=== PATIENT | male | born 1935 | race Hispanic/Latino ===

== ENCOUNTER 2017-09-05 10:24 | Inpatient (IN) | payer MEDICARE, MEDICAID ==
[2017-09-05 10:24] VITALS: BMI 27.1
--- NOTE | 2017-09-05 10:49 | C.PDOC ---
History Of Present Illness 82yo male, with history of AFib and currently on digoxin, referred to his ER from detention for hypotension for an unknown duration. Patient currently complaints of feeling dizzy. He also states he had hip pain last night and asked staff for pain killers, after which pain was resolved. He also reports "shaking" to his left arm and leg which has also resolved. Patient denies any chest pain, headache, loss of consciousness, nausea or vomiting. PER OLD RECS: AFib, DM2, HTN and CHF was admitted at [facility] because of left sided weakness and left upper extremity tremor. CT scan of the head showed Acute Right Subdural Hematoma with mass effect and midline shift. Neurosurgical consult were made and patient was sent to OR for right frontal craniotomy and evacuation of hematoma. Patient was sent to [facility] for continuation of therapy. While in acute rehab, patient had 2 episodes of focal seizures today. Patient was evaluated by Neuro team, and subsequently transferred to acute care for IV Keppra and close monitoring. Repeat CT Head showed mild increase in thickness of R frontoparietal subdural hematoma. Discussed with Neuro, patient to be transferred back to acute rehab Time Seen by Provider: 09/05/17 10:45 Chief Complaint (Nursing): Dizziness/Lightheaded History Per: Patient Onset/Duration Of Symptoms: Unknown Additional History Per: Penitentiary, Prior Records Past Medical History Reviewed: Historical Data, Nursing Documentation, Vital Signs Vital Signs: Last Vital Signs Temp 98.2 F 09/05/17 11:58 Pulse 113 H 09/05/17 11:58 Resp 28 H 09/05/17 11:58 BP 92/58 L 09/05/17 11:58 Pulse Ox 99 09/05/17 12:12 - Medical History PMH: Arthritis, Atrial Fibrillation, Cardia Arrhythmia (Atrial Fibrillation), CHF, COPD, Diabetes, Gastrointestinal Ulcer, HTN, Hypercholesterolemia, Peripheral Edema Denies: Depression, HIV, Chronic Kidney Disease Surgical History: Denies: Pacemaker - [facility] Procedures APPLICATION OF SPLINT (07/26/13) COLONOSCOPY (02/07/12) COMM/COGNIT SKILL TREATMENT USING AUGMENT COMM EQUIPMENT (08/17/17) DRAINAGE OF SUBDURAL SPACE WITH DRAIN DEV, OPEN APPROACH (08/11/17) DRESSING TECHNIQUES TREATMENT USING ASSIST EQUIPMENT (07/20/16) ENDOSC POLYPECTOMY OF LG INTEST (11/16/99) EXERCISE TREATMENT OF MUSCULOSK LOW BACK/LE USING OTH EQUIP (07/20/16) EXERCISE TRMT MUSCULOSK HEAD, NECK W ASSIST EQUIP (08/17/17) GAIT TRAINING/AMBULAT TREATMENT USING ASSIST EQUIPMENT (08/17/17) HOME MANAGEMENT TREATMENT USING ASSIST EQUIPMENT (08/17/17) INSERTION OF INTRALUM DEV INTO INF VENA CAVA, PERC APPROACH (08/17/17) OCCUPATIONAL THERAPY (09/09/13) PHYSICAL THERAPY NEC (09/09/13) TETANUS TOXOID ADMINIST (03/28/07) TRANSFER TRAINING TREATMENT USING ASSIST EQUIPMENT (07/20/16) TRANSFUSE NONAUT FROZEN PLASMA IN PERIPH VEIN, PERC (08/11/17) TRANSFUSE NONAUT PLATELETS IN PERIPH VEIN, PERC (08/11/17) TRANSURETHRAL PROSTATECTOMY ([place]) (04/29/14) TU DESTRUC BLADD LES NEC (08/08/13) Family History: States: Unknown Family Hx - Social History Hx Tobacco Use: No Hx Alcohol Use: No Hx Substance Use: No - Immunization History Hx Tetanus Toxoid Vaccination: No Hx Influenza Vaccination: No Hx Pneumococcal Vaccination: No Review Of Systems Except As Marked, All Systems Reviewed And Found Negative. Cardiovascular: Positive for: Other (hypotension per detention). Negative for: Chest Pain Gastrointestinal: Negative for: Nausea, Vomiting Neurological: Positive for: Dizziness. Negative for: Headache Physical Exam - Physical Exam Appears: Non-toxic, Other (mild distress) Skin: Normal Color, Warm, Dry, Other (no pressure ulcers noted) Head: Atraumatic, Normacephalic Eye(s): bilateral: Normal Inspection, PERRL, EOMI Nose: Normal Oral Mucosa: Moist Neck: Normal ROM, Supple Chest: Symmetrical Cardiovascular: Rhythm Irregular (irregularly irregular, tachycardic) Respiratory: Normal Breath Sounds Gastrointestinal/Abdominal: Normal Exam, Soft, No Tenderness Back: Normal Inspection Extremity: Normal ROM, No Deformity, No Swelling Pulses: Left Radial: Normal, Right Radial: Normal Neurological/Psych: Oriented x3, No Other (focal deficits) ED Course And Treatment - Laboratory Results Result Diagrams: 09/05/17 11:25 09/05/17 11:25 ECG: Interpreted By Me ECG Rhythm: Atrial Fibrillation ECG Interpretation: No Changes From Prior Rate From EC O2 Sat by Pulse Oximetry: 99 (RA) Pulse Ox Interpretation: Normal - Radiology CXR: Interpreted by Me, Viewed By Me CXR Interpretation: Yes: No Acute Disease Progress - Re-Evaluation Re-evaluation Note: 09/05/17 11:01 D/W DR FONSECA AWARE OF ER FINDINGS. STATES TO ADMIT TO DR BENTON, WILL NOTIFY HIM OF ADMISISON 09/05/17 11:52 AFEBRILE. BP IMPROVED IVF IN PROGRESS 09/05/17 11:58 CODE SEPSIS ACTIVATED. PENDING CALLBACK DR ALEMAN C/F ICU UO 500 CC S/P BOLUS 09/05/17 12:08 D/W DR ALEMAN C/F ICU , ACCEPTS FOR ICU 09/05/17 12:11 PER PHARMACOLOGY, NO CARDIZEM AVAIL 09/05/17 12:32 DR LOVE MARINELLI, WILL MANAGE RATE CONTROL. - Data Reviewed Data Reviewed: Lab, Diagnostic imaging, EKG, Old records - Critical Care Citical Care: Excluding Proc Time Critical Care Time: 120 minutes - Continuity of Care Discussed patient case with:: Patient, PMD Discussed pt. case with category consultant/specialty: Pulmonary/Crit. Care Medical Decision Making Medical Decision Making: Plan: -- Unable to bolus per sepsis protocol due to concern for CHF -- Labs -- CXR -- EKG -- IV Fluids Prior records: Patient had an echo on August 2017, noting normal LV, normal LVF, and moderate tricuspid regurge. Disposition Counseled Patient/Family Regarding: Studies Performed, Diagnosis - Disposition Disposition: HOSPITALIZED Disposition Time: 12:00 Condition: SERIOUS Forms: [facility] ([place]) - POA Present On Arrival: Poor Glycemic Control Core Measure Indicators: Code Sepsis - Clinical Impression Clinical Impression: Near syncope, Rapid atrial fibrillation, Hypotension, Sepsis - Scribe Statement The provider has reviewed the documentation as recorded by the Scribe (Sonia Fishman) Provider Attestation: All medical record entries made by the Scribe were at my direction and personally dictated by me. I have reviewed the chart and agree that the record accurately reflects my personal performance of the history, physical exam, medical decision making, and the department course for this patient. I have also personally directed, reviewed, and agree with the discharge instructions and disposition. Decision To Admit - Pt Status Changed To: Hospital Disposition Of: Inpatient - Admit Certification Admit to Inpatient:: After my assessment, the patient will require hospitalization for at least two midnights. This is because of the severity of symptoms shown, intensity of services needed, and/or the medical risk in this patient being treated as an outpatient. - InPatient: Physician Admission Certification: I certify that this patient requires 2 or more midnights of care for the following reason:: SEE NOTE - . Bed Request Type: ICU Admitting Physician: Navin Benton Patient Diagnosis: Near syncope, Rapid atrial fibrillation, Hypotension, Sepsis
[2017-09-05] MEDS ORDERED: Sodium Chloride 0.9% 500 ML IV ONE ×2 (11:02→12:22)
[2017-09-05] MEDS ORDERED: Sodium Chloride 0.9% 250 ML IV ONE ×2 (11:03→12:22)
[2017-09-05 11:29] LABS: HEMOGLOBIN 9.6 g/dL (12.0-18.0); MEAN CELL VOLUME 87.6 fL (80.0-94.0); MEAN CORPUSCULAR HEMOGLOBIN 28.8 pg (27.0-31.0); MEAN CORPUSCULAR HGB CONC 32.9 g/dL (33.0-37.0); MEAN PLATELET VOLUME 7.6 fL (7.2-11.7); NEUT % 90.4 % (50.0-75.0); PLATELET COUNT 763 K/uL (130-400); RBC 3.33 Mil/uL (4.40-5.90); RED CELL DISTRIBUTION WIDTH 16.8 % (11.5-14.5); WHITE BLOOD COUNT 25.1 K/uL (4.8-10.8)
[2017-09-05 11:30] LABS: BASO # 0.1 K/uL (0.0-0.2); BASO % 0.5 % (0.0-2.0); LYMPH # 1.2 K/uL (1.0-4.3); LYMPH % 4.6 % (20.0-40.0); MONO # 1.1 K/uL (0.0-0.8); MONO % 4.5 % (0.0-10.0); NEUT # 22.7 K/uL (1.8-7.0)
[2017-09-05 11:37] LABS: VENOUS BLOOD GAS BASE EXCESS -14.2 mmol/L (0.0-2.0); VENOUS BLOOD GAS PCO2 34 mmHg (40-60); VENOUS BLOOD GAS PO2 14 mm/Hg (30-55); VENOUS BLOOD PH 7.19 (7.32-7.43)
[2017-09-05 11:41] LABS: INR 1.2
[2017-09-05 11:53] LABS: ANISOCYTOSIS SLIGHT; BANDS 4 % (0-2); LARGE PLATELETS PRESENT; LYMPHOCYTE 2 % (20-40); MONOCYTE 5 % (0-10); MYELOCYTE 1 % (0-0); NEUTROPHIL 87 % (50-75); PLATELET ESTIMATE INCREASED (NORMAL); REACTIVE LYMPHOCYTES 1 % (0-0); TOTAL CELLS COUNTED 100
--- NOTE | 2017-09-05 11:55 | RAD ---
HISTORY: Sepsis Patient COMPARISON: No prior. FINDINGS: LUNGS: No active pulmonary disease. PLEURA: No significant pleural effusion identified, no pneumothorax apparent. CARDIOVASCULAR: Normal. OSSEOUS STRUCTURES: Degenerative changes. VISUALIZED UPPER ABDOMEN: Normal. OTHER FINDINGS: None. IMPRESSION: No active disease.
[2017-09-05] MEDS ORDERED: Piperacillin/Tazobact 3.375 gm 100 ML IV STA (11:57)
[2017-09-05 11:59] LABS: TROPONIN I 0.03 ng/mL (0.00-0.120)
[2017-09-05] MEDS ORDERED: Vancomycin 1 GM 1 GM/250 ML BAG IV SCH (12:00)
[2017-09-05] MEDS ORDERED: Metoprolol 1 mg/ml Inj IVP ONE ×2 (12:12→12:22)
[2017-09-05 12:15] LABS: SQUAMOUS EPITHIAL 1 /hpf (0-5); URINE BILIRUBIN NEGATIVE (NEGATIVE); URINE BLOOD NEGATIVE (NEGATIVE); URINE CLARITY Clear (Clear); URINE COLOR Straw (YELLOW); URINE GLUCOSE (UA) 2+ mg/dL (Normal); URINE LEUKOCYTE ESTERASE NEG Leu/uL (Negative); URINE PROTEIN NEGATIVE (NEGATIVE); URINE UROBILINOGEN NORMAL mg/dL (0.2-1.0)
--- NOTE | 2017-09-05 12:40 | CP.PCM.CON ---
<Nighat Juarez - Last Filed: 09/05/17 15:42> History of Present Illness - History of Present Illness History of Present Illness: ICU consult: Patient is a 82 year old male with past medical history of atrial fibrillation, diabetes mellitus, urinary retention with recent UTI, CKD, s/p Right frontal craniotomy for evacuation of subdural hematoma was sent to [facility] from the [facility]) for hypotension, BP 62/52. [facility] he was given 500 NS bolus and 20 units of insulin for blood sugar of 336. Upon arrival patient was complaining that he felt dizzy. While in the ICU patient states that he feels tired, reports that he did not sleep well last night. Offers no other complaints at this time. Code sepsis was called in the ER. Patient was found to have lactate 3.5, WBC 25. Admits to having back pain and feels cold. He denies any headaches, nausea/vomiting, fevers, chest pain, palpitations, sob, abdominal pain, urinary symptoms. ED course: Vancomycin 1 gm, Zosyn 3.375, NS bolus 750cc, calcium gluconate x 1 dose Allergies: NKDA Medications: See MAR Medical History: A fib, diabetes mellitus, urinary retention, CKD, COPD Surgical History: Left Knee surgery, Right frontal craniotomy for evacuation of subdural hematoma (08/19/17), IVC filter (08/27/17), prostate surgery Social History: Former smoker, denies alcohol, drug use Past Patient History - Infectious Disease Hx of Infectious Diseases: None - Tetanus Immunizations Tetanus Immunization: Unknown - Past Social History Smoking Status: Never Smoked - CARDIAC Hx Atrial Fibrillation: Yes Hx Cardia Arrhythmia: Yes (Atrial Fibrillation) Hx Congestive Heart Failure: Yes Hx Hypercholesterolemia: Yes Hx Hypertension: Yes Hx Pacemaker: No Hx Peripheral Edema: Yes - PULMONARY Hx Chronic Obstructive Pulmonary Disease (COPD): Yes - NEUROLOGICAL Hx Neurological Disorder: No - HEENT Hx HEENT Problems: No - RENAL Hx Chronic Kidney Disease: No - ENDOCRINE/METABOLIC Hx Endocrine Disorders: Yes Hx Diabetes Mellitus Type 2: Yes - HEMATOLOGICAL/ONCOLOGICAL Hx Human Immunodeficiency Virus (HIV): No - INTEGUMENTARY Hx Dermatological Problems: No - MUSCULOSKELETAL/RHEUMATOLOGICAL Hx Arthritis: Yes - GASTROINTESTINAL Hx Gastrointestinal Disorders: Yes Hx Gastroesophageal Reflux: Yes - GENITOURINARY/GYNECOLOGICAL Hx Genitourinary Disorders: Yes Other/Comment: prostate sx - PSYCHIATRIC Hx Depression: No Hx Substance Use: No - SURGICAL HISTORY Hx Surgeries: Yes Other/Comment: PROSTATE - ANESTHESIA Hx Anesthesia Reactions: No Hx Malignant Hyperthermia: No Meds Allergies/Adverse Reactions: Allergies Allergy/AdvReac Type Severity Reaction Status Date / Time No Known Allergies Allergy Verified 09/05/17 10:47 - Medications Medications: Current Medications Vancomycin/Sodium Chloride (Vancomycin 1 Gm/Ns 200 Ml) 1 gm in 200 mls @ 166.667 mls/hr IVPB ONCE ONE PRN Reason: Protocol Stop: 09/05/17 14:11 Physical Exam - Constitutional Appears: Well, No Acute Distress, Chronically Ill - Head Exam Head Exam: ATRAUMATIC, NORMAL INSPECTION, NORMOCEPHALIC - Eye Exam Eye Exam: EOMI, Normal appearance Pupil Exam: PERRL - ENT Exam ENT Exam: Mucous Membranes Dry - Respiratory Exam Respiratory Exam: Clear to Auscultation Bilateral, NORMAL BREATHING PATTERN. absent: Rales, Rhonchi, Wheezes - Cardiovascular Exam Cardiovascular Exam: Irregular Rhythm, +S1, +S2 - GI/Abdominal Exam GI & Abdominal Exam: Normal Bowel Sounds, Soft. absent: Guarding, Rebound, Rigid, Tenderness - Extremities Exam Extremities exam: Positive for: pedal edema, pedal pulses present Additional comments: +Bilateral stockings - Neurological Exam Neurological exam: Alert - Psychiatric Exam Psychiatric exam: Normal Affect, Normal Mood - Skin Skin Exam: Dry, Normal Color, Warm Results - Vital Signs Recent Vital Signs: Last Vital Signs Temp 98.2 F 09/05/17 11:58 Pulse 113 H 09/05/17 11:58 Resp 28 H 09/05/17 11:58 BP 92/58 L 09/05/17 11:58 Pulse Ox 99 09/05/17 12:32 - Labs Result Diagrams: 09/05/17 11:25 09/05/17 12:26 Labs: Laboratory Results - last 24 hr 09/05/17 09/05/17 09/05/17 10:43 11:25 11:25 WBC 25.1 H RBC 3.33 L Hgb 9.6 L Hct 29.2 L MCV 87.6 MCH 28.8 MCHC 32.9 L RDW 16.8 H Plt Count 763 H MPV 7.6 Neut % (Auto) 90.4 H Lymph % (Auto) 4.6 L Spencer % (Auto) 4.5 Eos % (Auto) 0.0 Baso % (Auto) 0.5 Neut # (Auto) 22.7 H Lymph # (Auto) 1.2 Spencer # (Auto) 1.1 H Eos # (Auto) 0.0 Baso # (Auto) 0.1 Neutrophils % (Manual) 87 H Band Neutrophils % 4 H Lymphocytes % (Manual) 2 L Reactive Lymphs % 1 H Monocytes % (Manual) 5 Myelocytes % 1 H Platelet Estimate Increased H Large Platelets Present Anisocytosis (manual) Slight PT 13.0 H INR 1.2 APTT 31 pO2 VBG pH VBG pCO2 VBG HCO3 VBG Total CO2 VBG O2 Sat (Calc) VBG Base Excess VBG Potassium Glucose Lactate Crit Value Called To Crit Value Called By Crit Value Read Back Blood Gas Notified Time Sodium Potassium Chloride Carbon Dioxide Anion Gap BUN Est GFR ( Amer) Est GFR (Non-Af Amer) POC Glucose (mg/dL) 310 H Random Glucose Calcium Phosphorus Magnesium Total Bilirubin AST ALT Alkaline Phosphatase Troponin I NT-Pro-B Natriuret Pep Total Protein Albumin Globulin Albumin/Globulin Ratio Venous Blood Potassium Urine Color Urine Clarity Urine pH Ur Specific [place] Urine Protein Urine Glucose (UA) Urine Ketones Urine Blood Urine Nitrate Urine Bilirubin Urine Urobilinogen Ur Leukocyte Esterase Urine WBC (Auto) Urine RBC (Auto) Ur Squamous Epith Cells Digoxin 09/05/17 09/05/17 09/05/17 11:25 11:25 11:32 WBC RBC Hgb Hct MCV MCH MCHC RDW Plt Count MPV Neut % (Auto) Lymph % (Auto) Spencer % (Auto) Eos % (Auto) Baso % (Auto) Neut # (Auto) Lymph # (Auto) Spencer # (Auto) Eos # (Auto) Baso # (Auto) Neutrophils % (Manual) Band Neutrophils % Lymphocytes % (Manual) Reactive Lymphs % Monocytes % (Manual) Myelocytes % Platelet Estimate Large Platelets Anisocytosis (manual) PT INR APTT pO2 14 L VBG pH 7.19 L* VBG pCO2 34 L VBG HCO3 11.5 VBG Total CO2 14.0 L VBG O2 Sat (Calc) 18.9 L VBG Base Excess -14.2 L VBG Potassium 6.4 H* Glucose 325 H Lactate 3.5 H Crit Value Called To Dr.ho adame Crit Value Called By Shelton machado,alex. Crit Value Read Back Y Blood Gas Notified Time 1145 Sodium Cancelled 130.0 L Potassium Cancelled Chloride Cancelled 98.0 Carbon Dioxide Cancelled Anion Gap Cancelled BUN Cancelled Est GFR ( Amer) Cancelled Est GFR (Non-Af Amer) Cancelled POC Glucose (mg/dL) Random Glucose Cancelled Calcium Cancelled Phosphorus Cancelled Magnesium Cancelled Total Bilirubin Cancelled AST Cancelled ALT Cancelled Alkaline Phosphatase Cancelled Troponin I 0.0300 NT-Pro-B Natriuret Pep 5510 H Total Protein Cancelled Albumin Cancelled Globulin Cancelled Albumin/Globulin Ratio Cancelled Venous Blood Potassium 6.4 H* Urine Color Urine Clarity Urine pH Ur Specific [place] Urine Protein Urine Glucose (UA) Urine Ketones Urine Blood Urine Nitrate Urine Bilirubin Urine Urobilinogen Ur Leukocyte Esterase Urine WBC (Auto) Urine RBC (Auto) Ur Squamous Epith Cells Digoxin 1.4 09/05/17 12:07 WBC RBC Hgb Hct MCV MCH MCHC RDW Plt Count MPV Neut % (Auto) Lymph % (Auto) Spencer % (Auto) Eos % (Auto) Baso % (Auto) Neut # (Auto) Lymph # (Auto) Spencer # (Auto) Eos # (Auto) Baso # (Auto) Neutrophils % (Manual) Band Neutrophils % Lymphocytes % (Manual) Reactive Lymphs % Monocytes % (Manual) Myelocytes % Platelet Estimate Large Platelets Anisocytosis (manual) PT INR APTT pO2 VBG pH VBG pCO2 VBG HCO3 VBG Total CO2 VBG O2 Sat (Calc) VBG Base Excess VBG Potassium Glucose Lactate Crit Value Called To Crit Value Called By Crit Value Read Back Blood Gas Notified Time Sodium Potassium Chloride Carbon Dioxide Anion Gap BUN Est GFR ( Amer) Est GFR (Non-Af Amer) POC Glucose (mg/dL) Random Glucose Calcium Phosphorus Magnesium Total Bilirubin AST ALT Alkaline Phosphatase Troponin I NT-Pro-B Natriuret Pep Total Protein Albumin Globulin Albumin/Globulin Ratio Venous Blood Potassium Urine Color Straw Urine Clarity Clear Urine pH 5.0 Ur Specific [place] 1.008 Urine Protein Negative Urine Glucose (UA) 2+ H Urine Ketones Negative Urine Blood Negative Urine Nitrate Negative Urine Bilirubin Negative Urine Urobilinogen Normal Ur Leukocyte Esterase Neg Urine WBC (Auto) 1 Urine RBC (Auto) 1 Ur Squamous Epith Cells 1 Digoxin Assessment & Plan - Assessment and Plan (Free Text) Assessment: Patient is a 82 year old male with past medical history of atrial fibrillation, B/L DVT s/p IVC filter, recent subdural hematoma s/p craniotomy with evacuation presents to [facility] from [facility] ([facility]) with hypotension. Code sepsis called in the ER. Patient admitted to the ICU for further management Neurology: -Patient is a AAOx2 (not to time) -S/P right frontal craniotomy with evacuation -Reports feeling dizzy today, likely due to hypotension -Last CT head 08/22 showed diminishing right convexity subdural hematoma with limited mass effect. Leftward midline shift is further reduced now only 1-2mm with no definite intracrancial hemorrhage appearing acute at this time. Chronic lacune again noted at the right optic radiations. -Will repeat CT head today -Will continue to monitor in ICU Cardiology: -History of atrial fibrillation, on digoxin at home -Digoxin level 1.4, HR 120s -EKG showing afib with RVR -Will give Digoxin 0.125mg IVP x 1 dose now -Hypotensive: will give 1 L bolus of NS -Will hold metoprolol and lasix at this time -Last echo: LV normal size, mild concentric L ventricular hypertrophy, moderate tricuspid regurgitation Respiratory: -Supplemental O2 as needed -CXR on admission: no active disease -VBG: pH 7.17, PO2 15, PCO2 34 -Patient is acidotic, was given 1 amp of bicarb -Continue Bicarb drip in NS at 75cc/hr -Will repeat ABG later today Endocrine: -History of Diabetes Mellitus -Hgba1c 9.9 -Low dose ISS, accuchecks ACHS GI: -No acute issues at this time -Continue Protonix 40mg IVP daily Infectious Disease: -Patient was recently treated for UTI -Will given 1 bolus of NS -UA: +2 glucose -F/U urine cultures, blood cultures, procalcitonin -Trend lactate -Code sepsis called in ER Renal: -Patient with history of CKD -Currently with acute on chronic CKD -BUN/Cr: 52/4.6, baseline Cr 2.0 -Potassium 6.5, received calcium gluconate -Will give kayexylate 30 x 1 dose -Repeat CMP later today -Continue IV hydration -Renal US 08/3017: unremarkable -Strict I/Os, daily weights -Nephro on consult, help appreciated Heme/Onc: -Patient with history of provoked bilateral DVTs -Was seen by Dr Tierney -S/P IVC filter placement 08/27/17 -SCDs contraindicated -Hgb 9.6, baseline 10-11 -No acute signs of bleeding at this time, will monitor serial CBCs -Hold Iron supplementation 2/ sepsis Musculoskeletal: -Ultram 50mg PO x 1 given for back pain -Lumbar MRI 08/2017: Levoscoliosis with multilevel severe degenerative disc disease and spondylosis with multilevel central canal and bilateral foraminal stenoses : -History of urinary retention, prostate surgery -Ellis in draining clear yellow urine -On oxybutynin and flomax at home -Will hold at time in light of hypotension GI/DVT ppx: -Protonix 40mg IVP daily -Heparin 3000 Q12H (previously on same dose) <Michael Patel - Last Filed: 09/05/17 16:22> Meds - Medications Medications: Current Medications Heparin Sodium (Porcine) (Heparin) 3,000 units SC Q12 [facility] Sodium Bicarbonate 100 meq/ (Sodium Chloride) 1,100 mls @ 75 mls/hr IV .[id number] [facility] Last Admin: 09/05/17 15:28 Dose: 75 mls/hr Insulin Aspart (Novolog) 0 unit SC Q6H [facility] PRN Reason: Protocol Last Admin: 09/05/17 14:05 Dose: 4 unit Levetiracetam (Keppra) 500 mg PO Q12 [facility] Pantoprazole Sodium (Protonix Inj) 40 mg IVP DAILY [facility] Results - Vital Signs Recent Vital Signs: Last Vital Signs Temp 98.2 F 09/05/17 13:00 Pulse 108 H 09/05/17 13:27 Resp 18 09/05/17 13:27 BP 94/58 L 09/05/17 13:27 Pulse Ox 98 09/05/17 13:27 - Labs Result Diagrams: 09/05/17 11:25 09/05/17 12:26 Labs: Laboratory Results - last 24 hr 09/05/17 09/05/17 09/05/17 10:43 11:25 11:25 WBC 25.1 H RBC 3.33 L Hgb 9.6 L Hct 29.2 L MCV 87.6 MCH 28.8 MCHC 32.9 L RDW 16.8 H Plt Count 763 H MPV 7.6 Neut % (Auto) 90.4 H Lymph % (Auto) 4.6 L Spencer % (Auto) 4.5 Eos % (Auto) 0.0 Baso % (Auto) 0.5 Neut # (Auto) 22.7 H Lymph # (Auto) 1.2 Spencer # (Auto) 1.1 H Eos # (Auto) 0.0 Baso # (Auto) 0.1 Neutrophils % (Manual) 87 H Band Neutrophils % 4 H Lymphocytes % (Manual) 2 L Reactive Lymphs % 1 H Monocytes % (Manual) 5 Myelocytes % 1 H Platelet Estimate Increased H Large Platelets Present Anisocytosis (manual) Slight PT 13.0 H INR 1.2 APTT 31 pO2 VBG pH VBG pCO2 VBG HCO3 VBG Total CO2 VBG O2 Sat (Calc) VBG Base Excess VBG Potassium Glucose Lactate Crit Value Called To Crit Value Called By Crit Value Read Back Blood Gas Notified Time Sodium Potassium Chloride Carbon Dioxide Anion Gap BUN Creatinine Est GFR ( Amer) Est GFR (Non-Af Amer) POC Glucose (mg/dL) 310 H Random Glucose Calcium Phosphorus Magnesium Total Bilirubin AST ALT Alkaline Phosphatase Troponin I NT-Pro-B Natriuret Pep Total Protein Albumin Globulin Albumin/Globulin Ratio Venous Blood Potassium Urine Color Urine Clarity Urine pH Ur Specific [place] Urine Protein Urine Glucose (UA) Urine Ketones Urine Blood Urine Nitrate Urine Bilirubin Urine Urobilinogen Ur Leukocyte Esterase Urine WBC (Auto) Urine RBC (Auto) Ur Squamous Epith Cells Digoxin 09/05/17 09/05/17 09/05/17 11:25 11:25 11:32 WBC RBC Hgb Hct MCV MCH MCHC RDW Plt Count MPV Neut % (Auto) Lymph % (Auto) [place] % (Auto) Eos % (Auto) Baso % (Auto) Neut # (Auto) Lymph # (Auto) Spencer # (Auto) Eos # (Auto) Baso # (Auto) Neutrophils % (Manual) Band Neutrophils % Lymphocytes % (Manual) Reactive Lymphs % Monocytes % (Manual) Myelocytes % Platelet Estimate Large Platelets Anisocytosis (manual) PT INR APTT pO2 14 L VBG pH 7.19 L* VBG pCO2 34 L VBG HCO3 11.5 VBG Total CO2 14.0 L VBG O2 Sat (Calc) 18.9 L VBG Base Excess -14.2 L VBG Potassium 6.4 H* Glucose 325 H Lactate 3.5 H Crit Value Called To Dr.ho adame Crit Value Called By Shelton machado,cloth cutting machine operator. Crit Value Read Back Y Blood Gas Notified Time 1145 Sodium Cancelled 130.0 L Potassium Cancelled Chloride Cancelled 98.0 Carbon Dioxide Cancelled Anion Gap Cancelled BUN Cancelled Creatinine Est GFR ( Amer) Cancelled Est GFR (Non-Af Amer) Cancelled POC Glucose (mg/dL) Random Glucose Cancelled Calcium Cancelled Phosphorus Cancelled Magnesium Cancelled Total Bilirubin Cancelled AST Cancelled ALT Cancelled Alkaline Phosphatase Cancelled Troponin I 0.0300 NT-Pro-B Natriuret Pep 5510 H Total Protein Cancelled Albumin Cancelled Globulin Cancelled Albumin/Globulin Ratio Cancelled Venous Blood Potassium 6.4 H* Urine Color Urine Clarity Urine pH Ur Specific [place] Urine Protein Urine Glucose (UA) Urine Ketones Urine Blood Urine Nitrate Urine Bilirubin Urine Urobilinogen Ur Leukocyte Esterase Urine WBC (Auto) Urine RBC (Auto) Ur Squamous Epith Cells Digoxin 1.4 09/05/17 09/05/17 09/05/17 12:07 12:26 13:28 WBC RBC Hgb Hct MCV MCH MCHC RDW Plt Count MPV Neut % (Auto) Lymph % (Auto) [place] % (Auto) Eos % (Auto) Baso % (Auto) Neut # (Auto) Lymph # (Auto) [place] # (Auto) Eos # (Auto) Baso # (Auto) Neutrophils % (Manual) Band Neutrophils % Lymphocytes % (Manual) Reactive Lymphs % Monocytes % (Manual) Myelocytes % Platelet Estimate Large Platelets Anisocytosis (manual) PT INR APTT pO2 15 L VBG pH 7.17 L* VBG pCO2 34 L VBG HCO3 10.8 VBG Total CO2 13.4 L VBG O2 Sat (Calc) 20.8 L VBG Base Excess -15.1 L VBG Potassium 5.9 H Glucose 289 H Lactate 3.2 H Crit Value Called To Dr patel Crit Value Called By Chantale boudreaux cloth cutting machine operator Crit Value Read Back Y Blood Gas Notified Time 1335 Sodium 132 131.0 L Potassium 6.5 H* Chloride 100 101.0 Carbon Dioxide 13 L Anion Gap 25 H BUN 52 H Creatinine 4.6 H Est GFR ( Amer) 15 Est GFR (Non-Af Amer) 12 POC Glucose (mg/dL) Random Glucose 308 H Calcium 8.2 L Phosphorus 8.6 H Magnesium 2.0 Total Bilirubin 0.9 AST 36 ALT 39 Alkaline Phosphatase 132 H D Troponin I 0.0260 NT-Pro-B Natriuret Pep 4800 H Total Protein 7.8 Albumin 3.4 L Globulin 4.4 H Albumin/Globulin Ratio 0.8 L Venous Blood Potassium 5.9 H Urine Color Straw Urine Clarity Clear Urine pH 5.0 Ur Specific [place] 1.008 Urine Protein Negative Urine Glucose (UA) 2+ H Urine Ketones Negative Urine Blood Negative Urine Nitrate Negative Urine Bilirubin Negative Urine Urobilinogen Normal Ur Leukocyte Esterase Neg Urine WBC (Auto) 1 Urine RBC (Auto) 1 Ur Squamous Epith Cells 1 Digoxin 09/05/17 16:13 WBC RBC Hgb Hct MCV MCH MCHC RDW Plt Count MPV Neut % (Auto) Lymph % (Auto) [place] % (Auto) Eos % (Auto) Baso % (Auto) Neut # (Auto) Lymph # (Auto) [place] # (Auto) Eos # (Auto) Baso # (Auto) Neutrophils % (Manual) Band Neutrophils % Lymphocytes % (Manual) Reactive Lymphs % Monocytes % (Manual) Myelocytes % Platelet Estimate Large Platelets Anisocytosis (manual) PT INR APTT pO2 VBG pH VBG pCO2 VBG HCO3 VBG Total CO2 VBG O2 Sat (Calc) VBG Base Excess VBG Potassium Glucose Lactate Crit Value Called To Crit Value Called By Crit Value Read Back Blood Gas Notified Time Sodium Potassium Chloride Carbon Dioxide Anion Gap BUN Creatinine Est GFR ( Amer) Est GFR (Non-Af Amer) POC Glucose (mg/dL) 225 H Random Glucose Calcium Phosphorus Magnesium Total Bilirubin AST ALT Alkaline Phosphatase Troponin I NT-Pro-B Natriuret Pep Total Protein Albumin Globulin Albumin/Globulin Ratio Venous Blood Potassium Urine Color Urine Clarity Urine pH Ur Specific [place] Urine Protein Urine Glucose (UA) Urine Ketones Urine Blood Urine Nitrate Urine Bilirubin Urine Urobilinogen Ur Leukocyte Esterase Urine WBC (Auto) Urine RBC (Auto) Ur Squamous Epith Cells Digoxin Attending/Attestation - Attestation I have personally seen and examined this patient.: Yes I have fully participated in the care of the patient.: Yes I have reviewed all pertinent clinical information: Yes Notes (Text): 09/05/17 16:17 patient seen and examined 82-year-old [facility] .S/P code sepsis and started on IV antibiotics and fluids Patient recently treated for urinary tract infection Follow-up culture and sensitivity Follow-up intake and output Patient also acute on chronic renal failure Monitor lactate level and PH CAT scan of the head for dizziness
[2017-09-05 12:53] LABS: ALB/GLOB RATIO 0.8 (1.0-2.1); ALBUMIN 3.4 g/dL (3.5-5.0); CALCIUM 8.2 mg/dl (8.6-10.4); TROPONIN I 0.026 ng/mL (0.00-0.120)
[2017-09-05] MEDS ORDERED: Calcium Gluconate 4.65 mEq/10 ml Inj ONE (12:57)
[2017-09-05] MEDS ORDERED: Vancomycin 1 gm/NS 200 ml 1 GM/200 ML BAG IVPB ONE (13:00)
[2017-09-05 13:32] LABS: VENOUS BLOOD GAS BASE EXCESS -15.1 mmol/L (0.0-2.0); VENOUS BLOOD GAS PCO2 34 mmHg (40-60); VENOUS BLOOD GAS PO2 15 mm/Hg (30-55); VENOUS BLOOD PH 7.17 (7.32-7.43)
[2017-09-05] MEDS ORDERED: Sodium Chloride 0.9% 1,000 ML IV ONE ×3 (13:39→20:49)
[2017-09-05] MEDS ORDERED: (Novolog) Insulin Aspart, Recombinant 100 u/ml 10 ml vial SC SCH (13:45)
[2017-09-05] MEDS: Sodium Bicarbonate (8.4%) 50 Meq Syringe IVP ONE ×2 (14:02→15:31)
[2017-09-05] MEDS ORDERED: Digoxin 500 mcg/2ml (0.5 mg/2ml) Inj IVP ONE (15:00)
[2017-09-05] MEDS ORDERED: Sod Polystyrene Sulf 15 gm/60 ml Susp PO ONE ×2 (15:16→20:47)
[2017-09-05] MEDS ORDERED: Piperacillin/Tazobact 3.375 GM in Sodium Chloride 100 ML IVPB SCH (16:45)
--- NOTE | 2017-09-05 16:55 | PCM.SEPTIC ---
Sepsis Progress Note - Reassessment Type Date of Evaluation: 09/05/17 Time of Evaluation: 16:54 Reassessment Type: Non-invasive reassessment - Non Invasive Reassessment Were the most recent vital sign reviewed: Yes Vital Sign (Latest): Temp Pulse Resp BP Pulse Ox 98.2 F 114 H 18 97/62 L 85 L 09/05/17 13:00 09/05/17 16:20 09/05/17 16:20 09/05/17 16:17 09/05/17 16:20 Cardiovascular: Yes: Tachycardia, Irregularly Irregular Respiratory: Yes: Decreased Breath Sounds. No: Accessory Muscle Use, Rales, Rhonchi, Wheezing, Respiratory Distress Capillary Refill: Normal (Less than 2 sec) Pulses: Normal Dorsalis Pedis Skin: Warm, Dry, Pale - Invasive Reassessment (complete 2 of 4) Was a Central Venous Pressure Measurement obtained within 6 Hours after the presentation of septic shock: No Was a central venous oxygen measurement obtained within 6 hours after the presentation of septic shock: No Was a bedside cardiovascular ultrasound performed within 6 hours after the presentation of septic shock: No Was a passive leg raise performed or was a fluid challenge performed within 6 hrs of the initial fluid bolus: Yes Passive Leg Raise Result: Not Applicable Fluid Challenge performed: Yes
--- NOTE | 2017-09-05 18:06 | CT ---
PROCEDURE: CT scan brain dated 09/05/2017. HISTORY: History of evacuation subdural hematoma. COMPARISON: No prior study available comparison TECHNIQUE: Axial computed tomography images were obtained through the head/brain without intravenous contrast. Radiation dose: Total exam DLP = 2147.1 mGy-cm. This CT exam was performed using one or more of the following dose reduction techniques: Automated exposure control, adjustment of the mA and/or kV according to patient size, and/or use of iterative reconstruction technique. FINDINGS: HEMORRHAGE: Current study reveals some residual small mixed attenuation subdural collection which overlies the right frontoparietal and superior temporal regions. . The collection probably represents a combination of chronic subdural blood granulation tissue membrane and some residual subacute hemorrhage. The elliptical shaped hypodense focus that could represent tiny residual bubble of air subjacent to the craniotomy defect. The collection exerts minimal of mass-effect with mild compression of subjacent sulci. BRAIN: There appears to be mild chronic periventricular white matter ischemic changes with more discrete chronic infarct in the right superior gibbs radiata- centrum semiovale junction. Moderate atrophy which appears somewhat more central evidenced by disproportionate enlargement of the ventricles as compared the sulci. VENTRICLES: No obstructive hydrocephalus CALVARIUM: There is a right anterior superior craniotomy defect. . PARANASAL SINUSES: Unremarkable as visualized. No significant inflammatory changes. MASTOID AIR CELLS: Unremarkable as visualized. No inflammatory changes. OTHER FINDINGS: None. IMPRESSION: Right anterior superior parietal craniotomy defect. There is small residual extra-axial collection that probably represents a combination of residual hyperdense chronic subdural blood admixed with membrane formation and some subacute blood. . The collection exerts minimal on mass-effect on subjacent sulci however no significant midline shift. Chronic white matter ischemic changes with more discrete chronic infarct in the right superior gibbs radiata- centrum semiovale junction. Findings discussed with ICU resident Larry at approximately 5:45 p.m. with written down and read back verification. . .
[2017-09-05] MEDS: Piperacill/Tazo 2.25gm in Dex 2.25 GM/50 ML BAG IVPB SCH (19:33)
[2017-09-05 19:55] LABS: ABG ALLEN TEST POS; ARTERIAL BLOOD GAS HCO3 13.5 mmol/L (21-28); ARTERIAL BLOOD GAS O2 SAT 100.2 % (95-98); ARTERIAL BLOOD GAS PCO2 20 mm/Hg (35-45); ARTERIAL BLOOD GAS PH 7.29 (7.35-7.45); ARTERIAL BLOOD GAS PO2 124 mm/Hg (80-100); ARTERIAL BLOOD GAS TCO2 10.2 mmol/L (22-28)
[2017-09-05 20:15] LABS: ALB/GLOB RATIO 0.8 (1.0-2.1); ALBUMIN 3.2 g/dL (3.5-5.0); CALCIUM 8.1 mg/dl (8.6-10.4)
[2017-09-05] MEDS ORDERED: Calcium Gluconate 4.65 mEq/10 ml Inj IVP ONE (20:48)
[2017-09-05] MEDS: (Novolog) Insulin Aspart, Recombinant 100 u/ml 10 ml vial SC SCH (21:16)
--- NOTE | 2017-09-05 22:56 | CP.PCM.HP ---
History of Present Illness - History of Present Illness History of Present Illness: CC: dizziness, shortness of breath, low blood pressure HPI: Patient is a 82 year old male with past medical history of atrial fibrillation, diabetes mellitus, urinary retention with recent UTI, CKD, s/p Right frontal craniotomy for evacuation of subdural hematoma was sent to [facility] from [facility]) for hypotension, BP 62/52. While in the intermediate he was given 500 NS bolus and 20 units of insulin for blood sugar of 336. Upon arrival patient was complaining that he felt dizzy. While in the ICU patient states that he feels tired, reports that he did not sleep well last night. Offers no other complaints at this time. Code sepsis was called in the ER. Patient was found to have lactate 3.5, WBC 25. Admits to having back pain and feels cold. He denies any headaches, nausea/vomiting, fevers, chest pain, palpitations, sob, abdominal pain, urinary symptoms. ED course: Vancomycin 1 gm, Zosyn 3.375, NS bolus 750cc, calcium gluconate x 1 dose Allergies: NKDA Medications: See MAR Medical History: A fib, diabetes mellitus, urinary retention, CKD, COPD Surgical History: Left Knee surgery, Right frontal craniotomy for evacuation of subdural hematoma (08/19/17), IVC filter (08/27/17), prostate surgery Social History: Former smoker, denies alcohol, drug use Present on Admission - Present on Admission Any Indicators Present on Admission: Yes Review of Systems - Review of Systems Systems not reviewed;Unavailable: Unstable Vital Signs, Respiratory Distress - Constitutional Constitutional: Chills, Fatigue, Lethargy, Malaise, Weakness - EENT Eyes: absent: As Per HPI, Blind Spots, Blurred Vision, Change in Vision, Decreased Night Vision, Diplopia, Discharge, Dry Eye, Exophthalmos, Floaters, Irritation, Itchy Eyes, Loss of Peripheral Vision, Pain, Photophobia, Requires Corrective Lenses, Sees Flashes, Spots in Vision, Tunnel Vision, Other Visual Disturbances, Loss of Vision, Other Nose/Mouth/Throat: absent: As Per HPI, Epistaxis, Nasal Congestion, Nasal Discharge, Nasal Obstruction, Nasal Trauma, Nose Pain, Post Nasal Drip, Sinus Pain, Sinus Pressure, Bleeding Gums, Change in Voice, Dental Pain, Dry Mouth, Dysphagia, Halitosis, Hoarsness, Lip Swelling, Mouth Lesions, Mouth Pain, Odynophagia, Sore Throat, Throat Swelling, Tongue Swelling, Facial Pain, Neck Pain, Neck Mass, Other - Cardiovascular Cardiovascular: Dyspnea, Dyspnea on Exertion, Rapid Heart Rate. absent: As Per HPI, Acrocyanosis, Chest Pain, Chest Pain at Rest, Chest Pain with Activity, Claudication, Diaphoresis, Edema, Irregular Heart Rhythm, Pain Radiating to Arm/ Neck/Jaw, Leg Edema, Leg Ulcers, Lightheadedness, Orthopnea, Palpitations, Paroxysmal Nocturnal Dyspnea, Pedal Edema, Radiating Pain, Slow Heart Rate, Syncope, Other - Respiratory Respiratory: Dyspnea. absent: As Per HPI, Cough, Hemoptysis, Dyspnea on Exertion, Wheezing, Snoring, Stridor, Pain on Inspiration, Chest Congestion, Excessive Mucous Production, Change in Mucous Color, Pain with Coughing, Other - Gastrointestinal Gastrointestinal: absent: As Per HPI, Abdominal Pain, Belching, Bloating, Change in Bowel Habits, Change in Stool Character, Coffee Ground Emesis, Constipation, Cramping, Diarrhea, Dyspepsia, Dysphagia, Early Satiety, Excessive Flatus, Fecal Incontinence, Heartburn, Hematemesis, Hematochezia, Loose Stools, Melena, Nausea, Odynophagia, Temesmus, Vomiting, Other Past Patient History - Infectious Disease Hx of Infectious Diseases: None - Tetanus Immunizations Tetanus Immunization: Unknown - Past Medical History & Family History Past Medical History?: Yes - Past Social History Smoking Status: Never Smoked - CARDIAC Hx Atrial Fibrillation: Yes Hx Cardia Arrhythmia: Yes (Atrial Fibrillation) Hx Congestive Heart Failure: Yes Hx Hypercholesterolemia: Yes Hx Hypertension: Yes Hx Pacemaker: No Hx Peripheral Edema: Yes - PULMONARY Hx Chronic Obstructive Pulmonary Disease (COPD): Yes - NEUROLOGICAL Hx Neurological Disorder: No - HEENT Hx HEENT Problems: No - RENAL Hx Chronic Kidney Disease: No - ENDOCRINE/METABOLIC Hx Endocrine Disorders: Yes Hx Diabetes Mellitus Type 2: Yes - HEMATOLOGICAL/ONCOLOGICAL Hx Human Immunodeficiency Virus (HIV): No - INTEGUMENTARY Hx Dermatological Problems: No - MUSCULOSKELETAL/RHEUMATOLOGICAL Hx Arthritis: Yes - GASTROINTESTINAL Hx Gastrointestinal Disorders: Yes Hx Gastroesophageal Reflux: Yes - GENITOURINARY/GYNECOLOGICAL Hx Genitourinary Disorders: Yes Other/Comment: prostate sx - PSYCHIATRIC Hx Depression: No Hx Substance Use: No - SURGICAL HISTORY Hx Surgeries: Yes Other/Comment: PROSTATE - ANESTHESIA Hx Anesthesia Reactions: No Hx Malignant Hyperthermia: No Meds Allergies/Adverse Reactions: Allergies Allergy/AdvReac Type Severity Reaction Status Date / Time No Known Allergies Allergy Verified 09/05/17 10:47 Physical Exam - Constitutional Appears: In Acute Distress, Chronically Ill - Head Exam Head Exam: ATRAUMATIC, NORMAL INSPECTION, NORMOCEPHALIC - Eye Exam Eye Exam: EOMI, Normal appearance, PERRL Pupil Exam: NORMAL ACCOMODATION, PERRL - Respiratory Exam Respiratory Exam: Decreased Breath Sounds - Cardiovascular Exam Cardiovascular Exam: Irregular Rhythm, +S1, +S2 - GI/Abdominal Exam GI & Abdominal Exam: Normal Bowel Sounds, Soft. absent: Tenderness Results - Vital Signs Recent Vital Signs: Last Vital Signs Temp 98.7 F 09/05/17 20:00 Pulse 123 H 09/05/17 22:00 Resp 28 H 09/05/17 22:00 BP 80/52 L 09/05/17 22:03 Pulse Ox 94 L 09/05/17 22:00 - Labs Result Diagrams: 09/05/17 11:25 09/05/17 19:55 Labs: Laboratory Results - last 24 hr 09/05/17 09/05/17 09/05/17 10:43 11:25 11:25 WBC 25.1 H RBC 3.33 L Hgb 9.6 L Hct 29.2 L MCV 87.6 MCH 28.8 MCHC 32.9 L RDW 16.8 H Plt Count 763 H MPV 7.6 Neut % (Auto) 90.4 H Lymph % (Auto) 4.6 L Kay % (Auto) 4.5 Eos % (Auto) 0.0 Baso % (Auto) 0.5 Neut # (Auto) 22.7 H Lymph # (Auto) 1.2 Kay # (Auto) 1.1 H Eos # (Auto) 0.0 Baso # (Auto) 0.1 Neutrophils % (Manual) 87 H Band Neutrophils % 4 H Lymphocytes % (Manual) 2 L Reactive Lymphs % 1 H Monocytes % (Manual) 5 Myelocytes % 1 H Platelet Estimate Increased H Large Platelets Present Anisocytosis (manual) Slight PT 13.0 H INR 1.2 APTT 31 Puncture Site pCO2 pO2 HCO3 ABG pH ABG Total CO2 ABG O2 Saturation ABG Base Excess [place] Test ABG Potassium VBG pH VBG pCO2 VBG HCO3 VBG Total CO2 VBG O2 Sat (Calc) VBG Base Excess VBG Potassium A-a O2 Difference Respiratory Index Glucose Lactate Liter Flow FiO2 Crit Value Called To Crit Value Called By Crit Value Read Back Blood Gas Notified Time Sodium Potassium Chloride Carbon Dioxide Anion Gap BUN Creatinine Est GFR ( Amer) Est GFR (Non-Af Amer) POC Glucose (mg/dL) 310 H Random Glucose Calcium Phosphorus Magnesium Total Bilirubin AST ALT Alkaline Phosphatase Troponin I NT-Pro-B Natriuret Pep Total Protein Albumin Globulin Albumin/Globulin Ratio Procalcitonin Arterial Blood Potassium Venous Blood Potassium Urine Color Urine Clarity Urine pH Ur Specific [place] Urine Protein Urine Glucose (UA) Urine Ketones Urine Blood Urine Nitrate Urine Bilirubin Urine Urobilinogen Ur Leukocyte Esterase Urine WBC (Auto) Urine RBC (Auto) Ur Squamous Epith Cells Digoxin 09/05/17 09/05/17 09/05/17 11:25 11:25 11:32 WBC RBC Hgb Hct MCV MCH MCHC RDW Plt Count MPV Neut % (Auto) Lymph % (Auto) Kay % (Auto) Eos % (Auto) Baso % (Auto) Neut # (Auto) Lymph # (Auto) Kay # (Auto) Eos # (Auto) Baso # (Auto) Neutrophils % (Manual) Band Neutrophils % Lymphocytes % (Manual) Reactive Lymphs % Monocytes % (Manual) Myelocytes % Platelet Estimate Large Platelets Anisocytosis (manual) PT INR APTT Puncture Site pCO2 pO2 14 L HCO3 ABG pH ABG Total CO2 ABG O2 Saturation ABG Base Excess [place] Test ABG Potassium VBG pH 7.19 L* VBG pCO2 34 L VBG HCO3 11.5 VBG Total CO2 14.0 L VBG O2 Sat (Calc) 18.9 L VBG Base Excess -14.2 L VBG Potassium 6.4 H* A-a O2 Difference Respiratory Index Glucose 325 H Lactate 3.5 H Liter Flow FiO2 Crit Value Called To Dr.ho adame Crit Value Called By Shelton machado,global consumer sector vice president. Crit Value Read Back Y Blood Gas Notified Time 1145 Sodium Cancelled 130.0 L Potassium Cancelled Chloride Cancelled 98.0 Carbon Dioxide Cancelled Anion Gap Cancelled BUN Cancelled Creatinine Est GFR ( Amer) Cancelled Est GFR (Non-Af Amer) Cancelled POC Glucose (mg/dL) Random Glucose Cancelled Calcium Cancelled Phosphorus Cancelled Magnesium Cancelled Total Bilirubin Cancelled AST Cancelled ALT Cancelled Alkaline Phosphatase Cancelled Troponin I 0.0300 NT-Pro-B Natriuret Pep 5510 H Total Protein Cancelled Albumin Cancelled Globulin Cancelled Albumin/Globulin Ratio Cancelled Procalcitonin Arterial Blood Potassium Venous Blood Potassium 6.4 H* Urine Color Urine Clarity Urine pH Ur Specific [place] Urine Protein Urine Glucose (UA) Urine Ketones Urine Blood Urine Nitrate Urine Bilirubin Urine Urobilinogen Ur Leukocyte Esterase Urine WBC (Auto) Urine RBC (Auto) Ur Squamous Epith Cells Digoxin 1.4 09/05/17 09/05/17 09/05/17 12:07 12:26 13:28 WBC RBC Hgb Hct MCV MCH MCHC RDW Plt Count MPV Neut % (Auto) Lymph % (Auto) Kay % (Auto) Eos % (Auto) Baso % (Auto) Neut # (Auto) Lymph # (Auto) Kay # (Auto) Eos # (Auto) Baso # (Auto) Neutrophils % (Manual) Band Neutrophils % Lymphocytes % (Manual) Reactive Lymphs % Monocytes % (Manual) Myelocytes % Platelet Estimate Large Platelets Anisocytosis (manual) PT INR APTT Puncture Site pCO2 pO2 15 L HCO3 ABG pH ABG Total CO2 ABG O2 Saturation ABG Base Excess [place] Test ABG Potassium VBG pH 7.17 L* VBG pCO2 34 L VBG HCO3 10.8 VBG Total CO2 13.4 L VBG O2 Sat (Calc) 20.8 L VBG Base Excess -15.1 L VBG Potassium 5.9 H A-a O2 Difference Respiratory Index Glucose 289 H Lactate 3.2 H Liter Flow FiO2 Crit Value Called To Dr patel Crit Value Called By Chantale boudreaux global consumer sector vice president Crit Value Read Back Y Blood Gas Notified Time 1335 Sodium 132 131.0 L Potassium 6.5 H* Chloride 100 101.0 Carbon Dioxide 13 L Anion Gap 25 H BUN 52 H Creatinine 4.6 H Est GFR ( Amer) 15 Est GFR (Non-Af Amer) 12 POC Glucose (mg/dL) Random Glucose 308 H Calcium 8.2 L Phosphorus 8.6 H Magnesium 2.0 Total Bilirubin 0.9 AST 36 ALT 39 Alkaline Phosphatase 132 H D Troponin I 0.0260 NT-Pro-B Natriuret Pep 4800 H Total Protein 7.8 Albumin 3.4 L Globulin 4.4 H Albumin/Globulin Ratio 0.8 L Procalcitonin Arterial Blood Potassium Venous Blood Potassium 5.9 H Urine Color Straw Urine Clarity Clear Urine pH 5.0 Ur Specific [place] 1.008 Urine Protein Negative Urine Glucose (UA) 2+ H Urine Ketones Negative Urine Blood Negative Urine Nitrate Negative Urine Bilirubin Negative Urine Urobilinogen Normal Ur Leukocyte Esterase Neg Urine WBC (Auto) 1 Urine RBC (Auto) 1 Ur Squamous Epith Cells 1 Digoxin 09/05/17 09/05/17 09/05/17 14:22 16:13 19:50 WBC RBC Hgb Hct MCV MCH MCHC RDW Plt Count MPV Neut % (Auto) Lymph % (Auto) Kay % (Auto) Eos % (Auto) Baso % (Auto) Neut # (Auto) Lymph # (Auto) Kay # (Auto) Eos # (Auto) Baso # (Auto) Neutrophils % (Manual) Band Neutrophils % Lymphocytes % (Manual) Reactive Lymphs % Monocytes % (Manual) Myelocytes % Platelet Estimate Large Platelets Anisocytosis (manual) PT INR APTT Puncture Site Rba pCO2 20 L pO2 124 H HCO3 13.5 L ABG pH 7.29 L ABG Total CO2 10.2 L ABG O2 Saturation 100.2 H ABG Base Excess -14.7 L [place] Test Pos ABG Potassium 6.0 H VBG pH VBG pCO2 VBG HCO3 VBG Total CO2 VBG O2 Sat (Calc) VBG Base Excess VBG Potassium A-a O2 Difference 79.0 Respiratory Index 0.6 Glucose 320 H Lactate 3.3 H Liter Flow 3.0 FiO2 32.0 Crit Value Called To Crit Value Called By Crit Value Read Back Blood Gas Notified Time Sodium 131.0 L Potassium Chloride 102.0 Carbon Dioxide Anion Gap BUN Creatinine Est GFR ( Amer) Est GFR (Non-Af Amer) POC Glucose (mg/dL) 225 H Random Glucose Calcium Phosphorus Magnesium Total Bilirubin AST ALT Alkaline Phosphatase Troponin I NT-Pro-B Natriuret Pep Total Protein Albumin Globulin Albumin/Globulin Ratio Procalcitonin 1.09 H Arterial Blood Potassium 6.0 H Venous Blood Potassium Urine Color Urine Clarity Urine pH Ur Specific [place] Urine Protein Urine Glucose (UA) Urine Ketones Urine Blood Urine Nitrate Urine Bilirubin Urine Urobilinogen Ur Leukocyte Esterase Urine WBC (Auto) Urine RBC (Auto) Ur Squamous Epith Cells Digoxin 09/05/17 09/05/17 19:55 21:12 WBC RBC Hgb Hct MCV MCH MCHC RDW Plt Count MPV Neut % (Auto) Lymph % (Auto) Kay % (Auto) Eos % (Auto) Baso % (Auto) Neut # (Auto) Lymph # (Auto) Kay # (Auto) Eos # (Auto) Baso # (Auto) Neutrophils % (Manual) Band Neutrophils % Lymphocytes % (Manual) Reactive Lymphs % Monocytes % (Manual) Myelocytes % Platelet Estimate Large Platelets Anisocytosis (manual) PT INR APTT Puncture Site pCO2 pO2 HCO3 ABG pH ABG Total CO2 ABG O2 Saturation ABG Base Excess [place] Test ABG Potassium VBG pH VBG pCO2 VBG HCO3 VBG Total CO2 VBG O2 Sat (Calc) VBG Base Excess VBG Potassium A-a O2 Difference Respiratory Index Glucose Lactate Liter Flow FiO2 Crit Value Called To Crit Value Called By Crit Value Read Back Blood Gas Notified Time Sodium 133 Potassium 6.0 H Chloride 103 Carbon Dioxide 9 L* D Anion Gap 27 H BUN 54 H Creatinine 4.8 H Est GFR ( Amer) 14 Est GFR (Non-Af Amer) 12 POC Glucose (mg/dL) 354 H Random Glucose 311 H Calcium 8.1 L Phosphorus Magnesium Total Bilirubin 0.7 AST 32 ALT 40 Alkaline Phosphatase 137 H Troponin I NT-Pro-B Natriuret Pep Total Protein 7.2 Albumin 3.2 L Globulin 4.1 H Albumin/Globulin Ratio 0.8 L Procalcitonin Arterial Blood Potassium Venous Blood Potassium Urine Color Urine Clarity Urine pH Ur Specific [place] Urine Protein Urine Glucose (UA) Urine Ketones Urine Blood Urine Nitrate Urine Bilirubin Urine Urobilinogen Ur Leukocyte Esterase Urine WBC (Auto) Urine RBC (Auto) Ur Squamous Epith Cells Digoxin Assessment & Plan (1) Hypotension Status: Acute (2) Near syncope Status: Acute (3) Rapid atrial fibrillation Status: Acute (4) Sepsis Status: Acute (5) Altered mental status Status: Acute
[2017-09-06 00:33] LABS: CALCIUM 7.9 mg/dl (8.6-10.4)
[2017-09-06] MEDS: Sodium Chloride 0.9% 1,000 ML IV SCH ×2 (02:46→12:05)
[2017-09-06] MEDS: Piperacill/Tazo 2.25gm in Dex 2.25 GM/50 ML BAG IVPB SCH ×3 (04:21→19:20)
[2017-09-06 05:48] LABS: VENOUS BLOOD GAS BASE EXCESS -12.6 mmol/L (0.0-2.0); VENOUS BLOOD GAS PCO2 21 mmHg (40-60); VENOUS BLOOD GAS PO2 139 mm/Hg (30-55); VENOUS BLOOD PH 7.33 (7.32-7.43)
[2017-09-06 06:24] LABS: BASO # 0.1 K/uL (0.0-0.2); BASO % 0.5 % (0.0-2.0); LYMPH # 1.2 K/uL (1.0-4.3); LYMPH % 4.1 % (20.0-40.0); MEAN CELL VOLUME 87.2 fL (80.0-94.0); MEAN CORPUSCULAR HEMOGLOBIN 29.1 pg (27.0-31.0); MEAN CORPUSCULAR HGB CONC 33.4 g/dL (33.0-37.0); MEAN PLATELET VOLUME 7.5 fL (7.2-11.7); MONO # 1.3 K/uL (0.0-0.8); MONO % 4.5 % (0.0-10.0); NEUT # 26.6 K/uL (1.8-7.0); NEUT % 90.9 % (50.0-75.0); PLATELET COUNT 636 K/uL (130-400); RBC 2.74 Mil/uL (4.40-5.90); RED CELL DISTRIBUTION WIDTH 16.8 % (11.5-14.5); WHITE BLOOD COUNT 29.3 K/uL (4.8-10.8)
[2017-09-06 06:51] LABS: ALB/GLOB RATIO 0.8 (1.0-2.1); CALCIUM 7.8 mg/dl (8.6-10.4)
[2017-09-06] MEDS: (Novolog) Insulin Aspart, Recombinant 100 u/ml 10 ml vial SC SCH ×4 (08:23→21:29)
[2017-09-06 08:35] LABS: BANDS 11 % (0-2); LYMPHOCYTE 2 % (20-40); MONOCYTE 4 % (0-10); NEUTROPHIL 83 % (50-75); PLATELET ESTIMATE INCREASED (NORMAL); TOTAL CELLS COUNTED 100
[2017-09-06 08:36] LABS: ANISOCYTOSIS SLIGHT; GIANT PLATELETS PRESENT; LARGE PLATELETS PRESENT; POIKILOCYTOSIS SLIGHT
[2017-09-06 08:37] LABS: BURR CELLS SLIGHT; OVALOCYTES SLIGHT; TOXIC GRANULATION PRESENT
--- NOTE | 2017-09-06 09:03 | CP.CCUPN ---
<Nighat Juarez - Last Filed: 09/06/17 09:14> CCU Subjective - Physician Review Subjective (Free Text): 09/06/17 09:00 Patient seen and examined at bedside. Per nursing no acute events overnight. Patient is pleasantly confused. Admits to having diarrhea every other day. No BM yet since admission. Less dizzy today. Denies headaches, cp, palpitations, sob, abdominal pain, urinary symptoms. CCU Objective - Vital Signs / Intake & Output Vital Signs (Last 4 hours): Vital Signs Temp Pulse Resp BP Pulse Ox 09/06/17 08:00 98.7 F 128 H 20 97 09/06/17 07:58 125 H 20 114/55 L 96 09/06/17 07:00 119 H 26 H 97 09/06/17 06:59 129 H 29 H 108/76 97 09/06/17 06:00 110 H 20 97 09/06/17 05:58 130 H 14 96/55 L 97 Intake and Output (Last 8hrs): Intake & Output 09/05/17 09/06/17 09/06/17 22:59 06:59 14:59 Intake Total 2610 2600 275 Output Total 55 75 35 Balance 2555 2525 240 Weight 99.082 kg Intake: Intake, IV Amount 1760 2300 275 Left Antecubital 750 675 150 Left Wrist 10 left ac 1000 1625 125 Oral 850 300 Output: Urine 55 75 35 Urethral (Ellis) 55 75 35 Other: # Bowel Movements 0 0 - Physical Exam Head: Positive for: Atraumatic, Normocephalic Pupils: Positive for: PERRL Extroacular Muscles: Positive for: EOMI Conjunctiva: Positive for: Normal Mouth: Positive for: Moist Mucous Membranes Neck: Positive for: Normal Range of Motion Respiratory/Chest: Positive for: Decreased Breath Sounds Cardiovascular: Positive for: Irregular Rhythm, Tachycardic Abdomen: Negative for: Tenderness Upper Extremity: Positive for: Normal Inspection Lower Extremity: Positive for: Normal Inspection, Edema Skin: Positive for: Warm, Dry, Normal Color Psychiatric: Positive for: Alert. Negative for: Oriented x 3 - Medications Active Medications: Active Medications Generic Name Dose Route Start Last Admin Trade Name Freq PRN Reason Stop Dose Admin Heparin Sodium (Porcine) 3,000 units 09/05/17 22:00 09/05/17 21:18 Heparin SC 3,000 units Q12 LELA Administration Piperacillin Sod/Tazobactam Sod 2.25 gm in 50 mls @ 100 mls/hr 09/05/17 20:00 09/06/17 04:21 Zosyn 2.25 Gm Iv Premix IVPB 100 mls/hr Q8H LELA Administration Protocol Sodium Chloride 1,000 mls @ 125 mls/hr 09/06/17 02:45 09/06/17 02:46 Sodium Chloride 0.9% IV 125 mls/hr .Q8H LELA Administration Insulin Aspart 0 unit 09/05/17 16:57 09/06/17 08:23 Novolog SC 2 unit ACHS LELA Administration Protocol Levetiracetam 500 mg 09/05/17 22:00 09/05/17 21:18 Keppra PO 500 mg Q12 LELA Administration Metoprolol Tartrate 25 mg 09/06/17 10:00 Lopressor PO BID LELA Pantoprazole Sodium 40 mg 09/06/17 10:00 Protonix Inj IVP DAILY LELA Sodium Bicarbonate 1,300 mg 09/06/17 10:00 Sodium Bicarbonate Tab PO TID LELA Tamsulosin HCl 0.4 mg 09/06/17 10:00 Flomax PO DAILY LELA - Patient Studies Lab Studies: Lab Studies 09/06/17 09/06/17 09/06/17 Range/Units 07:18 06:15 06:15 WBC 29.3 H (4.8-10.8) K/uL RBC 2.74 L (4.40-5.90) Mil/uL Hgb 8.0 L (12.0-18.0) g/dL Hct 23.9 L (35.0-51.0) % MCV 87.2 (80.0-94.0) fL MCH 29.1 (27.0-31.0) pg MCHC 33.4 (33.0-37.0) g/dL RDW 16.8 H (11.5-14.5) % Plt Count 636 H D (130-400) K/uL MPV 7.5 (7.2-11.7) fL Neut % (Auto) 90.9 H (50.0-75.0) % Lymph % (Auto) 4.1 L (20.0-40.0) % [place] % (Auto) 4.5 (0.0-10.0) % Eos % (Auto) 0.0 (0.0-4.0) % Baso % (Auto) 0.5 (0.0-2.0) % Neut # (Auto) 26.6 H (1.8-7.0) K/uL Lymph # (Auto) 1.2 (1.0-4.3) K/uL [place] # (Auto) 1.3 H (0.0-0.8) K/uL Eos # (Auto) 0.0 (0.0-0.7) K/uL Baso # (Auto) 0.1 (0.0-0.2) K/uL Neutrophils % (Manual) 83 H (50-75) % Band Neutrophils % 11 H* (0-2) % Lymphocytes % (Manual) 2 L (20-40) % Reactive Lymphs % (0-0) % Monocytes % (Manual) 4 (0-10) % Myelocytes % (0-0) % Toxic Granulation Present Platelet Estimate Increased H (NORMAL) Large Platelets Present Giant Platelets Present Poikilocytosis (manual Slight Anisocytosis (manual) Slight Ovalocytes Slight Farideh Cells Slight PT (9.7-12.2) SECONDS INR APTT (21-34) SECONDS Puncture Site pCO2 (35-45) mm/Hg pO2 (30-55) mm/Hg HCO3 (21-28) mmol/L ABG pH (7.35-7.45) ABG Total CO2 (22-28) mmol/L ABG O2 Saturation (95-98) % ABG Base Excess (-2.0-3.0) mmol/L [place] Test ABG Potassium (3.6-5.2) mmol/L VBG pH (7.32-7.43) VBG pCO2 (40-60) mmHg VBG HCO3 mmol/L VBG Total CO2 (22-28) mmol/L VBG O2 Sat (Calc) (40-65) % VBG Base Excess (0.0-2.0) mmol/L VBG Potassium (3.6-5.2) mmol/L A-a O2 Difference mm/Hg Respiratory Index Glucose (75-110) mg/dl Lactate (0.7-2.1) mmol/L Liter Flow FiO2 % Crit Value Called To Crit Value Called By Crit Value Read Back Blood Gas Notified Time Sodium 135 Potassium 5.0 Chloride 105 Carbon Dioxide 11 L* Anion Gap 24 H BUN 57 H Creatinine 4.8 H (0.8-1.5) mg/dL Est GFR ( Amer) 14 Est GFR (Non-Af Amer) 12 POC Glucose (mg/dL) 235 H (65-110) mg/dL Random Glucose 235 H Calcium 7.8 L Phosphorus 8.2 H Magnesium 1.8 Total Bilirubin 0.7 AST 28 ALT 34 Alkaline Phosphatase 113 Troponin I (0.00-0.120) ng/mL NT-Pro-B Natriuret Pep (0-900) pg/mL Total Protein 6.9 Albumin 3.0 L Globulin 3.9 Albumin/Globulin Ratio 0.8 L Procalcitonin (0.19-0.49) NG/ML Arterial Blood Potassium (3.6-5.2) mmol/L Venous Blood Potassium (3.6-5.2) mmol/L Urine Color (YELLOW) Urine Clarity (Clear) Urine pH (5.0-8.0) Ur Specific [place] (1.003-1.030) Urine Protein (NEGATIVE) mg/dL Urine Glucose (UA) (Normal) mg/dL Urine Ketones (NEGATIVE) mg/dL Urine Blood (NEGATIVE) Urine Nitrate (NEGATIVE) Urine Bilirubin (NEGATIVE) Urine Urobilinogen (0.2-1.0) mg/dL Ur Leukocyte Esterase (Negative) [place]/uL Urine WBC (Auto) (0-5) /hpf Urine RBC (Auto) (0-3) /hpf Ur Squamous Epith Cells (0-5) /hpf Digoxin (0.8-2.0) ng/mL 09/06/17 09/06/17 09/05/17 Range/Units 05:39 00:14 21:12 WBC (4.8-10.8) K/uL RBC (4.40-5.90) Mil/uL Hgb (12.0-18.0) g/dL Hct (35.0-51.0) % MCV (80.0-94.0) fL MCH (27.0-31.0) pg MCHC (33.0-37.0) g/dL RDW (11.5-14.5) % Plt Count (130-400) K/uL MPV (7.2-11.7) fL Neut % (Auto) (50.0-75.0) % Lymph % (Auto) (20.0-40.0) % [place] % (Auto) (0.0-10.0) % Eos % (Auto) (0.0-4.0) % Baso % (Auto) (0.0-2.0) % Neut # (Auto) (1.8-7.0) K/uL Lymph # (Auto) (1.0-4.3) K/uL [place] # (Auto) (0.0-0.8) K/uL Eos # (Auto) (0.0-0.7) K/uL Baso # (Auto) (0.0-0.2) K/uL Neutrophils % (Manual) (50-75) % Band Neutrophils % (0-2) % Lymphocytes % (Manual) (20-40) % Reactive Lymphs % (0-0) % Monocytes % (Manual) (0-10) % Myelocytes % (0-0) % Toxic Granulation Platelet Estimate (NORMAL) Large Platelets Giant Platelets Poikilocytosis (manual Anisocytosis (manual) Ovalocytes [place] Cells PT (9.7-12.2) SECONDS INR APTT (21-34) SECONDS Puncture Site pCO2 (35-45) mm/Hg pO2 139 H (30-55) mm/Hg HCO3 (21-28) mmol/L ABG pH (7.35-7.45) ABG Total CO2 (22-28) mmol/L ABG O2 Saturation (95-98) % ABG Base Excess (-2.0-3.0) mmol/L [place] Test ABG Potassium (3.6-5.2) mmol/L VBG pH 7.33 (7.32-7.43) VBG pCO2 21 L (40-60) mmHg VBG HCO3 15.1 mmol/L VBG Total CO2 11.7 L (22-28) mmol/L VBG O2 Sat (Calc) 100.5 H (40-65) % VBG Base Excess -12.6 L (0.0-2.0) mmol/L VBG Potassium 5.0 (3.6-5.2) mmol/L A-a O2 Difference mm/Hg Respiratory Index Glucose 250 H (75-110) mg/dl Lactate 3.4 H (0.7-2.1) mmol/L Liter Flow 3.0 FiO2 % Crit Value Called To Crit Value Called By Crit Value Read Back Blood Gas Notified Time Sodium 135.0 134 Potassium 5.1 Chloride 105.0 106 Carbon Dioxide 10 L* Anion Gap 23 H BUN 54 H Creatinine 4.8 H (0.8-1.5) mg/dL Est GFR ( Amer) 14 Est GFR (Non-Af Amer) 12 POC Glucose (mg/dL) 354 H (65-110) mg/dL Random Glucose 258 H Calcium 7.9 L Phosphorus Magnesium Total Bilirubin AST ALT Alkaline Phosphatase Troponin I (0.00-0.120) ng/mL NT-Pro-B Natriuret Pep (0-900) pg/mL Total Protein Albumin Globulin Albumin/Globulin Ratio Procalcitonin (0.19-0.49) NG/ML Arterial Blood Potassium (3.6-5.2) mmol/L Venous Blood Potassium 5.0 (3.6-5.2) mmol/L Urine Color (YELLOW) Urine Clarity (Clear) Urine pH (5.0-8.0) Ur Specific [place] (1.003-1.030) Urine Protein (NEGATIVE) mg/dL Urine Glucose (UA) (Normal) mg/dL Urine Ketones (NEGATIVE) mg/dL Urine Blood (NEGATIVE) Urine Nitrate (NEGATIVE) Urine Bilirubin (NEGATIVE) Urine Urobilinogen (0.2-1.0) mg/dL Ur Leukocyte Esterase (Negative) [place]/uL Urine WBC (Auto) (0-5) /hpf Urine RBC (Auto) (0-3) /hpf Ur Squamous Epith Cells (0-5) /hpf Digoxin (0.8-2.0) ng/mL 09/05/17 09/05/17 09/05/17 Range/Units 19:55 19:50 16:13 WBC (4.8-10.8) K/uL RBC (4.40-5.90) Mil/uL Hgb (12.0-18.0) g/dL Hct (35.0-51.0) % MCV (80.0-94.0) fL MCH (27.0-31.0) pg MCHC (33.0-37.0) g/dL RDW (11.5-14.5) % Plt Count (130-400) K/uL MPV (7.2-11.7) fL Neut % (Auto) (50.0-75.0) % Lymph % (Auto) (20.0-40.0) % [place] % (Auto) (0.0-10.0) % Eos % (Auto) (0.0-4.0) % Baso % (Auto) (0.0-2.0) % Neut # (Auto) (1.8-7.0) K/uL Lymph # (Auto) (1.0-4.3) K/uL [place] # (Auto) (0.0-0.8) K/uL Eos # (Auto) (0.0-0.7) K/uL Baso # (Auto) (0.0-0.2) K/uL Neutrophils % (Manual) (50-75) % Band Neutrophils % (0-2) % Lymphocytes % (Manual) (20-40) % Reactive Lymphs % (0-0) % Monocytes % (Manual) (0-10) % Myelocytes % (0-0) % Toxic Granulation Platelet Estimate (NORMAL) Large Platelets Giant Platelets Poikilocytosis (manual Anisocytosis (manual) Ovalocytes Farideh Cells PT (9.7-12.2) SECONDS INR APTT (21-34) SECONDS Puncture Site Rba pCO2 20 L (35-45) mm/Hg pO2 124 H (30-55) mm/Hg HCO3 13.5 L (21-28) mmol/L ABG pH 7.29 L (7.35-7.45) ABG Total CO2 10.2 L (22-28) mmol/L ABG O2 Saturation 100.2 H (95-98) % ABG Base Excess -14.7 L (-2.0-3.0) mmol/L [place] Test Pos ABG Potassium 6.0 H (3.6-5.2) mmol/L VBG pH (7.32-7.43) VBG pCO2 (40-60) mmHg VBG HCO3 mmol/L VBG Total CO2 (22-28) mmol/L VBG O2 Sat (Calc) (40-65) % VBG Base Excess (0.0-2.0) mmol/L VBG Potassium (3.6-5.2) mmol/L A-a O2 Difference 79.0 mm/Hg Respiratory Index 0.6 Glucose 320 H (75-110) mg/dl Lactate 3.3 H (0.7-2.1) mmol/L Liter Flow 3.0 FiO2 32.0 % Crit Value Called To Crit Value Called By Crit Value Read Back Blood Gas Notified Time Sodium 133 131.0 L Potassium 6.0 H Chloride 103 102.0 Carbon Dioxide 9 L* D Anion Gap 27 H BUN 54 H Creatinine 4.8 H (0.8-1.5) mg/dL Est GFR ( Amer) 14 Est GFR (Non-Af Amer) 12 POC Glucose (mg/dL) 225 H (65-110) mg/dL Random Glucose 311 H Calcium 8.1 L Phosphorus Magnesium Total Bilirubin 0.7 AST 32 ALT 40 Alkaline Phosphatase 137 H Troponin I (0.00-0.120) ng/mL NT-Pro-B Natriuret Pep (0-900) pg/mL Total Protein 7.2 Albumin 3.2 L Globulin 4.1 H Albumin/Globulin Ratio 0.8 L Procalcitonin (0.19-0.49) NG/ML Arterial Blood Potassium 6.0 H (3.6-5.2) mmol/L Venous Blood Potassium (3.6-5.2) mmol/L Urine Color (YELLOW) Urine Clarity (Clear) Urine pH (5.0-8.0) Ur Specific [place] (1.003-1.030) Urine Protein (NEGATIVE) mg/dL Urine Glucose (UA) (Normal) mg/dL Urine Ketones (NEGATIVE) mg/dL Urine Blood (NEGATIVE) Urine Nitrate (NEGATIVE) Urine Bilirubin (NEGATIVE) Urine Urobilinogen (0.2-1.0) mg/dL Ur Leukocyte Esterase (Negative) [place]/uL Urine WBC (Auto) (0-5) /hpf Urine RBC (Auto) (0-3) /hpf Ur Squamous Epith Cells (0-5) /hpf Digoxin (0.8-2.0) ng/mL 09/05/17 09/05/17 09/05/17 Range/Units 14:22 13:28 12:26 WBC (4.8-10.8) K/uL RBC (4.40-5.90) Mil/uL Hgb (12.0-18.0) g/dL Hct (35.0-51.0) % MCV (80.0-94.0) fL MCH (27.0-31.0) pg MCHC (33.0-37.0) g/dL RDW (11.5-14.5) % Plt Count (130-400) K/uL MPV (7.2-11.7) fL Neut % (Auto) (50.0-75.0) % Lymph % (Auto) (20.0-40.0) % [place] % (Auto) (0.0-10.0) % Eos % (Auto) (0.0-4.0) % Baso % (Auto) (0.0-2.0) % Neut # (Auto) (1.8-7.0) K/uL Lymph # (Auto) (1.0-4.3) K/uL [place] # (Auto) (0.0-0.8) K/uL Eos # (Auto) (0.0-0.7) K/uL Baso # (Auto) (0.0-0.2) K/uL Neutrophils % (Manual) (50-75) % Band Neutrophils % (0-2) % Lymphocytes % (Manual) (20-40) % Reactive Lymphs % (0-0) % Monocytes % (Manual) (0-10) % Myelocytes % (0-0) % Toxic Granulation Platelet Estimate (NORMAL) Large Platelets Giant Platelets Poikilocytosis (manual Anisocytosis (manual) Ovalocytes [place] Cells PT (9.7-12.2) SECONDS INR APTT (21-34) SECONDS Puncture Site pCO2 (35-45) mm/Hg pO2 15 L (30-55) mm/Hg HCO3 (21-28) mmol/L ABG pH (7.35-7.45) ABG Total CO2 (22-28) mmol/L ABG O2 Saturation (95-98) % ABG Base Excess (-2.0-3.0) mmol/L [place] Test ABG Potassium (3.6-5.2) mmol/L VBG pH 7.17 L* (7.32-7.43) VBG pCO2 34 L (40-60) mmHg VBG HCO3 10.8 mmol/L VBG Total CO2 13.4 L (22-28) mmol/L VBG O2 Sat (Calc) 20.8 L (40-65) % VBG Base Excess -15.1 L (0.0-2.0) mmol/L VBG Potassium 5.9 H (3.6-5.2) mmol/L A-a O2 Difference mm/Hg Respiratory Index Glucose 289 H (75-110) mg/dl Lactate 3.2 H (0.7-2.1) mmol/L Liter Flow FiO2 % Crit Value Called To Dr patel Crit Value Called By Chantale boudreaux legal practice manager Crit Value Read Back Y Blood Gas Notified Time 1335 Sodium 131.0 L 132 Potassium 6.5 H* Chloride 101.0 100 Carbon Dioxide 13 L Anion Gap 25 H BUN 52 H Creatinine 4.6 H (0.8-1.5) mg/dL Est GFR ( Amer) 15 Est GFR (Non-Af Amer) 12 POC Glucose (mg/dL) (65-110) mg/dL Random Glucose 308 H Calcium 8.2 L Phosphorus 8.6 H Magnesium 2.0 Total Bilirubin 0.9 AST 36 ALT 39 Alkaline Phosphatase 132 H D Troponin I 0.0260 (0.00-0.120) ng/mL NT-Pro-B Natriuret Pep 4800 H (0-900) pg/mL Total Protein 7.8 Albumin 3.4 L Globulin 4.4 H Albumin/Globulin Ratio 0.8 L Procalcitonin 1.09 H (0.19-0.49) NG/ML Arterial Blood Potassium (3.6-5.2) mmol/L Venous Blood Potassium 5.9 H (3.6-5.2) mmol/L Urine Color (YELLOW) Urine Clarity (Clear) Urine pH (5.0-8.0) Ur Specific [place] (1.003-1.030) Urine Protein (NEGATIVE) mg/dL Urine Glucose (UA) (Normal) mg/dL Urine Ketones (NEGATIVE) mg/dL Urine Blood (NEGATIVE) Urine Nitrate (NEGATIVE) Urine Bilirubin (NEGATIVE) Urine Urobilinogen (0.2-1.0) mg/dL Ur Leukocyte Esterase (Negative) [place]/uL Urine WBC (Auto) (0-5) /hpf Urine RBC (Auto) (0-3) /hpf Ur Squamous Epith Cells (0-5) /hpf Digoxin (0.8-2.0) ng/mL 09/05/17 09/05/17 09/05/17 Range/Units 12:07 11:32 11:25 WBC (4.8-10.8) K/uL RBC (4.40-5.90) Mil/uL Hgb (12.0-18.0) g/dL Hct (35.0-51.0) % MCV (80.0-94.0) fL MCH (27.0-31.0) pg MCHC (33.0-37.0) g/dL RDW (11.5-14.5) % Plt Count (130-400) K/uL MPV (7.2-11.7) fL Neut % (Auto) (50.0-75.0) % Lymph % (Auto) (20.0-40.0) % [place] % (Auto) (0.0-10.0) % Eos % (Auto) (0.0-4.0) % Baso % (Auto) (0.0-2.0) % Neut # (Auto) (1.8-7.0) K/uL Lymph # (Auto) (1.0-4.3) K/uL [place] # (Auto) (0.0-0.8) K/uL Eos # (Auto) (0.0-0.7) K/uL Baso # (Auto) (0.0-0.2) K/uL Neutrophils % (Manual) (50-75) % Band Neutrophils % (0-2) % Lymphocytes % (Manual) (20-40) % Reactive Lymphs % (0-0) % Monocytes % (Manual) (0-10) % Myelocytes % (0-0) % Toxic Granulation Platelet Estimate (NORMAL) Large Platelets Giant Platelets Poikilocytosis (manual Anisocytosis (manual) Ovalocytes Farideh Cells PT (9.7-12.2) SECONDS INR APTT (21-34) SECONDS Puncture Site pCO2 (35-45) mm/Hg pO2 14 L (30-55) mm/Hg HCO3 (21-28) mmol/L ABG pH (7.35-7.45) ABG Total CO2 (22-28) mmol/L ABG O2 Saturation (95-98) % ABG Base Excess (-2.0-3.0) mmol/L [place] Test ABG Potassium (3.6-5.2) mmol/L VBG pH 7.19 L* (7.32-7.43) VBG pCO2 34 L (40-60) mmHg VBG HCO3 11.5 mmol/L VBG Total CO2 14.0 L (22-28) mmol/L VBG O2 Sat (Calc) 18.9 L (40-65) % VBG Base Excess -14.2 L (0.0-2.0) mmol/L VBG Potassium 6.4 H* (3.6-5.2) mmol/L A-a O2 Difference mm/Hg Respiratory Index Glucose 325 H (75-110) mg/dl Lactate 3.5 H (0.7-2.1) mmol/L Liter Flow FiO2 % Crit Value Called To Dr.ho adame Crit Value Called By Shelton machado,alex. Crit Value Read Back Y Blood Gas Notified Time 1145 Sodium 130.0 L Potassium Chloride 98.0 Carbon Dioxide Anion Gap BUN Creatinine (0.8-1.5) mg/dL Est GFR ( Amer) Est GFR (Non-Af Amer) POC Glucose (mg/dL) (65-110) mg/dL Random Glucose Calcium Phosphorus Magnesium Total Bilirubin AST ALT Alkaline Phosphatase Troponin I (0.00-0.120) ng/mL NT-Pro-B Natriuret Pep (0-900) pg/mL Total Protein Albumin Globulin Albumin/Globulin Ratio Procalcitonin (0.19-0.49) NG/ML Arterial Blood Potassium (3.6-5.2) mmol/L Venous Blood Potassium 6.4 H* (3.6-5.2) mmol/L Urine Color Straw (YELLOW) Urine Clarity Clear (Clear) Urine pH 5.0 (5.0-8.0) Ur Specific [place] 1.008 (1.003-1.030) Urine Protein Negative (NEGATIVE) mg/dL Urine Glucose (UA) 2+ H (Normal) mg/dL Urine Ketones Negative (NEGATIVE) mg/dL Urine Blood Negative (NEGATIVE) Urine Nitrate Negative (NEGATIVE) Urine Bilirubin Negative (NEGATIVE) Urine Urobilinogen Normal (0.2-1.0) mg/dL Ur Leukocyte Esterase Neg (Negative) [place]/uL Urine WBC (Auto) 1 (0-5) /hpf Urine RBC (Auto) 1 (0-3) /hpf Ur Squamous Epith Cells 1 (0-5) /hpf Digoxin 1.4 (0.8-2.0) ng/mL 09/05/17 09/05/17 09/05/17 Range/Units 11:25 11:25 11:25 WBC 25.1 H (4.8-10.8) K/uL RBC 3.33 L (4.40-5.90) Mil/uL Hgb 9.6 L (12.0-18.0) g/dL Hct 29.2 L (35.0-51.0) % MCV 87.6 (80.0-94.0) fL MCH 28.8 (27.0-31.0) pg MCHC 32.9 L (33.0-37.0) g/dL RDW 16.8 H (11.5-14.5) % Plt Count 763 H (130-400) K/uL MPV 7.6 (7.2-11.7) fL Neut % (Auto) 90.4 H (50.0-75.0) % Lymph % (Auto) 4.6 L (20.0-40.0) % [place] % (Auto) 4.5 (0.0-10.0) % Eos % (Auto) 0.0 (0.0-4.0) % Baso % (Auto) 0.5 (0.0-2.0) % Neut # (Auto) 22.7 H (1.8-7.0) K/uL Lymph # (Auto) 1.2 (1.0-4.3) K/uL [place] # (Auto) 1.1 H (0.0-0.8) K/uL Eos # (Auto) 0.0 (0.0-0.7) K/uL Baso # (Auto) 0.1 (0.0-0.2) K/uL Neutrophils % (Manual) 87 H (50-75) % Band Neutrophils % 4 H (0-2) % Lymphocytes % (Manual) 2 L (20-40) % Reactive Lymphs % 1 H (0-0) % Monocytes % (Manual) 5 (0-10) % Myelocytes % 1 H (0-0) % Toxic Granulation Platelet Estimate Increased H (NORMAL) Large Platelets Present Giant Platelets Poikilocytosis (manual Anisocytosis (manual) Slight Ovalocytes Farideh Cells PT 13.0 H (9.7-12.2) SECONDS INR 1.2 APTT 31 (21-34) SECONDS Puncture Site pCO2 (35-45) mm/Hg pO2 (30-55) mm/Hg HCO3 (21-28) mmol/L ABG pH (7.35-7.45) ABG Total CO2 (22-28) mmol/L ABG O2 Saturation (95-98) % ABG Base Excess (-2.0-3.0) mmol/L [place] Test ABG Potassium (3.6-5.2) mmol/L VBG pH (7.32-7.43) VBG pCO2 (40-60) mmHg VBG HCO3 mmol/L VBG Total CO2 (22-28) mmol/L VBG O2 Sat (Calc) (40-65) % VBG Base Excess (0.0-2.0) mmol/L VBG Potassium (3.6-5.2) mmol/L A-a O2 Difference mm/Hg Respiratory Index Glucose (75-110) mg/dl Lactate (0.7-2.1) mmol/L Liter Flow FiO2 % Crit Value Called To Crit Value Called By Crit Value Read Back Blood Gas Notified Time Sodium Cancelled Potassium Cancelled Chloride Cancelled Carbon Dioxide Cancelled Anion Gap Cancelled BUN Cancelled Creatinine (0.8-1.5) mg/dL Est GFR ( Amer) Cancelled Est GFR (Non-Af Amer) Cancelled POC Glucose (mg/dL) (65-110) mg/dL Random Glucose Cancelled Calcium Cancelled Phosphorus Cancelled Magnesium Cancelled Total Bilirubin Cancelled AST Cancelled ALT Cancelled Alkaline Phosphatase Cancelled Troponin I 0.0300 (0.00-0.120) ng/mL NT-Pro-B Natriuret Pep 5510 H (0-900) pg/mL Total Protein Cancelled Albumin Cancelled Globulin Cancelled Albumin/Globulin Ratio Cancelled Procalcitonin (0.19-0.49) NG/ML Arterial Blood Potassium (3.6-5.2) mmol/L Venous Blood Potassium (3.6-5.2) mmol/L Urine Color (YELLOW) Urine Clarity (Clear) Urine pH (5.0-8.0) Ur Specific [place] (1.003-1.030) Urine Protein (NEGATIVE) mg/dL Urine Glucose (UA) (Normal) mg/dL Urine Ketones (NEGATIVE) mg/dL Urine Blood (NEGATIVE) Urine Nitrate (NEGATIVE) Urine Bilirubin (NEGATIVE) Urine Urobilinogen (0.2-1.0) mg/dL Ur Leukocyte Esterase (Negative) [place]/uL Urine WBC (Auto) (0-5) /hpf Urine RBC (Auto) (0-3) /hpf Ur Squamous Epith Cells (0-5) /hpf Digoxin (0.8-2.0) ng/mL 09/05/17 Range/Units 10:43 WBC (4.8-10.8) K/uL RBC (4.40-5.90) Mil/uL Hgb (12.0-18.0) g/dL Hct (35.0-51.0) % MCV (80.0-94.0) fL MCH (27.0-31.0) pg MCHC (33.0-37.0) g/dL RDW (11.5-14.5) % Plt Count (130-400) K/uL MPV (7.2-11.7) fL Neut % (Auto) (50.0-75.0) % Lymph % (Auto) (20.0-40.0) % [place] % (Auto) (0.0-10.0) % Eos % (Auto) (0.0-4.0) % Baso % (Auto) (0.0-2.0) % Neut # (Auto) (1.8-7.0) K/uL Lymph # (Auto) (1.0-4.3) K/uL [place] # (Auto) (0.0-0.8) K/uL Eos # (Auto) (0.0-0.7) K/uL Baso # (Auto) (0.0-0.2) K/uL Neutrophils % (Manual) (50-75) % Band Neutrophils % (0-2) % Lymphocytes % (Manual) (20-40) % Reactive Lymphs % (0-0) % Monocytes % (Manual) (0-10) % Myelocytes % (0-0) % Toxic Granulation Platelet Estimate (NORMAL) Large Platelets Giant Platelets Poikilocytosis (manual Anisocytosis (manual) Ovalocytes Farideh Cells PT (9.7-12.2) SECONDS INR APTT (21-34) SECONDS Puncture Site pCO2 (35-45) mm/Hg pO2 (30-55) mm/Hg HCO3 (21-28) mmol/L ABG pH (7.35-7.45) ABG Total CO2 (22-28) mmol/L ABG O2 Saturation (95-98) % ABG Base Excess (-2.0-3.0) mmol/L [place] Test ABG Potassium (3.6-5.2) mmol/L VBG pH (7.32-7.43) VBG pCO2 (40-60) mmHg VBG HCO3 mmol/L VBG Total CO2 (22-28) mmol/L VBG O2 Sat (Calc) (40-65) % VBG Base Excess (0.0-2.0) mmol/L VBG Potassium (3.6-5.2) mmol/L A-a O2 Difference mm/Hg Respiratory Index Glucose (75-110) mg/dl Lactate (0.7-2.1) mmol/L Liter Flow FiO2 % Crit Value Called To Crit Value Called By Crit Value Read Back Blood Gas Notified Time Sodium Potassium Chloride Carbon Dioxide Anion Gap BUN Creatinine (0.8-1.5) mg/dL Est GFR ( Amer) Est GFR (Non-Af Amer) POC Glucose (mg/dL) 310 H (65-110) mg/dL Random Glucose Calcium Phosphorus Magnesium Total Bilirubin AST ALT Alkaline Phosphatase Troponin I (0.00-0.120) ng/mL NT-Pro-B Natriuret Pep (0-900) pg/mL Total Protein Albumin Globulin Albumin/Globulin Ratio Procalcitonin (0.19-0.49) NG/ML Arterial Blood Potassium (3.6-5.2) mmol/L Venous Blood Potassium (3.6-5.2) mmol/L Urine Color (YELLOW) Urine Clarity (Clear) Urine pH (5.0-8.0) Ur Specific [place] (1.003-1.030) Urine Protein (NEGATIVE) mg/dL Urine Glucose (UA) (Normal) mg/dL Urine Ketones (NEGATIVE) mg/dL Urine Blood (NEGATIVE) Urine Nitrate (NEGATIVE) Urine Bilirubin (NEGATIVE) Urine Urobilinogen (0.2-1.0) mg/dL Ur Leukocyte Esterase (Negative) [place]/uL Urine WBC (Auto) (0-5) /hpf Urine RBC (Auto) (0-3) /hpf Ur Squamous Epith Cells (0-5) /hpf Digoxin (0.8-2.0) ng/mL Laboratory Results - last 24 hr 09/05/17 09/05/17 09/05/17 10:43 11:25 11:25 WBC 25.1 H RBC 3.33 L Hgb 9.6 L Hct 29.2 L MCV 87.6 MCH 28.8 MCHC 32.9 L RDW 16.8 H Plt Count 763 H MPV 7.6 Neut % (Auto) 90.4 H Lymph % (Auto) 4.6 L [place] % (Auto) 4.5 Eos % (Auto) 0.0 Baso % (Auto) 0.5 Neut # (Auto) 22.7 H Lymph # (Auto) 1.2 [place] # (Auto) 1.1 H Eos # (Auto) 0.0 Baso # (Auto) 0.1 Neutrophils % (Manual) 87 H Band Neutrophils % 4 H Lymphocytes % (Manual) 2 L Reactive Lymphs % 1 H Monocytes % (Manual) 5 Myelocytes % 1 H Toxic Granulation Platelet Estimate Increased H Large Platelets Present Giant Platelets Poikilocytosis (manual Anisocytosis (manual) Slight Ovalocytes [place] Cells PT 13.0 H INR 1.2 APTT 31 Puncture Site pCO2 pO2 HCO3 ABG pH ABG Total CO2 ABG O2 Saturation ABG Base Excess [place] Test ABG Potassium VBG pH VBG pCO2 VBG HCO3 VBG Total CO2 VBG O2 Sat (Calc) VBG Base Excess VBG Potassium A-a O2 Difference Respiratory Index Glucose Lactate Liter Flow FiO2 Crit Value Called To Crit Value Called By Crit Value Read Back Blood Gas Notified Time Sodium Potassium Chloride Carbon Dioxide Anion Gap BUN Creatinine Est GFR ( Amer) Est GFR (Non-Af Amer) POC Glucose (mg/dL) 310 H Random Glucose Calcium Phosphorus Magnesium Total Bilirubin AST ALT Alkaline Phosphatase Troponin I NT-Pro-B Natriuret Pep Total Protein Albumin Globulin Albumin/Globulin Ratio Procalcitonin Arterial Blood Potassium Venous Blood Potassium Urine Color Urine Clarity Urine pH Ur Specific [place] Urine Protein Urine Glucose (UA) Urine Ketones Urine Blood Urine Nitrate Urine Bilirubin Urine Urobilinogen Ur Leukocyte Esterase Urine WBC (Auto) Urine RBC (Auto) Ur Squamous Epith Cells Digoxin 09/05/17 09/05/17 09/05/17 11:25 11:25 11:32 WBC RBC Hgb Hct MCV MCH MCHC RDW Plt Count MPV Neut % (Auto) Lymph % (Auto) [place] % (Auto) Eos % (Auto) Baso % (Auto) Neut # (Auto) Lymph # (Auto) [place] # (Auto) Eos # (Auto) Baso # (Auto) Neutrophils % (Manual) Band Neutrophils % Lymphocytes % (Manual) Reactive Lymphs % Monocytes % (Manual) Myelocytes % Toxic Granulation Platelet Estimate Large Platelets Giant Platelets Poikilocytosis (manual Anisocytosis (manual) Ovalocytes Farideh Cells PT INR APTT Puncture Site pCO2 pO2 14 L HCO3 ABG pH ABG Total CO2 ABG O2 Saturation ABG Base Excess [place] Test ABG Potassium VBG pH 7.19 L* VBG pCO2 34 L VBG HCO3 11.5 VBG Total CO2 14.0 L VBG O2 Sat (Calc) 18.9 L VBG Base Excess -14.2 L VBG Potassium 6.4 H* A-a O2 Difference Respiratory Index Glucose 325 H Lactate 3.5 H Liter Flow FiO2 Crit Value Called To Dr.ho adame Crit Value Called By Shelton machado,legal practice manager. Crit Value Read Back Y Blood Gas Notified Time 1145 Sodium Cancelled 130.0 L Potassium Cancelled Chloride Cancelled 98.0 Carbon Dioxide Cancelled Anion Gap Cancelled BUN Cancelled Creatinine Est GFR ( Amer) Cancelled Est GFR (Non-Af Amer) Cancelled POC Glucose (mg/dL) Random Glucose Cancelled Calcium Cancelled Phosphorus Cancelled Magnesium Cancelled Total Bilirubin Cancelled AST Cancelled ALT Cancelled Alkaline Phosphatase Cancelled Troponin I 0.0300 NT-Pro-B Natriuret Pep 5510 H Total Protein Cancelled Albumin Cancelled Globulin Cancelled Albumin/Globulin Ratio Cancelled Procalcitonin Arterial Blood Potassium Venous Blood Potassium 6.4 H* Urine Color Urine Clarity Urine pH Ur Specific [place] Urine Protein Urine Glucose (UA) Urine Ketones Urine Blood Urine Nitrate Urine Bilirubin Urine Urobilinogen Ur Leukocyte Esterase Urine WBC (Auto) Urine RBC (Auto) Ur Squamous Epith Cells Digoxin 1.4 09/05/17 09/05/17 09/05/17 12:07 12:26 13:28 WBC RBC Hgb Hct MCV MCH MCHC RDW Plt Count MPV Neut % (Auto) Lymph % (Auto) [place] % (Auto) Eos % (Auto) Baso % (Auto) Neut # (Auto) Lymph # (Auto) [place] # (Auto) Eos # (Auto) Baso # (Auto) Neutrophils % (Manual) Band Neutrophils % Lymphocytes % (Manual) Reactive Lymphs % Monocytes % (Manual) Myelocytes % Toxic Granulation Platelet Estimate Large Platelets Giant Platelets Poikilocytosis (manual Anisocytosis (manual) Ovalocytes [place] Cells PT INR APTT Puncture Site pCO2 pO2 15 L HCO3 ABG pH ABG Total CO2 ABG O2 Saturation ABG Base Excess [place] Test ABG Potassium VBG pH 7.17 L* VBG pCO2 34 L VBG HCO3 10.8 VBG Total CO2 13.4 L VBG O2 Sat (Calc) 20.8 L VBG Base Excess -15.1 L VBG Potassium 5.9 H A-a O2 Difference Respiratory Index Glucose 289 H Lactate 3.2 H Liter Flow FiO2 Crit Value Called To Dr patel Crit Value Called By Chantale boudreaux legal practice manager Crit Value Read Back Y Blood Gas Notified Time 1335 Sodium 132 131.0 L Potassium 6.5 H* Chloride 100 101.0 Carbon Dioxide 13 L Anion Gap 25 H BUN 52 H Creatinine 4.6 H Est GFR ( Amer) 15 Est GFR (Non-Af Amer) 12 POC Glucose (mg/dL) Random Glucose 308 H Calcium 8.2 L Phosphorus 8.6 H Magnesium 2.0 Total Bilirubin 0.9 AST 36 ALT 39 Alkaline Phosphatase 132 H D Troponin I 0.0260 NT-Pro-B Natriuret Pep 4800 H Total Protein 7.8 Albumin 3.4 L Globulin 4.4 H Albumin/Globulin Ratio 0.8 L Procalcitonin Arterial Blood Potassium Venous Blood Potassium 5.9 H Urine Color Straw Urine Clarity Clear Urine pH 5.0 Ur Specific [place] 1.008 Urine Protein Negative Urine Glucose (UA) 2+ H Urine Ketones Negative Urine Blood Negative Urine Nitrate Negative Urine Bilirubin Negative Urine Urobilinogen Normal Ur Leukocyte Esterase Neg Urine WBC (Auto) 1 Urine RBC (Auto) 1 Ur Squamous Epith Cells 1 Digoxin 09/05/17 09/05/17 09/05/17 14:22 16:13 19:50 WBC RBC Hgb Hct MCV MCH MCHC RDW Plt Count MPV Neut % (Auto) Lymph % (Auto) [place] % (Auto) Eos % (Auto) Baso % (Auto) Neut # (Auto) Lymph # (Auto) [place] # (Auto) Eos # (Auto) Baso # (Auto) Neutrophils % (Manual) Band Neutrophils % Lymphocytes % (Manual) Reactive Lymphs % Monocytes % (Manual) Myelocytes % Toxic Granulation Platelet Estimate Large Platelets Giant Platelets Poikilocytosis (manual Anisocytosis (manual) Ovalocytes [place] Cells PT INR APTT Puncture Site Rba pCO2 20 L pO2 124 H HCO3 13.5 L ABG pH 7.29 L ABG Total CO2 10.2 L ABG O2 Saturation 100.2 H ABG Base Excess -14.7 L [place] Test Pos ABG Potassium 6.0 H VBG pH VBG pCO2 VBG HCO3 VBG Total CO2 VBG O2 Sat (Calc) VBG Base Excess VBG Potassium A-a O2 Difference 79.0 Respiratory Index 0.6 Glucose 320 H Lactate 3.3 H Liter Flow 3.0 FiO2 32.0 Crit Value Called To Crit Value Called By Crit Value Read Back Blood Gas Notified Time Sodium 131.0 L Potassium Chloride 102.0 Carbon Dioxide Anion Gap BUN Creatinine Est GFR ( Amer) Est GFR (Non-Af Amer) POC Glucose (mg/dL) 225 H Random Glucose Calcium Phosphorus Magnesium Total Bilirubin AST ALT Alkaline Phosphatase Troponin I NT-Pro-B Natriuret Pep Total Protein Albumin Globulin Albumin/Globulin Ratio Procalcitonin 1.09 H Arterial Blood Potassium 6.0 H Venous Blood Potassium Urine Color Urine Clarity Urine pH Ur Specific [place] Urine Protein Urine Glucose (UA) Urine Ketones Urine Blood Urine Nitrate Urine Bilirubin Urine Urobilinogen Ur Leukocyte Esterase Urine WBC (Auto) Urine RBC (Auto) Ur Squamous Epith Cells Digoxin 09/05/17 09/05/17 09/06/17 19:55 21:12 00:14 WBC RBC Hgb Hct MCV MCH MCHC RDW Plt Count MPV Neut % (Auto) Lymph % (Auto) [place] % (Auto) Eos % (Auto) Baso % (Auto) Neut # (Auto) Lymph # (Auto) [place] # (Auto) Eos # (Auto) Baso # (Auto) Neutrophils % (Manual) Band Neutrophils % Lymphocytes % (Manual) Reactive Lymphs % Monocytes % (Manual) Myelocytes % Toxic Granulation Platelet Estimate Large Platelets Giant Platelets Poikilocytosis (manual Anisocytosis (manual) Ovalocytes [place] Cells PT INR APTT Puncture Site pCO2 pO2 HCO3 ABG pH ABG Total CO2 ABG O2 Saturation ABG Base Excess [place] Test ABG Potassium VBG pH VBG pCO2 VBG HCO3 VBG Total CO2 VBG O2 Sat (Calc) VBG Base Excess VBG Potassium A-a O2 Difference Respiratory Index Glucose Lactate Liter Flow FiO2 Crit Value Called To Crit Value Called By Crit Value Read Back Blood Gas Notified Time Sodium 133 134 Potassium 6.0 H 5.1 Chloride 103 106 Carbon Dioxide 9 L* D 10 L* Anion Gap 27 H 23 H BUN 54 H 54 H Creatinine 4.8 H 4.8 H Est GFR ( Amer) 14 14 Est GFR (Non-Af Amer) 12 12 POC Glucose (mg/dL) 354 H Random Glucose 311 H 258 H Calcium 8.1 L 7.9 L Phosphorus Magnesium Total Bilirubin 0.7 AST 32 ALT 40 Alkaline Phosphatase 137 H Troponin I NT-Pro-B Natriuret Pep Total Protein 7.2 Albumin 3.2 L Globulin 4.1 H Albumin/Globulin Ratio 0.8 L Procalcitonin Arterial Blood Potassium Venous Blood Potassium Urine Color Urine Clarity Urine pH Ur Specific [place] Urine Protein Urine Glucose (UA) Urine Ketones Urine Blood Urine Nitrate Urine Bilirubin Urine Urobilinogen Ur Leukocyte Esterase Urine WBC (Auto) Urine RBC (Auto) Ur Squamous Epith Cells Digoxin 09/06/17 09/06/17 09/06/17 05:39 06:15 06:15 WBC 29.3 H RBC 2.74 L Hgb 8.0 L Hct 23.9 L MCV 87.2 MCH 29.1 MCHC 33.4 RDW 16.8 H Plt Count 636 H D MPV 7.5 Neut % (Auto) 90.9 H Lymph % (Auto) 4.1 L [place] % (Auto) 4.5 Eos % (Auto) 0.0 Baso % (Auto) 0.5 Neut # (Auto) 26.6 H Lymph # (Auto) 1.2 [place] # (Auto) 1.3 H Eos # (Auto) 0.0 Baso # (Auto) 0.1 Neutrophils % (Manual) 83 H Band Neutrophils % 11 H* Lymphocytes % (Manual) 2 L Reactive Lymphs % Monocytes % (Manual) 4 Myelocytes % Toxic Granulation Present Platelet Estimate Increased H Large Platelets Present Giant Platelets Present Poikilocytosis (manual Slight Anisocytosis (manual) Slight Ovalocytes Slight [place] Cells Slight PT INR APTT Puncture Site pCO2 pO2 139 H HCO3 ABG pH ABG Total CO2 ABG O2 Saturation ABG Base Excess [place] Test ABG Potassium VBG pH 7.33 VBG pCO2 21 L VBG HCO3 15.1 VBG Total CO2 11.7 L VBG O2 Sat (Calc) 100.5 H VBG Base Excess -12.6 L VBG Potassium 5.0 A-a O2 Difference Respiratory Index Glucose 250 H Lactate 3.4 H Liter Flow 3.0 FiO2 Crit Value Called To Crit Value Called By Crit Value Read Back Blood Gas Notified Time Sodium 135.0 135 Potassium 5.0 Chloride 105.0 105 Carbon Dioxide 11 L* Anion Gap 24 H BUN 57 H Creatinine 4.8 H Est GFR ( Amer) 14 Est GFR (Non-Af Amer) 12 POC Glucose (mg/dL) Random Glucose 235 H Calcium 7.8 L Phosphorus 8.2 H Magnesium 1.8 Total Bilirubin 0.7 AST 28 ALT 34 Alkaline Phosphatase 113 Troponin I NT-Pro-B Natriuret Pep Total Protein 6.9 Albumin 3.0 L Globulin 3.9 Albumin/Globulin Ratio 0.8 L Procalcitonin Arterial Blood Potassium Venous Blood Potassium 5.0 Urine Color Urine Clarity Urine pH Ur Specific [place] Urine Protein Urine Glucose (UA) Urine Ketones Urine Blood Urine Nitrate Urine Bilirubin Urine Urobilinogen Ur Leukocyte Esterase Urine WBC (Auto) Urine RBC (Auto) Ur Squamous Epith Cells Digoxin 09/06/17 07:18 WBC RBC Hgb Hct MCV MCH MCHC RDW Plt Count MPV Neut % (Auto) Lymph % (Auto) [place] % (Auto) Eos % (Auto) Baso % (Auto) Neut # (Auto) Lymph # (Auto) [place] # (Auto) Eos # (Auto) Baso # (Auto) Neutrophils % (Manual) Band Neutrophils % Lymphocytes % (Manual) Reactive Lymphs % Monocytes % (Manual) Myelocytes % Toxic Granulation Platelet Estimate Large Platelets Giant Platelets Poikilocytosis (manual Anisocytosis (manual) Ovalocytes [place] Cells PT INR APTT Puncture Site pCO2 pO2 HCO3 ABG pH ABG Total CO2 ABG O2 Saturation ABG Base Excess [place] Test ABG Potassium VBG pH VBG pCO2 VBG HCO3 VBG Total CO2 VBG O2 Sat (Calc) VBG Base Excess VBG Potassium A-a O2 Difference Respiratory Index Glucose Lactate Liter Flow FiO2 Crit Value Called To Crit Value Called By Crit Value Read Back Blood Gas Notified Time Sodium Potassium Chloride Carbon Dioxide Anion Gap BUN Creatinine Est GFR ( Amer) Est GFR (Non-Af Amer) POC Glucose (mg/dL) 235 H Random Glucose Calcium Phosphorus Magnesium Total Bilirubin AST ALT Alkaline Phosphatase Troponin I NT-Pro-B Natriuret Pep Total Protein Albumin Globulin Albumin/Globulin Ratio Procalcitonin Arterial Blood Potassium Venous Blood Potassium Urine Color Urine Clarity Urine pH Ur Specific [place] Urine Protein Urine Glucose (UA) Urine Ketones Urine Blood Urine Nitrate Urine Bilirubin Urine Urobilinogen Ur Leukocyte Esterase Urine WBC (Auto) Urine RBC (Auto) Ur Squamous Epith Cells Digoxin EKG/Cardiology Studies: Cardiology / EKG Studies 09/05/17 10:41 ELECTROCARDIOGRAM Stat Comment: Mode Of Transportation: Reason For Exam: Sepsis Patient 09/05/17 11:01 ELECTROCARDIOGRAM Stat Comment: Mode Of Transportation: Reason For Exam: Sepsis Patient Fingerstick Blood Sugar Results: 354 Critical Care Progress Note - Nutrition Nutrition: Nutrition Category Date Time Status Consistent Carbohydrate [DIET] Diets 09/05/17 Lunch Active Assessment/Plan - Assessment and Plan (Free Text) Assessment: Patient is a 82 year old male with past medical history of atrial fibrillation, B/L DVT s/p IVC filter, recent subdural hematoma s/p craniotomy with evacuation presents to [facility] with hypotension. Code sepsis called in the ER. Patient admitted to the ICU for further management Neurology: -Patient is a AAOx2 (not to time) -S/P right frontal craniotomy with evacuation -Last CT head 08/22 showed diminishing right convexity subdural hematoma with limited mass effect. Leftward midline shift is further reduced now only 1-2mm with no definite intracrancial hemorrhage appearing acute at this time. Chronic lacune again noted at the right optic radiations. -Repeat CT head 09/05: Small residual extra-axial collection that probably represents a combination of residual hyperdense chronic subdural blood admixed with membrane formation and some subacute blood. The collection exerts minimal on mass effect on subadjacent sulci however no significant midline shift -Continue Keppra 500mg PO Q12H -Will continue to monitor in ICU Cardiology: -History of atrial fibrillation, on digoxin at home -Digoxin level 1.4, EKG showing afib with RVR -BPs improving, HR still tachy in 120s -Will restart Metoprolol (home med) -Last echo: LV normal size, mild concentric L ventricular hypertrophy, moderate tricuspid regurgitation Respiratory: -Supplemental O2 as needed -CXR on admission: no active disease Endocrine: -History of Diabetes Mellitus -Hgba1c 9.9 -Low dose ISS, accuchecks ACHS GI: -Recieved Kayexylate 30gm x 2 -Still no BM -Patient states that hes been having diarrhea -Will send off C. Diff, stool culture, fecal leukocytes -Continue Protonix 40mg IVP daily Infectious Disease: -Patient was recently treated for UTI E coli -UA on admission: +2 glucose -F/U urine cultures, blood cultures -Code sepsis called in ER -Continue Zosyn 2.75mg IV Q8H -C diff, stool cultures, fecal leukocytes ordered Renal: -Currently with acute on chronic CKD -BUN/Cr: 57/4.8, baseline Cr 2.0 -Metabolic acidosis: Start sodium bicarb 1300mg PO TID -Bicarb drip discontinued -Renal US 08/3017: unremarkable -Strict I/Os, daily weights -Nephro on consult, help appreciated Heme/Onc: -Patient with history of provoked bilateral DVTs -Was seen by Dr Tierney in the past -S/P IVC filter placement 08/27/17, SCDs contraindicated -Hgb 9.6 -> 8.0, baseline 10-11 (likely hemodilutional) -No acute signs of bleeding at this time, will monitor serial CBCs -Hold Iron supplementation 2/2 sepsis Musculoskeletal: -Ultram 50mg PO x 1 given for back pain -Lumbar MRI 08/2017: Levoscoliosis with multilevel severe degenerative disc disease and spondylosis with multilevel central canal and bilateral foraminal stenoses : -History of urinary retention, prostate surgery -Ellis in draining clear yellow urine -Restart flomax (home med) GI/DVT ppx: -Protonix 40mg IVP daily -Heparin 3000 Q12H (previously on same dose) Plan discussed with Dr Machado <Shantell Machado - Last Filed: 09/06/17 17:18> CCU Objective - Vital Signs / Intake & Output Vital Signs (Last 4 hours): Vital Signs Temp Pulse Resp BP Pulse Ox 09/06/17 17:12 81/47 L 09/06/17 17:11 115 H 23 82 L 09/06/17 17:08 124 H 25 H 75/45 L 87 L 09/06/17 17:00 115 H 34 H 74 L 09/06/17 16:59 127 H 26 H 92/49 L 95 09/06/17 16:00 98.5 F 114 H 22 94 L 09/06/17 15:58 107 H 26 H 99/64 L 90 L 09/06/17 15:00 100 H 23 96 09/06/17 14:59 102 H 29 H 87/52 L 95 09/06/17 14:00 100 H 25 H 96 09/06/17 13:59 104 H 23 90/43 L 94 L Intake and Output (Last 8hrs): Intake & Output 09/06/17 09/06/17 09/06/17 06:59 14:59 22:59 Intake Total 2600 950 375 Output Total 75 160 40 Balance 2525 790 335 Weight 218 lb 7 oz Intake: Intake, IV Amount 2300 950 375 Left Antecubital 675 150 left ac 1625 800 375 Oral 300 Output: Urine 75 160 40 Urethral (Ellis) 75 160 40 Other: # Bowel Movements 0 - Medications Active Medications: Active Medications Generic Name Dose Route Start Last Admin Trade Name Freq PRN Reason Stop Dose Admin Epoetin Kameron 4,000 unit 09/06/17 13:00 Procrit IV TTS LELA Heparin Sodium (Porcine) 3,000 units 09/05/17 22:00 09/06/17 09:14 Heparin SC 3,000 units Q12 LELA Administration Piperacillin Sod/Tazobactam Sod 2.25 gm in 50 mls @ 100 mls/hr 09/05/17 20:00 09/06/17 12:05 Zosyn 2.25 Gm Iv Premix IVPB 100 mls/hr Q8H LELA Administration Protocol Sodium Chloride 1,000 mls @ 125 mls/hr 09/06/17 02:45 09/06/17 12:05 Sodium Chloride 0.9% IV 125 mls/hr .Q8H LELA Administration Linezolid 600 mg in 300 mls @ 200 mls/hr 09/06/17 17:00 Zyvox 600mg/300ml D5w IVPB Q12H LELA Protocol Insulin Aspart 0 unit 09/05/17 16:57 09/06/17 17:06 Novolog SC 3 unit ACHS LELA Administration Protocol Insulin Aspart 20 units 09/06/17 16:30 09/06/17 17:05 Novolog Mix 70/30 (70/30 Units/Ml) SC 20 units BIDAC LELA Administration Levetiracetam 500 mg 09/05/17 22:00 09/06/17 09:14 Keppra PO 500 mg Q12 LELA Administration Metoprolol Tartrate 25 mg 09/06/17 10:00 09/06/17 17:13 Lopressor PO Not Given BID LELA Pantoprazole Sodium 40 mg 09/06/17 10:00 09/06/17 09:11 Protonix Inj IVP 40 mg DAILY LELA Administration Pregabalin 75 mg 09/06/17 22:00 Lyrica PO HS LELA Sevelamer Carbonate 800 mg 09/06/17 12:00 09/06/17 17:06 Renvela PO 800 mg TIDCC LELA Administration Sodium Bicarbonate 1,300 mg 09/06/17 10:00 09/06/17 17:06 Sodium Bicarbonate Tab PO 1,300 mg TID LELA Administration Tamsulosin HCl 0.4 mg 09/06/17 10:00 09/06/17 09:14 Flomax PO 0.4 mg DAILY LELA Administration Vitamin B Complex/Vit C/Folic Acid 1 tab 09/07/17 08:00 Nephro-Eber PO 0800 [facility] - Patient Studies Lab Studies: Microbiology Studies 09/05/17 12:56 MRSA Culture (Admit) - Final Naris MRSA NOT DETECTED 09/05/17 12:01 Urine Culture - Final Urine,Catheterized No Growth (<1,000 CFU/ML) Lab Studies 09/06/17 09/06/17 09/06/17 Range/Units 16:32 12:04 12:03 WBC (4.8-10.8) K/uL RBC (4.40-5.90) Mil/uL Hgb (12.0-18.0) g/dL Hct (35.0-51.0) % MCV (80.0-94.0) fL MCH (27.0-31.0) pg MCHC (33.0-37.0) g/dL RDW (11.5-14.5) % Plt Count (130-400) K/uL MPV (7.2-11.7) fL Neut % (Auto) (50.0-75.0) % Lymph % (Auto) (20.0-40.0) % [place] % (Auto) (0.0-10.0) % Eos % (Auto) (0.0-4.0) % Baso % (Auto) (0.0-2.0) % Neut # (Auto) (1.8-7.0) K/uL Lymph # (Auto) (1.0-4.3) K/uL [place] # (Auto) (0.0-0.8) K/uL Eos # (Auto) (0.0-0.7) K/uL Baso # (Auto) (0.0-0.2) K/uL Neutrophils % (Manual) (50-75) % Band Neutrophils % (0-2) % Lymphocytes % (Manual) (20-40) % Monocytes % (Manual) (0-10) % Toxic Granulation Platelet Estimate (NORMAL) Large Platelets Giant Platelets Poikilocytosis (manual Anisocytosis (manual) Ovalocytes [place] Cells Puncture Site pCO2 (35-45) mm/Hg pO2 (80-100) mm/Hg HCO3 (21-28) mmol/L ABG pH (7.35-7.45) ABG Total CO2 (22-28) mmol/L ABG O2 Saturation (95-98) % ABG Base Excess (-2.0-3.0) mmol/L [place] Test ABG Potassium (3.6-5.2) mmol/L VBG pH (7.32-7.43) VBG pCO2 (40-60) mmHg VBG HCO3 mmol/L VBG Total CO2 (22-28) mmol/L VBG O2 Sat (Calc) (40-65) % VBG Base Excess (0.0-2.0) mmol/L VBG Potassium (3.6-5.2) mmol/L A-a O2 Difference mm/Hg Respiratory Index Sodium (132-148) mmol/l Chloride (98-107) mmol/L Glucose (75-110) mg/dl Lactate (0.7-2.1) mmol/L Liter Flow FiO2 % Potassium (3.6-5.2) mmol/L Carbon Dioxide (22-30) mmol/L Anion Gap (10-20) BUN (9-20) mg/dL Creatinine (0.8-1.5) mg/dL Est GFR ( Amer) Est GFR (Non-Af Amer) POC Glucose (mg/dL) 271 H (65-110) mg/dL Random Glucose (75-110) mg/dL Calcium (8.6-10.4) mg/dl Phosphorus (2.5-4.5) mg/dL Magnesium (1.6-2.3) mg/dL Iron (49-181) ug/dL TIBC (250-450) ug/dL % Saturation (20-55) Ferritin ng/mL Total Bilirubin (0.2-1.3) mg/dL AST (17-59) U/L ALT (21-72) U/L Alkaline Phosphatase (38-126) U/L Total Protein (6.3-8.3) g/dL Albumin (3.5-5.0) g/dL Globulin (2.2-3.9) gm/dL Albumin/Globulin Ratio (1.0-2.1) Arterial Blood Potassium (3.6-5.2) mmol/L Venous Blood Potassium (3.6-5.2) mmol/L Urine Eosinophils Negative (NEGATIVE) Ur Random Sodium 22 mmol/L 09/06/17 09/06/17 09/06/17 Range/Units 12:02 12:02 11:50 WBC (4.8-10.8) K/uL RBC (4.40-5.90) Mil/uL Hgb (12.0-18.0) g/dL Hct (35.0-51.0) % MCV (80.0-94.0) fL MCH (27.0-31.0) pg MCHC (33.0-37.0) g/dL RDW (11.5-14.5) % Plt Count (130-400) K/uL MPV (7.2-11.7) fL Neut % (Auto) (50.0-75.0) % Lymph % (Auto) (20.0-40.0) % [place] % (Auto) (0.0-10.0) % Eos % (Auto) (0.0-4.0) % Baso % (Auto) (0.0-2.0) % Neut # (Auto) (1.8-7.0) K/uL Lymph # (Auto) (1.0-4.3) K/uL [place] # (Auto) (0.0-0.8) K/uL Eos # (Auto) (0.0-0.7) K/uL Baso # (Auto) (0.0-0.2) K/uL Neutrophils % (Manual) (50-75) % Band Neutrophils % (0-2) % Lymphocytes % (Manual) (20-40) % Monocytes % (Manual) (0-10) % Toxic Granulation Platelet Estimate (NORMAL) Large Platelets Giant Platelets Poikilocytosis (manual Anisocytosis (manual) Ovalocytes Pelham Cells Puncture Site pCO2 (35-45) mm/Hg pO2 (80-100) mm/Hg HCO3 (21-28) mmol/L ABG pH (7.35-7.45) ABG Total CO2 (22-28) mmol/L ABG O2 Saturation (95-98) % ABG Base Excess (-2.0-3.0) mmol/L [place] Test ABG Potassium (3.6-5.2) mmol/L VBG pH (7.32-7.43) VBG pCO2 (40-60) mmHg VBG HCO3 mmol/L VBG Total CO2 (22-28) mmol/L VBG O2 Sat (Calc) (40-65) % VBG Base Excess (0.0-2.0) mmol/L VBG Potassium (3.6-5.2) mmol/L A-a O2 Difference mm/Hg Respiratory Index Sodium (132-148) mmol/l Chloride (98-107) mmol/L Glucose (75-110) mg/dl Lactate (0.7-2.1) mmol/L Liter Flow FiO2 % Potassium (3.6-5.2) mmol/L Carbon Dioxide (22-30) mmol/L Anion Gap (10-20) BUN (9-20) mg/dL Creatinine (0.8-1.5) mg/dL Est GFR ( Amer) Est GFR (Non-Af Amer) POC Glucose (mg/dL) 323 H (65-110) mg/dL Random Glucose (75-110) mg/dL Calcium (8.6-10.4) mg/dl Phosphorus (2.5-4.5) mg/dL Magnesium (1.6-2.3) mg/dL Iron 38 L (49-181) ug/dL TIBC 208 L (250-450) ug/dL % Saturation 18 L (20-55) Ferritin 848.0 ng/mL Total Bilirubin (0.2-1.3) mg/dL AST (17-59) U/L ALT (21-72) U/L Alkaline Phosphatase (38-126) U/L Total Protein (6.3-8.3) g/dL Albumin (3.5-5.0) g/dL Globulin (2.2-3.9) gm/dL Albumin/Globulin Ratio (1.0-2.1) Arterial Blood Potassium (3.6-5.2) mmol/L Venous Blood Potassium (3.6-5.2) mmol/L Urine Eosinophils (NEGATIVE) Ur Random Sodium mmol/L 09/06/17 09/06/17 09/06/17 Range/Units 07:18 06:15 06:15 WBC 29.3 H (4.8-10.8) K/uL RBC 2.74 L (4.40-5.90) Mil/uL Hgb 8.0 L (12.0-18.0) g/dL Hct 23.9 L (35.0-51.0) % MCV 87.2 (80.0-94.0) fL MCH 29.1 (27.0-31.0) pg MCHC 33.4 (33.0-37.0) g/dL RDW 16.8 H (11.5-14.5) % Plt Count 636 H D (130-400) K/uL MPV 7.5 (7.2-11.7) fL Neut % (Auto) 90.9 H (50.0-75.0) % Lymph % (Auto) 4.1 L (20.0-40.0) % [place] % (Auto) 4.5 (0.0-10.0) % Eos % (Auto) 0.0 (0.0-4.0) % Baso % (Auto) 0.5 (0.0-2.0) % Neut # (Auto) 26.6 H (1.8-7.0) K/uL Lymph # (Auto) 1.2 (1.0-4.3) K/uL [place] # (Auto) 1.3 H (0.0-0.8) K/uL Eos # (Auto) 0.0 (0.0-0.7) K/uL Baso # (Auto) 0.1 (0.0-0.2) K/uL Neutrophils % (Manual) 83 H (50-75) % Band Neutrophils % 11 H* (0-2) % Lymphocytes % (Manual) 2 L (20-40) % Monocytes % (Manual) 4 (0-10) % Toxic Granulation Present Platelet Estimate Increased H (NORMAL) Large Platelets Present Giant Platelets Present Poikilocytosis (manual Slight Anisocytosis (manual) Slight Ovalocytes Slight [place] Cells Slight Puncture Site pCO2 (35-45) mm/Hg pO2 (80-100) mm/Hg HCO3 (21-28) mmol/L ABG pH (7.35-7.45) ABG Total CO2 (22-28) mmol/L ABG O2 Saturation (95-98) % ABG Base Excess (-2.0-3.0) mmol/L [place] Test ABG Potassium (3.6-5.2) mmol/L VBG pH (7.32-7.43) VBG pCO2 (40-60) mmHg VBG HCO3 mmol/L VBG Total CO2 (22-28) mmol/L VBG O2 Sat (Calc) (40-65) % VBG Base Excess (0.0-2.0) mmol/L VBG Potassium (3.6-5.2) mmol/L A-a O2 Difference mm/Hg Respiratory Index Sodium 135 (132-148) mmol/l Chloride 105 (98-107) mmol/L Glucose (75-110) mg/dl Lactate (0.7-2.1) mmol/L Liter Flow FiO2 % Potassium 5.0 (3.6-5.2) mmol/L Carbon Dioxide 11 L* (22-30) mmol/L Anion Gap 24 H (10-20) BUN 57 H (9-20) mg/dL Creatinine 4.8 H (0.8-1.5) mg/dL Est GFR ( Amer) 14 Est GFR (Non-Af Amer) 12 POC Glucose (mg/dL) 235 H (65-110) mg/dL Random Glucose 235 H (75-110) mg/dL Calcium 7.8 L (8.6-10.4) mg/dl Phosphorus 8.2 H (2.5-4.5) mg/dL Magnesium 1.8 (1.6-2.3) mg/dL Iron (49-181) ug/dL TIBC (250-450) ug/dL % Saturation (20-55) Ferritin ng/mL Total Bilirubin 0.7 (0.2-1.3) mg/dL AST 28 (17-59) U/L ALT 34 (21-72) U/L Alkaline Phosphatase 113 (38-126) U/L Total Protein 6.9 (6.3-8.3) g/dL Albumin 3.0 L (3.5-5.0) g/dL Globulin 3.9 (2.2-3.9) gm/dL Albumin/Globulin Ratio 0.8 L (1.0-2.1) Arterial Blood Potassium (3.6-5.2) mmol/L Venous Blood Potassium (3.6-5.2) mmol/L Urine Eosinophils (NEGATIVE) Ur Random Sodium mmol/L 09/06/17 09/06/17 09/05/17 Range/Units 05:39 00:14 21:12 WBC (4.8-10.8) K/uL RBC (4.40-5.90) Mil/uL Hgb (12.0-18.0) g/dL Hct (35.0-51.0) % MCV (80.0-94.0) fL MCH (27.0-31.0) pg MCHC (33.0-37.0) g/dL RDW (11.5-14.5) % Plt Count (130-400) K/uL MPV (7.2-11.7) fL Neut % (Auto) (50.0-75.0) % Lymph % (Auto) (20.0-40.0) % [place] % (Auto) (0.0-10.0) % Eos % (Auto) (0.0-4.0) % Baso % (Auto) (0.0-2.0) % Neut # (Auto) (1.8-7.0) K/uL Lymph # (Auto) (1.0-4.3) K/uL [place] # (Auto) (0.0-0.8) K/uL Eos # (Auto) (0.0-0.7) K/uL Baso # (Auto) (0.0-0.2) K/uL Neutrophils % (Manual) (50-75) % Band Neutrophils % (0-2) % Lymphocytes % (Manual) (20-40) % Monocytes % (Manual) (0-10) % Toxic Granulation Platelet Estimate (NORMAL) Large Platelets Giant Platelets Poikilocytosis (manual Anisocytosis (manual) Ovalocytes [place] Cells Puncture Site pCO2 (35-45) mm/Hg pO2 139 H (80-100) mm/Hg HCO3 (21-28) mmol/L ABG pH (7.35-7.45) ABG Total CO2 (22-28) mmol/L ABG O2 Saturation (95-98) % ABG Base Excess (-2.0-3.0) mmol/L [place] Test ABG Potassium (3.6-5.2) mmol/L VBG pH 7.33 (7.32-7.43) VBG pCO2 21 L (40-60) mmHg VBG HCO3 15.1 mmol/L VBG Total CO2 11.7 L (22-28) mmol/L VBG O2 Sat (Calc) 100.5 H (40-65) % VBG Base Excess -12.6 L (0.0-2.0) mmol/L VBG Potassium 5.0 (3.6-5.2) mmol/L A-a O2 Difference mm/Hg Respiratory Index Sodium 135.0 134 (132-148) mmol/l Chloride 105.0 106 (98-107) mmol/L Glucose 250 H (75-110) mg/dl Lactate 3.4 H (0.7-2.1) mmol/L Liter Flow 3.0 FiO2 % Potassium 5.1 (3.6-5.2) mmol/L Carbon Dioxide 10 L* (22-30) mmol/L Anion Gap 23 H (10-20) BUN 54 H (9-20) mg/dL Creatinine 4.8 H (0.8-1.5) mg/dL Est GFR ( Amer) 14 Est GFR (Non-Af Amer) 12 POC Glucose (mg/dL) 354 H (65-110) mg/dL Random Glucose 258 H (75-110) mg/dL Calcium 7.9 L (8.6-10.4) mg/dl Phosphorus (2.5-4.5) mg/dL Magnesium (1.6-2.3) mg/dL Iron (49-181) ug/dL TIBC (250-450) ug/dL % Saturation (20-55) Ferritin ng/mL Total Bilirubin (0.2-1.3) mg/dL AST (17-59) U/L ALT (21-72) U/L Alkaline Phosphatase (38-126) U/L Total Protein (6.3-8.3) g/dL Albumin (3.5-5.0) g/dL Globulin (2.2-3.9) gm/dL Albumin/Globulin Ratio (1.0-2.1) Arterial Blood Potassium (3.6-5.2) mmol/L Venous Blood Potassium 5.0 (3.6-5.2) mmol/L Urine Eosinophils (NEGATIVE) Ur Random Sodium mmol/L 09/05/17 09/05/17 Range/Units 19:55 19:50 WBC (4.8-10.8) K/uL RBC (4.40-5.90) Mil/uL Hgb (12.0-18.0) g/dL Hct (35.0-51.0) % MCV (80.0-94.0) fL MCH (27.0-31.0) pg MCHC (33.0-37.0) g/dL RDW (11.5-14.5) % Plt Count (130-400) K/uL MPV (7.2-11.7) fL Neut % (Auto) (50.0-75.0) % Lymph % (Auto) (20.0-40.0) % [place] % (Auto) (0.0-10.0) % Eos % (Auto) (0.0-4.0) % Baso % (Auto) (0.0-2.0) % Neut # (Auto) (1.8-7.0) K/uL Lymph # (Auto) (1.0-4.3) K/uL [place] # (Auto) (0.0-0.8) K/uL Eos # (Auto) (0.0-0.7) K/uL Baso # (Auto) (0.0-0.2) K/uL Neutrophils % (Manual) (50-75) % Band Neutrophils % (0-2) % Lymphocytes % (Manual) (20-40) % Monocytes % (Manual) (0-10) % Toxic Granulation Platelet Estimate (NORMAL) Large Platelets Giant Platelets Poikilocytosis (manual Anisocytosis (manual) Ovalocytes [place] Cells Puncture Site Rba pCO2 20 L (35-45) mm/Hg pO2 124 H (80-100) mm/Hg HCO3 13.5 L (21-28) mmol/L ABG pH 7.29 L (7.35-7.45) ABG Total CO2 10.2 L (22-28) mmol/L ABG O2 Saturation 100.2 H (95-98) % ABG Base Excess -14.7 L (-2.0-3.0) mmol/L [place] Test Pos ABG Potassium 6.0 H (3.6-5.2) mmol/L VBG pH (7.32-7.43) VBG pCO2 (40-60) mmHg VBG HCO3 mmol/L VBG Total CO2 (22-28) mmol/L VBG O2 Sat (Calc) (40-65) % VBG Base Excess (0.0-2.0) mmol/L VBG Potassium (3.6-5.2) mmol/L A-a O2 Difference 79.0 mm/Hg Respiratory Index 0.6 Sodium 133 131.0 L (132-148) mmol/l Chloride 103 102.0 (98-107) mmol/L Glucose 320 H (75-110) mg/dl Lactate 3.3 H (0.7-2.1) mmol/L Liter Flow 3.0 FiO2 32.0 % Potassium 6.0 H (3.6-5.2) mmol/L Carbon Dioxide 9 L* D (22-30) mmol/L Anion Gap 27 H (10-20) BUN 54 H (9-20) mg/dL Creatinine 4.8 H (0.8-1.5) mg/dL Est GFR ( Amer) 14 Est GFR (Non-Af Amer) 12 POC Glucose (mg/dL) (65-110) mg/dL Random Glucose 311 H (75-110) mg/dL Calcium 8.1 L (8.6-10.4) mg/dl Phosphorus (2.5-4.5) mg/dL Magnesium (1.6-2.3) mg/dL Iron (49-181) ug/dL TIBC (250-450) ug/dL % Saturation (20-55) Ferritin ng/mL Total Bilirubin 0.7 (0.2-1.3) mg/dL AST 32 (17-59) U/L ALT 40 (21-72) U/L Alkaline Phosphatase 137 H (38-126) U/L Total Protein 7.2 (6.3-8.3) g/dL Albumin 3.2 L (3.5-5.0) g/dL Globulin 4.1 H (2.2-3.9) gm/dL Albumin/Globulin Ratio 0.8 L (1.0-2.1) Arterial Blood Potassium 6.0 H (3.6-5.2) mmol/L Venous Blood Potassium (3.6-5.2) mmol/L Urine Eosinophils (NEGATIVE) Ur Random Sodium mmol/L Laboratory Results - last 24 hr 09/05/17 09/05/17 09/05/17 19:50 19:55 21:12 WBC RBC Hgb Hct MCV MCH MCHC RDW Plt Count MPV Neut % (Auto) Lymph % (Auto) [place] % (Auto) Eos % (Auto) Baso % (Auto) Neut # (Auto) Lymph # (Auto) [place] # (Auto) Eos # (Auto) Baso # (Auto) Neutrophils % (Manual) Band Neutrophils % Lymphocytes % (Manual) Monocytes % (Manual) Toxic Granulation Platelet Estimate Large Platelets Giant Platelets Poikilocytosis (manual Anisocytosis (manual) Ovalocytes [place] Cells Puncture Site Rba pCO2 20 L pO2 124 H HCO3 13.5 L ABG pH 7.29 L ABG Total CO2 10.2 L ABG O2 Saturation 100.2 H ABG Base Excess -14.7 L [place] Test Pos ABG Potassium 6.0 H VBG pH VBG pCO2 VBG HCO3 VBG Total CO2 VBG O2 Sat (Calc) VBG Base Excess VBG Potassium A-a O2 Difference 79.0 Respiratory Index 0.6 Sodium 131.0 L 133 Chloride 102.0 103 Glucose 320 H Lactate 3.3 H Liter Flow 3.0 FiO2 32.0 Potassium 6.0 H Carbon Dioxide 9 L* D Anion Gap 27 H BUN 54 H Creatinine 4.8 H Est GFR ( Amer) 14 Est GFR (Non-Af Amer) 12 POC Glucose (mg/dL) 354 H Random Glucose 311 H Calcium 8.1 L Phosphorus Magnesium Iron TIBC % Saturation Ferritin Total Bilirubin 0.7 AST 32 ALT 40 Alkaline Phosphatase 137 H Total Protein 7.2 Albumin 3.2 L Globulin 4.1 H Albumin/Globulin Ratio 0.8 L Arterial Blood Potassium 6.0 H Venous Blood Potassium Urine Eosinophils Ur Random Sodium 09/06/17 09/06/17 09/06/17 00:14 05:39 06:15 WBC 29.3 H RBC 2.74 L Hgb 8.0 L Hct 23.9 L MCV 87.2 MCH 29.1 MCHC 33.4 RDW 16.8 H Plt Count 636 H D MPV 7.5 Neut % (Auto) 90.9 H Lymph % (Auto) 4.1 L [place] % (Auto) 4.5 Eos % (Auto) 0.0 Baso % (Auto) 0.5 Neut # (Auto) 26.6 H Lymph # (Auto) 1.2 [place] # (Auto) 1.3 H Eos # (Auto) 0.0 Baso # (Auto) 0.1 Neutrophils % (Manual) 83 H Band Neutrophils % 11 H* Lymphocytes % (Manual) 2 L Monocytes % (Manual) 4 Toxic Granulation Present Platelet Estimate Increased H Large Platelets Present Giant Platelets Present Poikilocytosis (manual Slight Anisocytosis (manual) Slight Ovalocytes Slight [place] Cells Slight Puncture Site pCO2 pO2 139 H HCO3 ABG pH ABG Total CO2 ABG O2 Saturation ABG Base Excess [place] Test ABG Potassium VBG pH 7.33 VBG pCO2 21 L VBG HCO3 15.1 VBG Total CO2 11.7 L VBG O2 Sat (Calc) 100.5 H VBG Base Excess -12.6 L VBG Potassium 5.0 A-a O2 Difference Respiratory Index Sodium 134 135.0 Chloride 106 105.0 Glucose 250 H Lactate 3.4 H Liter Flow 3.0 FiO2 Potassium 5.1 Carbon Dioxide 10 L* Anion Gap 23 H BUN 54 H Creatinine 4.8 H Est GFR ( Amer) 14 Est GFR (Non-Af Amer) 12 POC Glucose (mg/dL) Random Glucose 258 H Calcium 7.9 L Phosphorus Magnesium Iron TIBC % Saturation Ferritin Total Bilirubin AST ALT Alkaline Phosphatase Total Protein Albumin Globulin Albumin/Globulin Ratio Arterial Blood Potassium Venous Blood Potassium 5.0 Urine Eosinophils Ur Random Sodium 09/06/17 09/06/17 09/06/17 06:15 07:18 11:50 WBC RBC Hgb Hct MCV MCH MCHC RDW Plt Count MPV Neut % (Auto) Lymph % (Auto) [place] % (Auto) Eos % (Auto) Baso % (Auto) Neut # (Auto) Lymph # (Auto) [place] # (Auto) Eos # (Auto) Baso # (Auto) Neutrophils % (Manual) Band Neutrophils % Lymphocytes % (Manual) Monocytes % (Manual) Toxic Granulation Platelet Estimate Large Platelets Giant Platelets Poikilocytosis (manual Anisocytosis (manual) Ovalocytes [place] Cells Puncture Site pCO2 pO2 HCO3 ABG pH ABG Total CO2 ABG O2 Saturation ABG Base Excess [place] Test ABG Potassium VBG pH VBG pCO2 VBG HCO3 VBG Total CO2 VBG O2 Sat (Calc) VBG Base Excess VBG Potassium A-a O2 Difference Respiratory Index Sodium 135 Chloride 105 Glucose Lactate Liter Flow FiO2 Potassium 5.0 Carbon Dioxide 11 L* Anion Gap 24 H BUN 57 H Creatinine 4.8 H Est GFR ( Amer) 14 Est GFR (Non-Af Amer) 12 POC Glucose (mg/dL) 235 H 323 H Random Glucose 235 H Calcium 7.8 L Phosphorus 8.2 H Magnesium 1.8 Iron TIBC % Saturation Ferritin Total Bilirubin 0.7 AST 28 ALT 34 Alkaline Phosphatase 113 Total Protein 6.9 Albumin 3.0 L Globulin 3.9 Albumin/Globulin Ratio 0.8 L Arterial Blood Potassium Venous Blood Potassium Urine Eosinophils Ur Random Sodium 09/06/17 09/06/17 09/06/17 12:02 12:02 12:03 WBC RBC Hgb Hct MCV MCH MCHC RDW Plt Count MPV Neut % (Auto) Lymph % (Auto) [place] % (Auto) Eos % (Auto) Baso % (Auto) Neut # (Auto) Lymph # (Auto) [place] # (Auto) Eos # (Auto) Baso # (Auto) Neutrophils % (Manual) Band Neutrophils % Lymphocytes % (Manual) Monocytes % (Manual) Toxic Granulation Platelet Estimate Large Platelets Giant Platelets Poikilocytosis (manual Anisocytosis (manual) Ovalocytes [place] Cells Puncture Site pCO2 pO2 HCO3 ABG pH ABG Total CO2 ABG O2 Saturation ABG Base Excess [place] Test ABG Potassium VBG pH VBG pCO2 VBG HCO3 VBG Total CO2 VBG O2 Sat (Calc) VBG Base Excess VBG Potassium A-a O2 Difference Respiratory Index Sodium Chloride Glucose Lactate Liter Flow FiO2 Potassium Carbon Dioxide Anion Gap BUN Creatinine Est GFR ( Amer) Est GFR (Non-Af Amer) POC Glucose (mg/dL) Random Glucose Calcium Phosphorus Magnesium Iron 38 L TIBC 208 L % Saturation 18 L Ferritin 848.0 Total Bilirubin AST ALT Alkaline Phosphatase Total Protein Albumin Globulin Albumin/Globulin Ratio Arterial Blood Potassium Venous Blood Potassium Urine Eosinophils Ur Random Sodium 22 09/06/17 09/06/17 12:04 16:32 WBC RBC Hgb Hct MCV MCH MCHC RDW Plt Count MPV Neut % (Auto) Lymph % (Auto) [place] % (Auto) Eos % (Auto) Baso % (Auto) Neut # (Auto) Lymph # (Auto) [place] # (Auto) Eos # (Auto) Baso # (Auto) Neutrophils % (Manual) Band Neutrophils % Lymphocytes % (Manual) Monocytes % (Manual) Toxic Granulation Platelet Estimate Large Platelets Giant Platelets Poikilocytosis (manual Anisocytosis (manual) Ovalocytes [place] Cells Puncture Site pCO2 pO2 HCO3 ABG pH ABG Total CO2 ABG O2 Saturation ABG Base Excess [place] Test ABG Potassium VBG pH VBG pCO2 VBG HCO3 VBG Total CO2 VBG O2 Sat (Calc) VBG Base Excess VBG Potassium A-a O2 Difference Respiratory Index Sodium Chloride Glucose Lactate Liter Flow FiO2 Potassium Carbon Dioxide Anion Gap BUN Creatinine Est GFR ( Amer) Est GFR (Non-Af Amer) POC Glucose (mg/dL) 271 H Random Glucose Calcium Phosphorus Magnesium Iron TIBC % Saturation Ferritin Total Bilirubin AST ALT Alkaline Phosphatase Total Protein Albumin Globulin Albumin/Globulin Ratio Arterial Blood Potassium Venous Blood Potassium Urine Eosinophils Negative Ur Random Sodium Critical Care Progress Note - Nutrition Nutrition: Nutrition Category Date Time Status Consistent Carbohydrate [DIET] Diets 09/05/17 Lunch Active Assessment/Plan - Assessment and Plan (Free Text) Assessment: Above patient seen and examined with above resident. 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
[2017-09-06 12:28] LABS: IRON 38 ug/dL (49-181)
--- NOTE | 2017-09-06 12:50 | CP.PCM.CON ---
History of Present Illness - History of Present Illness History of Present Illness: Initial Nephrology Consultation: Assessment: critical oligoanuric Acute Kidney Injury (N17.9) likely due to ATN: hypotension, sepsis Diabetic chronic Kidney Disease (E11.22) Hyperkalemia Chronic Kidney Disease (N18.3) Stage 3 with 1 gram proteinuria (R80.9) likely due to DM Anemia (D64.9), Hyperphosphatemia (E83.39), Secondary Hyperparathyroidism (E21.1 ), lactic acidosis and severe metabolic acidosis fluid overload A fib with RVR hx if DVT s/p IVC filter, SDH s/p evacuation Plan Renal replacement therapy at this time indicated. Will plan for HD today as ordered. d/w pt and consent obtained. called family as well but no answer Patient not on ACEI/ARB due to FUAD and low BP. maintain henodynamics stable Monitor Input/Output, daily weights and renal function with basic metabolic panel will start epogen and renvela caution with use of digoxin Check urine for eosinophils Check serum protein electrophoresis with immunofixation, serm FLC assay, HIV/ Hep B and Hep C serology Dose meds/antibiotics for reduced GFR. Avoid fleets enema/magnesium based laxatives. Avoid nephrotoxins/NSAIDs/ iodinated contrast (unless needed emergently) Glycemic control Further work up/management as per primary team Thanks for allowing me to participate in care of your patient. Will follow patient with you. Please call if any Qs. d/w team Dr Jason Tate Office: [phone] Chief Complaint; feel sick reason for consult: FUAD HPI: Pt is a 82 M with hx of diabetes Mellitus (years), A fib, SDH s/p evacuation, DVT s/p IVC filter and CKD 3 with baseline cr in 2 range presented with complaints of hypotension and sepsis, rapid A fib. renal consult for FUAD, hyperkalemia and acidosis pt feels sick. c/o thigh pain and swelling. denies SOB Denies OTC/herbal meds or NSAIDs No recent iodinated contrast exposure. Noted obvious episodes of low BP. ROS: Cardiovascular: No chest pain. Pulmonary: No shortness of breath Gastrointestinal: denies abdominal pain No nausea. No vomiting. Genitourinary: has kaplan + not making much urine All other negative Physical Examination: General Appearance: Comfortable, in no acute respiratory distress, co-operative . ill appearing Vitals reviewed and noted as below Head; Atraumatic, normocephalic ENT: no ulcers no thrush. Tongue is midline. Oropharynx: no rash or ulcers. EYES: Pupils are equal, round and reactive to light accommodation. Eye muscles and extraocular movement intact. Sclera is anicteric. Neck; supple no lymphadenopathy, no thyromegaly or bruit Lungs: Normal respiratory rate/effort. Breath sounds bilateral decreased at bases Heart: Normal rate. s1s2 normal. No rub or gallop. A fib Extremities: 2-3+ edema. No varicose veins Neurological: Patient is alert, awake and oriented to person, place and time. No focal deficit. Strength bilateral appropriate and equal Skin: Warm and dry. Normal turgor. No rash. Palpitation: Normal elasticity for age Abdomen: Abdomen is soft. Bowel sounds +. There is no abdominal tenderness, no guarding/rigidity no organomegaly Psych: normal insight and normal affect/mood MSK: no joint tenderness or swelling. Digits and nails normal, no deformity : kidney or bladder not palpable. has kaplan. scrotal edema ++ Labs/imaging reviewed. Past medical history, past surgical history, family history, social history, allergy reviewed and noted as below Family hx: no hx of CKD. Rest non-contributory work up: urine pr/cr 1 gram. vit D 43 Dig 1.4 renal sono unremarkable Past Patient History - Infectious Disease Hx of Infectious Diseases: None - Tetanus Immunizations Tetanus Immunization: Unknown - Past Medical History & Family History Past Medical History?: Yes - Past Social History Smoking Status: Never Smoked - CARDIAC Hx Atrial Fibrillation: Yes Hx Cardia Arrhythmia: Yes (Atrial Fibrillation) Hx Congestive Heart Failure: Yes Hx Hypercholesterolemia: Yes Hx Hypertension: Yes Hx Pacemaker: No Hx Peripheral Edema: Yes - PULMONARY Hx Chronic Obstructive Pulmonary Disease (COPD): Yes - NEUROLOGICAL Hx Neurological Disorder: No - HEENT Hx HEENT Problems: No - RENAL Hx Chronic Kidney Disease: No - ENDOCRINE/METABOLIC Hx Endocrine Disorders: Yes Hx Diabetes Mellitus Type 2: Yes - HEMATOLOGICAL/ONCOLOGICAL Hx Human Immunodeficiency Virus (HIV): No - INTEGUMENTARY Hx Dermatological Problems: No - MUSCULOSKELETAL/RHEUMATOLOGICAL Hx Arthritis: Yes - GASTROINTESTINAL Hx Gastrointestinal Disorders: Yes Hx Gastroesophageal Reflux: Yes - GENITOURINARY/GYNECOLOGICAL Hx Genitourinary Disorders: Yes Other/Comment: prostate sx - PSYCHIATRIC Hx Depression: No Hx Substance Use: No - SURGICAL HISTORY Hx Surgeries: Yes Other/Comment: PROSTATE - ANESTHESIA Hx Anesthesia Reactions: No Hx Malignant Hyperthermia: No Meds Allergies/Adverse Reactions: Allergies Allergy/AdvReac Type Severity Reaction Status Date / Time No Known Allergies Allergy Verified 09/05/17 10:47 - Medications Medications: Current Medications Heparin Sodium (Porcine) (Heparin) 3,000 units SC Q12 [facility] Last Admin: 09/06/17 09:14 Dose: 3,000 units Piperacillin Sod/Tazobactam Sod (Zosyn 2.25 Gm Iv Premix) 2.25 gm in 50 mls @ 100 mls/hr IVPB Q8H [facility] PRN Reason: Protocol Last Admin: 09/06/17 12:05 Dose: 100 mls/hr Sodium Chloride (Sodium Chloride 0.9%) 1,000 mls @ 125 mls/hr IV .Q8H [facility] Last Admin: 09/06/17 12:05 Dose: 125 mls/hr Insulin Aspart (Novolog) 0 unit SC ACHS [facility] PRN Reason: Protocol Last Admin: 09/06/17 08:23 Dose: 2 unit Insulin Aspart (Novolog Mix 70/30 (70/30 Units/Ml)) 20 units SC BIDAC [facility] Levetiracetam (Keppra) 500 mg PO Q12 [facility] Last Admin: 09/06/17 09:14 Dose: 500 mg Metoprolol Tartrate (Lopressor) 25 mg PO BID [facility] Last Admin: 09/06/17 09:11 Dose: 25 mg Pantoprazole Sodium (Protonix Inj) 40 mg IVP DAILY [facility] Last Admin: 09/06/17 09:11 Dose: 40 mg Pregabalin (Lyrica) 75 mg PO HS [facility] Sevelamer Carbonate (Renvela) 800 mg PO TIDCC [facility] Sodium Bicarbonate (Sodium Bicarbonate Tab) 1,300 mg PO TID [facility] Last Admin: 09/06/17 09:11 Dose: 1,300 mg Tamsulosin HCl (Flomax) 0.4 mg PO DAILY [facility] Last Admin: 09/06/17 09:14 Dose: 0.4 mg Vitamin B Complex/Vit C/Folic Acid (Nephro-Eber) 1 tab PO 0800 [facility] Results - Vital Signs Recent Vital Signs: Last Vital Signs Temp 98.7 F 09/06/17 08:00 Pulse 91 H 09/06/17 12:00 Resp 19 09/06/17 12:00 BP 89/45 L 09/06/17 12:00 Pulse Ox 96 09/06/17 12:00 - Labs Result Diagrams: 09/06/17 06:15 09/06/17 06:15 Labs: Laboratory Results - last 24 hr 09/05/17 09/05/17 09/05/17 12:26 13:28 14:22 WBC RBC Hgb Hct MCV MCH MCHC RDW Plt Count MPV Neut % (Auto) Lymph % (Auto) [place] % (Auto) Eos % (Auto) Baso % (Auto) Neut # (Auto) Lymph # (Auto) [place] # (Auto) Eos # (Auto) Baso # (Auto) Neutrophils % (Manual) Band Neutrophils % Lymphocytes % (Manual) Monocytes % (Manual) Toxic Granulation Platelet Estimate Large Platelets Giant Platelets Poikilocytosis (manual Anisocytosis (manual) Ovalocytes [place] Cells Puncture Site pCO2 pO2 15 L HCO3 ABG pH ABG Total CO2 ABG O2 Saturation ABG Base Excess [place] Test ABG Potassium VBG pH 7.17 L* VBG pCO2 34 L VBG HCO3 10.8 VBG Total CO2 13.4 L VBG O2 Sat (Calc) 20.8 L VBG Base Excess -15.1 L VBG Potassium 5.9 H A-a O2 Difference Respiratory Index Glucose 289 H Lactate 3.2 H Liter Flow FiO2 Crit Value Called To Dr patel Crit Value Called By Chantale boudreaux global marketing operations manager Crit Value Read Back Y Blood Gas Notified Time 1335 Sodium 132 131.0 L Potassium 6.5 H* Chloride 100 101.0 Carbon Dioxide 13 L Anion Gap 25 H BUN 52 H Creatinine 4.6 H Est GFR ( Amer) 15 Est GFR (Non-Af Amer) 12 POC Glucose (mg/dL) Random Glucose 308 H Calcium 8.2 L Phosphorus 8.6 H Magnesium 2.0 Iron Total Bilirubin 0.9 AST 36 ALT 39 Alkaline Phosphatase 132 H D Troponin I 0.0260 NT-Pro-B Natriuret Pep 4800 H Total Protein 7.8 Albumin 3.4 L Globulin 4.4 H Albumin/Globulin Ratio 0.8 L Procalcitonin 1.09 H Arterial Blood Potassium Venous Blood Potassium 5.9 H Ur Random Sodium 09/05/17 09/05/17 09/05/17 16:13 19:50 19:55 WBC RBC Hgb Hct MCV MCH MCHC RDW Plt Count MPV Neut % (Auto) Lymph % (Auto) [place] % (Auto) Eos % (Auto) Baso % (Auto) Neut # (Auto) Lymph # (Auto) [place] # (Auto) Eos # (Auto) Baso # (Auto) Neutrophils % (Manual) Band Neutrophils % Lymphocytes % (Manual) Monocytes % (Manual) Toxic Granulation Platelet Estimate Large Platelets Giant Platelets Poikilocytosis (manual Anisocytosis (manual) Ovalocytes [place] Cells Puncture Site Rba pCO2 20 L pO2 124 H HCO3 13.5 L ABG pH 7.29 L ABG Total CO2 10.2 L ABG O2 Saturation 100.2 H ABG Base Excess -14.7 L [place] Test Pos ABG Potassium 6.0 H VBG pH VBG pCO2 VBG HCO3 VBG Total CO2 VBG O2 Sat (Calc) VBG Base Excess VBG Potassium A-a O2 Difference 79.0 Respiratory Index 0.6 Glucose 320 H Lactate 3.3 H Liter Flow 3.0 FiO2 32.0 Crit Value Called To Crit Value Called By Crit Value Read Back Blood Gas Notified Time Sodium 131.0 L 133 Potassium 6.0 H Chloride 102.0 103 Carbon Dioxide 9 L* D Anion Gap 27 H BUN 54 H Creatinine 4.8 H Est GFR ( Amer) 14 Est GFR (Non-Af Amer) 12 POC Glucose (mg/dL) 225 H Random Glucose 311 H Calcium 8.1 L Phosphorus Magnesium Iron Total Bilirubin 0.7 AST 32 ALT 40 Alkaline Phosphatase 137 H Troponin I NT-Pro-B Natriuret Pep Total Protein 7.2 Albumin 3.2 L Globulin 4.1 H Albumin/Globulin Ratio 0.8 L Procalcitonin Arterial Blood Potassium 6.0 H Venous Blood Potassium Ur Random Sodium 09/05/17 09/06/17 09/06/17 21:12 00:14 05:39 WBC RBC Hgb Hct MCV MCH MCHC RDW Plt Count MPV Neut % (Auto) Lymph % (Auto) [place] % (Auto) Eos % (Auto) Baso % (Auto) Neut # (Auto) Lymph # (Auto) [place] # (Auto) Eos # (Auto) Baso # (Auto) Neutrophils % (Manual) Band Neutrophils % Lymphocytes % (Manual) Monocytes % (Manual) Toxic Granulation Platelet Estimate Large Platelets Giant Platelets Poikilocytosis (manual Anisocytosis (manual) Ovalocytes [place] Cells Puncture Site pCO2 pO2 139 H HCO3 ABG pH ABG Total CO2 ABG O2 Saturation ABG Base Excess [place] Test ABG Potassium VBG pH 7.33 VBG pCO2 21 L VBG HCO3 15.1 VBG Total CO2 11.7 L VBG O2 Sat (Calc) 100.5 H VBG Base Excess -12.6 L VBG Potassium 5.0 A-a O2 Difference Respiratory Index Glucose 250 H Lactate 3.4 H Liter Flow 3.0 FiO2 Crit Value Called To Crit Value Called By Crit Value Read Back Blood Gas Notified Time Sodium 134 135.0 Potassium 5.1 Chloride 106 105.0 Carbon Dioxide 10 L* Anion Gap 23 H BUN 54 H Creatinine 4.8 H Est GFR ( Amer) 14 Est GFR (Non-Af Amer) 12 POC Glucose (mg/dL) 354 H Random Glucose 258 H Calcium 7.9 L Phosphorus Magnesium Iron Total Bilirubin AST ALT Alkaline Phosphatase Troponin I NT-Pro-B Natriuret Pep Total Protein Albumin Globulin Albumin/Globulin Ratio Procalcitonin Arterial Blood Potassium Venous Blood Potassium 5.0 Ur Random Sodium 09/06/17 09/06/17 09/06/17 06:15 06:15 07:18 WBC 29.3 H RBC 2.74 L Hgb 8.0 L Hct 23.9 L MCV 87.2 MCH 29.1 MCHC 33.4 RDW 16.8 H Plt Count 636 H D MPV 7.5 Neut % (Auto) 90.9 H Lymph % (Auto) 4.1 L [place] % (Auto) 4.5 Eos % (Auto) 0.0 Baso % (Auto) 0.5 Neut # (Auto) 26.6 H Lymph # (Auto) 1.2 [place] # (Auto) 1.3 H Eos # (Auto) 0.0 Baso # (Auto) 0.1 Neutrophils % (Manual) 83 H Band Neutrophils % 11 H* Lymphocytes % (Manual) 2 L Monocytes % (Manual) 4 Toxic Granulation Present Platelet Estimate Increased H Large Platelets Present Giant Platelets Present Poikilocytosis (manual Slight Anisocytosis (manual) Slight Ovalocytes Slight [place] Cells Slight Puncture Site pCO2 pO2 HCO3 ABG pH ABG Total CO2 ABG O2 Saturation ABG Base Excess [place] Test ABG Potassium VBG pH VBG pCO2 VBG HCO3 VBG Total CO2 VBG O2 Sat (Calc) VBG Base Excess VBG Potassium A-a O2 Difference Respiratory Index Glucose Lactate Liter Flow FiO2 Crit Value Called To Crit Value Called By Crit Value Read Back Blood Gas Notified Time Sodium 135 Potassium 5.0 Chloride 105 Carbon Dioxide 11 L* Anion Gap 24 H BUN 57 H Creatinine 4.8 H Est GFR ( Amer) 14 Est GFR (Non-Af Amer) 12 POC Glucose (mg/dL) 235 H Random Glucose 235 H Calcium 7.8 L Phosphorus 8.2 H Magnesium 1.8 Iron Total Bilirubin 0.7 AST 28 ALT 34 Alkaline Phosphatase 113 Troponin I NT-Pro-B Natriuret Pep Total Protein 6.9 Albumin 3.0 L Globulin 3.9 Albumin/Globulin Ratio 0.8 L Procalcitonin Arterial Blood Potassium Venous Blood Potassium Ur Random Sodium 09/06/17 09/06/17 09/06/17 11:50 12:02 12:03 WBC RBC Hgb Hct MCV MCH MCHC RDW Plt Count MPV Neut % (Auto) Lymph % (Auto) [place] % (Auto) Eos % (Auto) Baso % (Auto) Neut # (Auto) Lymph # (Auto) [place] # (Auto) Eos # (Auto) Baso # (Auto) Neutrophils % (Manual) Band Neutrophils % Lymphocytes % (Manual) Monocytes % (Manual) Toxic Granulation Platelet Estimate Large Platelets Giant Platelets Poikilocytosis (manual Anisocytosis (manual) Ovalocytes [place] Cells Puncture Site pCO2 pO2 HCO3 ABG pH ABG Total CO2 ABG O2 Saturation ABG Base Excess [place] Test ABG Potassium VBG pH VBG pCO2 VBG HCO3 VBG Total CO2 VBG O2 Sat (Calc) VBG Base Excess VBG Potassium A-a O2 Difference Respiratory Index Glucose Lactate Liter Flow FiO2 Crit Value Called To Crit Value Called By Crit Value Read Back Blood Gas Notified Time Sodium Potassium Chloride Carbon Dioxide Anion Gap BUN Creatinine Est GFR ( Amer) Est GFR (Non-Af Amer) POC Glucose (mg/dL) 323 H Random Glucose Calcium Phosphorus Magnesium Iron 38 L Total Bilirubin AST ALT Alkaline Phosphatase Troponin I NT-Pro-B Natriuret Pep Total Protein Albumin Globulin Albumin/Globulin Ratio Procalcitonin Arterial Blood Potassium Venous Blood Potassium Ur Random Sodium 22
[2017-09-06 12:54] LABS: % IRON SATURATION 18 (20-55); TOTAL IRON BINDING CAPACITY 208 ug/dL (250-450)
[2017-09-06] MEDS ORDERED: EPOETIN ALFA 4,000 UNIT/ML ML Dialysis IV SCH (13:00)
[2017-09-06] MEDS: (Novolog Mix 70/30) Insulin Aspart/Insulin Aspar 100 units/ml SC SCH (17:05)
[2017-09-06] MEDS: Linezolid 600 mg in D5W 300 ml 600 MG/300 ML BAG IVPB SCH (17:33)
--- NOTE | 2017-09-06 17:45 | CP.PCM.CON ---
History of Present Illness - History of Present Illness History of Present Illness: INFECTIOUS DISEASE CONSULT; HPI; CC: dizziness, shortness of breath, HYPOTENSION HPI: 82-year-old male with PMD of atrial fibrillation, diabetes mellitus, urinary retention with recent UTI, CKD S/P right frontal craniotomy 08/14/17 at [facility] for evacuation of subdural hematoma who was sent to [facility] from [facility] ) for hypo-tension with blood pressure 62/52 on 09/05/17. Patient also is complaining of shortness of breath and dizziness. 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 Chest x-ray on admission was unremarkable. Patient was treated with IV boluses and insulin for hyperglycemia on admission with blood sugar of 336. Patient serum lactate was 3.5 with a WBC count of 25. After appropriate cultures patient was treated with IV vancomycin 1 g one dose and Zosyn was initiated after bolus off 3.375 g. Presently patient on IV Zosyn 2.25 every 8 hourly. Infectious disease consultation requested by PMD for increasing leukocytosis of 29,000 today with 11% bandemia. Patient presently oliguric with severe metabolic acidosis with serum lactate of 3.4 today. Patient presently complaining of diarrhea off and on for the past few days,but as per RN has not moved his bowels. Patient also complains of bilateral thigh pain. Patient denies any headache, nausea, vomiting, chest pain, fevers or chills. Patient denies any abdominal pain or urinary symptoms. ED course: Vancomycin 1 gm, Zosyn 3.375, NS bolus 750cc, calcium gluconate x 1 dose Allergies: NKDA Medications: See MAR Medical History: A fib, diabetes mellitus, urinary retention, CKD, COPD, S/P DVT ,IVC FILTER Surgical History: Left Knee surgery, Right frontal craniotomy for evacuation of subdural hematoma (08/19/17), IVC filter (08/27/17), prostate surgery Social History: Former smoker, denies alcohol, drug use Family History: States: Unknown Family Hx - Social History Hx Tobacco Use: No Hx Alcohol Use: No Hx Substance Use: No - Immunization History Hx Tetanus Toxoid Vaccination: No Hx Influenza Vaccination: No Hx Pneumococcal Vaccination: No Review of Systems - Review of Systems Systems not reviewed;Unavailable: Acuity of Condition - Constitutional Constitutional: absent: Chills, Fever - EENT Eyes: absent: Change in Vision, Other Visual Disturbances Ears: Dizziness. absent: Ear Pain Nose/Mouth/Throat: absent: Sore Throat - Cardiovascular Cardiovascular: Dyspnea, Leg Edema, Lightheadedness, Rapid Heart Rate. absent: Chest Pain, Palpitations - Respiratory Respiratory: Dyspnea. absent: Cough, Hemoptysis - Gastrointestinal Gastrointestinal: Diarrhea, Loose Stools. absent: Abdominal Pain, Nausea, Vomiting - Genitourinary Genitourinary: absent: Dysuria - Neurological Neurological: As Per HPI, Dizziness. absent: Headaches - Psychiatric Psychiatric: Confusion - Hematologic/Lymphatic Hematologic: As Per HPI. absent: Easy Bleeding, Easy Bruising Past Patient History - Infectious Disease Hx of Infectious Diseases: None - Tetanus Immunizations Tetanus Immunization: Unknown - Past Medical History & Family History Past Medical History?: Yes - Past Social History Smoking Status: Never Smoked - CARDIAC Hx Atrial Fibrillation: Yes Hx Cardia Arrhythmia: Yes (Atrial Fibrillation) Hx Congestive Heart Failure: Yes Hx Hypercholesterolemia: Yes Hx Hypertension: Yes Hx Pacemaker: No Hx Peripheral Edema: Yes - PULMONARY Hx Chronic Obstructive Pulmonary Disease (COPD): Yes - NEUROLOGICAL Hx Neurological Disorder: No - HEENT Hx HEENT Problems: No - RENAL Hx Chronic Kidney Disease: No - ENDOCRINE/METABOLIC Hx Endocrine Disorders: Yes Hx Diabetes Mellitus Type 2: Yes - HEMATOLOGICAL/ONCOLOGICAL Hx Human Immunodeficiency Virus (HIV): No - INTEGUMENTARY Hx Dermatological Problems: No - MUSCULOSKELETAL/RHEUMATOLOGICAL Hx Arthritis: Yes - GASTROINTESTINAL Hx Gastrointestinal Disorders: Yes Hx Gastroesophageal Reflux: Yes - GENITOURINARY/GYNECOLOGICAL Hx Genitourinary Disorders: Yes Other/Comment: prostate sx - PSYCHIATRIC Hx Depression: No Hx Substance Use: No - SURGICAL HISTORY Hx Surgeries: Yes Other/Comment: PROSTATE - ANESTHESIA Hx Anesthesia Reactions: No Hx Malignant Hyperthermia: No Meds Allergies/Adverse Reactions: Allergies Allergy/AdvReac Type Severity Reaction Status Date / Time No Known Allergies Allergy Verified 09/05/17 10:47 - Medications Medications: Current Medications Epoetin Kameron (Procrit) 4,000 unit IV TTS LELA Heparin Sodium (Porcine) (Heparin) 3,000 units SC Q12 [facility] Last Admin: 09/06/17 09:14 Dose: 3,000 units Piperacillin Sod/Tazobactam Sod (Zosyn 2.25 Gm Iv Premix) 2.25 gm in 50 mls @ 100 mls/hr IVPB Q8H [facility] PRN Reason: Protocol Last Admin: 09/06/17 12:05 Dose: 100 mls/hr Linezolid (Zyvox 600mg/300ml D5w) 600 mg in 300 mls @ 200 mls/hr IVPB Q12H [facility] PRN Reason: Protocol Last Admin: 09/06/17 17:33 Dose: 200 mls/hr Insulin Aspart (Novolog) 0 unit SC ACHS [facility] PRN Reason: Protocol Last Admin: 09/06/17 17:06 Dose: 3 unit Insulin Aspart (Novolog Mix 70/30 (70/30 Units/Ml)) 20 units SC BIDAC [facility] Last Admin: 09/06/17 17:05 Dose: 20 units Levetiracetam (Keppra) 500 mg PO Q12 [facility] Last Admin: 09/06/17 09:14 Dose: 500 mg Metoprolol Tartrate (Lopressor) 25 mg PO BID [facility] Last Admin: 09/06/17 17:13 Dose: Not Given Pantoprazole Sodium (Protonix Inj) 40 mg IVP DAILY [facility] Last Admin: 09/06/17 09:11 Dose: 40 mg Pregabalin (Lyrica) 75 mg PO HS [facility] Sevelamer Carbonate (Renvela) 800 mg PO TIDCC [facility] Last Admin: 09/06/17 17:06 Dose: 800 mg Sodium Bicarbonate (Sodium Bicarbonate Tab) 1,300 mg PO TID [facility] Last Admin: 09/06/17 17:06 Dose: 1,300 mg Tamsulosin HCl (Flomax) 0.4 mg PO DAILY [facility] Last Admin: 09/06/17 09:14 Dose: 0.4 mg Vitamin B Complex/Vit C/Folic Acid (Nephro-Eber) 1 tab PO 0800 [facility] Physical Exam - Constitutional Appears: No Acute Distress - Head Exam Head Exam: NORMAL INSPECTION - Eye Exam Eye Exam: EOMI, PERRL. absent: Scleral icterus - ENT Exam ENT Exam: Normal Oropharynx - Neck Exam Neck exam: Positive for: Normal Inspection. Negative for: Meningismus - Respiratory Exam Respiratory Exam: Clear to Auscultation Bilateral, Prolonged Expiratory Phase - Cardiovascular Exam Cardiovascular Exam: Tachycardia, Irregular Rhythm, +S1, +S2 - GI/Abdominal Exam GI & Abdominal Exam: Normal Bowel Sounds, Soft. absent: Guarding, Rebound, Tenderness - Extremities Exam Extremities exam: Positive for: normal capillary refill, pedal edema (bilateral upper thigh swelling.), pedal pulses present. Negative for: calf tenderness - Neurological Exam Neurological exam: Alert, CN II-XII Intact, Reflexes Normal - Skin Skin Exam: Pallor, Warm Results - Vital Signs Recent Vital Signs: Last Vital Signs Temp 98.5 F 09/06/17 16:00 Pulse 115 H 09/06/17 17:11 Resp 23 09/06/17 17:11 BP 81/47 L 09/06/17 17:12 Pulse Ox 82 L 09/06/17 17:11 - Labs Result Diagrams: 09/06/17 06:15 09/06/17 06:15 Labs: Laboratory Results - last 24 hr 09/05/17 09/05/17 09/05/17 19:50 19:55 21:12 WBC RBC Hgb Hct MCV MCH MCHC RDW Plt Count MPV Neut % (Auto) Lymph % (Auto) [place] % (Auto) Eos % (Auto) Baso % (Auto) Neut # (Auto) Lymph # (Auto) [place] # (Auto) Eos # (Auto) Baso # (Auto) Neutrophils % (Manual) Band Neutrophils % Lymphocytes % (Manual) Monocytes % (Manual) Toxic Granulation Platelet Estimate Large Platelets Giant Platelets Poikilocytosis (manual Anisocytosis (manual) Ovalocytes [place] Cells Puncture Site Rba pCO2 20 L pO2 124 H HCO3 13.5 L ABG pH 7.29 L ABG Total CO2 10.2 L ABG O2 Saturation 100.2 H ABG Base Excess -14.7 L [place] Test Pos ABG Potassium 6.0 H VBG pH VBG pCO2 VBG HCO3 VBG Total CO2 VBG O2 Sat (Calc) VBG Base Excess VBG Potassium A-a O2 Difference 79.0 Respiratory Index 0.6 Sodium 131.0 L 133 Chloride 102.0 103 Glucose 320 H Lactate 3.3 H Liter Flow 3.0 FiO2 32.0 Potassium 6.0 H Carbon Dioxide 9 L* D Anion Gap 27 H BUN 54 H Creatinine 4.8 H Est GFR ( Amer) 14 Est GFR (Non-Af Amer) 12 POC Glucose (mg/dL) 354 H Random Glucose 311 H Calcium 8.1 L Phosphorus Magnesium Iron TIBC % Saturation Ferritin Total Bilirubin 0.7 AST 32 ALT 40 Alkaline Phosphatase 137 H Total Protein 7.2 Albumin 3.2 L Globulin 4.1 H Albumin/Globulin Ratio 0.8 L Arterial Blood Potassium 6.0 H Venous Blood Potassium Urine Eosinophils Ur Random Sodium 09/06/17 09/06/17 09/06/17 00:14 05:39 06:15 WBC 29.3 H RBC 2.74 L Hgb 8.0 L Hct 23.9 L MCV 87.2 MCH 29.1 MCHC 33.4 RDW 16.8 H Plt Count 636 H D MPV 7.5 Neut % (Auto) 90.9 H Lymph % (Auto) 4.1 L [place] % (Auto) 4.5 Eos % (Auto) 0.0 Baso % (Auto) 0.5 Neut # (Auto) 26.6 H Lymph # (Auto) 1.2 [place] # (Auto) 1.3 H Eos # (Auto) 0.0 Baso # (Auto) 0.1 Neutrophils % (Manual) 83 H Band Neutrophils % 11 H* Lymphocytes % (Manual) 2 L Monocytes % (Manual) 4 Toxic Granulation Present Platelet Estimate Increased H Large Platelets Present Giant Platelets Present Poikilocytosis (manual Slight Anisocytosis (manual) Slight Ovalocytes Slight Far[place] Cells Slight Puncture Site pCO2 pO2 139 H HCO3 ABG pH ABG Total CO2 ABG O2 Saturation ABG Base Excess [place] Test ABG Potassium VBG pH 7.33 VBG pCO2 21 L VBG HCO3 15.1 VBG Total CO2 11.7 L VBG O2 Sat (Calc) 100.5 H VBG Base Excess -12.6 L VBG Potassium 5.0 A-a O2 Difference Respiratory Index Sodium 134 135.0 Chloride 106 105.0 Glucose 250 H Lactate 3.4 H Liter Flow 3.0 FiO2 Potassium 5.1 Carbon Dioxide 10 L* Anion Gap 23 H BUN 54 H Creatinine 4.8 H Est GFR ( Amer) 14 Est GFR (Non-Af Amer) 12 POC Glucose (mg/dL) Random Glucose 258 H Calcium 7.9 L Phosphorus Magnesium Iron TIBC % Saturation Ferritin Total Bilirubin AST ALT Alkaline Phosphatase Total Protein Albumin Globulin Albumin/Globulin Ratio Arterial Blood Potassium Venous Blood Potassium 5.0 Urine Eosinophils Ur Random Sodium 09/06/17 09/06/17 09/06/17 06:15 07:18 11:50 WBC RBC Hgb Hct MCV MCH MCHC RDW Plt Count MPV Neut % (Auto) Lymph % (Auto) [place] % (Auto) Eos % (Auto) Baso % (Auto) Neut # (Auto) Lymph # (Auto) [place] # (Auto) Eos # (Auto) Baso # (Auto) Neutrophils % (Manual) Band Neutrophils % Lymphocytes % (Manual) Monocytes % (Manual) Toxic Granulation Platelet Estimate Large Platelets Giant Platelets Poikilocytosis (manual Anisocytosis (manual) Ovalocytes [place] Cells Puncture Site pCO2 pO2 HCO3 ABG pH ABG Total CO2 ABG O2 Saturation ABG Base Excess [place] Test ABG Potassium VBG pH VBG pCO2 VBG HCO3 VBG Total CO2 VBG O2 Sat (Calc) VBG Base Excess VBG Potassium A-a O2 Difference Respiratory Index Sodium 135 Chloride 105 Glucose Lactate Liter Flow FiO2 Potassium 5.0 Carbon Dioxide 11 L* Anion Gap 24 H BUN 57 H Creatinine 4.8 H Est GFR ( Amer) 14 Est GFR (Non-Af Amer) 12 POC Glucose (mg/dL) 235 H 323 H Random Glucose 235 H Calcium 7.8 L Phosphorus 8.2 H Magnesium 1.8 Iron TIBC % Saturation Ferritin Total Bilirubin 0.7 AST 28 ALT 34 Alkaline Phosphatase 113 Total Protein 6.9 Albumin 3.0 L Globulin 3.9 Albumin/Globulin Ratio 0.8 L Arterial Blood Potassium Venous Blood Potassium Urine Eosinophils Ur Random Sodium 09/06/17 09/06/17 09/06/17 12:02 12:02 12:03 WBC RBC Hgb Hct MCV MCH MCHC RDW Plt Count MPV Neut % (Auto) Lymph % (Auto) [place] % (Auto) Eos % (Auto) Baso % (Auto) Neut # (Auto) Lymph # (Auto) [place] # (Auto) Eos # (Auto) Baso # (Auto) Neutrophils % (Manual) Band Neutrophils % Lymphocytes % (Manual) Monocytes % (Manual) Toxic Granulation Platelet Estimate Large Platelets Giant Platelets Poikilocytosis (manual Anisocytosis (manual) Ovalocytes [place] Cells Puncture Site pCO2 pO2 HCO3 ABG pH ABG Total CO2 ABG O2 Saturation ABG Base Excess [place] Test ABG Potassium VBG pH VBG pCO2 VBG HCO3 VBG Total CO2 VBG O2 Sat (Calc) VBG Base Excess VBG Potassium A-a O2 Difference Respiratory Index Sodium Chloride Glucose Lactate Liter Flow FiO2 Potassium Carbon Dioxide Anion Gap BUN Creatinine Est GFR ( Amer) Est GFR (Non-Af Amer) POC Glucose (mg/dL) Random Glucose Calcium Phosphorus Magnesium Iron 38 L TIBC 208 L % Saturation 18 L Ferritin 848.0 Total Bilirubin AST ALT Alkaline Phosphatase Total Protein Albumin Globulin Albumin/Globulin Ratio Arterial Blood Potassium Venous Blood Potassium Urine Eosinophils Ur Random Sodium 22 09/06/17 09/06/17 12:04 16:32 WBC RBC Hgb Hct MCV MCH MCHC RDW Plt Count MPV Neut % (Auto) Lymph % (Auto) [place] % (Auto) Eos % (Auto) Baso % (Auto) Neut # (Auto) Lymph # (Auto) [place] # (Auto) Eos # (Auto) Baso # (Auto) Neutrophils % (Manual) Band Neutrophils % Lymphocytes % (Manual) Monocytes % (Manual) Toxic Granulation Platelet Estimate Large Platelets Giant Platelets Poikilocytosis (manual Anisocytosis (manual) Ovalocytes [place] Cells Puncture Site pCO2 pO2 HCO3 ABG pH ABG Total CO2 ABG O2 Saturation ABG Base Excess [place] Test ABG Potassium VBG pH VBG pCO2 VBG HCO3 VBG Total CO2 VBG O2 Sat (Calc) VBG Base Excess VBG Potassium A-a O2 Difference Respiratory Index Sodium Chloride Glucose Lactate Liter Flow FiO2 Potassium Carbon Dioxide Anion Gap BUN Creatinine Est GFR ( Amer) Est GFR (Non-Af Amer) POC Glucose (mg/dL) 271 H Random Glucose Calcium Phosphorus Magnesium Iron TIBC % Saturation Ferritin Total Bilirubin AST ALT Alkaline Phosphatase Total Protein Albumin Globulin Albumin/Globulin Ratio Arterial Blood Potassium Venous Blood Potassium Urine Eosinophils Negative Ur Random Sodium Assessment & Plan (1) Sepsis Status: Acute (2) Leukocytosis Assessment and Plan: pancultures. ESR CRP MRSA SCREEN. VANCO RANDOM LEVEL TODAY Continue IV Zosyn 2.25 every 8 hourly.09/05/17. And IV Zyvox 600 mg IV piggyback every 12 hourly for gram-positive coverage. And IV Flagyl 500 mg every 8 hourly for now. 09/06/17 while awaiting diarrhea workup. Consider CT of the abdomen and pelvis W/O CONTRAST rule out colitis VS OCCULT MALIGNANCY. 2-D echo rule bacterial endocarditis. Status: Acute (3) Hypotension Assessment and Plan: patient on IV fluids as per certified control systems technician. Status: Acute (4) Diarrhea Assessment and Plan: diarrhea workup. Stools for occult blood, leukocytes Stools for Clostridium difficile toxin. Stools for culture. Status: Acute (5) S/P craniotomy Assessment and Plan: s/p craniotomy for subdural hematoma 08/14/17 at [facility]. Status: Acute (6) Anemia Status: Acute (7) Acute on chronic renal failure Assessment and Plan: renal on board. Patient for hemodialysis as per renal. Status: Acute (8) Rapid atrial fibrillation Status: Acute
[2017-09-06] MEDS: metroNIDAZOLE IV 500 mg/100 ml 500 MG/100 ML BAG IVPB SCH (21:25)
--- NOTE | 2017-09-06 23:25 | CP.PCM.PN ---
Subjective - Date & Time of Evaluation Date of Evaluation: 09/06/17 Time of Evaluation: 18:30 - Subjective Subjective: Patient seen and examined at bedside. Per nursing no acute events overnight. Patient is pleasantly confused. Admits to having diarrhea every other day. No BM yet since admission. Less dizzy today. Denies headaches, cp, palpitations, sob, abdominal pain, urinary symptoms. Objective - Vital Signs/Intake and Output Vital Signs (last 24 hours): Temp Pulse Resp BP Pulse Ox 97.6 F 117 H 18 88/59 L 97 09/06/17 20:00 09/06/17 23:00 09/06/17 23:00 09/06/17 22:58 09/06/17 23:00 Intake and Output: 09/06/17 09/07/17 18:59 06:59 Intake Total 1625 150 Output Total 200 135 Balance 1425 15 - Medications Medications: Current Medications Epoetin Kameron (Procrit) 4,000 unit IV TTS [facility]LL[facility] Heparin Sodium (Porcine) (Heparin) 3,000 units SC Q12 [facility] Last Admin: 09/06/17 21:28 Dose: 3,000 units Piperacillin Sod/Tazobactam Sod (Zosyn 2.25 Gm Iv Premix) 2.25 gm in 50 mls @ 100 mls/hr IVPB Q8H [facility] PRN Reason: Protocol Last Admin: 09/06/17 19:20 Dose: 100 mls/hr Linezolid (Zyvox 600mg/300ml D5w) 600 mg in 300 mls @ 200 mls/hr IVPB Q12H [facility] PRN Reason: Protocol Last Admin: 09/06/17 17:33 Dose: 200 mls/hr Metronidazole (Flagyl) 500 mg in 100 mls @ 100 mls/hr IVPB Q8 [facility] PRN Reason: Protocol Last Admin: 09/06/17 21:25 Dose: 100 mls/hr Insulin Aspart (Novolog) 0 unit SC ACHS [facility] PRN Reason: Protocol Last Admin: 09/06/17 21:29 Dose: Not Given Insulin Aspart (Novolog Mix 70/30 (70/30 Units/Ml)) 20 units SC BIDAC [facility] Last Admin: 09/06/17 17:05 Dose: 20 units Levetiracetam (Keppra) 500 mg PO Q12 [facility] Last Admin: 09/06/17 21:28 Dose: 500 mg Metoprolol Tartrate (Lopressor) 25 mg PO BID [facility] Last Admin: 09/06/17 17:13 Dose: Not Given Pantoprazole Sodium (Protonix Inj) 40 mg IVP DAILY [facility] Last Admin: 09/06/17 09:11 Dose: 40 mg Pregabalin (Lyrica) 75 mg PO HS [facility] Last Admin: 09/06/17 21:31 Dose: 75 mg Sevelamer Carbonate (Renvela) 800 mg PO TIDCC [facility] Last Admin: 09/06/17 17:06 Dose: 800 mg Sodium Bicarbonate (Sodium Bicarbonate Tab) 1,300 mg PO TID [facility] Last Admin: 09/06/17 17:06 Dose: 1,300 mg Tamsulosin HCl (Flomax) 0.4 mg PO DAILY [facility] Last Admin: 09/06/17 09:14 Dose: 0.4 mg Vitamin B Complex/Vit C/Folic Acid (Nephro-Eber) 1 tab PO 0800 [facility] - Labs Labs: 09/06/17 06:15 09/06/17 06:15 PT 13.0 SECONDS (9.7-12.2) H 09/05/17 11:25 INR 1.2 09/05/17 11:25 APTT 31 SECONDS (21-34) 09/05/17 11:25 Assessment and Plan (1) Hypotension Status: Acute (2) Near syncope Status: Acute (3) Rapid atrial fibrillation Status: Acute (4) Sepsis Status: Acute (5) Altered mental status Status: Acute - Assessment and Plan (Free Text) Plan: PT IS FOR HD , RENAL WAS CONSULTED PT HAS SEVERE MEATBOLIC ACIDOSI, FLUID OVERLOAD, AGREEABLE TO HD HIS WBC IS HIGH, WE WILL CALL ID CONSULT, SOURCE OF SEPSIS UNCLEAR, ON BROAD [employer] MONITOR AND OBSERVE PT PT IS ALL BY HIMSELF, ACCORDING TO HIM HE HAS NO NEXT OF KIN IN [facility]
[2017-09-07] MEDS: Piperacill/Tazo 2.25gm in Dex 2.25 GM/50 ML BAG IVPB SCH ×3 (03:18→20:30)
[2017-09-07] MEDS: Linezolid 600 mg in D5W 300 ml 600 MG/300 ML BAG IVPB SCH ×2 (04:42→19:00)
[2017-09-07] MEDS: metroNIDAZOLE IV 500 mg/100 ml 500 MG/100 ML BAG IVPB SCH ×3 (05:38→21:00)
[2017-09-07 06:27] LABS: BASO # 0.1 K/uL (0.0-0.2); BASO % 0.5 % (0.0-2.0); HEMOGLOBIN 7.5 g/dL (12.0-18.0); LYMPH # 1.1 K/uL (1.0-4.3); LYMPH % 5.5 % (20.0-40.0); MEAN CELL VOLUME 85.9 fL (80.0-94.0); MEAN CORPUSCULAR HEMOGLOBIN 30.2 pg (27.0-31.0); MEAN CORPUSCULAR HGB CONC 35.1 g/dL (33.0-37.0); MEAN PLATELET VOLUME 7.2 fL (7.2-11.7); NEUT # 18.2 K/uL (1.8-7.0); PLATELET COUNT 503 K/uL (130-400); RBC 2.49 Mil/uL (4.40-5.90); RED CELL DISTRIBUTION WIDTH 16.6 % (11.5-14.5); WHITE BLOOD COUNT 20.4 K/uL (4.8-10.8)
[2017-09-07 06:47] LABS: ALB/GLOB RATIO 0.8 (1.0-2.1); ALBUMIN 2.9 g/dL (3.5-5.0); CALCIUM 7.5 mg/dl (8.6-10.4)
--- NOTE | 2017-09-07 08:04 | CARD ---
APPROVED REPORT EKG Measurement Heart [id number] <Conclusion> Atrial fibrillation with rapid ventricular response Low voltage QRS Abnormal ECG
[2017-09-07 08:22] LABS: BANDS 6 % (0-2); BASOPHIL 1 % (0-2); LYMPHOCYTE 6 % (20-40); MONOCYTE 4 % (0-10); NEUTROPHIL 83 % (50-75); PLATELET ESTIMATE INCREASED (NORMAL); TOTAL CELLS COUNTED 100; TOXIC GRANULATION PRESENT
[2017-09-07] MEDS: (Novolog) Insulin Aspart, Recombinant 100 u/ml 10 ml vial SC SCH ×2 (08:22→12:07)
[2017-09-07 08:23] LABS: ANISOCYTOSIS MODERATE; HYPOCHROMIC SLIGHT; LARGE PLATELETS PRESENT; OVALOCYTES SLIGHT; POIKILOCYTOSIS SLIGHT; POLYCHROMIC SLIGHT
[2017-09-07 08:24] LABS: GIANT PLATELETS PRESENT
[2017-09-07] MEDS: (Novolog Mix 70/30) Insulin Aspart/Insulin Aspar 100 units/ml SC SCH (08:24)
[2017-09-07 08:25] LABS: BURR CELLS SLIGHT
--- NOTE | 2017-09-07 08:43 | RAD ---
Chest x-ray single frontal view History: Infiltrate. Comparison: 09/05/2017 Findings: Mild venous congestion. Left hilar prominence. Enlarged ectatic aorta. Cardiomegaly. Degenerative changes in the spine and shoulders. Impression: Mild venous congestion. Left hilar prominence. Enlarged ectatic aorta. Cardiomegaly.
[2017-09-07] MEDS ORDERED: Albumin Human 25% (12.5 gm/50 ml) IV ONE (09:49)
--- NOTE | 2017-09-07 09:49 | PCM.PROC ---
Procedures Attestation:: I certify that I have explained the specified Operation(s) or Procedure(s), risks, benefits and reasonable alternatives to the Patient and/or other person responsible. The opportunity was given to ask questions and all questions answered - Central Line Placement Left Internal Jugular Hemodialysis Access Aseptic technique was employed throughout the procedure: Full sterile barriers ( mask, hair cover, sterile gown, sterile gloves), Full body sterile drape, Chloraprep Antiseptic: 30 second prep for IJ or SC sites CVP Time Out Performed: Yes Pt. Placed on Pulse Ox Monitor: Yes Central Line Prep: Chlorhexidine-Alcohol Combination Local Anesthesia Used: Lidocaine 1% Amount of Anesthesia Used (mls): 7 Ultrasound Used for Placement: Yes Central Line Lumen Inserted: triple Central Line Length: 20 cm Post Procedure: Sutured in Place, Good Blood Return, All Ports Aspirated, Flushed, Capped, Sterile Dressing Applied Secured by: Suture Post procedure dressing: Gauze, Clear vapor permeable, Chlorhexidine disc ( Biopatch) Post Procedure X-Ray: Yes Patient Tolerated Procedure: Well Immediate Complications: None
[2017-09-07] MEDS: Multivitamin Vitamin B Complex (Nephro-Vite) Tab PO SCH (10:03)
--- NOTE | 2017-09-07 10:10 | RAD ---
HISTORY: HD line. COMPARISON: Comparison made with chest radiograph 09/07/2017 at 0820 hours FINDINGS: Interval placement left IJ hemodialysis catheter with tip of which lies in the SVC. LUNGS: Poor inspiration with low lung volumes, crowded bronchovascular markings and mild bibasilar atelectasis. . PLEURA: No significant pleural effusion identified, no pneumothorax apparent. CARDIOVASCULAR: Cardiac silhouette stable. OSSEOUS STRUCTURES: No significant abnormalities. VISUALIZED UPPER ABDOMEN: Normal. OTHER FINDINGS: None. IMPRESSION: Interval placement left IJ HD catheter as described. . Poor inspiration with low lung volumes, crowded bronchovascular markings and mild bibasilar atelectasis. No evidence of pneumothorax. .
[2017-09-07 11:51] LABS: SQUAMOUS EPITHIAL 2 /hpf (0-5); URINE BILIRUBIN NEGATIVE (NEGATIVE); URINE BLOOD 2+ (NEGATIVE); URINE CLARITY Hazy (Clear); URINE COLOR Yellow (YELLOW); URINE GLUCOSE (UA) 3+ mg/dL (Normal); URINE LEUKOCYTE ESTERASE 3+ Leu/uL (Negative); URINE PROTEIN 1+ mg/dL (NEGATIVE); URINE UROBILINOGEN NORMAL mg/dL (0.2-1.0)
[2017-09-07 12:01] LABS: CREATININE, RANDOM URINE 104.6 mg/dL
--- NOTE | 2017-09-07 15:15 | CP.PCM.PN ---
Subjective - Date & Time of Evaluation Date of Evaluation: 09/07/17 Time of Evaluation: 15:14 - Subjective Subjective: Nephrology Consultation: Assessment: critical oligoanuric Acute Kidney Injury (N17.9) likely due to ATN: hypotension, sepsis Diabetic chronic Kidney Disease (E11.22) Hyperkalemia Chronic Kidney Disease (N18.3) Stage 3 with 1 gram proteinuria (R80.9) likely due to DM Anemia (D64.9), Hyperphosphatemia (E83.39), Secondary Hyperparathyroidism (E21.1 ), lactic acidosis and severe metabolic acidosis fluid overload A fib with RVR hx if DVT s/p IVC filter, SDH s/p evacuation Plan Renal replacement therapy at this time indicated. Will plan for HD today as ordered. Patient not on ACEI/ARB due to FUAD and low BP. maintain henodynamics stable Monitor Input/Output, daily weights and renal function with basic metabolic panel will start epogen and renvela caution with use of digoxin PRBC with HD 09/07/17 Check urine for eosinophils Check serum protein electrophoresis with immunofixation, serm FLC assay, HIV/ Hep B and Hep C serology Dose meds/antibiotics for reduced GFR. Avoid fleets enema/magnesium based laxatives. Avoid nephrotoxins/NSAIDs/ iodinated contrast (unless needed emergently) Glycemic control Further work up/management as per primary team Thanks for allowing me to participate in care of your patient. Will follow patient with you. Please call if any Qs. d/w team Dr Jason Tate Office: [phone] reason for consult: FUAD HPI: Pt is a 82 M with hx of diabetes Mellitus (years), A fib, SDH s/p evacuation, DVT s/p IVC filter and CKD 3 with baseline cr in 2 range presented with complaints of hypotension and sepsis, rapid A fib. renal consult for FUAD, hyperkalemia and acidosis pt feels sick. c/o thigh pain and swelling. denies SOB Denies OTC/herbal meds or NSAIDs No recent iodinated contrast exposure. Noted obvious episodes of low BP. ROS: pt unable to provide any hx today Physical Examination: General Appearance: uncomfortable, in no acute respiratory distress, ill appearing Vitals reviewed and noted as below Head; Atraumatic, normocephalic ENT: no ulcers no thrush. Tongue is midline. Oropharynx: no rash or ulcers. EYES: Pupils are equal, round and reactive to light accommodation. Eye muscles and extraocular movement intact. Sclera is anicteric. Neck; supple no lymphadenopathy, no thyromegaly or bruit Lungs: Normal respiratory rate/effort. Breath sounds bilateral decreased at bases Heart: Increased rate. s1s2 normal. No rub or gallop. A fib Extremities: 2-3+ edema. No varicose veins Neurological: Patient is confused today Skin: Warm and dry. Normal turgor. No rash. Palpitation: Normal elasticity for age Abdomen: Abdomen is soft. Bowel sounds +. There is no abdominal tenderness, no guarding/rigidity no organomegaly Psych: unable MSK: no joint tenderness or swelling. Digits and nails normal, no deformity : kidney or bladder not palpable. has kaplan. scrotal edema ++ Labs/imaging reviewed. Past medical history, past surgical history, family history, social history, allergy reviewed and noted as below Family hx: no hx of CKD. Rest non-contributory work up: urine pr/cr 1 gram. vit D 43 Dig 1.4 renal sono unremarkable Objective - Vital Signs/Intake and Output Vital Signs (last 24 hours): Temp Pulse Resp BP Pulse Ox 98.6 F 117 H 30 H 95/62 L 95 09/07/17 12:00 09/07/17 14:00 09/07/17 14:00 09/07/17 13:58 09/07/17 14:00 Intake and Output: 09/07/17 09/07/17 06:59 18:59 Intake Total 700 600 Output Total 320 205 Balance 380 395 - Medications Medications: Current Medications Epoetin Kameron (Procrit) 8,000 unit IV TTS [facility] Heparin Sodium (Porcine) (Heparin) 3,000 units SC Q12 [facility] Last Admin: 09/07/17 10:01 Dose: 3,000 units Piperacillin Sod/Tazobactam Sod (Zosyn 2.25 Gm Iv Premix) 2.25 gm in 50 mls @ 100 mls/hr IVPB Q8H [facility] PRN Reason: Protocol Last Admin: 09/07/17 13:34 Dose: 100 mls/hr Linezolid (Zyvox 600mg/300ml D5w) 600 mg in 300 mls @ 200 mls/hr IVPB Q12H [facility] PRN Reason: Protocol Last Admin: 09/07/17 04:42 Dose: 200 mls/hr Metronidazole (Flagyl) 500 mg in 100 mls @ 100 mls/hr IVPB Q8 [facility] PRN Reason: Protocol Last Admin: 09/07/17 13:53 Dose: 100 mls/hr Insulin Aspart (Novolog) 0 unit SC ACHS [facility] PRN Reason: Protocol Last Admin: 09/07/17 12:07 Dose: 5 unit Insulin Aspart (Novolog Mix 70/30 (70/30 Units/Ml)) 20 units SC BIDAC [facility] Last Admin: 09/07/17 08:24 Dose: Not Given Levetiracetam (Keppra) 500 mg PO Q12 [facility] Last Admin: 09/07/17 10:01 Dose: 500 mg Metoprolol Tartrate (Lopressor) 25 mg PO BID [facility] Last Admin: 09/07/17 10:02 Dose: Not Given Pantoprazole Sodium (Protonix Inj) 40 mg IVP DAILY [facility] Last Admin: 09/07/17 10:01 Dose: 40 mg Pregabalin (Lyrica) 75 mg PO HS [facility] Last Admin: 09/06/17 21:31 Dose: 75 mg Sevelamer Carbonate (Renvela) 1,600 mg PO TIDCC [facility] Last Admin: 09/07/17 13:34 Dose: 1,600 mg Sodium Bicarbonate (Sodium Bicarbonate Tab) 1,300 mg PO TID [facility] Last Admin: 09/07/17 13:34 Dose: 1,300 mg Tamsulosin HCl (Flomax) 0.4 mg PO DAILY [facility] Last Admin: 09/07/17 10:01 Dose: 0.4 mg Vitamin B Complex/Vit C/Folic Acid (Nephro-Eber) 1 tab PO 0800 [facility] Last Admin: 09/07/17 10:03 Dose: 1 tab - Labs Labs: 09/07/17 06:15 09/07/17 06:15 PT 13.0 SECONDS (9.7-12.2) H 09/05/17 11:25 INR 1.2 09/05/17 11:25 APTT 31 SECONDS (21-34) 09/05/17 11:25
--- NOTE | 2017-09-07 15:25 | CP.CCUPN ---
<Nighat Juarez - Last Filed: 09/07/17 15:32> CCU Subjective - Physician Review Subjective (Free Text): 09/07/17 9:00 Patient seen and examined at bedside. Per nursing no acute events overnight. Still pleasantly confused. Patient needs hemodialysis, will place HD catheter today. For hemodialysis later on. CCU Objective - Vital Signs / Intake & Output Vital Signs (Last 4 hours): Vital Signs Temp Pulse Resp BP Pulse Ox 09/07/17 14:00 117 H 30 H 95 09/07/17 13:58 134 H 24 95/62 L 95 09/07/17 13:00 137 H 27 H 96 09/07/17 12:58 139 H 30 H 87/57 L 96 09/07/17 12:00 98.6 F 119 H 27 H 94 L 09/07/17 11:58 107 H 28 H 90/54 L 94 L Intake and Output (Last 8hrs): Intake & Output 09/07/17 09/07/17 09/07/17 06:59 14:59 22:59 Intake Total 550 600 Output Total 210 205 Balance 340 395 Intake: Intake, IV Amount 450 250 left ac 450 250 Oral 100 350 Output: Urine 210 205 Urethral (Ellis) 210 205 Other: # Bowel Movements 0 1 - Physical Exam Head: Positive for: Atraumatic, Normocephalic Pupils: Positive for: PERRL Extroacular Muscles: Positive for: EOMI Conjunctiva: Positive for: Normal Mouth: Positive for: Moist Mucous Membranes Neck: Positive for: Normal Range of Motion Respiratory/Chest: Positive for: Decreased Breath Sounds Cardiovascular: Positive for: Irregular Rhythm, Tachycardic Abdomen: Negative for: Tenderness Upper Extremity: Positive for: Normal Inspection Lower Extremity: Positive for: Normal Inspection, Edema Skin: Positive for: Warm, Dry, Normal Color Psychiatric: Positive for: Alert. Negative for: Oriented x 3 - Medications Active Medications: Active Medications Generic Name Dose Route Start Last Admin Trade Name Freq PRN Reason Stop Dose Admin Epoetin Kameron 8,000 unit 09/08/17 07:00 Procrit IV TTS LELA Heparin Sodium (Porcine) 3,000 units 09/05/17 22:00 09/07/17 10:01 Heparin SC 3,000 units Q12 LELA Administration Piperacillin Sod/Tazobactam Sod 2.25 gm in 50 mls @ 100 mls/hr 09/05/17 20:00 09/07/17 13:34 Zosyn 2.25 Gm Iv Premix IVPB 100 mls/hr Q8H LELA Administration Protocol Linezolid 600 mg in 300 mls @ 200 mls/hr 09/06/17 17:00 09/07/17 04:42 Zyvox 600mg/300ml D5w IVPB 200 mls/hr Q12H LELA Administration Protocol Metronidazole 500 mg in 100 mls @ 100 mls/hr 09/06/17 22:00 09/07/17 13:53 Flagyl IVPB 100 mls/hr Q8 LELA Administration Protocol Insulin Aspart 0 unit 09/05/17 16:57 09/07/17 12:07 Novolog SC 5 unit ACHS LELA Administration Protocol Insulin Aspart 20 units 09/06/17 16:30 09/07/17 08:24 Novolog Mix 70/30 (70/30 Units/Ml) SC Not Given BIDAC LELA Levetiracetam 500 mg 09/05/17 22:00 09/07/17 10:01 Keppra PO 500 mg Q12 LELA Administration Metoprolol Tartrate 25 mg 09/06/17 10:00 09/07/17 10:02 Lopressor PO Not Given BID LELA Pantoprazole Sodium 40 mg 09/06/17 10:00 09/07/17 10:01 Protonix Inj IVP 40 mg DAILY LELA Administration Pregabalin 75 mg 09/06/17 22:00 09/06/17 21:31 Lyrica PO 75 mg HS LELA Administration Sevelamer Carbonate 1,600 mg 09/07/17 12:00 09/07/17 13:34 Renvela PO 1,600 mg TIDCC LELA Administration Sodium Bicarbonate 1,300 mg 09/06/17 10:00 09/07/17 13:34 Sodium Bicarbonate Tab PO 1,300 mg TID LELA Administration Tamsulosin HCl 0.4 mg 09/06/17 10:00 09/07/17 10:01 Flomax PO 0.4 mg DAILY LELA Administration Vitamin B Complex/Vit C/Folic Acid 1 tab 09/07/17 08:00 09/07/17 10:03 Nephro-Eber PO 1 tab 0800 LELA Administration - Patient Studies Lab Studies: Microbiology Studies 09/05/17 19:00 Blood Culture - Preliminary Blood NO GROWTH AFTER 24 HOURS 09/05/17 19:00 Blood Culture - Preliminary Blood NO GROWTH AFTER 24 HOURS 09/05/17 12:56 MRSA Culture (Admit) - Final Naris MRSA NOT DETECTED Lab Studies 09/07/17 09/07/17 09/07/17 Range/Units 12:01 11:29 11:28 WBC (4.8-10.8) K/uL RBC (4.40-5.90) Mil/uL Hgb (12.0-18.0) g/dL Hct (35.0-51.0) % MCV (80.0-94.0) fL MCH (27.0-31.0) pg MCHC (33.0-37.0) g/dL RDW (11.5-14.5) % Plt Count (130-400) K/uL MPV (7.2-11.7) fL Neut % (Auto) (50.0-75.0) % Lymph % (Auto) (20.0-40.0) % [place] % (Auto) (0.0-10.0) % Eos % (Auto) (0.0-4.0) % Baso % (Auto) (0.0-2.0) % Neut # (Auto) (1.8-7.0) K/uL Lymph # (Auto) (1.0-4.3) K/uL [place] # (Auto) (0.0-0.8) K/uL Eos # (Auto) (0.0-0.7) K/uL Baso # (Auto) (0.0-0.2) K/uL Neutrophils % (Manual) (50-75) % Band Neutrophils % (0-2) % Lymphocytes % (Manual) (20-40) % Monocytes % (Manual) (0-10) % Basophils % (Manual) (0-2) % Toxic Granulation Platelet Estimate (NORMAL) Large Platelets Giant Platelets Polychromasia Hypochromasia (manual) Poikilocytosis (manual Anisocytosis (manual) Ovalocytes Farideh Cells ESR (0-15) mm/hr Sodium (132-148) mmol/L Potassium (3.6-5.2) mmol/L Chloride (98-107) mmol/L Carbon Dioxide (22-30) mmol/L Anion Gap (10-20) BUN (9-20) mg/dL Creatinine (0.8-1.5) mg/dL Est GFR ( Amer) Est GFR (Non-Af Amer) POC Glucose (mg/dL) 351 H (65-110) mg/dL Random Glucose (75-110) mg/dL Calcium (8.6-10.4) mg/dl Phosphorus (2.5-4.5) mg/dL Magnesium (1.6-2.3) mg/dL Total Bilirubin (0.2-1.3) mg/dL AST (17-59) U/L ALT (21-72) U/L Alkaline Phosphatase (38-126) U/L C-Reactive Protein (0.0-9.9) mg/L Total Protein (6.3-8.3) g/dL Total Protein (PEP) (6.1-8.1) g/dL Albumin (3.5-5.0) g/dL Globulin (2.2-3.9) gm/dL Albumin/Globulin Ratio (1.0-2.1) Urine Color (YELLOW) Urine Clarity (Clear) Urine pH (5.0-8.0) Ur Specific Cascade (1.003-1.030) Urine Protein (NEGATIVE) mg/dL Urine Glucose (UA) (Normal) mg/dL Urine Ketones (NEGATIVE) mg/dL Urine Blood (NEGATIVE) Urine Nitrate (NEGATIVE) Urine Bilirubin (NEGATIVE) Urine Urobilinogen (0.2-1.0) mg/dL Ur Leukocyte Esterase (Negative) Greyson/uL Urine WBC (Auto) (0-5) /hpf Urine RBC (Auto) (0-3) /hpf Ur Squamous Epith Cells (0-5) /hpf Urine Yeast (Budding) (NEGATIVE) /hpf Ur Random Creatinine 104.6 mg/dL Ur Random Sodium 26 mmol/L Ur Random Phosphorus 105.9 mg/dL Ur Random Uric Acid 27.5 mg/dL Ur Random Glucose 237 mg/dL Random Vancomycin ug/mL Blood Type O POSITIVE Antibody Screen Negative 09/07/17 09/07/17 09/07/17 Range/Units 11:28 07:29 06:15 WBC (4.8-10.8) K/uL RBC (4.40-5.90) Mil/uL Hgb (12.0-18.0) g/dL Hct (35.0-51.0) % MCV (80.0-94.0) fL MCH (27.0-31.0) pg MCHC (33.0-37.0) g/dL RDW (11.5-14.5) % Plt Count (130-400) K/uL MPV (7.2-11.7) fL Neut % (Auto) (50.0-75.0) % Lymph % (Auto) (20.0-40.0) % [place] % (Auto) (0.0-10.0) % Eos % (Auto) (0.0-4.0) % Baso % (Auto) (0.0-2.0) % Neut # (Auto) (1.8-7.0) K/uL Lymph # (Auto) (1.0-4.3) K/uL [place] # (Auto) (0.0-0.8) K/uL Eos # (Auto) (0.0-0.7) K/uL Baso # (Auto) (0.0-0.2) K/uL Neutrophils % (Manual) (50-75) % Band Neutrophils % (0-2) % Lymphocytes % (Manual) (20-40) % Monocytes % (Manual) (0-10) % Basophils % (Manual) (0-2) % Toxic Granulation Platelet Estimate (NORMAL) Large Platelets Giant Platelets Polychromasia Hypochromasia (manual) Poikilocytosis (manual Anisocytosis (manual) Ovalocytes Farideh Cells ESR (0-15) mm/hr Sodium 134 (132-148) mmol/L Potassium 4.2 (3.6-5.2) mmol/L Chloride 101 (98-107) mmol/L Carbon Dioxide 12 L (22-30) mmol/L Anion Gap 25 H (10-20) BUN 64 H (9-20) mg/dL Creatinine 4.9 H (0.8-1.5) mg/dL Est GFR ( Amer) 14 Est GFR (Non-Af Amer) 11 POC Glucose (mg/dL) 349 H (65-110) mg/dL Random Glucose 321 H (75-110) mg/dL Calcium 7.5 L (8.6-10.4) mg/dl Phosphorus 8.5 H (2.5-4.5) mg/dL Magnesium 1.8 (1.6-2.3) mg/dL Total Bilirubin 0.9 (0.2-1.3) mg/dL AST 30 (17-59) U/L ALT 25 (21-72) U/L Alkaline Phosphatase 108 (38-126) U/L C-Reactive Protein 152.60 H (0.0-9.9) mg/L Total Protein 6.8 (6.3-8.3) g/dL Total Protein (PEP) (6.1-8.1) g/dL Albumin 2.9 L (3.5-5.0) g/dL Globulin 3.9 (2.2-3.9) gm/dL Albumin/Globulin Ratio 0.8 L (1.0-2.1) Urine Color Yellow (YELLOW) Urine Clarity Hazy (Clear) Urine pH 5.0 (5.0-8.0) Ur Specific Cascade 1.013 (1.003-1.030) Urine Protein 1+ H (NEGATIVE) mg/dL Urine Glucose (UA) 3+ H (Normal) mg/dL Urine Ketones Negative (NEGATIVE) mg/dL Urine Blood 2+ H (NEGATIVE) Urine Nitrate Negative (NEGATIVE) Urine Bilirubin Negative (NEGATIVE) Urine Urobilinogen Normal (0.2-1.0) mg/dL Ur Leukocyte Esterase 3+ H (Negative) Greyson/uL Urine WBC (Auto) 120 H (0-5) /hpf Urine RBC (Auto) 24 H (0-3) /hpf Ur Squamous Epith Cells 2 (0-5) /hpf Urine Yeast (Budding) Many H (NEGATIVE) /hpf Ur Random Creatinine mg/dL Ur Random Sodium mmol/L Ur Random Phosphorus mg/dL Ur Random Uric Acid mg/dL Ur Random Glucose mg/dL Random Vancomycin ug/mL Blood Type Antibody Screen 09/07/17 09/07/17 09/06/17 Range/Units 06:15 06:15 20:59 WBC 20.4 H (4.8-10.8) K/uL RBC 2.49 L (4.40-5.90) Mil/uL Hgb 7.5 L (12.0-18.0) g/dL Hct 21.4 L (35.0-51.0) % MCV 85.9 (80.0-94.0) fL MCH 30.2 (27.0-31.0) pg MCHC 35.1 (33.0-37.0) g/dL RDW 16.6 H (11.5-14.5) % Plt Count 503 H D (130-400) K/uL MPV 7.2 (7.2-11.7) fL Neut % (Auto) 89.0 H (50.0-75.0) % Lymph % (Auto) 5.5 L (20.0-40.0) % [place] % (Auto) 5.0 (0.0-10.0) % Eos % (Auto) 0.0 (0.0-4.0) % Baso % (Auto) 0.5 (0.0-2.0) % Neut # (Auto) 18.2 H (1.8-7.0) K/uL Lymph # (Auto) 1.1 (1.0-4.3) K/uL [place] # (Auto) 1.0 H (0.0-0.8) K/uL Eos # (Auto) 0.0 (0.0-0.7) K/uL Baso # (Auto) 0.1 (0.0-0.2) K/uL Neutrophils % (Manual) 83 H (50-75) % Band Neutrophils % 6 H (0-2) % Lymphocytes % (Manual) 6 L (20-40) % Monocytes % (Manual) 4 (0-10) % Basophils % (Manual) 1 (0-2) % Toxic Granulation Present Platelet Estimate Increased H (NORMAL) Large Platelets Present Giant Platelets Present Polychromasia Slight Hypochromasia (manual) Slight Poikilocytosis (manual Slight Anisocytosis (manual) Moderate Ovalocytes Slight Farideh Cells Slight ESR 112 H (0-15) mm/hr Sodium (132-148) mmol/L Potassium (3.6-5.2) mmol/L Chloride (98-107) mmol/L Carbon Dioxide (22-30) mmol/L Anion Gap (10-20) BUN (9-20) mg/dL Creatinine (0.8-1.5) mg/dL Est GFR ( Amer) Est GFR (Non-Af Amer) POC Glucose (mg/dL) 293 H (65-110) mg/dL Random Glucose (75-110) mg/dL Calcium (8.6-10.4) mg/dl Phosphorus (2.5-4.5) mg/dL Magnesium (1.6-2.3) mg/dL Total Bilirubin (0.2-1.3) mg/dL AST (17-59) U/L ALT (21-72) U/L Alkaline Phosphatase (38-126) U/L C-Reactive Protein (0.0-9.9) mg/L Total Protein (6.3-8.3) g/dL Total Protein (PEP) (6.1-8.1) g/dL Albumin (3.5-5.0) g/dL Globulin (2.2-3.9) gm/dL Albumin/Globulin Ratio (1.0-2.1) Urine Color (YELLOW) Urine Clarity (Clear) Urine pH (5.0-8.0) Ur Specific Cascade (1.003-1.030) Urine Protein (NEGATIVE) mg/dL Urine Glucose (UA) (Normal) mg/dL Urine Ketones (NEGATIVE) mg/dL Urine Blood (NEGATIVE) Urine Nitrate (NEGATIVE) Urine Bilirubin (NEGATIVE) Urine Urobilinogen (0.2-1.0) mg/dL Ur Leukocyte Esterase (Negative) Greyson/uL Urine WBC (Auto) (0-5) /hpf Urine RBC (Auto) (0-3) /hpf Ur Squamous Epith Cells (0-5) /hpf Urine Yeast (Budding) (NEGATIVE) /hpf Ur Random Creatinine mg/dL Ur Random Sodium mmol/L Ur Random Phosphorus mg/dL Ur Random Uric Acid mg/dL Ur Random Glucose mg/dL Random Vancomycin 5.88 ug/mL Blood Type Antibody Screen 09/06/17 09/06/17 Range/Units 16:32 12:02 WBC (4.8-10.8) K/uL RBC (4.40-5.90) Mil/uL Hgb (12.0-18.0) g/dL Hct (35.0-51.0) % MCV (80.0-94.0) fL MCH (27.0-31.0) pg MCHC (33.0-37.0) g/dL RDW (11.5-14.5) % Plt Count (130-400) K/uL MPV (7.2-11.7) fL Neut % (Auto) (50.0-75.0) % Lymph % (Auto) (20.0-40.0) % [place] % (Auto) (0.0-10.0) % Eos % (Auto) (0.0-4.0) % Baso % (Auto) (0.0-2.0) % Neut # (Auto) (1.8-7.0) K/uL Lymph # (Auto) (1.0-4.3) K/uL [place] # (Auto) (0.0-0.8) K/uL Eos # (Auto) (0.0-0.7) K/uL Baso # (Auto) (0.0-0.2) K/uL Neutrophils % (Manual) (50-75) % Band Neutrophils % (0-2) % Lymphocytes % (Manual) (20-40) % Monocytes % (Manual) (0-10) % Basophils % (Manual) (0-2) % Toxic Granulation Platelet Estimate (NORMAL) Large Platelets Giant Platelets Polychromasia Hypochromasia (manual) Poikilocytosis (manual Anisocytosis (manual) Ovalocytes Eldred Cells ESR (0-15) mm/hr Sodium (132-148) mmol/L Potassium (3.6-5.2) mmol/L Chloride (98-107) mmol/L Carbon Dioxide (22-30) mmol/L Anion Gap (10-20) BUN (9-20) mg/dL Creatinine (0.8-1.5) mg/dL Est GFR ( Amer) Est GFR (Non-Af Amer) POC Glucose (mg/dL) 271 H (65-110) mg/dL Random Glucose (75-110) mg/dL Calcium (8.6-10.4) mg/dl Phosphorus (2.5-4.5) mg/dL Magnesium (1.6-2.3) mg/dL Total Bilirubin (0.2-1.3) mg/dL AST (17-59) U/L ALT (21-72) U/L Alkaline Phosphatase (38-126) U/L C-Reactive Protein (0.0-9.9) mg/L Total Protein (6.3-8.3) g/dL Total Protein (PEP) 6.2 (6.1-8.1) g/dL Albumin (3.5-5.0) g/dL Globulin (2.2-3.9) gm/dL Albumin/Globulin Ratio (1.0-2.1) Urine Color (YELLOW) Urine Clarity (Clear) Urine pH (5.0-8.0) Ur Specific Cascade (1.003-1.030) Urine Protein (NEGATIVE) mg/dL Urine Glucose (UA) (Normal) mg/dL Urine Ketones (NEGATIVE) mg/dL Urine Blood (NEGATIVE) Urine Nitrate (NEGATIVE) Urine Bilirubin (NEGATIVE) Urine Urobilinogen (0.2-1.0) mg/dL Ur Leukocyte Esterase (Negative) Greyson/uL Urine WBC (Auto) (0-5) /hpf Urine RBC (Auto) (0-3) /hpf Ur Squamous Epith Cells (0-5) /hpf Urine Yeast (Budding) (NEGATIVE) /hpf Ur Random Creatinine mg/dL Ur Random Sodium mmol/L Ur Random Phosphorus mg/dL Ur Random Uric Acid mg/dL Ur Random Glucose mg/dL Random Vancomycin ug/mL Blood Type Antibody Screen Laboratory Results - last 24 hr 09/06/17 09/06/17 09/06/17 12:02 16:32 20:59 WBC RBC Hgb Hct MCV MCH MCHC RDW Plt Count MPV Neut % (Auto) Lymph % (Auto) [place] % (Auto) Eos % (Auto) Baso % (Auto) Neut # (Auto) Lymph # (Auto) [place] # (Auto) Eos # (Auto) Baso # (Auto) Neutrophils % (Manual) Band Neutrophils % Lymphocytes % (Manual) Monocytes % (Manual) Basophils % (Manual) Toxic Granulation Platelet Estimate Large Platelets Giant Platelets Polychromasia Hypochromasia (manual) Poikilocytosis (manual Anisocytosis (manual) Ovalocytes Farideh Cells ESR Sodium Potassium Chloride Carbon Dioxide Anion Gap BUN Creatinine Est GFR ( Amer) Est GFR (Non-Af Amer) POC Glucose (mg/dL) 271 H 293 H Random Glucose Calcium Phosphorus Magnesium Total Bilirubin AST ALT Alkaline Phosphatase C-Reactive Protein Total Protein Total Protein (PEP) 6.2 Albumin Globulin Albumin/Globulin Ratio Urine Color Urine Clarity Urine pH Ur Specific Cascade Urine Protein Urine Glucose (UA) Urine Ketones Urine Blood Urine Nitrate Urine Bilirubin Urine Urobilinogen Ur Leukocyte Esterase Urine WBC (Auto) Urine RBC (Auto) Ur Squamous Epith Cells Urine Yeast (Budding) Ur Random Creatinine Ur Random Sodium Ur Random Phosphorus Ur Random Uric Acid Ur Random Glucose Random Vancomycin Blood Type Antibody Screen 09/07/17 09/07/17 09/07/17 06:15 06:15 06:15 WBC 20.4 H RBC 2.49 L Hgb 7.5 L Hct 21.4 L MCV 85.9 MCH 30.2 MCHC 35.1 RDW 16.6 H Plt Count 503 H D MPV 7.2 Neut % (Auto) 89.0 H Lymph % (Auto) 5.5 L Dim[place] % (Auto) 5.0 Eos % (Auto) 0.0 Baso % (Auto) 0.5 Neut # (Auto) 18.2 H Lymph # (Auto) 1.1 Dim[place] # (Auto) 1.0 H Eos # (Auto) 0.0 Baso # (Auto) 0.1 Neutrophils % (Manual) 83 H Band Neutrophils % 6 H Lymphocytes % (Manual) 6 L Monocytes % (Manual) 4 Basophils % (Manual) 1 Toxic Granulation Present Platelet Estimate Increased H Large Platelets Present Giant Platelets Present Polychromasia Slight Hypochromasia (manual) Slight Poikilocytosis (manual Slight Anisocytosis (manual) Moderate Ovalocytes Slight Farideh Cells Slight ESR 112 H Sodium 134 Potassium 4.2 Chloride 101 Carbon Dioxide 12 L Anion Gap 25 H BUN 64 H Creatinine 4.9 H Est GFR ( Amer) 14 Est GFR (Non-Af Amer) 11 POC Glucose (mg/dL) Random Glucose 321 H Calcium 7.5 L Phosphorus 8.5 H Magnesium 1.8 Total Bilirubin 0.9 AST 30 ALT 25 Alkaline Phosphatase 108 C-Reactive Protein 152.60 H Total Protein 6.8 Total Protein (PEP) Albumin 2.9 L Globulin 3.9 Albumin/Globulin Ratio 0.8 L Urine Color Urine Clarity Urine pH Ur Specific Cascade Urine Protein Urine Glucose (UA) Urine Ketones Urine Blood Urine Nitrate Urine Bilirubin Urine Urobilinogen Ur Leukocyte Esterase Urine WBC (Auto) Urine RBC (Auto) Ur Squamous Epith Cells Urine Yeast (Budding) Ur Random Creatinine Ur Random Sodium Ur Random Phosphorus Ur Random Uric Acid Ur Random Glucose Random Vancomycin 5.88 Blood Type Antibody Screen 09/07/17 09/07/17 09/07/17 07:29 11:28 11:28 WBC RBC Hgb Hct MCV MCH MCHC RDW Plt Count MPV Neut % (Auto) Lymph % (Auto) [place] % (Auto) Eos % (Auto) Baso % (Auto) Neut # (Auto) Lymph # (Auto) [place] # (Auto) Eos # (Auto) Baso # (Auto) Neutrophils % (Manual) Band Neutrophils % Lymphocytes % (Manual) Monocytes % (Manual) Basophils % (Manual) Toxic Granulation Platelet Estimate Large Platelets Giant Platelets Polychromasia Hypochromasia (manual) Poikilocytosis (manual Anisocytosis (manual) Ovalocytes Eldred Cells ESR Sodium Potassium Chloride Carbon Dioxide Anion Gap BUN Creatinine Est GFR ( Amer) Est GFR (Non-Af Amer) POC Glucose (mg/dL) 349 H Random Glucose Calcium Phosphorus Magnesium Total Bilirubin AST ALT Alkaline Phosphatase C-Reactive Protein Total Protein Total Protein (PEP) Albumin Globulin Albumin/Globulin Ratio Urine Color Yellow Urine Clarity Hazy Urine pH 5.0 Ur Specific Cascade 1.013 Urine Protein 1+ H Urine Glucose (UA) 3+ H Urine Ketones Negative Urine Blood 2+ H Urine Nitrate Negative Urine Bilirubin Negative Urine Urobilinogen Normal Ur Leukocyte Esterase 3+ H Urine WBC (Auto) 120 H Urine RBC (Auto) 24 H Ur Squamous Epith Cells 2 Urine Yeast (Budding) Many H Ur Random Creatinine 104.6 Ur Random Sodium 26 Ur Random Phosphorus 105.9 Ur Random Uric Acid 27.5 Ur Random Glucose 237 Random Vancomycin Blood Type Antibody Screen 09/07/17 09/07/17 11:29 12:01 WBC RBC Hgb Hct MCV MCH MCHC RDW Plt Count MPV Neut % (Auto) Lymph % (Auto) [place] % (Auto) Eos % (Auto) Baso % (Auto) Neut # (Auto) Lymph # (Auto) [place] # (Auto) Eos # (Auto) Baso # (Auto) Neutrophils % (Manual) Band Neutrophils % Lymphocytes % (Manual) Monocytes % (Manual) Basophils % (Manual) Toxic Granulation Platelet Estimate Large Platelets Giant Platelets Polychromasia Hypochromasia (manual) Poikilocytosis (manual Anisocytosis (manual) Ovalocytes Eldred Cells ESR Sodium Potassium Chloride Carbon Dioxide Anion Gap BUN Creatinine Est GFR ( Amer) Est GFR (Non-Af Amer) POC Glucose (mg/dL) 351 H Random Glucose Calcium Phosphorus Magnesium Total Bilirubin AST ALT Alkaline Phosphatase C-Reactive Protein Total Protein Total Protein (PEP) Albumin Globulin Albumin/Globulin Ratio Urine Color Urine Clarity Urine pH Ur Specific Cascade Urine Protein Urine Glucose (UA) Urine Ketones Urine Blood Urine Nitrate Urine Bilirubin Urine Urobilinogen Ur Leukocyte Esterase Urine WBC (Auto) Urine RBC (Auto) Ur Squamous Epith Cells Urine Yeast (Budding) Ur Random Creatinine Ur Random Sodium Ur Random Phosphorus Ur Random Uric Acid Ur Random Glucose Random Vancomycin Blood Type O POSITIVE Antibody Screen Negative Fingerstick Blood Sugar Results: 351 Critical Care Progress Note - Nutrition Nutrition: Nutrition Category Date Time Status Consistent Carbohydrate [DIET] Diets 09/07/17 Dinner Active Assessment/Plan - Assessment and Plan (Free Text) Assessment: Patient is a 82 year old male with past medical history of atrial fibrillation, B/L DVT s/p IVC filter, recent subdural hematoma s/p craniotomy with evacuation presents to [facility] with hypotension. Code sepsis called in the ER. Patient admitted to the ICU for further management Neurology: -Patient is a AAOx2 (not to time) -S/P right frontal craniotomy with evacuation -Last CT head 08/22 showed diminishing right convexity subdural hematoma with limited mass effect. Leftward midline shift is further reduced now only 1-2mm with no definite intracrancial hemorrhage appearing acute at this time. Chronic lacune again noted at the right optic radiations. -Repeat CT head 09/05: Small residual extra-axial collection that probably represents a combination of residual hyperdense chronic subdural blood admixed with membrane formation and some subacute blood. The collection exerts minimal on mass effect on subadjacent sulci however no significant midline shift -Continue Keppra 500mg PO Q12H -Will continue to monitor in ICU Cardiology: -History of atrial fibrillation, on digoxin at home -Digoxin level 1.4, EKG showing afib with RVR -BPs improving, HR still tachy in 120s -continue Metoprolol (home med) -Last echo: LV normal size, mild concentric L ventricular hypertrophy, moderate tricuspid regurgitation Respiratory: -Supplemental O2 as needed -CXR on admission: no active disease Endocrine: -History of Diabetes Mellitus -Hgba1c 9.9 -Low dose ISS, accuchecks ACHS GI: -Patient states that hes been having diarrhea -F/U C. Diff, stool culture, fecal leukocytes -Continue Protonix 40mg IVP daily Infectious Disease: -Patient was recently treated for UTI E coli -Code sepsis called in ER -Urine cultures, blood cultures negative so far -Continue Zosyn 2.75mg IV Q8H, Flagyl 500mg Q8H, Zyvox 600mg Q12H -C diff, stool cultures, fecal leukocytes ordered -ID on consult, help appreciated Renal: -Currently with acute on chronic CKD -BUN/Cr worsening, baseline Cr 2.0 -Metabolic acidosis: Continue sodium bicarb 1300mg PO TID -For HD today -Renal US 08/3017: unremarkable -Strict I/Os, daily weights -Nephro on consult, help appreciated Heme/Onc: -Patient with history of provoked bilateral DVTs -Was seen by Dr Tierney in the past -S/P IVC filter placement 08/27/17, SCDs contraindicated -Hgb 7.5, baseline 10-11 -No acute signs of bleeding at this time, will monitor serial CBCs -Hold Iron supplementation 07/06 sepsis Musculoskeletal: -Ultram 50mg PO x 1 given for back pain -Lumbar MRI 08/2017: Levoscoliosis with multilevel severe degenerative disc disease and spondylosis with multilevel central canal and bilateral foraminal stenoses : -History of urinary retention, prostate surgery -Ellis in draining clear yellow urine -Restart flomax (home med) GI/DVT ppx: -Protonix 40mg IVP daily -Heparin 3000 Q12H (previously on same dose) Plan discussed with Dr José <Shantell José - Last Filed: 09/08/17 09:08> CCU Objective - Vital Signs / Intake & Output Vital Signs (Last 4 hours): Vital Signs Pulse Resp BP Pulse Ox 09/08/17 07:00 102 H 26 H 97 09/08/17 06:38 101 H 28 H 94/56 L 97 09/08/17 06:00 112 H 29 H 94 L 09/08/17 05:55 109 H 26 H 92/55 L 93 L 09/08/17 05:00 101 H 26 H 95 09/08/17 04:38 101 H 22 88/54 L 95 Intake and Output (Last 8hrs): Intake & Output 09/07/17 09/08/17 09/08/17 22:59 06:59 14:59 Intake Total 942 620 102 Output Total 158 168 21 Balance 784 452 81 Weight 236 lb 12.423 oz 217 lb 4 oz Intake: IV 37 33 Intake, IV Amount 389 587 102 Left Forearm 39 37 2 Left Wrist 350 550 100 Oral 240 Blood Product 276 Apheresis Rbc Cp2d As3 Lr 276 2nd Unit [id number] Output: Urine 158 168 21 Urethral (Ellis) 158 168 21 - Medications Active Medications: Active Medications Generic Name Dose Route Start Last Admin Trade Name Freq PRN Reason Stop Dose Admin Epoetin Kameron 8,000 unit 09/08/17 07:00 Procrit IV TTS LELA Heparin Sodium (Porcine) 3,000 units 09/05/17 22:00 09/07/17 21:05 Heparin SC 3,000 units Q12 LELA Administration Piperacillin Sod/Tazobactam Sod 2.25 gm in 50 mls @ 100 mls/hr 09/05/17 20:00 09/08/17 03:00 Zosyn 2.25 Gm Iv Premix IVPB 100 mls/hr Q8H LELA Administration Protocol Linezolid 600 mg in 300 mls @ 200 mls/hr 09/06/17 17:00 09/08/17 04:00 Zyvox 600mg/300ml D5w IVPB 200 mls/hr Q12H LELA Administration Protocol Metronidazole 500 mg in 100 mls @ 100 mls/hr 09/06/17 22:00 09/08/17 05:30 Flagyl IVPB 100 mls/hr Q8 LELA Administration Protocol Insulin Human Regular 100 unit 100 mls @ 1.98 mls/hr 09/07/17 16:15 09/08/17 05:00 / Sodium Chloride IV 0.02 unit/kg/hr .Q24H LELA 2 mls/hr Protocol Titration 0.02 UNIT/KG/HR Levetiracetam 500 mg 09/05/17 22:00 09/07/17 21:06 Keppra PO 500 mg Q12 LELA Administration Metoprolol Tartrate 25 mg 09/06/17 10:00 09/07/17 18:00 Lopressor PO Not Given BID LELA Pantoprazole Sodium 40 mg 09/06/17 10:00 09/07/17 10:01 Protonix Inj IVP 40 mg DAILY LELA Administration Pregabalin 75 mg 09/06/17 22:00 09/07/17 21:06 Lyrica PO 75 mg HS LELA Administration Sevelamer Carbonate 1,600 mg 09/07/17 12:00 09/07/17 18:18 Renvela PO Not Given TIDCC LELA Sodium Bicarbonate 1,300 mg 09/06/17 10:00 09/07/17 18:18 Sodium Bicarbonate Tab PO Not Given TID LELA Tamsulosin HCl 0.4 mg 09/06/17 10:00 09/07/17 10:01 Flomax PO 0.4 mg DAILY LELA Administration Vitamin B Complex/Vit C/Folic Acid 1 tab 09/07/17 08:00 09/07/17 10:03 Nephro-Eber PO 1 tab 0800 LELA Administration - Patient Studies Lab Studies: Microbiology Studies 09/05/17 19:00 Blood Culture - Preliminary Blood NO GROWTH AFTER 48 HOURS 09/05/17 19:00 Blood Culture - Preliminary Blood NO GROWTH AFTER 48 HOURS Lab Studies 09/08/17 09/08/17 09/08/17 Range/Units 07:03 06:13 06:13 WBC 22.7 H (4.8-10.8) K/uL RBC 2.86 L (4.40-5.90) Mil/uL Hgb 8.0 L (12.0-18.0) g/dL Hct 24.9 L (35.0-51.0) % MCV 87.0 (80.0-94.0) fL MCH 28.1 (27.0-31.0) pg MCHC 32.3 L (33.0-37.0) g/dL RDW 16.4 H (11.5-14.5) % Plt Count 418 H (130-400) K/uL MPV 7.1 L (7.2-11.7) fL Neut % (Auto) 81.3 H (50.0-75.0) % Lymph % (Auto) 11.4 L (20.0-40.0) % [place] % (Auto) 6.7 (0.0-10.0) % Eos % (Auto) 0.1 (0.0-4.0) % Baso % (Auto) 0.5 (0.0-2.0) % Neut # (Auto) 18.5 H (1.8-7.0) K/uL Lymph # (Auto) 2.6 (1.0-4.3) K/uL [place] # (Auto) 1.5 H (0.0-0.8) K/uL Eos # (Auto) 0.0 (0.0-0.7) K/uL Baso # (Auto) 0.1 (0.0-0.2) K/uL Neutrophils % (Manual) (50-75) % Band Neutrophils % (0-2) % Lymphocytes % (Manual) (20-40) % Monocytes % (Manual) (0-10) % Basophils % (Manual) (0-2) % Toxic Granulation Platelet Estimate (NORMAL) Large Platelets Giant Platelets Polychromasia Hypochromasia (manual) Poikilocytosis (manual Anisocytosis (manual) Microcytosis (manual) Macrocytosis (manual) Ovalocytes Eldred Cells Sodium 141 (132-148) mmol/L Potassium 3.6 (3.6-5.2) mmol/L Chloride 103 (98-107) mmol/L Carbon Dioxide 17 L (22-30) mmol/L Anion Gap 24 H (10-20) BUN 64 H (9-20) mg/dL Creatinine 5.0 H (0.8-1.5) mg/dL Est GFR ( Amer) 14 Est GFR (Non-Af Amer) 11 POC Glucose (mg/dL) 166 H (65-110) mg/dL Random Glucose 144 H (75-110) mg/dL Calcium 7.8 L (8.6-10.4) mg/dl Phosphorus 6.9 H (2.5-4.5) mg/dL Magnesium 1.9 (1.6-2.3) mg/dL Total Bilirubin 1.0 (0.2-1.3) mg/dL AST 26 (17-59) U/L ALT 26 (21-72) U/L Alkaline Phosphatase 91 (38-126) U/L C-Reactive Protein (0.0-9.9) mg/L Total Protein 6.7 (6.3-8.3) g/dL Total Protein (PEP) (6.1-8.1) g/dL Albumin 3.1 L (3.5-5.0) g/dL Globulin 3.6 (2.2-3.9) gm/dL Albumin/Globulin Ratio 0.9 L (1.0-2.1) Prostate Specific Ag (0.00-4.0) ng/mL Urine Color (YELLOW) Urine Clarity (Clear) Urine pH (5.0-8.0) Ur Specific Cascade (1.003-1.030) Urine Protein (NEGATIVE) mg/dL Urine Glucose (UA) (Normal) mg/dL Urine Ketones (NEGATIVE) mg/dL Urine Blood (NEGATIVE) Urine Nitrate (NEGATIVE) Urine Bilirubin (NEGATIVE) Urine Urobilinogen (0.2-1.0) mg/dL Ur Leukocyte Esterase (Negative) Greyson/uL Urine WBC (Auto) (0-5) /hpf Urine RBC (Auto) (0-3) /hpf Ur Squamous Epith Cells (0-5) /hpf Urine Yeast (Budding) (NEGATIVE) /hpf Ur Random Creatinine mg/dL Ur Random Sodium mmol/L Ur Random Phosphorus mg/dL Ur Random Uric Acid mg/dL Ur Random Glucose mg/dL Stool Leukocytes, Qual (NEGATIVE) Serum Immunofixation (Not Detected) C. difficile Ag & Toxin (NEGATIVE) Hep Bs Antigen (NEGATIVE) Hep Bs Antibody (NEGATIVE) Hepatitis C Antibody (NEGATIVE) Blood Type Antibody Screen 09/08/17 09/08/17 09/08/17 Range/Units 06:03 04:58 04:17 WBC (4.8-10.8) K/uL RBC (4.40-5.90) Mil/uL Hgb (12.0-18.0) g/dL Hct (35.0-51.0) % MCV (80.0-94.0) fL MCH (27.0-31.0) pg MCHC (33.0-37.0) g/dL RDW (11.5-14.5) % Plt Count (130-400) K/uL MPV (7.2-11.7) fL Neut % (Auto) (50.0-75.0) % Lymph % (Auto) (20.0-40.0) % [place] % (Auto) (0.0-10.0) % Eos % (Auto) (0.0-4.0) % Baso % (Auto) (0.0-2.0) % Neut # (Auto) (1.8-7.0) K/uL Lymph # (Auto) (1.0-4.3) K/uL [place] # (Auto) (0.0-0.8) K/uL Eos # (Auto) (0.0-0.7) K/uL Baso # (Auto) (0.0-0.2) K/uL Neutrophils % (Manual) (50-75) % Band Neutrophils % (0-2) % Lymphocytes % (Manual) (20-40) % Monocytes % (Manual) (0-10) % Basophils % (Manual) (0-2) % Toxic Granulation Platelet Estimate (NORMAL) Large Platelets Giant Platelets Polychromasia Hypochromasia (manual) Poikilocytosis (manual Anisocytosis (manual) Microcytosis (manual) Macrocytosis (manual) Ovalocytes Farideh Cells Sodium (132-148) mmol/L Potassium (3.6-5.2) mmol/L Chloride (98-107) mmol/L Carbon Dioxide (22-30) mmol/L Anion Gap (10-20) BUN (9-20) mg/dL Creatinine (0.8-1.5) mg/dL Est GFR ( Amer) Est GFR (Non-Af Amer) POC Glucose (mg/dL) 181 H 189 H 206 H (65-110) mg/dL Random Glucose (75-110) mg/dL Calcium (8.6-10.4) mg/dl Phosphorus (2.5-4.5) mg/dL Magnesium (1.6-2.3) mg/dL Total Bilirubin (0.2-1.3) mg/dL AST (17-59) U/L ALT (21-72) U/L Alkaline Phosphatase (38-126) U/L C-Reactive Protein (0.0-9.9) mg/L Total Protein (6.3-8.3) g/dL Total Protein (PEP) (6.1-8.1) g/dL Albumin (3.5-5.0) g/dL Globulin (2.2-3.9) gm/dL Albumin/Globulin Ratio (1.0-2.1) Prostate Specific Ag (0.00-4.0) ng/mL Urine Color (YELLOW) Urine Clarity (Clear) Urine pH (5.0-8.0) Ur Specific Cascade (1.003-1.030) Urine Protein (NEGATIVE) mg/dL Urine Glucose (UA) (Normal) mg/dL Urine Ketones (NEGATIVE) mg/dL Urine Blood (NEGATIVE) Urine Nitrate (NEGATIVE) Urine Bilirubin (NEGATIVE) Urine Urobilinogen (0.2-1.0) mg/dL Ur Leukocyte Esterase (Negative) Greyson/uL Urine WBC (Auto) (0-5) /hpf Urine RBC (Auto) (0-3) /hpf Ur Squamous Epith Cells (0-5) /hpf Urine Yeast (Budding) (NEGATIVE) /hpf Ur Random Creatinine mg/dL Ur Random Sodium mmol/L Ur Random Phosphorus mg/dL Ur Random Uric Acid mg/dL Ur Random Glucose mg/dL Stool Leukocytes, Qual (NEGATIVE) Serum Immunofixation (Not Detected) C. difficile Ag & Toxin (NEGATIVE) Hep Bs Antigen (NEGATIVE) Hep Bs Antibody (NEGATIVE) Hepatitis C Antibody (NEGATIVE) Blood Type Antibody Screen 09/08/17 09/08/17 09/08/17 Range/Units 03:19 02:09 01:03 WBC (4.8-10.8) K/uL RBC (4.40-5.90) Mil/uL Hgb (12.0-18.0) g/dL Hct (35.0-51.0) % MCV (80.0-94.0) fL MCH (27.0-31.0) pg MCHC (33.0-37.0) g/dL RDW (11.5-14.5) % Plt Count (130-400) K/uL MPV (7.2-11.7) fL Neut % (Auto) (50.0-75.0) % Lymph % (Auto) (20.0-40.0) % [place] % (Auto) (0.0-10.0) % Eos % (Auto) (0.0-4.0) % Baso % (Auto) (0.0-2.0) % Neut # (Auto) (1.8-7.0) K/uL Lymph # (Auto) (1.0-4.3) K/uL [place] # (Auto) (0.0-0.8) K/uL Eos # (Auto) (0.0-0.7) K/uL Baso # (Auto) (0.0-0.2) K/uL Neutrophils % (Manual) (50-75) % Band Neutrophils % (0-2) % Lymphocytes % (Manual) (20-40) % Monocytes % (Manual) (0-10) % Basophils % (Manual) (0-2) % Toxic Granulation Platelet Estimate (NORMAL) Large Platelets Giant Platelets Polychromasia Hypochromasia (manual) Poikilocytosis (manual Anisocytosis (manual) Microcytosis (manual) Macrocytosis (manual) Ovalocytes Farideh Cells Sodium (132-148) mmol/L Potassium (3.6-5.2) mmol/L Chloride (98-107) mmol/L Carbon Dioxide (22-30) mmol/L Anion Gap (10-20) BUN (9-20) mg/dL Creatinine (0.8-1.5) mg/dL Est GFR ( Amer) Est GFR (Non-Af Amer) POC Glucose (mg/dL) 231 H 269 H 257 H (65-110) mg/dL Random Glucose (75-110) mg/dL Calcium (8.6-10.4) mg/dl Phosphorus (2.5-4.5) mg/dL Magnesium (1.6-2.3) mg/dL Total Bilirubin (0.2-1.3) mg/dL AST (17-59) U/L ALT (21-72) U/L Alkaline Phosphatase (38-126) U/L C-Reactive Protein (0.0-9.9) mg/L Total Protein (6.3-8.3) g/dL Total Protein (PEP) (6.1-8.1) g/dL Albumin (3.5-5.0) g/dL Globulin (2.2-3.9) gm/dL Albumin/Globulin Ratio (1.0-2.1) Prostate Specific Ag (0.00-4.0) ng/mL Urine Color (YELLOW) Urine Clarity (Clear) Urine pH (5.0-8.0) Ur Specific Cascade (1.003-1.030) Urine Protein (NEGATIVE) mg/dL Urine Glucose (UA) (Normal) mg/dL Urine Ketones (NEGATIVE) mg/dL Urine Blood (NEGATIVE) Urine Nitrate (NEGATIVE) Urine Bilirubin (NEGATIVE) Urine Urobilinogen (0.2-1.0) mg/dL Ur Leukocyte Esterase (Negative) Greyson/uL Urine WBC (Auto) (0-5) /hpf Urine RBC (Auto) (0-3) /hpf Ur Squamous Epith Cells (0-5) /hpf Urine Yeast (Budding) (NEGATIVE) /hpf Ur Random Creatinine mg/dL Ur Random Sodium mmol/L Ur Random Phosphorus mg/dL Ur Random Uric Acid mg/dL Ur Random Glucose mg/dL Stool Leukocytes, Qual (NEGATIVE) Serum Immunofixation (Not Detected) C. difficile Ag & Toxin (NEGATIVE) Hep Bs Antigen (NEGATIVE) Hep Bs Antibody (NEGATIVE) Hepatitis C Antibody (NEGATIVE) Blood Type Antibody Screen 09/07/17 09/07/17 09/07/17 Range/Units 23:47 22:56 22:13 WBC (4.8-10.8) K/uL RBC (4.40-5.90) Mil/uL Hgb (12.0-18.0) g/dL Hct (35.0-51.0) % MCV (80.0-94.0) fL MCH (27.0-31.0) pg MCHC (33.0-37.0) g/dL RDW (11.5-14.5) % Plt Count (130-400) K/uL MPV (7.2-11.7) fL Neut % (Auto) (50.0-75.0) % Lymph % (Auto) (20.0-40.0) % [place] % (Auto) (0.0-10.0) % Eos % (Auto) (0.0-4.0) % Baso % (Auto) (0.0-2.0) % Neut # (Auto) (1.8-7.0) K/uL Lymph # (Auto) (1.0-4.3) K/uL [place] # (Auto) (0.0-0.8) K/uL Eos # (Auto) (0.0-0.7) K/uL Baso # (Auto) (0.0-0.2) K/uL Neutrophils % (Manual) (50-75) % Band Neutrophils % (0-2) % Lymphocytes % (Manual) (20-40) % Monocytes % (Manual) (0-10) % Basophils % (Manual) (0-2) % Toxic Granulation Platelet Estimate (NORMAL) Large Platelets Giant Platelets Polychromasia Hypochromasia (manual) Poikilocytosis (manual Anisocytosis (manual) Microcytosis (manual) Macrocytosis (manual) Ovalocytes Eldred Cells Sodium (132-148) mmol/L Potassium (3.6-5.2) mmol/L Chloride (98-107) mmol/L Carbon Dioxide (22-30) mmol/L Anion Gap (10-20) BUN (9-20) mg/dL Creatinine (0.8-1.5) mg/dL Est GFR ( Amer) Est GFR (Non-Af Amer) POC Glucose (mg/dL) 305 H 284 H 300 H (65-110) mg/dL Random Glucose (75-110) mg/dL Calcium (8.6-10.4) mg/dl Phosphorus (2.5-4.5) mg/dL Magnesium (1.6-2.3) mg/dL Total Bilirubin (0.2-1.3) mg/dL AST (17-59) U/L ALT (21-72) U/L Alkaline Phosphatase (38-126) U/L C-Reactive Protein (0.0-9.9) mg/L Total Protein (6.3-8.3) g/dL Total Protein (PEP) (6.1-8.1) g/dL Albumin (3.5-5.0) g/dL Globulin (2.2-3.9) gm/dL Albumin/Globulin Ratio (1.0-2.1) Prostate Specific Ag (0.00-4.0) ng/mL Urine Color (YELLOW) Urine Clarity (Clear) Urine pH (5.0-8.0) Ur Specific Cascade (1.003-1.030) Urine Protein (NEGATIVE) mg/dL Urine Glucose (UA) (Normal) mg/dL Urine Ketones (NEGATIVE) mg/dL Urine Blood (NEGATIVE) Urine Nitrate (NEGATIVE) Urine Bilirubin (NEGATIVE) Urine Urobilinogen (0.2-1.0) mg/dL Ur Leukocyte Esterase (Negative) Greyson/uL Urine WBC (Auto) (0-5) /hpf Urine RBC (Auto) (0-3) /hpf Ur Squamous Epith Cells (0-5) /hpf Urine Yeast (Budding) (NEGATIVE) /hpf Ur Random Creatinine mg/dL Ur Random Sodium mmol/L Ur Random Phosphorus mg/dL Ur Random Uric Acid mg/dL Ur Random Glucose mg/dL Stool Leukocytes, Qual (NEGATIVE) Serum Immunofixation (Not Detected) C. difficile Ag & Toxin (NEGATIVE) Hep Bs Antigen (NEGATIVE) Hep Bs Antibody (NEGATIVE) Hepatitis C Antibody (NEGATIVE) Blood Type Antibody Screen 09/07/17 09/07/17 09/07/17 Range/Units 21:09 20:03 19:33 WBC (4.8-10.8) K/uL RBC (4.40-5.90) Mil/uL Hgb (12.0-18.0) g/dL Hct (35.0-51.0) % MCV (80.0-94.0) fL MCH (27.0-31.0) pg MCHC (33.0-37.0) g/dL RDW (11.5-14.5) % Plt Count (130-400) K/uL MPV (7.2-11.7) fL Neut % (Auto) (50.0-75.0) % Lymph % (Auto) (20.0-40.0) % [place] % (Auto) (0.0-10.0) % Eos % (Auto) (0.0-4.0) % Baso % (Auto) (0.0-2.0) % Neut # (Auto) (1.8-7.0) K/uL Lymph # (Auto) (1.0-4.3) K/uL [place] # (Auto) (0.0-0.8) K/uL Eos # (Auto) (0.0-0.7) K/uL Baso # (Auto) (0.0-0.2) K/uL Neutrophils % (Manual) (50-75) % Band Neutrophils % (0-2) % Lymphocytes % (Manual) (20-40) % Monocytes % (Manual) (0-10) % Basophils % (Manual) (0-2) % Toxic Granulation Platelet Estimate (NORMAL) Large Platelets Giant Platelets Polychromasia Hypochromasia (manual) Poikilocytosis (manual Anisocytosis (manual) Microcytosis (manual) Macrocytosis (manual) Ovalocytes Farideh Cells Sodium 138 (132-148) mmol/L Potassium 3.7 (3.6-5.2) mmol/L Chloride 100 (98-107) mmol/L Carbon Dioxide 16 L (22-30) mmol/L Anion Gap 26 H (10-20) BUN 56 H (9-20) mg/dL Creatinine 4.3 H (0.8-1.5) mg/dL Est GFR ( Amer) 16 Est GFR (Non-Af Amer) 13 POC Glucose (mg/dL) 302 H 287 H (65-110) mg/dL Random Glucose 288 H (75-110) mg/dL Calcium 7.6 L (8.6-10.4) mg/dl Phosphorus 7.0 H (2.5-4.5) mg/dL Magnesium 1.7 (1.6-2.3) mg/dL Total Bilirubin 1.6 H (0.2-1.3) mg/dL AST 26 (17-59) U/L ALT 33 (21-72) U/L Alkaline Phosphatase 98 (38-126) U/L C-Reactive Protein (0.0-9.9) mg/L Total Protein 6.6 (6.3-8.3) g/dL Total Protein (PEP) (6.1-8.1) g/dL Albumin 3.0 L (3.5-5.0) g/dL Globulin 3.6 (2.2-3.9) gm/dL Albumin/Globulin Ratio 0.8 L (1.0-2.1) Prostate Specific Ag (0.00-4.0) ng/mL Urine Color (YELLOW) Urine Clarity (Clear) Urine pH (5.0-8.0) Ur Specific Cascade (1.003-1.030) Urine Protein (NEGATIVE) mg/dL Urine Glucose (UA) (Normal) mg/dL Urine Ketones (NEGATIVE) mg/dL Urine Blood (NEGATIVE) Urine Nitrate (NEGATIVE) Urine Bilirubin (NEGATIVE) Urine Urobilinogen (0.2-1.0) mg/dL Ur Leukocyte Esterase (Negative) Greyson/uL Urine WBC (Auto) (0-5) /hpf Urine RBC (Auto) (0-3) /hpf Ur Squamous Epith Cells (0-5) /hpf Urine Yeast (Budding) (NEGATIVE) /hpf Ur Random Creatinine mg/dL Ur Random Sodium mmol/L Ur Random Phosphorus mg/dL Ur Random Uric Acid mg/dL Ur Random Glucose mg/dL Stool Leukocytes, Qual (NEGATIVE) Serum Immunofixation (Not Detected) C. difficile Ag & Toxin (NEGATIVE) Hep Bs Antigen (NEGATIVE) Hep Bs Antibody (NEGATIVE) Hepatitis C Antibody (NEGATIVE) Blood Type Antibody Screen 09/07/17 09/07/17 09/07/17 Range/Units 19:33 18:51 18:02 WBC 21.1 H (4.8-10.8) K/uL RBC 2.71 L (4.40-5.90) Mil/uL Hgb 7.7 L (12.0-18.0) g/dL Hct 23.1 L (35.0-51.0) % MCV 85.1 (80.0-94.0) fL MCH 28.4 (27.0-31.0) pg MCHC 33.3 (33.0-37.0) g/dL RDW 16.5 H (11.5-14.5) % Plt Count 373 D (130-400) K/uL MPV 6.8 L (7.2-11.7) fL Neut % (Auto) 90.3 H (50.0-75.0) % Lymph % (Auto) 4.8 L (20.0-40.0) % [place] % (Auto) 4.7 (0.0-10.0) % Eos % (Auto) 0.0 (0.0-4.0) % Baso % (Auto) 0.2 (0.0-2.0) % Neut # (Auto) 19.1 H (1.8-7.0) K/uL Lymph # (Auto) 1.0 (1.0-4.3) K/uL [place] # (Auto) 1.0 H (0.0-0.8) K/uL Eos # (Auto) 0.0 (0.0-0.7) K/uL Baso # (Auto) 0.0 (0.0-0.2) K/uL Neutrophils % (Manual) 93 H (50-75) % Band Neutrophils % 1 (0-2) % Lymphocytes % (Manual) 3 L (20-40) % Monocytes % (Manual) 3 (0-10) % Basophils % (Manual) (0-2) % Toxic Granulation Platelet Estimate Normal (NORMAL) Large Platelets Giant Platelets Polychromasia Slight Hypochromasia (manual) Slight Poikilocytosis (manual Slight Anisocytosis (manual) Slight Microcytosis (manual) Slight Macrocytosis (manual) Slight Ovalocytes Farideh Cells Slight Sodium (132-148) mmol/L Potassium (3.6-5.2) mmol/L Chloride (98-107) mmol/L Carbon Dioxide (22-30) mmol/L Anion Gap (10-20) BUN (9-20) mg/dL Creatinine (0.8-1.5) mg/dL Est GFR ( Amer) Est GFR (Non-Af Amer) POC Glucose (mg/dL) 276 H 323 H (65-110) mg/dL Random Glucose (75-110) mg/dL Calcium (8.6-10.4) mg/dl Phosphorus (2.5-4.5) mg/dL Magnesium (1.6-2.3) mg/dL Total Bilirubin (0.2-1.3) mg/dL AST (17-59) U/L ALT (21-72) U/L Alkaline Phosphatase (38-126) U/L C-Reactive Protein (0.0-9.9) mg/L Total Protein (6.3-8.3) g/dL Total Protein (PEP) (6.1-8.1) g/dL Albumin (3.5-5.0) g/dL Globulin (2.2-3.9) gm/dL Albumin/Globulin Ratio (1.0-2.1) Prostate Specific Ag (0.00-4.0) ng/mL Urine Color (YELLOW) Urine Clarity (Clear) Urine pH (5.0-8.0) Ur Specific Cascade (1.003-1.030) Urine Protein (NEGATIVE) mg/dL Urine Glucose (UA) (Normal) mg/dL Urine Ketones (NEGATIVE) mg/dL Urine Blood (NEGATIVE) Urine Nitrate (NEGATIVE) Urine Bilirubin (NEGATIVE) Urine Urobilinogen (0.2-1.0) mg/dL Ur Leukocyte Esterase (Negative) Greyson/uL Urine WBC (Auto) (0-5) /hpf Urine RBC (Auto) (0-3) /hpf Ur Squamous Epith Cells (0-5) /hpf Urine Yeast (Budding) (NEGATIVE) /hpf Ur Random Creatinine mg/dL Ur Random Sodium mmol/L Ur Random Phosphorus mg/dL Ur Random Uric Acid mg/dL Ur Random Glucose mg/dL Stool Leukocytes, Qual (NEGATIVE) Serum Immunofixation (Not Detected) C. difficile Ag & Toxin (NEGATIVE) Hep Bs Antigen (NEGATIVE) Hep Bs Antibody (NEGATIVE) Hepatitis C Antibody (NEGATIVE) Blood Type Antibody Screen 09/07/17 09/07/17 09/07/17 Range/Units 17:07 16:35 16:12 WBC (4.8-10.8) K/uL RBC (4.40-5.90) Mil/uL Hgb (12.0-18.0) g/dL Hct (35.0-51.0) % MCV (80.0-94.0) fL MCH (27.0-31.0) pg MCHC (33.0-37.0) g/dL RDW (11.5-14.5) % Plt Count (130-400) K/uL MPV (7.2-11.7) fL Neut % (Auto) (50.0-75.0) % Lymph % (Auto) (20.0-40.0) % [place] % (Auto) (0.0-10.0) % Eos % (Auto) (0.0-4.0) % Baso % (Auto) (0.0-2.0) % Neut # (Auto) (1.8-7.0) K/uL Lymph # (Auto) (1.0-4.3) K/uL [place] # (Auto) (0.0-0.8) K/uL Eos # (Auto) (0.0-0.7) K/uL Baso # (Auto) (0.0-0.2) K/uL Neutrophils % (Manual) (50-75) % Band Neutrophils % (0-2) % Lymphocytes % (Manual) (20-40) % Monocytes % (Manual) (0-10) % Basophils % (Manual) (0-2) % Toxic Granulation Platelet Estimate (NORMAL) Large Platelets Giant Platelets Polychromasia Hypochromasia (manual) Poikilocytosis (manual Anisocytosis (manual) Microcytosis (manual) Macrocytosis (manual) Ovalocytes Farideh Cells Sodium (132-148) mmol/L Potassium (3.6-5.2) mmol/L Chloride (98-107) mmol/L Carbon Dioxide (22-30) mmol/L Anion Gap (10-20) BUN (9-20) mg/dL Creatinine (0.8-1.5) mg/dL Est GFR ( Amer) Est GFR (Non-Af Amer) POC Glucose (mg/dL) 329 H 321 H (65-110) mg/dL Random Glucose (75-110) mg/dL Calcium (8.6-10.4) mg/dl Phosphorus (2.5-4.5) mg/dL Magnesium (1.6-2.3) mg/dL Total Bilirubin (0.2-1.3) mg/dL AST (17-59) U/L ALT (21-72) U/L Alkaline Phosphatase (38-126) U/L C-Reactive Protein (0.0-9.9) mg/L Total Protein (6.3-8.3) g/dL Total Protein (PEP) (6.1-8.1) g/dL Albumin (3.5-5.0) g/dL Globulin (2.2-3.9) gm/dL Albumin/Globulin Ratio (1.0-2.1) Prostate Specific Ag 1.42 (0.00-4.0) ng/mL Urine Color (YELLOW) Urine Clarity (Clear) Urine pH (5.0-8.0) Ur Specific Cascade (1.003-1.030) Urine Protein (NEGATIVE) mg/dL Urine Glucose (UA) (Normal) mg/dL Urine Ketones (NEGATIVE) mg/dL Urine Blood (NEGATIVE) Urine Nitrate (NEGATIVE) Urine Bilirubin (NEGATIVE) Urine Urobilinogen (0.2-1.0) mg/dL Ur Leukocyte Esterase (Negative) Greyson/uL Urine WBC (Auto) (0-5) /hpf Urine RBC (Auto) (0-3) /hpf Ur Squamous Epith Cells (0-5) /hpf Urine Yeast (Budding) (NEGATIVE) /hpf Ur Random Creatinine mg/dL Ur Random Sodium mmol/L Ur Random Phosphorus mg/dL Ur Random Uric Acid mg/dL Ur Random Glucose mg/dL Stool Leukocytes, Qual (NEGATIVE) Serum Immunofixation (Not Detected) C. difficile Ag & Toxin (NEGATIVE) Hep Bs Antigen (NEGATIVE) Hep Bs Antibody (NEGATIVE) Hepatitis C Antibody (NEGATIVE) Blood Type Antibody Screen 09/07/17 09/07/17 09/07/17 Range/Units 15:11 15:11 12:01 WBC (4.8-10.8) K/uL RBC (4.40-5.90) Mil/uL Hgb (12.0-18.0) g/dL Hct (35.0-51.0) % MCV (80.0-94.0) fL MCH (27.0-31.0) pg MCHC (33.0-37.0) g/dL RDW (11.5-14.5) % Plt Count (130-400) K/uL MPV (7.2-11.7) fL Neut % (Auto) (50.0-75.0) % Lymph % (Auto) (20.0-40.0) % [place] % (Auto) (0.0-10.0) % Eos % (Auto) (0.0-4.0) % Baso % (Auto) (0.0-2.0) % Neut # (Auto) (1.8-7.0) K/uL Lymph # (Auto) (1.0-4.3) K/uL Dim[place] # (Auto) (0.0-0.8) K/uL Eos # (Auto) (0.0-0.7) K/uL Baso # (Auto) (0.0-0.2) K/uL Neutrophils % (Manual) (50-75) % Band Neutrophils % (0-2) % Lymphocytes % (Manual) (20-40) % Monocytes % (Manual) (0-10) % Basophils % (Manual) (0-2) % Toxic Granulation Platelet Estimate (NORMAL) Large Platelets Giant Platelets Polychromasia Hypochromasia (manual) Poikilocytosis (manual Anisocytosis (manual) Microcytosis (manual) Macrocytosis (manual) Ovalocytes Farideh Cells Sodium (132-148) mmol/L Potassium (3.6-5.2) mmol/L Chloride (98-107) mmol/L Carbon Dioxide (22-30) mmol/L Anion Gap (10-20) BUN (9-20) mg/dL Creatinine (0.8-1.5) mg/dL Est GFR ( Amer) Est GFR (Non-Af Amer) POC Glucose (mg/dL) (65-110) mg/dL Random Glucose (75-110) mg/dL Calcium (8.6-10.4) mg/dl Phosphorus (2.5-4.5) mg/dL Magnesium (1.6-2.3) mg/dL Total Bilirubin (0.2-1.3) mg/dL AST (17-59) U/L ALT (21-72) U/L Alkaline Phosphatase (38-126) U/L C-Reactive Protein (0.0-9.9) mg/L Total Protein (6.3-8.3) g/dL Total Protein (PEP) (6.1-8.1) g/dL Albumin (3.5-5.0) g/dL Globulin (2.2-3.9) gm/dL Albumin/Globulin Ratio (1.0-2.1) Prostate Specific Ag (0.00-4.0) ng/mL Urine Color (YELLOW) Urine Clarity (Clear) Urine pH (5.0-8.0) Ur Specific Cascade (1.003-1.030) Urine Protein (NEGATIVE) mg/dL Urine Glucose (UA) (Normal) mg/dL Urine Ketones (NEGATIVE) mg/dL Urine Blood (NEGATIVE) Urine Nitrate (NEGATIVE) Urine Bilirubin (NEGATIVE) Urine Urobilinogen (0.2-1.0) mg/dL Ur Leukocyte Esterase (Negative) Greyson/uL Urine WBC (Auto) (0-5) /hpf Urine RBC (Auto) (0-3) /hpf Ur Squamous Epith Cells (0-5) /hpf Urine Yeast (Budding) (NEGATIVE) /hpf Ur Random Creatinine mg/dL Ur Random Sodium mmol/L Ur Random Phosphorus mg/dL Ur Random Uric Acid mg/dL Ur Random Glucose mg/dL Stool Leukocytes, Qual (NEGATIVE) Serum Immunofixation (Not Detected) C. difficile Ag & Toxin (NEGATIVE) Hep Bs Antigen Negative (NEGATIVE) Hep Bs Antibody Positive (NEGATIVE) Hepatitis C Antibody Negative (NEGATIVE) Blood Type O POSITIVE Antibody Screen Negative 09/07/17 09/07/17 09/07/17 Range/Units 11:29 11:28 11:28 WBC (4.8-10.8) K/uL RBC (4.40-5.90) Mil/uL Hgb (12.0-18.0) g/dL Hct (35.0-51.0) % MCV (80.0-94.0) fL MCH (27.0-31.0) pg MCHC (33.0-37.0) g/dL RDW (11.5-14.5) % Plt Count (130-400) K/uL MPV (7.2-11.7) fL Neut % (Auto) (50.0-75.0) % Lymph % (Auto) (20.0-40.0) % [place] % (Auto) (0.0-10.0) % Eos % (Auto) (0.0-4.0) % Baso % (Auto) (0.0-2.0) % Neut # (Auto) (1.8-7.0) K/uL Lymph # (Auto) (1.0-4.3) K/uL [place] # (Auto) (0.0-0.8) K/uL Eos # (Auto) (0.0-0.7) K/uL Baso # (Auto) (0.0-0.2) K/uL Neutrophils % (Manual) (50-75) % Band Neutrophils % (0-2) % Lymphocytes % (Manual) (20-40) % Monocytes % (Manual) (0-10) % Basophils % (Manual) (0-2) % Toxic Granulation Platelet Estimate (NORMAL) Large Platelets Giant Platelets Polychromasia Hypochromasia (manual) Poikilocytosis (manual Anisocytosis (manual) Microcytosis (manual) Macrocytosis (manual) Ovalocytes Farideh Cells Sodium (132-148) mmol/L Potassium (3.6-5.2) mmol/L Chloride (98-107) mmol/L Carbon Dioxide (22-30) mmol/L Anion Gap (10-20) BUN (9-20) mg/dL Creatinine (0.8-1.5) mg/dL Est GFR ( Amer) Est GFR (Non-Af Amer) POC Glucose (mg/dL) 351 H (65-110) mg/dL Random Glucose (75-110) mg/dL Calcium (8.6-10.4) mg/dl Phosphorus (2.5-4.5) mg/dL Magnesium (1.6-2.3) mg/dL Total Bilirubin (0.2-1.3) mg/dL AST (17-59) U/L ALT (21-72) U/L Alkaline Phosphatase (38-126) U/L C-Reactive Protein (0.0-9.9) mg/L Total Protein (6.3-8.3) g/dL Total Protein (PEP) (6.1-8.1) g/dL Albumin (3.5-5.0) g/dL Globulin (2.2-3.9) gm/dL Albumin/Globulin Ratio (1.0-2.1) Prostate Specific Ag (0.00-4.0) ng/mL Urine Color Yellow (YELLOW) Urine Clarity Hazy (Clear) Urine pH 5.0 (5.0-8.0) Ur Specific Cascade 1.013 (1.003-1.030) Urine Protein 1+ H (NEGATIVE) mg/dL Urine Glucose (UA) 3+ H (Normal) mg/dL Urine Ketones Negative (NEGATIVE) mg/dL Urine Blood 2+ H (NEGATIVE) Urine Nitrate Negative (NEGATIVE) Urine Bilirubin Negative (NEGATIVE) Urine Urobilinogen Normal (0.2-1.0) mg/dL Ur Leukocyte Esterase 3+ H (Negative) Greyson/uL Urine WBC (Auto) 120 H (0-5) /hpf Urine RBC (Auto) 24 H (0-3) /hpf Ur Squamous Epith Cells 2 (0-5) /hpf Urine Yeast (Budding) Many H (NEGATIVE) /hpf Ur Random Creatinine 104.6 mg/dL Ur Random Sodium 26 mmol/L Ur Random Phosphorus 105.9 mg/dL Ur Random Uric Acid 27.5 mg/dL Ur Random Glucose 237 mg/dL Stool Leukocytes, Qual (NEGATIVE) Serum Immunofixation (Not Detected) C. difficile Ag & Toxin (NEGATIVE) Hep Bs Antigen (NEGATIVE) Hep Bs Antibody (NEGATIVE) Hepatitis C Antibody (NEGATIVE) Blood Type Antibody Screen 09/07/17 09/07/17 09/06/17 Range/Units 06:15 06:15 14:00 WBC (4.8-10.8) K/uL RBC (4.40-5.90) Mil/uL Hgb (12.0-18.0) g/dL Hct (35.0-51.0) % MCV (80.0-94.0) fL MCH (27.0-31.0) pg MCHC (33.0-37.0) g/dL RDW (11.5-14.5) % Plt Count (130-400) K/uL MPV (7.2-11.7) fL Neut % (Auto) (50.0-75.0) % Lymph % (Auto) (20.0-40.0) % [place] % (Auto) (0.0-10.0) % Eos % (Auto) (0.0-4.0) % Baso % (Auto) (0.0-2.0) % Neut # (Auto) (1.8-7.0) K/uL Lymph # (Auto) (1.0-4.3) K/uL [place] # (Auto) (0.0-0.8) K/uL Eos # (Auto) (0.0-0.7) K/uL Baso # (Auto) (0.0-0.2) K/uL Neutrophils % (Manual) 83 H (50-75) % Band Neutrophils % 6 H (0-2) % Lymphocytes % (Manual) 6 L (20-40) % Monocytes % (Manual) 4 (0-10) % Basophils % (Manual) 1 (0-2) % Toxic Granulation Present Platelet Estimate Increased H (NORMAL) Large Platelets Present Giant Platelets Present Polychromasia Slight Hypochromasia (manual) Slight Poikilocytosis (manual Slight Anisocytosis (manual) Moderate Microcytosis (manual) Macrocytosis (manual) Ovalocytes Slight Farideh Cells Slight Sodium (132-148) mmol/L Potassium (3.6-5.2) mmol/L Chloride (98-107) mmol/L Carbon Dioxide (22-30) mmol/L Anion Gap (10-20) BUN (9-20) mg/dL Creatinine (0.8-1.5) mg/dL Est GFR ( Amer) Est GFR (Non-Af Amer) POC Glucose (mg/dL) (65-110) mg/dL Random Glucose (75-110) mg/dL Calcium (8.6-10.4) mg/dl Phosphorus (2.5-4.5) mg/dL Magnesium (1.6-2.3) mg/dL Total Bilirubin (0.2-1.3) mg/dL AST (17-59) U/L ALT (21-72) U/L Alkaline Phosphatase (38-126) U/L C-Reactive Protein 152.60 H (0.0-9.9) mg/L Total Protein (6.3-8.3) g/dL Total Protein (PEP) (6.1-8.1) g/dL Albumin (3.5-5.0) g/dL Globulin (2.2-3.9) gm/dL Albumin/Globulin Ratio (1.0-2.1) Prostate Specific Ag (0.00-4.0) ng/mL Urine Color (YELLOW) Urine Clarity (Clear) Urine pH (5.0-8.0) Ur Specific Cascade (1.003-1.030) Urine Protein (NEGATIVE) mg/dL Urine Glucose (UA) (Normal) mg/dL Urine Ketones (NEGATIVE) mg/dL Urine Blood (NEGATIVE) Urine Nitrate (NEGATIVE) Urine Bilirubin (NEGATIVE) Urine Urobilinogen (0.2-1.0) mg/dL Ur Leukocyte Esterase (Negative) Greyson/uL Urine WBC (Auto) (0-5) /hpf Urine RBC (Auto) (0-3) /hpf Ur Squamous Epith Cells (0-5) /hpf Urine Yeast (Budding) (NEGATIVE) /hpf Ur Random Creatinine mg/dL Ur Random Sodium mmol/L Ur Random Phosphorus mg/dL Ur Random Uric Acid mg/dL Ur Random Glucose mg/dL Stool Leukocytes, Qual Negative (NEGATIVE) Serum Immunofixation (Not Detected) C. difficile Ag & Toxin Negative (NEGATIVE) Hep Bs Antigen (NEGATIVE) Hep Bs Antibody (NEGATIVE) Hepatitis C Antibody (NEGATIVE) Blood Type Antibody Screen 09/06/17 Range/Units 12:02 WBC (4.8-10.8) K/uL RBC (4.40-5.90) Mil/uL Hgb (12.0-18.0) g/dL Hct (35.0-51.0) % MCV (80.0-94.0) fL MCH (27.0-31.0) pg MCHC (33.0-37.0) g/dL RDW (11.5-14.5) % Plt Count (130-400) K/uL MPV (7.2-11.7) fL Neut % (Auto) (50.0-75.0) % Lymph % (Auto) (20.0-40.0) % [place] % (Auto) (0.0-10.0) % Eos % (Auto) (0.0-4.0) % Baso % (Auto) (0.0-2.0) % Neut # (Auto) (1.8-7.0) K/uL Lymph # (Auto) (1.0-4.3) K/uL [place] # (Auto) (0.0-0.8) K/uL Eos # (Auto) (0.0-0.7) K/uL Baso # (Auto) (0.0-0.2) K/uL Neutrophils % (Manual) (50-75) % Band Neutrophils % (0-2) % Lymphocytes % (Manual) (20-40) % Monocytes % (Manual) (0-10) % Basophils % (Manual) (0-2) % Toxic Granulation Platelet Estimate (NORMAL) Large Platelets Giant Platelets Polychromasia Hypochromasia (manual) Poikilocytosis (manual Anisocytosis (manual) Microcytosis (manual) Macrocytosis (manual) Ovalocytes Farideh Cells Sodium (132-148) mmol/L Potassium (3.6-5.2) mmol/L Chloride (98-107) mmol/L Carbon Dioxide (22-30) mmol/L Anion Gap (10-20) BUN (9-20) mg/dL Creatinine (0.8-1.5) mg/dL Est GFR ( Amer) Est GFR (Non-Af Amer) POC Glucose (mg/dL) (65-110) mg/dL Random Glucose (75-110) mg/dL Calcium (8.6-10.4) mg/dl Phosphorus (2.5-4.5) mg/dL Magnesium (1.6-2.3) mg/dL Total Bilirubin (0.2-1.3) mg/dL AST (17-59) U/L ALT (21-72) U/L Alkaline Phosphatase (38-126) U/L C-Reactive Protein (0.0-9.9) mg/L Total Protein (6.3-8.3) g/dL Total Protein (PEP) 6.2 (6.1-8.1) g/dL Albumin (3.5-5.0) g/dL Globulin (2.2-3.9) gm/dL Albumin/Globulin Ratio (1.0-2.1) Prostate Specific Ag (0.00-4.0) ng/mL Urine Color (YELLOW) Urine Clarity (Clear) Urine pH (5.0-8.0) Ur Specific Cascade (1.003-1.030) Urine Protein (NEGATIVE) mg/dL Urine Glucose (UA) (Normal) mg/dL Urine Ketones (NEGATIVE) mg/dL Urine Blood (NEGATIVE) Urine Nitrate (NEGATIVE) Urine Bilirubin (NEGATIVE) Urine Urobilinogen (0.2-1.0) mg/dL Ur Leukocyte Esterase (Negative) Greyson/uL Urine WBC (Auto) (0-5) /hpf Urine RBC (Auto) (0-3) /hpf Ur Squamous Epith Cells (0-5) /hpf Urine Yeast (Budding) (NEGATIVE) /hpf Ur Random Creatinine mg/dL Ur Random Sodium mmol/L Ur Random Phosphorus mg/dL Ur Random Uric Acid mg/dL Ur Random Glucose mg/dL Stool Leukocytes, Qual (NEGATIVE) Serum Immunofixation Not detected (Not Detected) C. difficile Ag & Toxin (NEGATIVE) Hep Bs Antigen (NEGATIVE) Hep Bs Antibody (NEGATIVE) Hepatitis C Antibody (NEGATIVE) Blood Type Antibody Screen Laboratory Results - last 24 hr 09/06/17 09/06/17 09/07/17 12:02 14:00 06:15 WBC RBC Hgb Hct MCV MCH MCHC RDW Plt Count MPV Neut % (Auto) Lymph % (Auto) [place] % (Auto) Eos % (Auto) Baso % (Auto) Neut # (Auto) Lymph # (Auto) [place] # (Auto) Eos # (Auto) Baso # (Auto) Neutrophils % (Manual) 83 H Band Neutrophils % 6 H Lymphocytes % (Manual) 6 L Monocytes % (Manual) 4 Basophils % (Manual) 1 Toxic Granulation Present Platelet Estimate Increased H Large Platelets Present Giant Platelets Present Polychromasia Slight Hypochromasia (manual) Slight Poikilocytosis (manual Slight Anisocytosis (manual) Moderate Microcytosis (manual) Macrocytosis (manual) Ovalocytes Slight Eldred Cells Slight Sodium Potassium Chloride Carbon Dioxide Anion Gap BUN Creatinine Est GFR ( Amer) Est GFR (Non-Af Amer) POC Glucose (mg/dL) Random Glucose Calcium Phosphorus Magnesium Total Bilirubin AST ALT Alkaline Phosphatase C-Reactive Protein Total Protein Total Protein (PEP) 6.2 Albumin Globulin Albumin/Globulin Ratio Prostate Specific Ag Urine Color Urine Clarity Urine pH Ur Specific Cascade Urine Protein Urine Glucose (UA) Urine Ketones Urine Blood Urine Nitrate Urine Bilirubin Urine Urobilinogen Ur Leukocyte Esterase Urine WBC (Auto) Urine RBC (Auto) Ur Squamous Epith Cells Urine Yeast (Budding) Ur Random Creatinine Ur Random Sodium Ur Random Phosphorus Ur Random Uric Acid Ur Random Glucose Stool Leukocytes, Qual Negative Serum Immunofixation Not detected C. difficile Ag & Toxin Negative Hep Bs Antigen Hep Bs Antibody Hepatitis C Antibody Blood Type Antibody Screen 09/07/17 09/07/17 09/07/17 06:15 11:28 11:28 WBC RBC Hgb Hct MCV MCH MCHC RDW Plt Count MPV Neut % (Auto) Lymph % (Auto) [place] % (Auto) Eos % (Auto) Baso % (Auto) Neut # (Auto) Lymph # (Auto) [place] # (Auto) Eos # (Auto) Baso # (Auto) Neutrophils % (Manual) Band Neutrophils % Lymphocytes % (Manual) Monocytes % (Manual) Basophils % (Manual) Toxic Granulation Platelet Estimate Large Platelets Giant Platelets Polychromasia Hypochromasia (manual) Poikilocytosis (manual Anisocytosis (manual) Microcytosis (manual) Macrocytosis (manual) Ovalocytes Eldred Cells Sodium Potassium Chloride Carbon Dioxide Anion Gap BUN Creatinine Est GFR ( Amer) Est GFR (Non-Af Amer) POC Glucose (mg/dL) Random Glucose Calcium Phosphorus Magnesium Total Bilirubin AST ALT Alkaline Phosphatase C-Reactive Protein 152.60 H Total Protein Total Protein (PEP) Albumin Globulin Albumin/Globulin Ratio Prostate Specific Ag Urine Color Yellow Urine Clarity Hazy Urine pH 5.0 Ur Specific Cascade 1.013 Urine Protein 1+ H Urine Glucose (UA) 3+ H Urine Ketones Negative Urine Blood 2+ H Urine Nitrate Negative Urine Bilirubin Negative Urine Urobilinogen Normal Ur Leukocyte Esterase 3+ H Urine WBC (Auto) 120 H Urine RBC (Auto) 24 H Ur Squamous Epith Cells 2 Urine Yeast (Budding) Many H Ur Random Creatinine 104.6 Ur Random Sodium 26 Ur Random Phosphorus 105.9 Ur Random Uric Acid 27.5 Ur Random Glucose 237 Stool Leukocytes, Qual Serum Immunofixation C. difficile Ag & Toxin Hep Bs Antigen Hep Bs Antibody Hepatitis C Antibody Blood Type Antibody Screen 09/07/17 09/07/17 09/07/17 11:29 12:01 15:11 WBC RBC Hgb Hct MCV MCH MCHC RDW Plt Count MPV Neut % (Auto) Lymph % (Auto) [place] % (Auto) Eos % (Auto) Baso % (Auto) Neut # (Auto) Lymph # (Auto) [place] # (Auto) Eos # (Auto) Baso # (Auto) Neutrophils % (Manual) Band Neutrophils % Lymphocytes % (Manual) Monocytes % (Manual) Basophils % (Manual) Toxic Granulation Platelet Estimate Large Platelets Giant Platelets Polychromasia Hypochromasia (manual) Poikilocytosis (manual Anisocytosis (manual) Microcytosis (manual) Macrocytosis (manual) Ovalocytes Eldred Cells Sodium Potassium Chloride Carbon Dioxide Anion Gap BUN Creatinine Est GFR ( Amer) Est GFR (Non-Af Amer) POC Glucose (mg/dL) 351 H Random Glucose Calcium Phosphorus Magnesium Total Bilirubin AST ALT Alkaline Phosphatase C-Reactive Protein Total Protein Total Protein (PEP) Albumin Globulin Albumin/Globulin Ratio Prostate Specific Ag Urine Color Urine Clarity Urine pH Ur Specific Cascade Urine Protein Urine Glucose (UA) Urine Ketones Urine Blood Urine Nitrate Urine Bilirubin Urine Urobilinogen Ur Leukocyte Esterase Urine WBC (Auto) Urine RBC (Auto) Ur Squamous Epith Cells Urine Yeast (Budding) Ur Random Creatinine Ur Random Sodium Ur Random Phosphorus Ur Random Uric Acid Ur Random Glucose Stool Leukocytes, Qual Serum Immunofixation C. difficile Ag & Toxin Hep Bs Antigen Negative Hep Bs Antibody Hepatitis C Antibody Negative Blood Type O POSITIVE Antibody Screen Negative 09/07/17 09/07/17 09/07/17 15:11 16:12 16:35 WBC RBC Hgb Hct MCV MCH MCHC RDW Plt Count MPV Neut % (Auto) Lymph % (Auto) [place] % (Auto) Eos % (Auto) Baso % (Auto) Neut # (Auto) Lymph # (Auto) [place] # (Auto) Eos # (Auto) Baso # (Auto) Neutrophils % (Manual) Band Neutrophils % Lymphocytes % (Manual) Monocytes % (Manual) Basophils % (Manual) Toxic Granulation Platelet Estimate Large Platelets Giant Platelets Polychromasia Hypochromasia (manual) Poikilocytosis (manual Anisocytosis (manual) Microcytosis (manual) Macrocytosis (manual) Ovalocytes Eldred Cells Sodium Potassium Chloride Carbon Dioxide Anion Gap BUN Creatinine Est GFR ( Amer) Est GFR (Non-Af Amer) POC Glucose (mg/dL) 321 H Random Glucose Calcium Phosphorus Magnesium Total Bilirubin AST ALT Alkaline Phosphatase C-Reactive Protein Total Protein Total Protein (PEP) Albumin Globulin Albumin/Globulin Ratio Prostate Specific Ag 1.42 Urine Color Urine Clarity Urine pH Ur Specific Cascade Urine Protein Urine Glucose (UA) Urine Ketones Urine Blood Urine Nitrate Urine Bilirubin Urine Urobilinogen Ur Leukocyte Esterase Urine WBC (Auto) Urine RBC (Auto) Ur Squamous Epith Cells Urine Yeast (Budding) Ur Random Creatinine Ur Random Sodium Ur Random Phosphorus Ur Random Uric Acid Ur Random Glucose Stool Leukocytes, Qual Serum Immunofixation C. difficile Ag & Toxin Hep Bs Antigen Hep Bs Antibody Positive Hepatitis C Antibody Blood Type Antibody Screen 09/07/17 09/07/17 09/07/17 17:07 18:02 18:51 WBC RBC Hgb Hct MCV MCH MCHC RDW Plt Count MPV Neut % (Auto) Lymph % (Auto) [place] % (Auto) Eos % (Auto) Baso % (Auto) Neut # (Auto) Lymph # (Auto) [place] # (Auto) Eos # (Auto) Baso # (Auto) Neutrophils % (Manual) Band Neutrophils % Lymphocytes % (Manual) Monocytes % (Manual) Basophils % (Manual) Toxic Granulation Platelet Estimate Large Platelets Giant Platelets Polychromasia Hypochromasia (manual) Poikilocytosis (manual Anisocytosis (manual) Microcytosis (manual) Macrocytosis (manual) Ovalocytes Farideh Cells Sodium Potassium Chloride Carbon Dioxide Anion Gap BUN Creatinine Est GFR ( Amer) Est GFR (Non-Af Amer) POC Glucose (mg/dL) 329 H 323 H 276 H Random Glucose Calcium Phosphorus Magnesium Total Bilirubin AST ALT Alkaline Phosphatase C-Reactive Protein Total Protein Total Protein (PEP) Albumin Globulin Albumin/Globulin Ratio Prostate Specific Ag Urine Color Urine Clarity Urine pH Ur Specific Cascade Urine Protein Urine Glucose (UA) Urine Ketones Urine Blood Urine Nitrate Urine Bilirubin Urine Urobilinogen Ur Leukocyte Esterase Urine WBC (Auto) Urine RBC (Auto) Ur Squamous Epith Cells Urine Yeast (Budding) Ur Random Creatinine Ur Random Sodium Ur Random Phosphorus Ur Random Uric Acid Ur Random Glucose Stool Leukocytes, Qual Serum Immunofixation C. difficile Ag & Toxin Hep Bs Antigen Hep Bs Antibody Hepatitis C Antibody Blood Type Antibody Screen 09/07/17 09/07/17 09/07/17 19:33 19:33 20:03 WBC 21.1 H RBC 2.71 L Hgb 7.7 L Hct 23.1 L MCV 85.1 MCH 28.4 MCHC 33.3 RDW 16.5 H Plt Count 373 D MPV 6.8 L Neut % (Auto) 90.3 H Lymph % (Auto) 4.8 L [place] % (Auto) 4.7 Eos % (Auto) 0.0 Baso % (Auto) 0.2 Neut # (Auto) 19.1 H Lymph # (Auto) 1.0 [place] # (Auto) 1.0 H Eos # (Auto) 0.0 Baso # (Auto) 0.0 Neutrophils % (Manual) 93 H Band Neutrophils % 1 Lymphocytes % (Manual) 3 L Monocytes % (Manual) 3 Basophils % (Manual) Toxic Granulation Platelet Estimate Normal Large Platelets Giant Platelets Polychromasia Slight Hypochromasia (manual) Slight Poikilocytosis (manual Slight Anisocytosis (manual) Slight Microcytosis (manual) Slight Macrocytosis (manual) Slight Ovalocytes Farideh Cells Slight Sodium 138 Potassium 3.7 Chloride 100 Carbon Dioxide 16 L Anion Gap 26 H BUN 56 H Creatinine 4.3 H Est GFR ( Amer) 16 Est GFR (Non-Af Amer) 13 POC Glucose (mg/dL) 287 H Random Glucose 288 H Calcium 7.6 L Phosphorus 7.0 H Magnesium 1.7 Total Bilirubin 1.6 H AST 26 ALT 33 Alkaline Phosphatase 98 C-Reactive Protein Total Protein 6.6 Total Protein (PEP) Albumin 3.0 L Globulin 3.6 Albumin/Globulin Ratio 0.8 L Prostate Specific Ag Urine Color Urine Clarity Urine pH Ur Specific Cascade Urine Protein Urine Glucose (UA) Urine Ketones Urine Blood Urine Nitrate Urine Bilirubin Urine Urobilinogen Ur Leukocyte Esterase Urine WBC (Auto) Urine RBC (Auto) Ur Squamous Epith Cells Urine Yeast (Budding) Ur Random Creatinine Ur Random Sodium Ur Random Phosphorus Ur Random Uric Acid Ur Random Glucose Stool Leukocytes, Qual Serum Immunofixation C. difficile Ag & Toxin Hep Bs Antigen Hep Bs Antibody Hepatitis C Antibody Blood Type Antibody Screen 09/07/17 09/07/17 09/07/17 21:09 22:13 22:56 WBC RBC Hgb Hct MCV MCH MCHC RDW Plt Count MPV Neut % (Auto) Lymph % (Auto) [place] % (Auto) Eos % (Auto) Baso % (Auto) Neut # (Auto) Lymph # (Auto) [place] # (Auto) Eos # (Auto) Baso # (Auto) Neutrophils % (Manual) Band Neutrophils % Lymphocytes % (Manual) Monocytes % (Manual) Basophils % (Manual) Toxic Granulation Platelet Estimate Large Platelets Giant Platelets Polychromasia Hypochromasia (manual) Poikilocytosis (manual Anisocytosis (manual) Microcytosis (manual) Macrocytosis (manual) Ovalocytes Eldred Cells Sodium Potassium Chloride Carbon Dioxide Anion Gap BUN Creatinine Est GFR ( Amer) Est GFR (Non-Af Amer) POC Glucose (mg/dL) 302 H 300 H 284 H Random Glucose Calcium Phosphorus Magnesium Total Bilirubin AST ALT Alkaline Phosphatase C-Reactive Protein Total Protein Total Protein (PEP) Albumin Globulin Albumin/Globulin Ratio Prostate Specific Ag Urine Color Urine Clarity Urine pH Ur Specific Cascade Urine Protein Urine Glucose (UA) Urine Ketones Urine Blood Urine Nitrate Urine Bilirubin Urine Urobilinogen Ur Leukocyte Esterase Urine WBC (Auto) Urine RBC (Auto) Ur Squamous Epith Cells Urine Yeast (Budding) Ur Random Creatinine Ur Random Sodium Ur Random Phosphorus Ur Random Uric Acid Ur Random Glucose Stool Leukocytes, Qual Serum Immunofixation C. difficile Ag & Toxin Hep Bs Antigen Hep Bs Antibody Hepatitis C Antibody Blood Type Antibody Screen 09/07/17 09/08/17 09/08/17 23:47 01:03 02:09 WBC RBC Hgb Hct MCV MCH MCHC RDW Plt Count MPV Neut % (Auto) Lymph % (Auto) [place] % (Auto) Eos % (Auto) Baso % (Auto) Neut # (Auto) Lymph # (Auto) [place] # (Auto) Eos # (Auto) Baso # (Auto) Neutrophils % (Manual) Band Neutrophils % Lymphocytes % (Manual) Monocytes % (Manual) Basophils % (Manual) Toxic Granulation Platelet Estimate Large Platelets Giant Platelets Polychromasia Hypochromasia (manual) Poikilocytosis (manual Anisocytosis (manual) Microcytosis (manual) Macrocytosis (manual) Ovalocytes Eldred Cells Sodium Potassium Chloride Carbon Dioxide Anion Gap BUN Creatinine Est GFR ( Amer) Est GFR (Non-Af Amer) POC Glucose (mg/dL) 305 H 257 H 269 H Random Glucose Calcium Phosphorus Magnesium Total Bilirubin AST ALT Alkaline Phosphatase C-Reactive Protein Total Protein Total Protein (PEP) Albumin Globulin Albumin/Globulin Ratio Prostate Specific Ag Urine Color Urine Clarity Urine pH Ur Specific Cascade Urine Protein Urine Glucose (UA) Urine Ketones Urine Blood Urine Nitrate Urine Bilirubin Urine Urobilinogen Ur Leukocyte Esterase Urine WBC (Auto) Urine RBC (Auto) Ur Squamous Epith Cells Urine Yeast (Budding) Ur Random Creatinine Ur Random Sodium Ur Random Phosphorus Ur Random Uric Acid Ur Random Glucose Stool Leukocytes, Qual Serum Immunofixation C. difficile Ag & Toxin Hep Bs Antigen Hep Bs Antibody Hepatitis C Antibody Blood Type Antibody Screen 09/08/17 09/08/17 09/08/17 03:19 04:17 04:58 WBC RBC Hgb Hct MCV MCH MCHC RDW Plt Count MPV Neut % (Auto) Lymph % (Auto) [place] % (Auto) Eos % (Auto) Baso % (Auto) Neut # (Auto) Lymph # (Auto) [place] # (Auto) Eos # (Auto) Baso # (Auto) Neutrophils % (Manual) Band Neutrophils % Lymphocytes % (Manual) Monocytes % (Manual) Basophils % (Manual) Toxic Granulation Platelet Estimate Large Platelets Giant Platelets Polychromasia Hypochromasia (manual) Poikilocytosis (manual Anisocytosis (manual) Microcytosis (manual) Macrocytosis (manual) Ovalocytes Eldred Cells Sodium Potassium Chloride Carbon Dioxide Anion Gap BUN Creatinine Est GFR ( Amer) Est GFR (Non-Af Amer) POC Glucose (mg/dL) 231 H 206 H 189 H Random Glucose Calcium Phosphorus Magnesium Total Bilirubin AST ALT Alkaline Phosphatase C-Reactive Protein Total Protein Total Protein (PEP) Albumin Globulin Albumin/Globulin Ratio Prostate Specific Ag Urine Color Urine Clarity Urine pH Ur Specific Cascade Urine Protein Urine Glucose (UA) Urine Ketones Urine Blood Urine Nitrate Urine Bilirubin Urine Urobilinogen Ur Leukocyte Esterase Urine WBC (Auto) Urine RBC (Auto) Ur Squamous Epith Cells Urine Yeast (Budding) Ur Random Creatinine Ur Random Sodium Ur Random Phosphorus Ur Random Uric Acid Ur Random Glucose Stool Leukocytes, Qual Serum Immunofixation C. difficile Ag & Toxin Hep Bs Antigen Hep Bs Antibody Hepatitis C Antibody Blood Type Antibody Screen 09/08/17 09/08/17 09/08/17 06:03 06:13 06:13 WBC 22.7 H RBC 2.86 L Hgb 8.0 L Hct 24.9 L MCV 87.0 MCH 28.1 MCHC 32.3 L RDW 16.4 H Plt Count 418 H MPV 7.1 L Neut % (Auto) 81.3 H Lymph % (Auto) 11.4 L [place] % (Auto) 6.7 Eos % (Auto) 0.1 Baso % (Auto) 0.5 Neut # (Auto) 18.5 H Lymph # (Auto) 2.6 [place] # (Auto) 1.5 H Eos # (Auto) 0.0 Baso # (Auto) 0.1 Neutrophils % (Manual) Band Neutrophils % Lymphocytes % (Manual) Monocytes % (Manual) Basophils % (Manual) Toxic Granulation Platelet Estimate Large Platelets Giant Platelets Polychromasia Hypochromasia (manual) Poikilocytosis (manual Anisocytosis (manual) Microcytosis (manual) Macrocytosis (manual) Ovalocytes Eldred Cells Sodium 141 Potassium 3.6 Chloride 103 Carbon Dioxide 17 L Anion Gap 24 H BUN 64 H Creatinine 5.0 H Est GFR ( Amer) 14 Est GFR (Non-Af Amer) 11 POC Glucose (mg/dL) 181 H Random Glucose 144 H Calcium 7.8 L Phosphorus 6.9 H Magnesium 1.9 Total Bilirubin 1.0 AST 26 ALT 26 Alkaline Phosphatase 91 C-Reactive Protein Total Protein 6.7 Total Protein (PEP) Albumin 3.1 L Globulin 3.6 Albumin/Globulin Ratio 0.9 L Prostate Specific Ag Urine Color Urine Clarity Urine pH Ur Specific Cascade Urine Protein Urine Glucose (UA) Urine Ketones Urine Blood Urine Nitrate Urine Bilirubin Urine Urobilinogen Ur Leukocyte Esterase Urine WBC (Auto) Urine RBC (Auto) Ur Squamous Epith Cells Urine Yeast (Budding) Ur Random Creatinine Ur Random Sodium Ur Random Phosphorus Ur Random Uric Acid Ur Random Glucose Stool Leukocytes, Qual Serum Immunofixation C. difficile Ag & Toxin Hep Bs Antigen Hep Bs Antibody Hepatitis C Antibody Blood Type Antibody Screen 09/08/17 07:03 WBC RBC Hgb Hct MCV MCH MCHC RDW Plt Count MPV Neut % (Auto) Lymph % (Auto) [place] % (Auto) Eos % (Auto) Baso % (Auto) Neut # (Auto) Lymph # (Auto) [place] # (Auto) Eos # (Auto) Baso # (Auto) Neutrophils % (Manual) Band Neutrophils % Lymphocytes % (Manual) Monocytes % (Manual) Basophils % (Manual) Toxic Granulation Platelet Estimate Large Platelets Giant Platelets Polychromasia Hypochromasia (manual) Poikilocytosis (manual Anisocytosis (manual) Microcytosis (manual) Macrocytosis (manual) Ovalocytes Eldred Cells Sodium Potassium Chloride Carbon Dioxide Anion Gap BUN Creatinine Est GFR ( Amer) Est GFR (Non-Af Amer) POC Glucose (mg/dL) 166 H Random Glucose Calcium Phosphorus Magnesium Total Bilirubin AST ALT Alkaline Phosphatase C-Reactive Protein Total Protein Total Protein (PEP) Albumin Globulin Albumin/Globulin Ratio Prostate Specific Ag Urine Color Urine Clarity Urine pH Ur Specific Cascade Urine Protein Urine Glucose (UA) Urine Ketones Urine Blood Urine Nitrate Urine Bilirubin Urine Urobilinogen Ur Leukocyte Esterase Urine WBC (Auto) Urine RBC (Auto) Ur Squamous Epith Cells Urine Yeast (Budding) Ur Random Creatinine Ur Random Sodium Ur Random Phosphorus Ur Random Uric Acid Ur Random Glucose Stool Leukocytes, Qual Serum Immunofixation C. difficile Ag & Toxin Hep Bs Antigen Hep Bs Antibody Hepatitis C Antibody Blood Type Antibody Screen Critical Care Progress Note - Nutrition Nutrition: Nutrition Category Date Time Status Consistent Carbohydrate [DIET] Diets 09/07/17 Dinner Active Assessment/Plan - Assessment and Plan (Free Text) Assessment: Above patient seen and examined at bedside. PAtient with underlying CKD worsening with acidosis and fluid overloaded states. Patient with h/o A-fib on anticoagulation, which was stopped after ICH (at [facility]). PAtient was then dx with DVT and IVC placed at [facility]. PAtient developed sepsis with severe acidosis and brought to [facility] for work up for sepsis/acidosis and kidney failure. -CKD requiring HD: available HD cath were 20 cm trialysis catheter and 16 cm HD catheter. Given poor IV access. Decision made to place trialysis catheter; however cannot be placed in femoral site as patient with DVT and IVC filter, which can be displaecd with a 20 cm catheter. 20 cm catheter cannot be placed on right IJ, so decision was made to place catheter on left IJ. -A-fib: rate controlled with lopressor (as Bp tolerates), no AC 2nd ICH -Acidosis: start oral bicarb tab -Sepsis: source unknown, no growth so far, continue empirical abx as per ID -Anemia: suspect 2nd uremic gastritis with possibel GI blees (high BUN), check fecal occul blood), 1 unit transfused during HD -DM: blood sugar uncontrolled: will start insulin ggt -toerates oral diet -DVT pxp scd -PUD ppx ppi Patient remains hemodyanmically stable, not requiring pressors cc time 35 minutes - Date & Time Date: 09/07/17 Time: 12:13
[2017-09-07 15:32] LABS: FECAL LEUKOCYTES NEGATIVE (NEGATIVE)
[2017-09-07 16:00] LABS: HEPATITIS B SURFACE AG Negative (NEGATIVE)
[2017-09-07] MEDS ORDERED: Insulin Human Regular 100 UNIT in Sodium Chloride 0.9% 99 ML IV SCH (16:15)
[2017-09-07 16:17] LABS: HEPATITIS C ANTIBODY NEGATIVE (NEGATIVE)
[2017-09-07 16:56] LABS: C DIFF TOXIN A B NEGATIVE (NEGATIVE)
--- NOTE | 2017-09-07 17:42 | PCM.PROC ---
Procedures Attestation:: I certify that I have explained the specified Operation(s) or Procedure(s), risks, benefits and reasonable alternatives to the Patient and/or other person responsible. The opportunity was given to ask questions and all questions answered - Central Line Placement Right Internal Jugular Hemodialysis Access Aseptic technique was employed throughout the procedure: Full sterile barriers ( mask, hair cover, sterile gown, sterile gloves), Full body sterile drape, Chloraprep Antiseptic: 30 second prep for IJ or SC sites CVP Time Out Performed: Yes Pt. Placed on Pulse Ox Monitor: Yes Central Line Prep: Chlorhexidine-Alcohol Combination Local Anesthesia Used: Lidocaine 1% Amount of Anesthesia Used (mls): 7 Ultrasound Used for Placement: Yes Central Line Lumen Inserted: double Central Line Length: 16 cm Post Procedure: Sutured in Place, Good Blood Return, All Ports Aspirated, Flushed, Capped, Sterile Dressing Applied Secured by: Suture Post procedure dressing: Gauze, Clear vapor permeable, Chlorhexidine disc ( Biopatch) Post Procedure X-Ray: Yes Patient Tolerated Procedure: Well Immediate Complications: None
--- NOTE | 2017-09-07 18:36 | RAD ---
HISTORY: central line right IJ COMPARISON: September 07, 2017. Time of the most recent examination: 09:45 FINDINGS: LUNGS: No active pulmonary disease. PLEURA: No significant pleural effusion identified, no pneumothorax apparent. CARDIOVASCULAR: Cardiomegaly. No evidence of acute, significant cardiovascular disease. OSSEOUS STRUCTURES: No significant abnormalities. VISUALIZED UPPER ABDOMEN: Normal. OTHER FINDINGS: Venous access catheter in satisfactory position. IMPRESSION: No active pulmonary disease. Tip of mesially inserted right IJ catheter in the SVC. No pneumothorax.
[2017-09-07 19:35] LABS: BASO % 0.2 % (0.0-2.0); HEMOGLOBIN 7.7 g/dL (12.0-18.0); LYMPH % 4.8 % (20.0-40.0); MEAN CELL VOLUME 85.1 fL (80.0-94.0); MEAN CORPUSCULAR HEMOGLOBIN 28.4 pg (27.0-31.0); MEAN CORPUSCULAR HGB CONC 33.3 g/dL (33.0-37.0); MEAN PLATELET VOLUME 6.8 fL (7.2-11.7); MONO % 4.7 % (0.0-10.0); NEUT # 19.1 K/uL (1.8-7.0); NEUT % 90.3 % (50.0-75.0); PLATELET COUNT 373 K/uL (130-400); RBC 2.71 Mil/uL (4.40-5.90); RED CELL DISTRIBUTION WIDTH 16.5 % (11.5-14.5); WHITE BLOOD COUNT 21.1 K/uL (4.8-10.8)
[2017-09-07 19:52] LABS: ALB/GLOB RATIO 0.8 (1.0-2.1); CALCIUM 7.6 mg/dl (8.6-10.4)
--- NOTE | 2017-09-07 20:28 | CP.PCM.PN ---
Subjective - Date & Time of Evaluation Date of Evaluation: 09/07/17 Time of Evaluation: 20:28 - Subjective Subjective: CHIEF COMPLAINTS TODAY : SEEN ON HD. S/P NEW RT IJ HD CATHETER PLACEMENT TODAY 09/07/17 AWAKE, CONFUSED. C/O PAIN BOTH THIGH/LEGS ROS. NOT AVAILABLE (only on observation ) HEENT : N. RT.IJ CATHETER IN PLACE Resp : No SOB wheezing, cough Cardio : No CP, PND orthopnea GI : No abd. Pain, n/v BOBBIN DOFFER : No headache , focal deficit. Musculoskel : N Ext. : Pedal pulses intact, no edema or calf pain Derm : N Psych : N. PE. Pt. awake in no distress.ON HD. V.S As noted in the chart Head ,ear nose,throat and eyes : Normal. Neck : Supple with normal carotids. Lungs: Clear air entry. Heart : S1 & S2 IRREGULAR, TACHYCARDIC, HEART RATE 124 BPM Abd : Soft non tender with normal bowel sounds. Neuro : Moves all ext. with no localized deficit. Ext : BILATERAL EDEMA THIGHS. Neg. calf tenderness Derm : No rashes or decubitus ulcer. Radiology/Labs . wbc 21.1 H/H 7.7/23.1 BLOOD CULTURES-VE FOR 48 HOURS MRSA NOT DETECTED. URINE CULTURES NEGATIVE GROWTH. CHEST X-RAY 09/07/17 NO ACTIVE DISEASE. Objective - Vital Signs/Intake and Output Vital Signs (last 24 hours): Temp Pulse Resp BP Pulse Ox 98.7 F 124 H 32 H 100/57 L 94 L 09/07/17 19:25 09/07/17 19:25 09/07/17 19:25 09/07/17 19:25 09/07/17 19:25 Intake and Output: 09/07/17 09/08/17 18:59 06:59 Intake Total 908 6 Output Total 285 15 Balance 623 -9 - Medications Medications: Current Medications Epoetin Kameron (Procrit) 8,000 unit IV TTS [facility] Heparin Sodium (Porcine) (Heparin) 3,000 units SC Q12 [facility] Last Admin: 09/07/17 10:01 Dose: 3,000 units Piperacillin Sod/Tazobactam Sod (Zosyn 2.25 Gm Iv Premix) 2.25 gm in 50 mls @ 100 mls/hr IVPB Q8H [facility] PRN Reason: Protocol Last Admin: 09/07/17 13:34 Dose: 100 mls/hr Linezolid (Zyvox 600mg/300ml D5w) 600 mg in 300 mls @ 200 mls/hr IVPB Q12H [facility] PRN Reason: Protocol Last Admin: 09/07/17 04:42 Dose: 200 mls/hr Metronidazole (Flagyl) 500 mg in 100 mls @ 100 mls/hr IVPB Q8 [facility] PRN Reason: Protocol Last Admin: 09/07/17 13:53 Dose: 100 mls/hr Insulin Human Regular 100 unit (/ Sodium Chloride) 100 mls @ 1.98 mls/hr IV .Q24H [facility]; 0.02 UNIT/KG/HR PRN Reason: Protocol Last Titration: 09/07/17 18:58 Dose: 0.06 unit/kg/hr, 6 mls/hr Levetiracetam (Keppra) 500 mg PO Q12 [facility] Last Admin: 09/07/17 10:01 Dose: 500 mg Metoprolol Tartrate (Lopressor) 25 mg PO BID [facility] Last Admin: 09/07/17 18:00 Dose: Not Given Pantoprazole Sodium (Protonix Inj) 40 mg IVP DAILY [facility] Last Admin: 09/07/17 10:01 Dose: 40 mg Pregabalin (Lyrica) 75 mg PO HS [facility] Last Admin: 09/06/17 21:31 Dose: 75 mg Sevelamer Carbonate (Renvela) 1,600 mg PO TIDCC [facility] Last Admin: 09/07/17 18:18 Dose: Not Given Sodium Bicarbonate (Sodium Bicarbonate Tab) 1,300 mg PO TID [facility] Last Admin: 09/07/17 18:18 Dose: Not Given Tamsulosin HCl (Flomax) 0.4 mg PO DAILY [facility] Last Admin: 09/07/17 10:01 Dose: 0.4 mg Vitamin B Complex/Vit C/Folic Acid (Nephro-Eber) 1 tab PO 0800 [facility] Last Admin: 09/07/17 10:03 Dose: 1 tab - Labs Labs: 09/07/17 19:33 09/07/17 19:33 PT 13.0 SECONDS (9.7-12.2) H 09/05/17 11:25 INR 1.2 09/05/17 11:25 APTT 31 SECONDS (21-34) 09/05/17 11:25 Assessment and Plan (1) Sepsis Assessment & Plan: SOURCE OF SEPSIS IS NOT CLEAR. AWAIT DIARRHEA WORKUP. FOLLOW-UP CULTURES TO ADJUST ANTIBIOTICS. Status: Acute (2) Leukocytosis Status: Acute (3) Hypotension Status: Acute (4) Diarrhea Status: Acute (5) S/P craniotomy Status: Acute (6) Anemia Status: Acute (7) Acute on chronic renal failure Status: Acute (8) Rapid atrial fibrillation Status: Acute - Assessment and Plan (Free Text) Plan: Continue IV Zosyn 2.25 every 8 hourly.09/05/17. And IV Zyvox 600 mg IV piggyback every 12 hourly for gram-positive coverage. And IV Flagyl 500 mg every 8 hourly for now. 09/06/17 while awaiting diarrhea workup. Consider CT of the abdomen and pelvis W/O CONTRAST rule out colitis VS OCCULT MALIGNANCY. 2-D echo rule bacterial endocarditis. DIARRHEA WORKUP PENDING.
[2017-09-07 20:30] LABS: ANISOCYTOSIS SLIGHT; BANDS 1 % (0-2); HYPOCHROMIC SLIGHT; LYMPHOCYTE 3 % (20-40); MONOCYTE 3 % (0-10); NEUTROPHIL 93 % (50-75); PLATELET ESTIMATE NORMAL (NORMAL); POIKILOCYTOSIS SLIGHT; POLYCHROMIC SLIGHT; TOTAL CELLS COUNTED 100
[2017-09-07 20:31] LABS: BURR CELLS SLIGHT; MICROCYTOSIS SLIGHT
--- NOTE | 2017-09-07 23:48 | CP.PCM.PN ---
Subjective - Date & Time of Evaluation Date of Evaluation: 09/07/17 Time of Evaluation: 18:00 - Subjective Subjective: pt seen and examined on HD, HCO3 HAS PICKED UP, UA IS POSITIVE FOR INFECTION S/P NEW RT IJ HD CATHETER PLACEMENT TODAY 09/07/17 AWAKE, CONFUSED. C/O PAIN BOTH THIGH/LEGS Objective - Vital Signs/Intake and Output Vital Signs (last 24 hours): Temp Pulse Resp BP Pulse Ox 99.0 F 107 H 31 H 91/61 L 95 09/07/17 20:00 09/07/17 21:38 09/07/17 21:38 09/07/17 21:38 09/07/17 21:38 Intake and Output: 09/07/17 09/08/17 18:59 06:59 Intake Total 908 338 Output Total 285 15 Balance 623 323 - Medications Medications: Current Medications Epoetin Kameron (Procrit) 8,000 unit IV TTS [facility] Heparin Sodium (Porcine) (Heparin) 3,000 units SC Q12 [facility] Last Admin: 09/07/17 21:05 Dose: 3,000 units Piperacillin Sod/Tazobactam Sod (Zosyn 2.25 Gm Iv Premix) 2.25 gm in 50 mls @ 100 mls/hr IVPB Q8H [facility] PRN Reason: Protocol Last Admin: 09/07/17 20:30 Dose: 100 mls/hr Linezolid (Zyvox 600mg/300ml D5w) 600 mg in 300 mls @ 200 mls/hr IVPB Q12H [facility] PRN Reason: Protocol Last Admin: 09/07/17 19:00 Dose: 200 mls/hr Metronidazole (Flagyl) 500 mg in 100 mls @ 100 mls/hr IVPB Q8 [facility] PRN Reason: Protocol Last Admin: 09/07/17 21:00 Dose: 100 mls/hr Insulin Human Regular 100 unit (/ Sodium Chloride) 100 mls @ 1.98 mls/hr IV .Q24H [facility]; 0.02 UNIT/KG/HR PRN Reason: Protocol Last Titration: 09/07/17 22:13 Dose: 0.06 unit/kg/hr, 6 mls/hr Levetiracetam (Keppra) 500 mg PO Q12 [facility] Last Admin: 09/07/17 21:06 Dose: 500 mg Metoprolol Tartrate (Lopressor) 25 mg PO BID [facility] Last Admin: 09/07/17 18:00 Dose: Not Given Pantoprazole Sodium (Protonix Inj) 40 mg IVP DAILY [facility] Last Admin: 09/07/17 10:01 Dose: 40 mg Pregabalin (Lyrica) 75 mg PO HS [facility] Last Admin: 09/07/17 21:06 Dose: 75 mg Sevelamer Carbonate (Renvela) 1,600 mg PO TIDCC [facility] Last Admin: 09/07/17 18:18 Dose: Not Given Sodium Bicarbonate (Sodium Bicarbonate Tab) 1,300 mg PO TID [facility] Last Admin: 09/07/17 18:18 Dose: Not Given Tamsulosin HCl (Flomax) 0.4 mg PO DAILY [facility] Last Admin: 09/07/17 10:01 Dose: 0.4 mg Vitamin B Complex/Vit C/Folic Acid (Nephro-Eber) 1 tab PO 0800 [facility] Last Admin: 09/07/17 10:03 Dose: 1 tab - Labs Labs: 09/07/17 19:33 09/07/17 19:33 PT 13.0 SECONDS (9.7-12.2) H 09/05/17 11:25 INR 1.2 09/05/17 11:25 APTT 31 SECONDS (21-34) 09/05/17 11:25 Assessment and Plan (1) Hypotension Status: Acute (2) Near syncope Status: Acute (3) Rapid atrial fibrillation Status: Acute (4) Sepsis Status: Acute (5) Altered mental status Status: Acute (6) CKD (chronic kidney disease) Status: Acute
[2017-09-08] MEDS: Piperacill/Tazo 2.25gm in Dex 2.25 GM/50 ML BAG IVPB SCH ×3 (03:00→20:00)
[2017-09-08] MEDS: Linezolid 600 mg in D5W 300 ml 600 MG/300 ML BAG IVPB SCH ×2 (04:00→18:23)
[2017-09-08] MEDS: metroNIDAZOLE IV 500 mg/100 ml 500 MG/100 ML BAG IVPB SCH ×3 (05:30→21:00)
[2017-09-08 06:20] LABS: BASO # 0.1 K/uL (0.0-0.2); BASO % 0.5 % (0.0-2.0); EOS % 0.1 % (0.0-4.0); LYMPH # 2.6 K/uL (1.0-4.3); LYMPH % 11.4 % (20.0-40.0); MEAN CORPUSCULAR HEMOGLOBIN 28.1 pg (27.0-31.0); MEAN CORPUSCULAR HGB CONC 32.3 g/dL (33.0-37.0); MEAN PLATELET VOLUME 7.1 fL (7.2-11.7); MONO # 1.5 K/uL (0.0-0.8); MONO % 6.7 % (0.0-10.0); NEUT # 18.5 K/uL (1.8-7.0); NEUT % 81.3 % (50.0-75.0); NRBC % 0.1 % (0.0-2.0); RBC 2.86 Mil/uL (4.40-5.90); RED CELL DISTRIBUTION WIDTH 16.4 % (11.5-14.5); WHITE BLOOD COUNT 22.7 K/uL (4.8-10.8)
[2017-09-08 07:06] LABS: ALB/GLOB RATIO 0.9 (1.0-2.1); ALBUMIN 3.1 g/dL (3.5-5.0); CALCIUM 7.8 mg/dl (8.6-10.4)
[2017-09-08] MEDS ORDERED: (Novolog) Insulin Aspart, Recombinant 100 u/ml 10 ml vial SC SCH ×2 (09:15→12:31)
--- NOTE | 2017-09-08 09:22 | CP.PCM.PN ---
Subjective - Date & Time of Evaluation Date of Evaluation: 09/08/17 Time of Evaluation: 15:00 - Subjective Subjective: PAtient awake, alert x1, able to follow simple commands, deneis any pain Objective - Vital Signs/Intake and Output Vital Signs (last 24 hours): Temp Pulse Resp BP Pulse Ox 98.8 F 102 H 26 H 94/56 L 97 09/08/17 04:00 09/08/17 07:00 09/08/17 07:00 09/08/17 06:38 09/08/17 07:00 Intake and Output: 09/08/17 09/08/17 06:59 18:59 Intake Total 1254 102 Output Total 246 21 Balance 1008 81 - Medications Medications: Current Medications Epoetin Kameron (Procrit) 8,000 unit IV TTS [facility] Heparin Sodium (Porcine) (Heparin) 3,000 units SC Q12 [facility] Last Admin: 09/07/17 21:05 Dose: 3,000 units Piperacillin Sod/Tazobactam Sod (Zosyn 2.25 Gm Iv Premix) 2.25 gm in 50 mls @ 100 mls/hr IVPB Q8H [facility] PRN Reason: Protocol Last Admin: 09/08/17 03:00 Dose: 100 mls/hr Linezolid (Zyvox 600mg/300ml D5w) 600 mg in 300 mls @ 200 mls/hr IVPB Q12H [facility] PRN Reason: Protocol Last Admin: 09/08/17 04:00 Dose: 200 mls/hr Metronidazole (Flagyl) 500 mg in 100 mls @ 100 mls/hr IVPB Q8 [facility] PRN Reason: Protocol Last Admin: 09/08/17 05:30 Dose: 100 mls/hr Insulin Aspart (Novolog) 0 unit SC Q6H [facility] PRN Reason: Protocol Insulin Glargine (Lantus) 20 unit SC QAM [facility]PL[facility] Levetiracetam (Keppra) 500 mg PO Q12 [facility] Last Admin: 09/07/17 21:06 Dose: 500 mg Metoprolol Tartrate (Lopressor) 25 mg PO BID [facility] Last Admin: 09/07/17 18:00 Dose: Not Given Pantoprazole Sodium (Protonix Inj) 40 mg IVP DAILY [facility] Last Admin: 09/07/17 10:01 Dose: 40 mg Pregabalin (Lyrica) 75 mg PO HS [facility] Last Admin: 09/07/17 21:06 Dose: 75 mg Sevelamer Carbonate (Renvela) 1,600 mg PO TIDCC [facility]PL[facility] Last Admin: 09/07/17 18:18 Dose: Not Given Sodium Bicarbonate (Sodium Bicarbonate Tab) 1,300 mg PO TID [facility] Last Admin: 09/07/17 18:18 Dose: Not Given Tamsulosin HCl (Flomax) 0.4 mg PO DAILY [facility] Last Admin: 09/07/17 10:01 Dose: 0.4 mg Vitamin B Complex/Vit C/Folic Acid (Nephro-Eber) 1 tab PO 0800 [facility] Last Admin: 09/07/17 10:03 Dose: 1 tab - Labs Labs: 09/08/17 06:13 09/08/17 06:13 PT 13.0 SECONDS (9.7-12.2) H 09/05/17 11:25 INR 1.2 09/05/17 11:25 APTT 31 SECONDS (21-34) 09/05/17 11:25 - Constitutional Appears: Well, Non-toxic - Head Exam Head Exam: ATRAUMATIC, NORMAL INSPECTION - Neck Exam Additional comments: right HD cath - Cardiovascular Exam Cardiovascular Exam: Irregular Rhythm, +S1, +S2, Murmur - GI/Abdominal Exam GI & Abdominal Exam: Normal Bowel Sounds - Extremities Exam Extremities Exam: Pedal Edema - Neurological Exam Neuro motor strength exam: Left Upper Extremity: 2/1, Right Upper Extremity: 4, Left Lower Extremity: 2/1, Right Lower Extremity: 4 - Skin Skin Exam: Normal Color Assessment and Plan - Assessment and Plan (Free Text) Plan: Sepsis: source, unknown, pending CT abd/pelvis, continue empirical abx as per ID -CKD/metabolic aidosis: continue HD as per renal, continue bicarb, epogen, start calcitriol -A-fiB: rate controlled on lopressro; not an AC 2nd recent ICH -DM: switch from IV insulin to subQ lantus 20 units and ISS pre-meals, q6(if NPO ) -monitor urine output -Once ID agrees swith from shiely to tunelled cath -kaplan placed to monitor urine output in FUAD/CKD -Anemia: check fecal occult blood; ppi q12, transfuse as needed -CT abd/pelvis pending Patient remains hemodyanmically stable.
[2017-09-08] MEDS: Multivitamin Vitamin B Complex (Nephro-Vite) Tab PO SCH (10:47)
[2017-09-08] MEDS: (Lantus) Insulin Glargine, Recombinant SC SCH (10:48)
--- NOTE | 2017-09-08 11:16 | CT ---
CT abdomen and pelvis History: Abdominal pain. Evaluate for colitis and or malignancy. Comparison: None available. Technique: Multiple contiguous axial images were performed through the abdomen and pelvis without the use of intravenous contrast. Subsequently, sagittal and coronal reformatted images were obtained. This CT exam was performed using one or more of the following dose reduction techniques: Automated exposure control, adjustment of the mA and/or kV according to patient size, and/or use of iterative reconstruction technique. Findings: Atelectasis and/or consolidative changes at the lung bases ; left greater than right. More focal nodular consolidative changes at the left lung base measuring up to 2 centimeters. Coronary calcifications. No pleural or pericardial effusion. Heterogeneous echotexture of the liver. Streak artifact limits evaluation at the right hepatic lobe. Gallbladder appears preserved. Spleen appears preserved. Splenule. Mild nodular thickening of the adrenal glands. Mild fatty atrophy of the pancreas. IVC filter in place. Small hiatal hernia. Right kidney: Somewhat diminutive appearance of the right kidney with a lobulated cortex. Left Kidney: Somewhat diminutive appearance of the left kidney. Lobulated cortex. Ellis catheter in an underdistended and or mildly thickened urinary bladder. Rectal wall thickening. Fecal retention in the colon. Redundant proximal descending colon. A portion of the descending colon is not well visualized obscured by adjacent small bowel loops. Appendix is not well identified. Few shotty para-aortic and mesenteric lymph nodes. Calcification and plaque within the aorta. Prominent asymmetric atrophy of the left psoas muscle, nonspecific. Prominent subcutaneous edema within the soft tissues of the bilateral maximino thoraces; left greater than right; bilateral flank soft tissues anteriorly with fluid collection extension into the musculature bilaterally. Prominent subcutaneous reticulation and edema within the upper thighs bilaterally with relative atrophy of posterior thigh musculature. Soft tissue swelling and edema at level of the scrotum with calcifications noted at the posterior aspect of the left scrotum. Prominent degenerative changes in the spine and bilateral hips. Prominent posterior disc osteophyte complex at the L5-S1 level. Multilevel posterior disc osteophyte complexes throughout the spine. Scoliotic curvature of the mid to lower lumbar spine. Prominent cystic changes noted at the left femoral head with severe osteochondral change. Impression: 1. Prominent asymmetric atrophy of the left psoas muscle, nonspecific. 2. Prominent subcutaneous edema within the soft tissues of the bilateral maximino thoraces; left greater than right; bilateral flank soft tissues anteriorly with fluid collection extension into the musculature bilaterally. Prominent subcutaneous reticulation and edema within the upper thighs bilaterally with relative atrophy of posterior thigh musculature. 3. Soft tissue swelling and edema at level of the scrotum with calcifications noted at the posterior aspect of the left scrotum. 4. Rectal wall thickening. Fecal retention in the colon. Redundant proximal descending colon. A portion of the descending colon is not well visualized obscured by adjacent small bowel loops. If there is concern for malignancy, correlation with colonoscopy would be helpful. In addition, correlation with PET-CT would be helpful if clinically indicated. 5. Atelectasis and/or consolidative changes at the lung bases ; left greater than right. More focal nodular consolidative changes at the left lung base measuring up to 2 centimeters. 6. Coronary calcifications. 7. Heterogeneous echotexture of the liver. Streak artifact limits evaluation at the right hepatic lobe. 8. Mild nodular thickening of the adrenal glands. 9. Mild fatty atrophy of the pancreas. 10. IVC filter in place. 11. Small hiatal hernia. 12. Somewhat diminutive appearance of the right kidney with a lobulated cortex. Somewhat diminutive appearance of the left kidney. Lobulated cortex. 13. Ellis catheter in an underdistended and or mildly thickened urinary bladder. 14. Prominent degenerative changes in the spine and bilateral hips. Prominent posterior disc osteophyte complex at the L5-S1 level. Multilevel posterior disc osteophyte complexes throughout the spine. Scoliotic curvature of the mid to lower lumbar spine. Prominent cystic changes noted at the left femoral head with severe osteochondral change.
[2017-09-08] MEDS ORDERED: Albumin Human 25% (12.5 gm/50 ml) IV ONE (13:17)
[2017-09-08] MEDS ORDERED: Digoxin 500 mcg/2ml (0.5 mg/2ml) Inj IVP ONE (14:25)
[2017-09-08 14:54] VITALS: PULSE 112
[2017-09-08] MEDS: EPOETIN ALFA 4,000 UNIT/ML ML Dialysis IV SCH ×2 (15:59→16:01)
[2017-09-08] MEDS: (Novolog) Insulin Aspart, Recombinant 100 u/ml 10 ml vial SC SCH (22:00)
--- NOTE | 2017-09-08 22:45 | CP.PCM.PN ---
Subjective - Date & Time of Evaluation Date of Evaluation: 09/08/17 Time of Evaluation: 13:00 - Subjective Subjective: no events overnight Assessment: critical oligoanuric Acute Kidney Injury (N17.9) likely due to ATN: hypotension, sepsis Diabetic chronic Kidney Disease (E11.22) Hyperkalemia Chronic Kidney Disease (N18.3) Stage 3 with 1 gram proteinuria (R80.9) likely due to DM Anemia (D64.9), Hyperphosphatemia (E83.39), Secondary Hyperparathyroidism (E21.1 ), lactic acidosis and severe metabolic acidosis fluid overload A fib with RVR hx if DVT s/p IVC filter, SDH s/p evacuation Plan hd second session today lytes reviewed Monitor Input/Output continue epogen and renvela monitor phos levels can discontinue po bicarb as now on dialysis Physical Examination: General Appearance: uncomfortable, in no acute respiratory distress, ill appearing Vitals reviewed and noted as below Head; Atraumatic, normocephalic ENT: no ulcers no thrush. Tongue is midline. Oropharynx: no rash or ulcers. EYES: Eye muscles and extraocular movement intact. Sclera is anicteric. Neck; supple no lymphadenopathy, no thyromegaly or bruit Lungs: Normal respiratory rate/effort. Breath sounds bilateral decreased at bases Heart: Increased rate. s1s2 normal. No rub or gallop. A fib Extremities: 2-3+ edema. No varicose veins Neurological: Patient is confused today Skin: Warm and dry. Normal turgor. No rash. Abdomen: Abdomen is soft. Bowel sounds +. Psych: unable MSK: no joint tenderness or swelling. Objective - Vital Signs/Intake and Output Vital Signs (last 24 hours): Temp Pulse Resp BP Pulse Ox 97.7 F 104 H 34 H 101/53 L 96 09/08/17 17:40 09/08/17 20:00 09/08/17 20:00 09/08/17 19:55 09/08/17 20:00 Intake and Output: 09/08/17 09/09/17 18:59 06:59 Intake Total 940.3 87.6 Output Total 296 Balance 644.3 87.6 - Medications Medications: Current Medications Calcitriol (Rocaltrol) 0.25 mcg PO DAILY [facility] Last Admin: 09/08/17 10:49 Dose: 0.25 mcg Epoetin Kameron (Procrit) 8,000 unit IV TTS [facility] Last Admin: 09/08/17 16:01 Dose: Not Given Piperacillin Sod/Tazobactam Sod (Zosyn 2.25 Gm Iv Premix) 2.25 gm in 50 mls @ 100 mls/hr IVPB Q8H [facility] PRN Reason: Protocol Last Admin: 09/08/17 20:00 Dose: 100 mls/hr Linezolid (Zyvox 600mg/300ml D5w) 600 mg in 300 mls @ 200 mls/hr IVPB Q12H [facility] PRN Reason: Protocol Last Admin: 09/08/17 18:23 Dose: 200 mls/hr Metronidazole (Flagyl) 500 mg in 100 mls @ 100 mls/hr IVPB Q8 [facility] PRN Reason: Protocol Last Admin: 09/08/17 21:00 Dose: 100 mls/hr Norepinephrine Bitartrate 4 mg (/ Sodium Chloride) 254 mls @ 7.62 mls/hr IV .Q24H PRN; Protocol; 2 MCG/MIN PRN Reason: TITRATE PER MD ORDER Last Titration: 09/08/17 17:00 Dose: 5 mcg/min, 19.05 mls/hr Insulin Aspart (Novolog) 0 unit SC ACHS [facility] PRN Reason: Protocol Insulin Glargine (Lantus) 20 unit SC QAM [facility] Last Admin: 09/08/17 10:48 Dose: 20 u Levetiracetam (Keppra) 250 mg PO Q12 [facility] Last Admin: 09/08/17 21:21 Dose: 250 mg Metoprolol Tartrate (Lopressor) 25 mg PO BID [facility] Last Admin: 09/08/17 17:22 Dose: Not Given Midodrine (Proamatine) 5 mg PO TID [facility] Last Admin: 09/08/17 18:24 Dose: 5 mg Pantoprazole Sodium (Protonix Inj) 40 mg IVP Q12H [facility] Last Admin: 09/08/17 21:21 Dose: 40 mg Pregabalin (Lyrica) 75 mg PO HS [facility] Last Admin: 09/08/17 21:21 Dose: 75 mg Sevelamer Carbonate (Renvela) 1,600 mg PO TIDCC [facility] Last Admin: 09/08/17 17:22 Dose: Not Given Sodium Bicarbonate (Sodium Bicarbonate Tab) 1,300 mg PO TID [facility] Last Admin: 09/08/17 18:23 Dose: 1,300 mg Tamsulosin HCl (Flomax) 0.4 mg PO DAILY [facility] Last Admin: 09/08/17 10:47 Dose: 0.4 mg Vitamin B Complex/Vit C/Folic Acid (Nephro-Eber) 1 tab PO 0800 [facility] Last Admin: 09/08/17 10:47 Dose: 1 tab - Labs Labs: 09/08/17 06:13 09/08/17 06:13 PT 13.0 SECONDS (9.7-12.2) H 09/05/17 11:25 INR 1.2 09/05/17 11:25 APTT 31 SECONDS (21-34) 09/05/17 11:25
--- NOTE | 2017-09-08 23:06 | CP.PCM.PN ---
Subjective - Date & Time of Evaluation Date of Evaluation: 09/08/17 Time of Evaluation: 17:45 - Subjective Subjective: Pt is seen and examind, s/p HD HCO3 is better, UA is positive and pt i son broad spectrum antibiotics Objective - Vital Signs/Intake and Output Vital Signs (last 24 hours): Temp Pulse Resp BP Pulse Ox 98.5 F 109 H 30 H 107/63 97 09/08/17 20:00 09/08/17 21:00 09/08/17 21:00 09/08/17 20:53 09/08/17 21:00 Intake and Output: 09/08/17 09/09/17 18:59 06:59 Intake Total 940.3 225.2 Output Total 296 Balance 644.3 225.2 - Medications Medications: Current Medications Calcitriol (Rocaltrol) 0.25 mcg PO DAILY [facility] Last Admin: 09/08/17 10:49 Dose: 0.25 mcg Epoetin Kameron (Procrit) 8,000 unit IV TTS [facility] Last Admin: 09/08/17 16:01 Dose: Not Given Piperacillin Sod/Tazobactam Sod (Zosyn 2.25 Gm Iv Premix) 2.25 gm in 50 mls @ 100 mls/hr IVPB Q8H [facility] PRN Reason: Protocol Last Admin: 09/08/17 20:00 Dose: 100 mls/hr Linezolid (Zyvox 600mg/300ml D5w) 600 mg in 300 mls @ 200 mls/hr IVPB Q12H [facility] PRN Reason: Protocol Last Admin: 09/08/17 18:23 Dose: 200 mls/hr Metronidazole (Flagyl) 500 mg in 100 mls @ 100 mls/hr IVPB Q8 [facility] PRN Reason: Protocol Last Admin: 09/08/17 21:00 Dose: 100 mls/hr Norepinephrine Bitartrate 4 mg (/ Sodium Chloride) 254 mls @ 7.62 mls/hr IV .Q24H PRN; Protocol; 2 MCG/MIN PRN Reason: TITRATE PER MD ORDER Last Titration: 09/08/17 17:00 Dose: 5 mcg/min, 19.05 mls/hr Insulin Aspart (Novolog) 0 unit SC ACHS [facility] PRN Reason: Protocol Insulin Glargine (Lantus) 20 unit SC QAM [facility] Last Admin: 09/08/17 10:48 Dose: 20 u Levetiracetam (Keppra) 250 mg PO Q12 [facility] Last Admin: 09/08/17 21:21 Dose: 250 mg Metoprolol Tartrate (Lopressor) 25 mg PO BID [facility] Last Admin: 09/08/17 17:22 Dose: Not Given Midodrine (Proamatine) 5 mg PO TID [facility] Last Admin: 09/08/17 18:24 Dose: 5 mg Pantoprazole Sodium (Protonix Inj) 40 mg IVP Q12H [facility] Last Admin: 09/08/17 21:21 Dose: 40 mg Pregabalin (Lyrica) 75 mg PO HS [facility] Last Admin: 09/08/17 21:21 Dose: 75 mg Sevelamer Carbonate (Renvela) 1,600 mg PO TIDCC [facility] Last Admin: 09/08/17 17:22 Dose: Not Given Sodium Bicarbonate (Sodium Bicarbonate Tab) 1,300 mg PO TID [facility] Last Admin: 09/08/17 18:23 Dose: 1,300 mg Tamsulosin HCl (Flomax) 0.4 mg PO DAILY [facility] Last Admin: 09/08/17 10:47 Dose: 0.4 mg Vitamin B Complex/Vit C/Folic Acid (Nephro-Eber) 1 tab PO 0800 [facility] Last Admin: 09/08/17 10:47 Dose: 1 tab - Labs Labs: 09/08/17 06:13 09/08/17 06:13 PT 13.0 SECONDS (9.7-12.2) H 09/05/17 11:25 INR 1.2 09/05/17 11:25 APTT 31 SECONDS (21-34) 09/05/17 11:25 - Constitutional Appears: No Acute Distress - Head Exam Head Exam: ATRAUMATIC, NORMAL INSPECTION, NORMOCEPHALIC - Eye Exam Eye Exam: EOMI, Normal appearance, PERRL Pupil Exam: NORMAL ACCOMODATION, PERRL - Respiratory Exam Respiratory Exam: Clear to Ausculation Bilateral, NORMAL BREATHING PATTERN - Cardiovascular Exam Cardiovascular Exam: REGULAR RHYTHM, +S1, +S2. absent: Murmur - GI/Abdominal Exam GI & Abdominal Exam: Soft, Normal Bowel Sounds. absent: Tenderness Assessment and Plan (1) Hypotension Status: Acute (2) Near syncope Status: Acute (3) Rapid atrial fibrillation Status: Acute (4) Sepsis Assessment & Plan: monitor to keep MAP > 60, Patient with b/l LE edema, clinically fluid overloaded , transfuse 1unit blood Patient off AC. RIsks benefits and alternatives explained to Arina (next of kin) . Status: Acute (5) Altered mental status Status: Acute
--- NOTE | 2017-09-08 23:51 | CP.PCM.PN ---
Subjective - Date & Time of Evaluation Date of Evaluation: 09/08/17 Time of Evaluation: 23:51 - Subjective Subjective: CHIEF COMPLAINTS TODAY : afebrile ,awake, on vasopressor FOR HYPOTENSION s/p HD again today/and 1UNIT PRBC TRANSFUSION ON HD TODAY S/P NEW RT IJ HD CATHETER PLACEMENT TODAY 09/07/17 ROS. NOT AVAILABLE (only on observation ) HEENT : N. RT.IJ CATHETER IN PLACE Resp : No SOB wheezing, cough Cardio : No CP, PND orthopnea GI : No abd. Pain, n/v [employer] : No headache , focal deficit. Musculoskel : N Ext. : Pedal pulses intact, no edema or calf pain Derm : N Psych : N. PE. Pt. awake in no distress.ON HD. V.S As noted in the chart Head ,ear nose,throat and eyes : Normal. Neck : Supple with normal carotids. RT IJ CATHETER IN PLACE. Lungs: BIBASILAR RALES LEFT > RT Heart : S1 & S2 IRREGULAR, TACHYCARDIC, HEART RATE 124 BPM Abd : Soft non tender with normal bowel sounds. Neuro : Moves all ext. with no localized deficit. Ext : BILATERAL EDEMA THIGHS. Neg. calf tenderness Derm : No rashes or decubitus ulcer. GENITALIA--SCROTAL EDEMA \ Radiology/Labs . wbc 22.7 H/H 7.7/23.1--> 8.0 CREAT 5.0/BUN 64 BLOOD CULTURES-VE FOR 48 HOURS MRSA NOT DETECTED. URINE CULTURES NEGATIVE GROWTH. CHEST X-RAY 09/07/[address] OF THE ABDOMEN / PELVIS W/O ORAL AND iv CONTRAST ; NOTED 09/08/17 Prominent subcutaneous edema within the soft tissues of bilateral hemithoraces , left greater than right/bilateral flank soft tissues anteriorly with fluid collection extension into the musculature bilaterally. Prominent subcutaneous edema within the upper thighs bilaterally. Soft tissue swelling and edema within the soft tissues. Rectal wall thickening with fecal retention in the colon.few shotty para-aortic and mesenteric lymph nodes. Atelectasis/or consolidative changes at the lung bases left greater than right. More focal nodular consolidative changes at the left lung base measuring up to 2 cm. ( SEE FULL REPORT. ) Objective - Vital Signs/Intake and Output Vital Signs (last 24 hours): Temp Pulse Resp BP Pulse Ox 98.5 F 109 H 30 H 107/63 97 09/08/17 20:00 09/08/17 21:00 09/08/17 21:00 09/08/17 20:53 09/08/17 21:00 Intake and Output: 09/08/17 09/09/17 18:59 06:59 Intake Total 940.3 225.2 Output Total 296 Balance 644.3 225.2 - Medications Medications: Current Medications Calcitriol (Rocaltrol) 0.25 mcg PO DAILY [facility] Last Admin: 09/08/17 10:49 Dose: 0.25 mcg Epoetin Kameron (Procrit) 8,000 unit IV TTS [facility] Last Admin: 09/08/17 16:01 Dose: Not Given Piperacillin Sod/Tazobactam Sod (Zosyn 2.25 Gm Iv Premix) 2.25 gm in 50 mls @ 100 mls/hr IVPB Q8H [facility] PRN Reason: Protocol Last Admin: 09/08/17 20:00 Dose: 100 mls/hr Linezolid (Zyvox 600mg/300ml D5w) 600 mg in 300 mls @ 200 mls/hr IVPB Q12H [facility] PRN Reason: Protocol Last Admin: 09/08/17 18:23 Dose: 200 mls/hr Metronidazole (Flagyl) 500 mg in 100 mls @ 100 mls/hr IVPB Q8 [facility] PRN Reason: Protocol Last Admin: 09/08/17 21:00 Dose: 100 mls/hr Norepinephrine Bitartrate 4 mg (/ Sodium Chloride) 254 mls @ 7.62 mls/hr IV .Q24H PRN; Protocol; 2 MCG/MIN PRN Reason: TITRATE PER MD ORDER Last Titration: 09/08/17 17:00 Dose: 5 mcg/min, 19.05 mls/hr Insulin Aspart (Novolog) 0 unit SC ACHS [facility] PRN Reason: Protocol Insulin Glargine (Lantus) 20 unit SC QAM [facility] Last Admin: 09/08/17 10:48 Dose: 20 u Levetiracetam (Keppra) 250 mg PO Q12 [facility] Last Admin: 09/08/17 21:21 Dose: 250 mg Metoprolol Tartrate (Lopressor) 25 mg PO BID [facility] Last Admin: 09/08/17 17:22 Dose: Not Given Midodrine (Proamatine) 5 mg PO TID [facility] Last Admin: 09/08/17 18:24 Dose: 5 mg Pantoprazole Sodium (Protonix Inj) 40 mg IVP Q12H [facility] Last Admin: 09/08/17 21:21 Dose: 40 mg Pregabalin (Lyrica) 75 mg PO HS [facility] Last Admin: 09/08/17 21:21 Dose: 75 mg Sevelamer Carbonate (Renvela) 1,600 mg PO TIDCC [facility] Last Admin: 09/08/17 17:22 Dose: Not Given Sodium Bicarbonate (Sodium Bicarbonate Tab) 1,300 mg PO TID [facility] Last Admin: 09/08/17 18:23 Dose: 1,300 mg Tamsulosin HCl (Flomax) 0.4 mg PO DAILY [facility] Last Admin: 09/08/17 10:47 Dose: 0.4 mg Vitamin B Complex/Vit C/Folic Acid (Nephro-Eber) 1 tab PO 0800 [facility] Last Admin: 09/08/17 10:47 Dose: 1 tab - Labs Labs: 09/08/17 06:13 09/08/17 06:13 PT 13.0 SECONDS (9.7-12.2) H 09/05/17 11:25 INR 1.2 09/05/17 11:25 APTT 31 SECONDS (21-34) 09/05/17 11:25 Assessment and Plan (1) Sepsis Assessment & Plan: SOURCE OF SEPSIS NOT CLEAR ? FOCAL LLL PNEUMONIA VS NODULAR DENSITY R/O UROSEPSIS- CANDIDUREA. Status: Acute (2) Leukocytosis Status: Acute (3) Hypotension Status: Acute (4) Diarrhea Status: Acute (5) S/P craniotomy Status: Acute (6) Anemia Status: Acute (7) Acute on chronic renal failure Status: Acute (8) Rapid atrial fibrillation Status: Acute (9) Renal anasarca Status: Acute - Assessment and Plan (Free Text) Plan: Continue IV Zosyn 2.25 every 8 hourly.09/05/17. And IV Zyvox 600 mg IV piggyback every 12 hourly for gram-positive coverage. And IV Flagyl 500 mg every 8 hourly for now. 09/06/17. REPEAT BLOOD CULTURES 2 sets for fungus. ADD IV MYCAMINE 100 MG iv PIGGYBACK OD DAILY 09/09/17. CASE DISCUSSED WITH STAFF.
[2017-09-09] MEDS: Piperacill/Tazo 2.25gm in Dex 2.25 GM/50 ML BAG IVPB SCH ×3 (03:00→20:58)
[2017-09-09] MEDS: Micafungin 100 MG in Sodium Chloride 0.9% 100 ML IV SCH (03:00)
[2017-09-09] MEDS: Linezolid 600 mg in D5W 300 ml 600 MG/300 ML BAG IVPB SCH ×2 (04:30→16:29)
[2017-09-09] MEDS: metroNIDAZOLE IV 500 mg/100 ml 500 MG/100 ML BAG IVPB SCH ×3 (06:23→21:08)
[2017-09-09 06:24] LABS: BASO # 0.1 K/uL (0.0-0.2); BASO % 0.6 % (0.0-2.0); EOS % 0.1 % (0.0-4.0); LYMPH # 1.4 K/uL (1.0-4.3); LYMPH % 8.4 % (20.0-40.0); MEAN CELL VOLUME 86.7 fL (80.0-94.0); MEAN CORPUSCULAR HEMOGLOBIN 30.1 pg (27.0-31.0); MEAN CORPUSCULAR HGB CONC 34.7 g/dL (33.0-37.0); MEAN PLATELET VOLUME 7.4 fL (7.2-11.7); MONO # 0.8 K/uL (0.0-0.8); MONO % 4.6 % (0.0-10.0); NEUT # 14.5 K/uL (1.8-7.0); NEUT % 86.3 % (50.0-75.0); NRBC % 0.1 % (0.0-2.0); PLATELET COUNT 266 K/uL (130-400); RBC 2.65 Mil/uL (4.40-5.90); RED CELL DISTRIBUTION WIDTH 16.8 % (11.5-14.5); WHITE BLOOD COUNT 16.9 K/uL (4.8-10.8)
[2017-09-09 06:36] LABS: ALB/GLOB RATIO 0.8 (1.0-2.1); ALBUMIN 2.5 g/dL (3.5-5.0); CALCIUM 6.6 mg/dl (8.6-10.4)
[2017-09-09 07:25] LABS: BANDS 2 % (0-2); LYMPHOCYTE 10 % (20-40); MONOCYTE 2 % (0-10); NEUTROPHIL 86 % (50-75); PLATELET ESTIMATE NORMAL (NORMAL); TOTAL CELLS COUNTED 100
[2017-09-09 07:26] LABS: ANISOCYTOSIS SLIGHT; BURR CELLS MODERATE; HYPOCHROMIC SLIGHT
[2017-09-09] MEDS: (Novolog) Insulin Aspart, Recombinant 100 u/ml 10 ml vial SC SCH ×4 (08:00→22:00)
[2017-09-09] MEDS: Multivitamin Vitamin B Complex (Nephro-Vite) Tab PO SCH (08:00)
--- NOTE | 2017-09-09 08:31 | CP.PCM.PN ---
Subjective - Date & Time of Evaluation Date of Evaluation: 09/09/17 Time of Evaluation: 08:27 - Subjective Subjective: PAtient more awake, alert, urine output 350 per shift, s/p HD and PRBC transfusion yesterday, no acute events overnight Objective - Vital Signs/Intake and Output Vital Signs (last 24 hours): Temp Pulse Resp BP Pulse Ox 98.5 F 91 H 27 H 113/59 L 95 09/09/17 08:00 09/09/17 08:00 09/09/17 08:00 09/09/17 08:00 09/09/17 08:00 Intake and Output: 09/09/17 09/09/17 06:59 18:59 Intake Total 1435.6 237.6 Output Total 348 59 Balance 1087.6 178.6 - Medications Medications: Current Medications Calcitriol (Rocaltrol) 0.25 mcg PO DAILY [facility] Last Admin: 09/08/17 10:49 Dose: 0.25 mcg Epoetin Kameron (Procrit) 8,000 unit IV TTS [facility] Last Admin: 09/08/17 16:01 Dose: Not Given Piperacillin Sod/Tazobactam Sod (Zosyn 2.25 Gm Iv Premix) 2.25 gm in 50 mls @ 100 mls/hr IVPB Q8H [facility] PRN Reason: Protocol Last Admin: 09/09/17 03:00 Dose: 100 mls/hr Linezolid (Zyvox 600mg/300ml D5w) 600 mg in 300 mls @ 200 mls/hr IVPB Q12H [facility] PRN Reason: Protocol Last Admin: 09/09/17 04:30 Dose: 200 mls/hr Metronidazole (Flagyl) 500 mg in 100 mls @ 100 mls/hr IVPB Q8 [facility] PRN Reason: Protocol Last Admin: 09/09/17 06:23 Dose: 100 mls/hr Norepinephrine Bitartrate 4 mg (/ Sodium Chloride) 254 mls @ 7.62 mls/hr IV .Q24H PRN; Protocol; 2 MCG/MIN PRN Reason: TITRATE PER MD ORDER Last Admin: 09/09/17 06:24 Dose: 5 mcg/min, 19.05 mls/hr Micafungin Sodium 100 mg/ (Sodium Chloride) 100 mls @ 100 mls/hr IV Q24H [facility] PRN Reason: Protocol Last Admin: 09/09/17 03:00 Dose: 100 mls/hr Insulin Aspart (Novolog) 0 unit SC ACHS [facility] [place] PRN Reason: Protocol Last Admin: 09/09/17 08:00 Dose: 3 unit Insulin Glargine (Lantus) 20 unit SC QAM [facility] [place] Last Admin: 09/08/17 10:48 Dose: 20 u Levetiracetam (Keppra) 250 mg PO Q12 [facility] [place] Last Admin: 09/08/17 21:21 Dose: 250 mg Metoprolol Tartrate (Lopressor) 25 mg PO BID [facility] [place] Last Admin: 09/08/17 17:22 Dose: Not Given Midodrine (Proamatine) 5 mg PO TID [facility] Last Admin: 09/08/17 18:24 Dose: 5 mg Pantoprazole Sodium (Protonix Inj) 40 mg IVP Q12H [facility] Last Admin: 09/08/17 21:21 Dose: 40 mg Pregabalin (Lyrica) 75 mg PO HS [facility] Last Admin: 09/08/17 21:21 Dose: 75 mg Sevelamer Carbonate (Renvela) 1,600 mg PO TIDCC [facility] Last Admin: 09/09/17 08:00 Dose: 1,600 mg Sodium Bicarbonate (Sodium Bicarbonate Tab) 1,300 mg PO TID [facility] Last Admin: 09/08/17 18:23 Dose: 1,300 mg Tamsulosin HCl (Flomax) 0.4 mg PO DAILY [facility] Last Admin: 09/08/17 10:47 Dose: 0.4 mg Vitamin B Complex/Vit C/Folic Acid (Nephro-Eber) 1 tab PO 0800 [facility] Last Admin: 09/09/17 08:00 Dose: 1 tab - Labs Labs: 09/09/17 06:09 09/09/17 06:10 PT 13.0 SECONDS (9.7-12.2) H 09/05/17 11:25 INR 1.2 09/05/17 11:25 APTT 31 SECONDS (21-34) 09/05/17 11:25 - Constitutional Appears: Well, Non-toxic, No Acute Distress - Head Exam Head Exam: ATRAUMATIC, NORMAL INSPECTION, NORMOCEPHALIC - Eye Exam Eye Exam: EOMI - ENT Exam ENT Exam: Mucous Membranes Moist - Respiratory Exam Respiratory Exam: Clear to Ausculation Bilateral, NORMAL BREATHING PATTERN - Cardiovascular Exam Cardiovascular Exam: Irregular Rhythm, +S1, +S2 - GI/Abdominal Exam GI & Abdominal Exam: Normal Bowel Sounds - Extremities Exam Extremities Exam: Pedal Edema - Neurological Exam Neurological Exam: Alert, Awake - Skin Skin Exam: Normal Color Assessment and Plan - Assessment and Plan (Free Text) Assessment: Sepsis: source (?UTI), CT abd/pelvis neg for source, continue empirical abx as per ID (currently on antifungal) -CKD/metabolic aidosis: continue HD as per renal, continue bicarb, epogen/ calcitriol -A-fiB: rate controlled off lopressor; not an AC 2nd recent ICH -DM: switch from IV insulin to subQ lantus 20 units and ISS pre-meals, q6(if NPO ) -monitor urine output -switch from shiely to tunelled cath -kaplan placed to monitor urine output in FUAD/CKD -Anemia: pending fecal occult blood; ppi q12, transfuse as needed Patient remains stable on 5 mcg of norepi cc time 35 minutes
[2017-09-09] MEDS: (Lantus) Insulin Glargine, Recombinant SC SCH (09:19)
[2017-09-09] MEDS ORDERED: (Lantus) Insulin Glargine, Recombinant SC SCH (10:41)
[2017-09-09 13:28] LABS: TROPONIN I 0.073 ng/mL (0.00-0.120)
[2017-09-09 14:09] LABS: CK-MB 1.62 ng/mL (0.0-3.38)
[2017-09-09] MEDS ORDERED: Alum-Mag Hydrox-Simethicone Susp (30 mL) PO PRN (14:38)
--- NOTE | 2017-09-09 23:56 | CP.PCM.PN ---
Subjective - Date & Time of Evaluation Date of Evaluation: 09/09/17 Time of Evaluation: 17:35 - Subjective Subjective: Pt seen and examined, Afebrile, but still remains weak,creatinine is improving, wbc going down, k is low, his creatinine going down, foleys in pace, no nausea, vomitting Objective - Vital Signs/Intake and Output Vital Signs (last 24 hours): Temp Pulse Resp BP Pulse Ox 100.5 F H 106 H 25 H 103/58 L 96 09/09/17 20:00 09/09/17 22:15 09/09/17 22:15 09/09/17 22:15 09/09/17 22:15 Intake and Output: 09/09/17 09/10/17 18:59 06:59 Intake Total 1191.0 369.0 Output Total 146 0 Balance 1045.0 369.0 - Medications Medications: Current Medications Al Hydrox/Mg Hydrox/Simethicone (Maalox Plus 30 Ml) 30 ml PO Q6H PRN PRN Reason: Indigestion / Heartburn Calcitriol (Rocaltrol) 0.25 mcg PO DAILY [facility] Last Admin: 09/09/17 09:22 Dose: 0.25 mcg Epoetin Kameron (Procrit) 8,000 unit IV TTS [facility] Last Admin: 09/08/17 16:01 Dose: Not Given Heparin Sodium (Porcine) (Heparin) 5,000 units SC Q12 [facility] Last Admin: 09/09/17 21:03 Dose: 5,000 units Piperacillin Sod/Tazobactam Sod (Zosyn 2.25 Gm Iv Premix) 2.25 gm in 50 mls @ 100 mls/hr IVPB Q8H [facility] PRN Reason: Protocol Last Admin: 09/09/17 20:58 Dose: 100 mls/hr Linezolid (Zyvox 600mg/300ml D5w) 600 mg in 300 mls @ 200 mls/hr IVPB Q12H [facility] PRN Reason: Protocol Last Admin: 09/09/17 16:29 Dose: 200 mls/hr Metronidazole (Flagyl) 500 mg in 100 mls @ 100 mls/hr IVPB Q8 [facility] PRN Reason: Protocol Last Admin: 09/09/17 21:08 Dose: 100 mls/hr Norepinephrine Bitartrate 4 mg (/ Sodium Chloride) 254 mls @ 7.62 mls/hr IV .Q24H PRN; Protocol; 2 MCG/MIN PRN Reason: TITRATE PER MD ORDER Last Titration: 09/09/17 16:28 Dose: 1 mcg/min, 3.81 mls/hr Micafungin Sodium 100 mg/ (Sodium Chloride) 100 mls @ 100 mls/hr IV Q24H [facility] PRN Reason: Protocol Last Admin: 09/09/17 03:00 Dose: 100 mls/hr Insulin Aspart (Novolog) 0 unit SC ACHS [facility] PRN Reason: Protocol Last Admin: 09/09/17 22:00 Dose: Not Given Insulin Glargine (Lantus) 30 unit SC QAM [facility] Levetiracetam (Keppra) 250 mg PO Q12 [facility] Last Admin: 09/09/17 21:03 Dose: 250 mg Midodrine (Proamatine) 5 mg PO TID [facility] Last Admin: 09/09/17 17:46 Dose: 5 mg Nitroglycerin (Nitrostat Sl Tab) 0.4 mg SL Q5M PRN PRN Reason: Pain, severe (8-10) Last Admin: 09/09/17 12:31 Dose: 0.4 mg Pantoprazole Sodium (Protonix Inj) 40 mg IVP Q12H [facility] Last Admin: 09/09/17 21:02 Dose: 40 mg Pregabalin (Lyrica) 75 mg PO HS [facility] Last Admin: 09/09/17 21:05 Dose: 75 mg Sevelamer Carbonate (Renvela) 1,600 mg PO TIDCC [facility] Last Admin: 09/09/17 16:31 Dose: 1,600 mg Sodium Bicarbonate (Sodium Bicarbonate Tab) 1,300 mg PO TID [facility] Last Admin: 09/09/17 17:46 Dose: 1,300 mg Tamsulosin HCl (Flomax) 0.4 mg PO DAILY [facility] Last Admin: 09/09/17 09:19 Dose: 0.4 mg Vitamin B Complex/Vit C/Folic Acid (Nephro-Eber) 1 tab PO 0800 [facility] Last Admin: 09/09/17 08:00 Dose: 1 tab - Labs Labs: 09/09/17 06:09 09/09/17 06:10 PT 13.0 SECONDS (9.7-12.2) H 09/05/17 11:25 INR 1.2 09/05/17 11:25 APTT 31 SECONDS (21-34) 09/05/17 11:25 - Constitutional Appears: No Acute Distress - Head Exam Head Exam: ATRAUMATIC, NORMAL INSPECTION, NORMOCEPHALIC - Eye Exam Eye Exam: EOMI, Normal appearance, PERRL Pupil Exam: NORMAL ACCOMODATION, PERRL - Respiratory Exam Respiratory Exam: Clear to Ausculation Bilateral, NORMAL BREATHING PATTERN - Cardiovascular Exam Cardiovascular Exam: Tachycardia, Irregular Rhythm, +S1, +S2 - GI/Abdominal Exam GI & Abdominal Exam: Soft, Normal Bowel Sounds. absent: Tenderness Assessment and Plan (1) Hypotension Status: Acute (2) Near syncope Status: Acute (3) Rapid atrial fibrillation Status: Acute (4) Sepsis Status: Acute (5) Altered mental status Status: Acute (6) UTI (urinary tract infection) Status: Acute (7) CKD (chronic kidney disease) Status: Acute
--- NOTE | 2017-09-10 01:48 | CP.PCM.PN ---
Subjective - Date & Time of Evaluation Date of Evaluation: 09/09/17 Time of Evaluation: 14:00 - Subjective Subjective: Assessment: critical oligoanuric Acute Kidney Injury (N17.9) likely due to ATN: hypotension, sepsis Diabetic chronic Kidney Disease (E11.22) Hyperkalemia Chronic Kidney Disease (N18.3) Stage 3 with 1 gram proteinuria (R80.9) likely due to DM Anemia (D64.9), Hyperphosphatemia (E83.39), Secondary Hyperparathyroidism (E21.1 ), lactic acidosis and severe metabolic acidosis fluid overload A fib with RVR hx if DVT s/p IVC filter, SDH s/p evacuation Plan hd second session completed on sunday lytes reviewed Monitor Input/Output continue epogen and renvela monitor phos levels persistent acidosis: despite on dialysis; can continue po bicarb ? linezolid induced acidosis, work up per icu team Physical Examination: General Appearance: uncomfortable, in no acute respiratory distress, ill appearing Vitals reviewed and noted as below Head; Atraumatic, normocephalic ENT: no ulcers no thrush. Tongue is midline. Oropharynx: no rash or ulcers. EYES: Eye muscles and extraocular movement intact. Sclera is anicteric. Neck; supple no lymphadenopathy, no thyromegaly or bruit Lungs: Normal respiratory rate/effort. Breath sounds bilateral decreased at bases Heart: Increased rate. s1s2 normal. No rub or gallop. A fib Extremities: 2-3+ edema. No varicose veins Neurological: Patient is confused today Skin: Warm and dry. Normal turgor. No rash. Abdomen: Abdomen is soft. Bowel sounds +. Psych: unable MSK: no joint tenderness or swelling. Objective - Vital Signs/Intake and Output Vital Signs (last 24 hours): Temp Pulse Resp BP Pulse Ox 99.3 F 102 H 20 96/58 L 98 09/10/17 00:00 09/10/17 01:00 09/10/17 01:00 09/10/17 01:00 09/10/17 01:00 Intake and Output: 09/09/17 09/10/17 18:59 06:59 Intake Total 1191.0 376.6 Output Total 146 0 Balance 1045.0 376.6 - Medications Medications: Current Medications Al Hydrox/Mg Hydrox/Simethicone (Maalox Plus 30 Ml) 30 ml PO Q6H PRN PRN Reason: Indigestion / Heartburn Calcitriol (Rocaltrol) 0.25 mcg PO DAILY [facility] Last Admin: 09/09/17 09:22 Dose: 0.25 mcg Epoetin Kameron (Procrit) 8,000 unit IV TTS [facility] Last Admin: 09/08/17 16:01 Dose: Not Given Heparin Sodium (Porcine) (Heparin) 5,000 units SC Q12 [facility] Last Admin: 09/09/17 21:03 Dose: 5,000 units Piperacillin Sod/Tazobactam Sod (Zosyn 2.25 Gm Iv Premix) 2.25 gm in 50 mls @ 100 mls/hr IVPB Q8H [facility] PRN Reason: Protocol Last Admin: 09/09/17 20:58 Dose: 100 mls/hr Linezolid (Zyvox 600mg/300ml D5w) 600 mg in 300 mls @ 200 mls/hr IVPB Q12H [facility] PRN Reason: Protocol Last Admin: 09/09/17 16:29 Dose: 200 mls/hr Metronidazole (Flagyl) 500 mg in 100 mls @ 100 mls/hr IVPB Q8 [facility] PRN Reason: Protocol Last Admin: 09/09/17 21:08 Dose: 100 mls/hr Norepinephrine Bitartrate 4 mg (/ Sodium Chloride) 254 mls @ 7.62 mls/hr IV .Q24H PRN; Protocol; 2 MCG/MIN PRN Reason: TITRATE PER MD ORDER Last Titration: 09/09/17 16:28 Dose: 1 mcg/min, 3.81 mls/hr Micafungin Sodium 100 mg/ (Sodium Chloride) 100 mls @ 100 mls/hr IV Q24H [facility] PRN Reason: Protocol Last Admin: 09/09/17 03:00 Dose: 100 mls/hr Insulin Aspart (Novolog) 0 unit SC ACHS [facility] PRN Reason: Protocol Last Admin: 09/09/17 22:00 Dose: Not Given Insulin Glargine (Lantus) 30 unit SC QAM [facility] Levetiracetam (Keppra) 250 mg PO Q12 [facility] Last Admin: 09/09/17 21:03 Dose: 250 mg Midodrine (Proamatine) 5 mg PO TID [facility] Last Admin: 09/09/17 17:46 Dose: 5 mg Nitroglycerin (Nitrostat Sl Tab) 0.4 mg SL Q5M PRN PRN Reason: Pain, severe (8-10) Last Admin: 09/09/17 12:31 Dose: 0.4 mg Pantoprazole Sodium (Protonix Inj) 40 mg IVP Q12H [facility] Last Admin: 09/09/17 21:02 Dose: 40 mg Pregabalin (Lyrica) 75 mg PO HS [facility] Last Admin: 09/09/17 21:05 Dose: 75 mg Sevelamer Carbonate (Renvela) 1,600 mg PO TIDCC [facility] Last Admin: 09/09/17 16:31 Dose: 1,600 mg Sodium Bicarbonate (Sodium Bicarbonate Tab) 1,300 mg PO TID [facility] Last Admin: 09/09/17 17:46 Dose: 1,300 mg Tamsulosin HCl (Flomax) 0.4 mg PO DAILY [facility] Last Admin: 09/09/17 09:19 Dose: 0.4 mg Vitamin B Complex/Vit C/Folic Acid (Nephro-Eber) 1 tab PO 0800 [facility] Last Admin: 09/09/17 08:00 Dose: 1 tab - Labs Labs: 09/09/17 06:09 09/09/17 06:10 PT 13.0 SECONDS (9.7-12.2) H 09/05/17 11:25 INR 1.2 09/05/17 11:25 APTT 31 SECONDS (21-34) 09/05/17 11:25
[2017-09-10] MEDS: Micafungin 100 MG in Sodium Chloride 0.9% 100 ML IV SCH (02:24)
[2017-09-10] MEDS: Piperacill/Tazo 2.25gm in Dex 2.25 GM/50 ML BAG IVPB SCH ×3 (03:12→22:56)
[2017-09-10] MEDS: Linezolid 600 mg in D5W 300 ml 600 MG/300 ML BAG IVPB SCH ×2 (04:01→16:39)
[2017-09-10] MEDS: metroNIDAZOLE IV 500 mg/100 ml 500 MG/100 ML BAG IVPB SCH ×3 (05:05→23:06)
[2017-09-10 05:23] LABS: BASO # 0.2 K/uL (0.0-0.2); BASO % 1.5 % (0.0-2.0); EOS # 0.1 K/uL (0.0-0.7); EOS % 0.7 % (0.0-4.0); LYMPH # 1.3 K/uL (1.0-4.3); LYMPH % 7.9 % (20.0-40.0); MEAN CELL VOLUME 86.4 fL (80.0-94.0); MEAN CORPUSCULAR HEMOGLOBIN 29.7 pg (27.0-31.0); MEAN CORPUSCULAR HGB CONC 34.3 g/dL (33.0-37.0); MEAN PLATELET VOLUME 7.7 fL (7.2-11.7); MONO # 0.8 K/uL (0.0-0.8); MONO % 5.1 % (0.0-10.0); NEUT # 13.5 K/uL (1.8-7.0); NEUT % 84.8 % (50.0-75.0); NRBC % 0.2 % (0.0-2.0); PLATELET COUNT 268 K/uL (130-400); RBC 3.05 Mil/uL (4.40-5.90); RED CELL DISTRIBUTION WIDTH 16.5 % (11.5-14.5); WHITE BLOOD COUNT 15.9 K/uL (4.8-10.8)
[2017-09-10 05:43] LABS: ALB/GLOB RATIO 0.8 (1.0-2.1); ALBUMIN 2.7 g/dL (3.5-5.0); CALCIUM 7.6 mg/dl (8.6-10.4)
[2017-09-10 06:32] LABS: LYMPHOCYTE 5 % (20-40); MONOCYTE 3 % (0-10); NEUTROPHIL 91 % (50-75); PLATELET ESTIMATE NORMAL (NORMAL); REACTIVE LYMPHOCYTES 1 % (0-0); TOTAL CELLS COUNTED 100
[2017-09-10] MEDS: Multivitamin Vitamin B Complex (Nephro-Vite) Tab PO SCH (08:20)
[2017-09-10] MEDS: (Novolog) Insulin Aspart, Recombinant 100 u/ml 10 ml vial SC SCH ×4 (08:21→22:00)
--- NOTE | 2017-09-10 09:40 | RAD ---
HISTORY: assess volume status COMPARISON: Portable chest 09/07/2017. FINDINGS: LUNGS: Borderline patchy airspace disease question in the left infrahilar space with a right chest clear. Left-sided finding may be a function vascular overlie with bronchial structures. Clinically correlate further. PLEURA: No significant pleural effusion identified, no pneumothorax apparent. CARDIOVASCULAR: Normal. OSSEOUS STRUCTURES: No significant abnormalities. VISUALIZED UPPER ABDOMEN: Normal. OTHER FINDINGS: None. IMPRESSION: Borderline left infrahilar patchy density. Remain lung joel clear. Clinically correlate further.
--- NOTE | 2017-09-10 09:51 | CP.CCUPN ---
CCU Subjective - Physician Review Subjective (Free Text): 09/10/17 09:49 Patient seen and examined. Patient reports feeling better. Denies chest pain, dyspnea, dizziness, lightheadedness. However, he is complaining of bilateral leg pain. CCU Objective - Vital Signs / Intake & Output Vital Signs (Last 4 hours): Vital Signs Temp Pulse Resp BP Pulse Ox 09/10/17 09:03 113 H 34 H 108/65 98 09/10/17 08:01 95 H 31 H 94/60 L 97 09/10/17 08:00 98.4 F 09/10/17 07:59 103 H 31 H 93/64 L 98 09/10/17 07:01 106 H 27 H 90/55 L 96 09/10/17 06:32 107 H 25 H 87/60 L 95 09/10/17 06:01 100 H 26 H 88/54 L 98 Intake and Output (Last 8hrs): Intake & Output 09/09/17 09/10/17 09/10/17 22:59 06:59 14:59 Intake Total 911.8 705.2 100 Output Total 0 0 0 Balance 911.8 705.2 100 Weight 235 lb 0.204 oz Intake: IV 25 40 Intake, IV Amount 586.8 565.2 Left Wrist 550 550 PermaCath 36.8 15.2 Oral 300 100 100 Output: Urine 0 0 0 Condom 0 0 0 Other: # Bowel Movements 1 1 - Physical Exam Head: Positive for: Atraumatic, Normocephalic Pupils: Positive for: PERRL Extroacular Muscles: Positive for: EOMI Conjunctiva: Positive for: Normal Mouth: Positive for: Moist Mucous Membranes Neck: Positive for: Normal Range of Motion, Other (Right IJ dialysis catheter) Respiratory/Chest: Positive for: Decreased Breath Sounds Cardiovascular: Positive for: Normal S1, S2, Irregular Rhythm Abdomen: Positive for: Normal Bowel Sounds. Negative for: Tenderness Upper Extremity: Positive for: Normal Inspection Lower Extremity: Positive for: Normal Inspection, Edema (bilateral) Neurological: Positive for: GCS=15 Skin: Positive for: Warm, Dry, Normal Color Psychiatric: Positive for: Alert. Negative for: Oriented x 3 - Medications Active Medications: Active Medications Generic Name Dose Route Start Last Admin Trade Name Freq PRN Reason Stop Dose Admin Al Hydrox/Mg Hydrox/Simethicone 30 ml 09/09/17 14:38 Maalox Plus 30 Ml PO Q6H PRN Indigestion / Heartburn Calcitriol 0.25 mcg 09/08/17 10:00 09/09/17 09:22 Rocaltrol PO 0.25 mcg DAILY LELA Administration Epoetin Kameron 8,000 unit 09/08/17 07:00 09/08/17 16:01 Procrit IV Not Given TTS [facility] Heparin Sodium (Porcine) 5,000 units 09/09/17 22:00 09/09/17 21:03 Heparin SC 5,000 units Q12 LELA Administration Piperacillin Sod/Tazobactam Sod 2.25 gm in 50 mls @ 100 mls/hr 09/05/17 20:00 09/10/17 03:12 Zosyn 2.25 Gm Iv Premix IVPB 100 mls/hr Q8H [facility] Administration Protocol Linezolid 600 mg in 300 mls @ 200 mls/hr 09/06/17 17:00 09/10/17 04:01 Zyvox 600mg/300ml D5w IVPB 200 mls/hr Q12H [facility] Administration Protocol Metronidazole 500 mg in 100 mls @ 100 mls/hr 09/06/17 22:00 09/10/17 05:05 Flagyl IVPB 100 mls/hr Q8 [facility] Administration Protocol Norepinephrine Bitartrate 4 mg 254 mls @ 7.62 mls/hr 09/08/17 14:45 09/10/17 03:00 / Sodium Chloride IV 0 mcg/min .Q24H PRN 0 mls/hr TITRATE PER MD ORDER Titration Protocol 2 MCG/MIN Micafungin Sodium 100 mg/ 100 mls @ 100 mls/hr 09/09/17 02:30 09/10/17 02:24 Sodium Chloride IV 100 mls/hr Q24H [facility] Administration Protocol Insulin Aspart 0 unit 09/09/17 19:08 09/10/17 08:21 Novolog SC 6 unit ACHS [facility] Administration Protocol Insulin Glargine 30 unit 09/09/17 19:05 Lantus SC QAM LELA Levetiracetam 250 mg 09/08/17 22:00 09/09/17 21:03 Keppra PO 250 mg Q12 LELA Administration Midodrine 5 mg 09/08/17 10:00 09/09/17 17:46 Proamatine PO 5 mg TID LELA Administration Nitroglycerin 0.4 mg 09/09/17 12:22 09/09/17 12:31 Nitrostat Sl Tab SL 0.4 mg Q5M PRN Administration Pain, severe (8-10) Pantoprazole Sodium 40 mg 09/08/17 10:00 09/09/17 21:02 Protonix Inj IVP 40 mg Q12H LELA Administration Sevelamer Carbonate 1,600 mg 09/07/17 12:00 09/10/17 08:20 Renvela PO 1,600 mg TIDCC LELA Administration Sodium Bicarbonate 1,300 mg 09/06/17 10:00 09/09/17 17:46 Sodium Bicarbonate Tab PO 1,300 mg TID LELA Administration Tamsulosin HCl 0.4 mg 09/06/17 10:00 09/09/17 09:19 Flomax PO 0.4 mg DAILY LELA Administration Vitamin B Complex/Vit C/Folic Acid 1 tab 09/07/17 08:00 09/10/17 08:20 Nephro-Eber PO 1 tab 0800 LELA Administration - Patient Studies Lab Studies: Microbiology Studies 09/09/17 02:20 Blood Culture - Preliminary Blood-Thru Central Line NO GROWTH AFTER 24 HOURS 09/09/17 03:00 Blood Culture - Preliminary Blood-Thru Central Line NO GROWTH AFTER 24 HOURS 09/05/17 19:00 Blood Culture - Preliminary Blood NO GROWTH AFTER 4 DAYS 09/05/17 19:00 Blood Culture - Preliminary Blood NO GROWTH AFTER 4 DAYS 09/06/17 14:00 Stool Culture - Final Stool NO SALMONELLA, SHIGELLA OR CAMPYLOBACTER ISOLATED. Lab Studies 09/10/17 09/10/17 09/10/17 Range/Units 07:25 05:21 05:21 WBC (4.8-10.8) K/uL RBC (4.40-5.90) Mil/uL Hgb (12.0-18.0) g/dL Hct (35.0-51.0) % MCV (80.0-94.0) fL MCH (27.0-31.0) pg MCHC (33.0-37.0) g/dL RDW (11.5-14.5) % Plt Count (130-400) K/uL MPV (7.2-11.7) fL Neut % (Auto) (50.0-75.0) % Lymph % (Auto) (20.0-40.0) % [place] % (Auto) (0.0-10.0) % Eos % (Auto) (0.0-4.0) % Baso % (Auto) (0.0-2.0) % Neut # (Auto) (1.8-7.0) K/uL Lymph # (Auto) (1.0-4.3) K/uL [place] # (Auto) (0.0-0.8) K/uL Eos # (Auto) (0.0-0.7) K/uL Baso # (Auto) (0.0-0.2) K/uL Neutrophils % (Manual) (50-75) % Lymphocytes % (Manual) (20-40) % Reactive Lymphs % (0-0) % Monocytes % (Manual) (0-10) % Platelet Estimate (NORMAL) Sodium 131 L (132-148) mmol/L Potassium 3.9 (3.6-5.2) mmol/L Chloride 96 L (98-107) mmol/L Carbon Dioxide 20 L (22-30) mmol/L Anion Gap 19 (10-20) BUN 61 H (9-20) mg/dL Creatinine 4.2 H (0.8-1.5) mg/dL Est GFR ( Amer) 17 Est GFR (Non-Af Amer) 14 POC Glucose (mg/dL) 307 H (65-110) mg/dL Random Glucose 313 H (75-110) mg/dL Lactic Acid 2.2 H (0.7-2.1) mmol/L Calcium 7.6 L (8.6-10.4) mg/dl Phosphorus 5.5 H (2.5-4.5) mg/dL Magnesium 1.8 (1.6-2.3) mg/dL Total Bilirubin 1.2 (0.2-1.3) mg/dL AST 21 (17-59) U/L ALT 26 (21-72) U/L Alkaline Phosphatase 81 (38-126) U/L CK-MB (Mass) (0.0-3.38) ng/mL Troponin I (0.00-0.120) ng/mL Total Protein 6.0 L (6.3-8.3) g/dL Albumin 2.7 L (3.5-5.0) g/dL Globulin 3.3 (2.2-3.9) gm/dL Albumin/Globulin Ratio 0.8 L (1.0-2.1) Stool Occult Blood (NEGATIVE) Tot [place]/Lambda Ratio (1.29-2.55) [place] Light Chain Anal (176-443) mg/dL Lambda Light Chain Anal (91-240) mg/dL 09/10/17 09/09/17 09/09/17 Range/Units 05:21 21:37 21:02 WBC 15.9 H (4.8-10.8) K/uL RBC 3.05 L (4.40-5.90) Mil/uL Hgb 9.0 L (12.0-18.0) g/dL Hct 26.3 L (35.0-51.0) % MCV 86.4 (80.0-94.0) fL MCH 29.7 (27.0-31.0) pg MCHC 34.3 (33.0-37.0) g/dL RDW 16.5 H (11.5-14.5) % Plt Count 268 (130-400) K/uL MPV 7.7 (7.2-11.7) fL Neut % (Auto) 84.8 H (50.0-75.0) % Lymph % (Auto) 7.9 L (20.0-40.0) % [place] % (Auto) 5.1 (0.0-10.0) % Eos % (Auto) 0.7 (0.0-4.0) % Baso % (Auto) 1.5 (0.0-2.0) % Neut # (Auto) 13.5 H (1.8-7.0) K/uL Lymph # (Auto) 1.3 (1.0-4.3) K/uL [place] # (Auto) 0.8 (0.0-0.8) K/uL Eos # (Auto) 0.1 (0.0-0.7) K/uL Baso # (Auto) 0.2 (0.0-0.2) K/uL Neutrophils % (Manual) 91 H (50-75) % Lymphocytes % (Manual) 5 L (20-40) % Reactive Lymphs % 1 H (0-0) % Monocytes % (Manual) 3 (0-10) % Platelet Estimate Normal (NORMAL) Sodium (132-148) mmol/L Potassium (3.6-5.2) mmol/L Chloride (98-107) mmol/L Carbon Dioxide (22-30) mmol/L Anion Gap (10-20) BUN (9-20) mg/dL Creatinine (0.8-1.5) mg/dL Est GFR ( Amer) Est GFR (Non-Af Amer) POC Glucose (mg/dL) 296 H 303 H (65-110) mg/dL Random Glucose (75-110) mg/dL Lactic Acid (0.7-2.1) mmol/L Calcium (8.6-10.4) mg/dl Phosphorus (2.5-4.5) mg/dL Magnesium (1.6-2.3) mg/dL Total Bilirubin (0.2-1.3) mg/dL AST (17-59) U/L ALT (21-72) U/L Alkaline Phosphatase (38-126) U/L CK-MB (Mass) (0.0-3.38) ng/mL Troponin I (0.00-0.120) ng/mL Total Protein (6.3-8.3) g/dL Albumin (3.5-5.0) g/dL Globulin (2.2-3.9) gm/dL Albumin/Globulin Ratio (1.0-2.1) Stool Occult Blood (NEGATIVE) Tot [place]/Lambda Ratio (1.29-2.55) [place] Light Chain Anal (176-443) mg/dL Lambda Light Chain Anal (91-240) mg/dL 09/09/17 09/09/17 09/09/17 Range/Units 16:02 15:59 12:54 WBC (4.8-10.8) K/uL RBC (4.40-5.90) Mil/uL Hgb (12.0-18.0) g/dL Hct (35.0-51.0) % MCV (80.0-94.0) fL MCH (27.0-31.0) pg MCHC (33.0-37.0) g/dL RDW (11.5-14.5) % Plt Count (130-400) K/uL MPV (7.2-11.7) fL Neut % (Auto) (50.0-75.0) % Lymph % (Auto) (20.0-40.0) % [place] % (Auto) (0.0-10.0) % Eos % (Auto) (0.0-4.0) % Baso % (Auto) (0.0-2.0) % Neut # (Auto) (1.8-7.0) K/uL Lymph # (Auto) (1.0-4.3) K/uL [place] # (Auto) (0.0-0.8) K/uL Eos # (Auto) (0.0-0.7) K/uL Baso # (Auto) (0.0-0.2) K/uL Neutrophils % (Manual) (50-75) % Lymphocytes % (Manual) (20-40) % Reactive Lymphs % (0-0) % Monocytes % (Manual) (0-10) % Platelet Estimate (NORMAL) Sodium (132-148) mmol/L Potassium (3.6-5.2) mmol/L Chloride (98-107) mmol/L Carbon Dioxide (22-30) mmol/L Anion Gap (10-20) BUN (9-20) mg/dL Creatinine (0.8-1.5) mg/dL Est GFR ( Amer) Est GFR (Non-Af Amer) POC Glucose (mg/dL) 303 H (65-110) mg/dL Random Glucose (75-110) mg/dL Lactic Acid (0.7-2.1) mmol/L Calcium (8.6-10.4) mg/dl Phosphorus (2.5-4.5) mg/dL Magnesium (1.6-2.3) mg/dL Total Bilirubin (0.2-1.3) mg/dL AST (17-59) U/L ALT (21-72) U/L Alkaline Phosphatase (38-126) U/L CK-MB (Mass) 1.62 (0.0-3.38) ng/mL Troponin I 0.0730 (0.00-0.120) ng/mL Total Protein (6.3-8.3) g/dL Albumin (3.5-5.0) g/dL Globulin (2.2-3.9) gm/dL Albumin/Globulin Ratio (1.0-2.1) Stool Occult Blood Negative (NEGATIVE) Tot [place]/Lambda Ratio (1.29-2.55) [place] Light Chain Anal (176-443) mg/dL Lambda Light Chain Anal (91-240) mg/dL 09/09/17 09/06/17 Range/Units 11:12 12:04 WBC (4.8-10.8) K/uL RBC (4.40-5.90) Mil/uL Hgb (12.0-18.0) g/dL Hct (35.0-51.0) % MCV (80.0-94.0) fL MCH (27.0-31.0) pg MCHC (33.0-37.0) g/dL RDW (11.5-14.5) % Plt Count (130-400) K/uL MPV (7.2-11.7) fL Neut % (Auto) (50.0-75.0) % Lymph % (Auto) (20.0-40.0) % [place] % (Auto) (0.0-10.0) % Eos % (Auto) (0.0-4.0) % Baso % (Auto) (0.0-2.0) % Neut # (Auto) (1.8-7.0) K/uL Lymph # (Auto) (1.0-4.3) K/uL [place] # (Auto) (0.0-0.8) K/uL Eos # (Auto) (0.0-0.7) K/uL Baso # (Auto) (0.0-0.2) K/uL Neutrophils % (Manual) (50-75) % Lymphocytes % (Manual) (20-40) % Reactive Lymphs % (0-0) % Monocytes % (Manual) (0-10) % Platelet Estimate (NORMAL) Sodium (132-148) mmol/L Potassium (3.6-5.2) mmol/L Chloride (98-107) mmol/L Carbon Dioxide (22-30) mmol/L Anion Gap (10-20) BUN (9-20) mg/dL Creatinine (0.8-1.5) mg/dL Est GFR ( Amer) Est GFR (Non-Af Amer) POC Glucose (mg/dL) 275 H (65-110) mg/dL Random Glucose (75-110) mg/dL Lactic Acid (0.7-2.1) mmol/L Calcium (8.6-10.4) mg/dl Phosphorus (2.5-4.5) mg/dL Magnesium (1.6-2.3) mg/dL Total Bilirubin (0.2-1.3) mg/dL AST (17-59) U/L ALT (21-72) U/L Alkaline Phosphatase (38-126) U/L CK-MB (Mass) (0.0-3.38) ng/mL Troponin I (0.00-0.120) ng/mL Total Protein (6.3-8.3) g/dL Albumin (3.5-5.0) g/dL Globulin (2.2-3.9) gm/dL Albumin/Globulin Ratio (1.0-2.1) Stool Occult Blood (NEGATIVE) Tot [place]/Lambda Ratio 2.22 (1.29-2.55) [place] Light Chain Anal 364 (176-443) mg/dL Lambda Light Chain Anal 164 (91-240) mg/dL Laboratory Results - last 24 hr 09/06/17 09/09/17 09/09/17 12:04 11:12 12:54 WBC RBC Hgb Hct MCV MCH MCHC RDW Plt Count MPV Neut % (Auto) Lymph % (Auto) [place] % (Auto) Eos % (Auto) Baso % (Auto) Neut # (Auto) Lymph # (Auto) [place] # (Auto) Eos # (Auto) Baso # (Auto) Neutrophils % (Manual) Lymphocytes % (Manual) Reactive Lymphs % Monocytes % (Manual) Platelet Estimate Sodium Potassium Chloride Carbon Dioxide Anion Gap BUN Creatinine Est GFR ( Amer) Est GFR (Non-Af Amer) POC Glucose (mg/dL) 275 H Random Glucose Lactic Acid Calcium Phosphorus Magnesium Total Bilirubin AST ALT Alkaline Phosphatase CK-MB (Mass) 1.62 Troponin I 0.0730 Total Protein Albumin Globulin Albumin/Globulin Ratio Stool Occult Blood Tot [place]/Lambda Ratio 2.22 [place] Light Chain Anal 364 Lambda Light Chain Anal 164 09/09/17 09/09/17 09/09/17 15:59 16:02 21:02 WBC RBC Hgb Hct MCV MCH MCHC RDW Plt Count MPV Neut % (Auto) Lymph % (Auto) [place] % (Auto) Eos % (Auto) Baso % (Auto) Neut # (Auto) Lymph # (Auto) [place] # (Auto) Eos # (Auto) Baso # (Auto) Neutrophils % (Manual) Lymphocytes % (Manual) Reactive Lymphs % Monocytes % (Manual) Platelet Estimate Sodium Potassium Chloride Carbon Dioxide Anion Gap BUN Creatinine Est GFR ( Amer) Est GFR (Non-Af Amer) POC Glucose (mg/dL) 303 H 303 H Random Glucose Lactic Acid Calcium Phosphorus Magnesium Total Bilirubin AST ALT Alkaline Phosphatase CK-MB (Mass) Troponin I Total Protein Albumin Globulin Albumin/Globulin Ratio Stool Occult Blood Negative Tot [place]/Lambda Ratio [place] Light Chain Anal Lambda Light Chain Anal 09/09/17 09/10/17 09/10/17 21:37 05:21 05:21 WBC 15.9 H RBC 3.05 L Hgb 9.0 L Hct 26.3 L MCV 86.4 MCH 29.7 MCHC 34.3 RDW 16.5 H Plt Count 268 MPV 7.7 Neut % (Auto) 84.8 H Lymph % (Auto) 7.9 L [place] % (Auto) 5.1 Eos % (Auto) 0.7 Baso % (Auto) 1.5 Neut # (Auto) 13.5 H Lymph # (Auto) 1.3 [place] # (Auto) 0.8 Eos # (Auto) 0.1 Baso # (Auto) 0.2 Neutrophils % (Manual) 91 H Lymphocytes % (Manual) 5 L Reactive Lymphs % 1 H Monocytes % (Manual) 3 Platelet Estimate Normal Sodium 131 L Potassium 3.9 Chloride 96 L Carbon Dioxide 20 L Anion Gap 19 BUN 61 H Creatinine 4.2 H Est GFR ( Amer) 17 Est GFR (Non-Af Amer) 14 POC Glucose (mg/dL) 296 H Random Glucose 313 H Lactic Acid Calcium 7.6 L Phosphorus 5.5 H Magnesium 1.8 Total Bilirubin 1.2 AST 21 ALT 26 Alkaline Phosphatase 81 CK-MB (Mass) Troponin I Total Protein 6.0 L Albumin 2.7 L Globulin 3.3 Albumin/Globulin Ratio 0.8 L Stool Occult Blood Tot [place]/Lambda Ratio [place] Light Chain Anal Lambda Light Chain Anal 09/10/17 09/10/17 05:21 07:25 WBC RBC Hgb Hct MCV MCH MCHC RDW Plt Count MPV Neut % (Auto) Lymph % (Auto) [place] % (Auto) Eos % (Auto) Baso % (Auto) Neut # (Auto) Lymph # (Auto) [place] # (Auto) Eos # (Auto) Baso # (Auto) Neutrophils % (Manual) Lymphocytes % (Manual) Reactive Lymphs % Monocytes % (Manual) Platelet Estimate Sodium Potassium Chloride Carbon Dioxide Anion Gap BUN Creatinine Est GFR ( Amer) Est GFR (Non-Af Amer) POC Glucose (mg/dL) 307 H Random Glucose Lactic Acid 2.2 H Calcium Phosphorus Magnesium Total Bilirubin AST ALT Alkaline Phosphatase CK-MB (Mass) Troponin I Total Protein Albumin Globulin Albumin/Globulin Ratio Stool Occult Blood Tot [place]/Lambda Ratio [place] Light Chain Anal Lambda Light Chain Anal EKG/Cardiology Studies: Cardiology / EKG Studies 09/09/17 12:22 EKG [ELECTROCARDIOGRAM] Stat Comment: Mode Of Transportation: Reason For Exam: pain Fingerstick Blood Sugar Results: 307 Critical Care Progress Note - Nutrition Nutrition: Nutrition Category Date Time Status Consistent Carbohydrate [DIET] Diets 09/07/17 Dinner Active Assessment/Plan - Assessment and Plan (Free Text) Assessment: This is an 82 year old male with PMHx atrial fibrillation, B/L DVT s/p IVC filter, recent subdural hematoma in August 2017 s/p craniotomy with evacuation [facility]) with hypotension. Code sepsis called in the ER. Patient admitted to the ICU for further management Neurology: AAOx2 (not to time) S/P right frontal craniotomy with evacuation -Last CT head 08/22 showed diminishing right convexity subdural hematoma with limited mass effect. Leftward midline shift is further reduced now only 1-2mm with no definite intracrancial hemorrhage appearing acute at this time. Chronic lacune again noted at the right optic radiations. -Repeat CT head 09/05: Small residual extra-axial collection that probably represents a combination of residual hyperdense chronic subdural blood admixed with membrane formation and some subacute blood. The collection exerts minimal on mass effect on subadjacent sulci however no significant midline shift -Continue Keppra 250mg PO Q12H for seizure prophylaxis Cardiology: History of atrial fibrillation, on digoxin at home Holding home Metoprolol due to hypotension. Previously on norepinephrine drip. Midodrine 5 mg PO TID Currently rate controlled on the tele monitor Last echo: 70% EF. LV normal size, mild concentric L ventricular hypertrophy, moderate tricuspid regurgitation Pulmonology: Saturating well on room air Endocrine: -History of Diabetes Mellitus -Hgba1c 9.9 Medium dose ISS Lantus 30 units qAM accuchecks ACHS GI: Carbohydrate consistent diet Continue Protonix 40mg IV Q12H Infectious Disease: Patient was recently treated for UTI E coli Code sepsis called in ER All cultures negative so far Patient is on Zosyn 2.75mg IV Q8H, Flagyl 500mg Q8H, Zyvox 600mg Q12H, Micafungin 100 mg Q24H C diff and stool cultures negative ID on consult, Dr. Sweeney, help appreciated Per Dr. Sweeney, we will do a wound culture of the patient's blisters Nephrology: Acute on chronic CKD BUN/Cr worsening, baseline Cr 2.0 Continue sodium bicarb 1300mg PO TID, Renvela 1600 mg PO TIDCC Renal US 08/3017: unremarkable Strict I/Os, daily weights Nephro on consult, help appreciated One session of dialysis ordered for today Urology Retaining urine Over 1000 cc urine drained today via straight cath Will monitor with bladder scan later this evening and if still retaining, kaplan will need to be placed Heme/Onc: Patient with history of provoked bilateral DVTs Was seen by Dr Tierney in the past S/P IVC filter placement 08/27/17, SCDs contraindicated Hgb 7.5, baseline 10-11 No acute signs of bleeding at this time, will monitor serial CBCs Hold Iron supplementation 2/2 sepsis Musculoskeletal: Lumbar MRI 08/2017: Levoscoliosis with multilevel severe degenerative disc disease and spondylosis with multilevel central canal and bilateral foraminal stenoses : History of urinary retention, prostate surgery [place] condom catheter No urine output after discontinuing kaplan catheter Continue home med flomax GI/DVT ppx: -Protonix 40mg IV Q12H -Heparin 5000 Q12H Dispo: ICU care Seen and discussed with Dr. Phan
[2017-09-10] MEDS: (Lantus) Insulin Glargine, Recombinant SC SCH (10:03)
--- NOTE | 2017-09-10 14:52 | CP.PCM.PN ---
Subjective - Date & Time of Evaluation Date of Evaluation: 09/10/17 Time of Evaluation: 14:49 - Subjective Subjective: Nephrology Consultation: Assessment: critical oligoanuric Acute Kidney Injury (N17.9) likely due to ATN: hypotension, sepsis now with fluid overload Diabetic chronic Kidney Disease (E11.22) Hyperkalemia Chronic Kidney Disease (N18.3) Stage 3 with 1 gram proteinuria (R80.9) likely due to DM Anemia (D64.9), Hyperphosphatemia (E83.39), Secondary Hyperparathyroidism (E21.1 ), lactic acidosis and severe metabolic acidosis fluid overload A fib with RVR hx if DVT s/p IVC filter, SDH s/p evacuation Plan Will plan for HD today as ordered. monitor for urine retention Patient not on ACEI/ARB due to FUAD and low BP. maintain henodynamics stable Monitor Input/Output, daily weights and renal function with basic metabolic panel continue with epogen and renvela PRBC with HD 09/07/17 check iPTH level tomorrow. Dose meds/antibiotics for reduced GFR. Avoid fleets enema/magnesium based laxatives and antacids. Avoid nephrotoxins/NSAIDs/ iodinated contrast (unless needed emergently) Glycemic control Further work up/management as per primary team Thanks for allowing me to participate in care of your patient. Will follow patient with you. Please call if any Qs. d/w team Dr Jason Tate Office: [phone] reason for consult: FUAD HPI: Pt is a 82 M with hx of diabetes Mellitus (years), A fib, SDH s/p evacuation, DVT s/p IVC filter and CKD 3 with baseline cr in 2 range presented with complaints of hypotension and sepsis, rapid A fib. renal consult for FUAD, hyperkalemia and acidosis pt feels sick. c/o thigh pain and swelling. denies SOB Denies OTC/herbal meds or NSAIDs No recent iodinated contrast exposure. Noted obvious episodes of low BP. ROS: pt feels better. denies CP/SOB/nausea. more coherent Physical Examination: General Appearance: comfortable, in no acute respiratory distress, better appearing Vitals reviewed and noted as below Head; Atraumatic, normocephalic ENT: no ulcers no thrush. Tongue is midline. Oropharynx: no rash or ulcers. EYES: Pupils are equal, round and reactive to light accommodation. Eye muscles and extraocular movement intact. Sclera is anicteric. Neck; supple no lymphadenopathy, no thyromegaly or bruit Lungs: Normal respiratory rate/effort. Breath sounds bilateral decreased at bases Heart: Increased rate. s1s2 normal. No rub or gallop. A fib Extremities: 2-3+ edema. No varicose veins Neurological: Patient is awake alert and more oriented Skin: Warm and dry. Normal turgor. No rash. Palpitation: Normal elasticity for age Abdomen: Abdomen is soft. Bowel sounds +. There is no abdominal tenderness, no guarding/rigidity no organomegaly Psych: deferred MSK: no joint tenderness or swelling. Digits and nails normal, no deformity : kidney or bladder not palpable. scrotal edema ++ Labs/imaging reviewed. Past medical history, past surgical history, family history, social history, allergy reviewed and noted as below Family hx: no hx of CKD. Rest non-contributory work up: urine pr/cr 1 gram. vit D 43 Dig 1.4 renal sono unremarkable Objective - Vital Signs/Intake and Output Vital Signs (last 24 hours): Temp Pulse Resp BP Pulse Ox 98.4 F 109 H 27 H 97/55 L 98 09/10/17 08:00 09/10/17 11:01 09/10/17 11:01 09/10/17 11:01 09/10/17 11:01 Intake and Output: 09/10/17 09/10/17 06:59 18:59 Intake Total 1070.4 200 Output Total 0 0 Balance 1070.4 200 - Medications Medications: Current Medications Al Hydrox/Mg Hydrox/Simethicone (Maalox Plus 30 Ml) 30 ml PO Q6H PRN PRN Reason: Indigestion / Heartburn Calcitriol (Rocaltrol) 0.25 mcg PO DAILY [facility] [place] Last Admin: 09/10/17 10:00 Dose: 0.25 mcg Epoetin [place] (Procrit) 8,000 unit IV TTS LELA Last Admin: 09/08/17 16:01 Dose: Not Given Heparin Sodium (Porcine) (Heparin) 5,000 units SC Q12 [facility] [place] Last Admin: 09/10/17 10:02 Dose: 5,000 units Piperacillin Sod/Tazobactam Sod (Zosyn 2.25 Gm Iv Premix) 2.25 gm in 50 mls @ 100 mls/hr IVPB Q8H LELA PRN Reason: Protocol Last Admin: 09/10/17 13:15 Dose: 100 mls/hr Linezolid (Zyvox 600mg/300ml D5w) 600 mg in 300 mls @ 200 mls/hr IVPB Q12H LELA PRN Reason: Protocol Last Admin: 09/10/17 04:01 Dose: 200 mls/hr Metronidazole (Flagyl) 500 mg in 100 mls @ 100 mls/hr IVPB Q8 LELA PRN Reason: Protocol Last Admin: 09/10/17 05:05 Dose: 100 mls/hr Norepinephrine Bitartrate 4 mg (/ Sodium Chloride) 254 mls @ 7.62 mls/hr IV .Q24H PRN; Protocol; 2 MCG/MIN PRN Reason: TITRATE PER MD ORDER Last Titration: 09/10/17 03:00 Dose: 0 mcg/min, 0 mls/hr Micafungin Sodium 100 mg/ (Sodium Chloride) 100 mls @ 100 mls/hr IV Q24H LELA PRN Reason: Protocol Last Admin: 09/10/17 02:24 Dose: 100 mls/hr Insulin Aspart (Novolog) 0 unit SC ACHS LELA PRN Reason: Protocol Last Admin: 09/10/17 13:14 Dose: 4 unit Insulin Glargine (Lantus) 30 unit SC QAM [facility] [place] Last Admin: 09/10/17 10:03 Dose: 30 unit Levetiracetam (Keppra) 250 mg PO Q12 [facility] [place] Last Admin: 09/10/17 10:02 Dose: 250 mg Midodrine (Proamatine) 5 mg PO TID [facility] [place] Last Admin: 09/10/17 13:14 Dose: 5 mg Nitroglycerin (Nitrostat Sl Tab) 0.4 mg SL Q5M PRN PRN Reason: Pain, severe (8-10) Last Admin: 09/09/17 12:31 Dose: 0.4 mg Pantoprazole Sodium (Protonix Inj) 40 mg IVP Q12H [facility] [place] Last Admin: 09/10/17 10:01 Dose: 40 mg Sevelamer Carbonate (Renvela) 1,600 mg PO TIDCC [facility] [place] Last Admin: 09/10/17 13:15 Dose: 1,600 mg Sodium Bicarbonate (Sodium Bicarbonate Tab) 1,300 mg PO TID [facility] [place] Last Admin: 09/10/17 13:15 Dose: 1,300 mg Tamsulosin HCl (Flomax) 0.4 mg PO DAILY [facility] [place] Last Admin: 09/10/17 10:00 Dose: 0.4 mg Vitamin B Complex/Vit C/Folic Acid (Nephro-Eber) 1 tab PO 0800 [facility] [place] Last Admin: 09/10/17 08:20 Dose: 1 tab - Labs Labs: 09/10/17 05:21 09/10/17 05:21 PT 13.0 SECONDS (9.7-12.2) H 09/05/17 11:25 INR 1.2 09/05/17 11:25 APTT 31 SECONDS (21-34) 09/05/17 11:25
[2017-09-10 18:59] LABS: ALBUMIN (PEP) 2.6 g/dL (3.8-4.8); ALPHA-1-GLOBULIN (PEP) 0.6 g/dL (0.2-0.3)
--- NOTE | 2017-09-10 21:38 | CP.PCM.PN ---
Subjective - Date & Time of Evaluation Date of Evaluation: 09/10/17 Time of Evaluation: 17:40 - Subjective Subjective: Pt seen and examined, denies nausea, vomiting or any other complaint at this time. Objective - Vital Signs/Intake and Output Vital Signs (last 24 hours): Temp Pulse Resp BP Pulse Ox 98.5 F 120 H 23 90/57 L 93 L 09/10/17 20:14 09/10/17 19:54 09/10/17 19:54 09/10/17 20:40 09/10/17 19:54 Intake and Output: 09/10/17 09/11/17 18:59 06:59 Intake Total 650 100 Output Total 2100 0 Balance -1450 100 - Medications Medications: Current Medications Al Hydrox/Mg Hydrox/Simethicone (Maalox Plus 30 Ml) 30 ml PO Q6H PRN PRN Reason: Indigestion / Heartburn Calcitriol (Rocaltrol) 0.25 mcg PO DAILY [facility] Last Admin: 09/10/17 10:00 Dose: 0.25 mcg Epoetin Kameron (Procrit) 8,000 unit IV TTS [facility] Last Admin: 09/08/17 16:01 Dose: Not Given Heparin Sodium (Porcine) (Heparin) 5,000 units SC Q12 [facility] Last Admin: 09/10/17 21:29 Dose: 5,000 units Piperacillin Sod/Tazobactam Sod (Zosyn 2.25 Gm Iv Premix) 2.25 gm in 50 mls @ 100 mls/hr IVPB Q8H [facility] PRN Reason: Protocol Last Admin: 09/10/17 13:15 Dose: 100 mls/hr Linezolid (Zyvox 600mg/300ml D5w) 600 mg in 300 mls @ 200 mls/hr IVPB Q12H [facility] PRN Reason: Protocol Last Admin: 09/10/17 16:39 Dose: 200 mls/hr Metronidazole (Flagyl) 500 mg in 100 mls @ 100 mls/hr IVPB Q8 [facility] PRN Reason: Protocol Last Admin: 09/10/17 15:15 Dose: 100 mls/hr Norepinephrine Bitartrate 4 mg (/ Sodium Chloride) 254 mls @ 7.62 mls/hr IV .Q24H PRN; Protocol; 2 MCG/MIN PRN Reason: TITRATE PER MD ORDER Last Titration: 09/10/17 03:00 Dose: 0 mcg/min, 0 mls/hr Micafungin Sodium 100 mg/ (Sodium Chloride) 100 mls @ 100 mls/hr IV Q24H [facility] PRN Reason: Protocol Last Admin: 09/10/17 02:24 Dose: 100 mls/hr Insulin Aspart (Novolog) 0 unit SC ACHS [facility] PRN Reason: Protocol Last Admin: 09/10/17 16:38 Dose: 4 unit Insulin Glargine (Lantus) 30 unit SC QAM [facility] Last Admin: 09/10/17 10:03 Dose: 30 unit Levetiracetam (Keppra) 250 mg PO Q12 [facility] Last Admin: 09/10/17 21:28 Dose: 250 mg Midodrine (Proamatine) 5 mg PO TID [facility] Last Admin: 09/10/17 17:43 Dose: 5 mg Nitroglycerin (Nitrostat Sl Tab) 0.4 mg SL Q5M PRN PRN Reason: Pain, severe (8-10) Last Admin: 09/09/17 12:31 Dose: 0.4 mg Pantoprazole Sodium (Protonix Inj) 40 mg IVP Q12H [facility] Last Admin: 09/10/17 21:29 Dose: 40 mg Sevelamer Carbonate (Renvela) 1,600 mg PO TIDCC [facility] Last Admin: 09/10/17 16:38 Dose: 1,600 mg Sodium Bicarbonate (Sodium Bicarbonate Tab) 1,300 mg PO TID [facility] Last Admin: 09/10/17 17:43 Dose: 1,300 mg Tamsulosin HCl (Flomax) 0.4 mg PO DAILY [facility] Last Admin: 09/10/17 10:00 Dose: 0.4 mg Vitamin B Complex/Vit C/Folic Acid (Nephro-Eber) 1 tab PO 0800 [facility] Last Admin: 09/10/17 08:20 Dose: 1 tab - Labs Labs: 09/10/17 05:21 09/10/17 05:21 PT 13.0 SECONDS (9.7-12.2) H 09/05/17 11:25 INR 1.2 09/05/17 11:25 APTT 31 SECONDS (21-34) 09/05/17 11:25 - Constitutional Appears: No Acute Distress - Head Exam Head Exam: ATRAUMATIC, NORMAL INSPECTION, NORMOCEPHALIC - Eye Exam Eye Exam: EOMI, Normal appearance, PERRL Pupil Exam: NORMAL ACCOMODATION, PERRL - Respiratory Exam Respiratory Exam: Prolonged Expiratory Phase - Cardiovascular Exam Cardiovascular Exam: Tachycardia, REGULAR RHYTHM, +S1, +S2. absent: Murmur - GI/Abdominal Exam GI & Abdominal Exam: Soft, Normal Bowel Sounds. absent: Tenderness Assessment and Plan (1) Hypotension Status: Acute (2) Near syncope Status: Acute (3) Rapid atrial fibrillation Status: Acute (4) Sepsis Status: Acute (5) Altered mental status Status: Acute (6) CKD (chronic kidney disease) Status: Acute (7) UTI (urinary tract infection) Status: Acute (8) Acute on chronic renal failure Status: Acute
[2017-09-10 22:01] LABS: TOTAL PSA 1.4 ng/mL (< or = 4.0)
--- NOTE | 2017-09-10 22:31 | CP.PCM.PN ---
Subjective - Date & Time of Evaluation Date of Evaluation: 09/10/17 Time of Evaluation: 22:30 - Subjective Subjective: CHIEF COMPLAINTS TODAY : afebrile ,awake, on vasopressor NE ON TITRATING DOSES C/O PAIN AND SWELLING OF HIS LEGS RT FOOT BLISTERS NOTED PER RN. S/P NEW RT IJ HD CATHETER PLACEMENT TODAY 09/07/17 ROS. HEENT : N. RT.IJ CATHETER IN PLACE Resp : No SOB wheezing, cough Cardio : No CP, PND orthopnea +VE TACHCARDIA GI : No abd. Pain, n/v [employer] INTERN : No headache , focal deficit. Musculoskel : N Ext. : Pedal pulses intact, no edema or calf pain Derm : N Psych : N. PE. Pt. awake in no distress.ON HD. V.S As noted in the chart Head ,ear nose,throat and eyes : Normal. Neck : Supple with normal carotids. RT IJ CATHETER IN PLACE. Lungs: BIBASILAR RALES LEFT > RT Heart : S1 & S2 IRREGULAR, TACHYCARDIC, HEART RATE 115 BPM Abd : Soft non tender with normal bowel sounds. Neuro : Moves all ext. with no localized deficit. Ext : BILATERAL EDEMA THIGHS/LEGS S. Neg. calf tenderness Derm : RT FOOT BLISTERS NOTED GENITALIA--SCROTAL EDEMA \ Radiology/Labs . wbc 15.9 H/H 9.0 CREAT 5.0/BUN 64----> 4.2/61BUN CXR 09/10/17 LT, INFRAHILAR AIRSPACE OPACITY. BLOOD CULTURES-VE FOR 48 HOURS MRSA NOT DETECTED. URINE CULTURES NEGATIVE GROWTH. Objective - Vital Signs/Intake and Output Vital Signs (last 24 hours): Temp Pulse Resp BP Pulse Ox 98.5 F 120 H 23 91/51 L 93 L 09/10/17 20:14 09/10/17 19:54 09/10/17 19:54 09/10/17 22:10 09/10/17 19:54 Intake and Output: 09/10/17 09/11/17 18:59 06:59 Intake Total 650 100 Output Total 2100 0 Balance -1450 100 - Medications Medications: Current Medications Al Hydrox/Mg Hydrox/Simethicone (Maalox Plus 30 Ml) 30 ml PO Q6H PRN PRN Reason: Indigestion / Heartburn Calcitriol (Rocaltrol) 0.25 mcg PO DAILY [facility] Last Admin: 09/10/17 10:00 Dose: 0.25 mcg Epoetin Kameron (Procrit) 8,000 unit IV TTS [facility] Last Admin: 09/08/17 16:01 Dose: Not Given Heparin Sodium (Porcine) (Heparin) 5,000 units SC Q12 [facility] Last Admin: 09/10/17 21:29 Dose: 5,000 units Piperacillin Sod/Tazobactam Sod (Zosyn 2.25 Gm Iv Premix) 2.25 gm in 50 mls @ 100 mls/hr IVPB Q8H [facility] PRN Reason: Protocol Last Admin: 09/10/17 13:15 Dose: 100 mls/hr Linezolid (Zyvox 600mg/300ml D5w) 600 mg in 300 mls @ 200 mls/hr IVPB Q12H [facility] PRN Reason: Protocol Last Admin: 09/10/17 16:39 Dose: 200 mls/hr Metronidazole (Flagyl) 500 mg in 100 mls @ 100 mls/hr IVPB Q8 [facility] PRN Reason: Protocol Last Admin: 09/10/17 15:15 Dose: 100 mls/hr Norepinephrine Bitartrate 4 mg (/ Sodium Chloride) 254 mls @ 7.62 mls/hr IV .Q24H PRN; Protocol; 2 MCG/MIN PRN Reason: TITRATE PER MD ORDER Last Titration: 09/10/17 03:00 Dose: 0 mcg/min, 0 mls/hr Micafungin Sodium 100 mg/ (Sodium Chloride) 100 mls @ 100 mls/hr IV Q24H [facility] PRN Reason: Protocol Last Admin: 09/10/17 02:24 Dose: 100 mls/hr Insulin Aspart (Novolog) 0 unit SC ACHS [facility] PRN Reason: Protocol Last Admin: 09/10/17 16:38 Dose: 4 unit Insulin Glargine (Lantus) 30 unit SC QAM [facility] Last Admin: 09/10/17 10:03 Dose: 30 unit Levetiracetam (Keppra) 250 mg PO Q12 [facility] Last Admin: 09/10/17 21:28 Dose: 250 mg Midodrine (Proamatine) 5 mg PO TID [facility] Last Admin: 09/10/17 17:43 Dose: 5 mg Nitroglycerin (Nitrostat Sl Tab) 0.4 mg SL Q5M PRN PRN Reason: Pain, severe (8-10) Last Admin: 09/09/17 12:31 Dose: 0.4 mg Pantoprazole Sodium (Protonix Inj) 40 mg IVP Q12H [facility] Last Admin: 09/10/17 21:29 Dose: 40 mg Sevelamer Carbonate (Renvela) 1,600 mg PO TIDCC [facility] Last Admin: 09/10/17 16:38 Dose: 1,600 mg Sodium Bicarbonate (Sodium Bicarbonate Tab) 1,300 mg PO TID [facility] Last Admin: 09/10/17 17:43 Dose: 1,300 mg Tamsulosin HCl (Flomax) 0.4 mg PO DAILY [facility] Last Admin: 09/10/17 10:00 Dose: 0.4 mg Vitamin B Complex/Vit C/Folic Acid (Nephro-Ebre) 1 tab PO 0800 [facility] Last Admin: 09/10/17 08:20 Dose: 1 tab - Labs Labs: 09/10/17 05:21 09/10/17 05:21 PT 13.0 SECONDS (9.7-12.2) H 09/05/17 11:25 INR 1.2 09/05/17 11:25 APTT 31 SECONDS (21-34) 09/05/17 11:25 Assessment and Plan (1) Sepsis Assessment & Plan: SOURCE OF SEPSIS NOT CLEAR ? FOCAL LLL PNEUMONIA VS NODULAR DENSITY R/O UROSEPSIS- CANDIDUREA. F/U URINE CULTURE 09/07/17 Status: Acute (2) Leukocytosis Status: Acute (3) Hypotension Status: Acute (4) Diarrhea Status: Acute (5) S/P craniotomy Status: Acute (6) Anemia Status: Acute (7) Acute on chronic renal failure Status: Acute (8) Rapid atrial fibrillation Status: Acute - Assessment and Plan (Free Text) Plan: Continue IV Zosyn 2.25 every 8 hourly.09/05/17. And IV Zyvox 600 mg IV piggyback every 12 hourly for gram-positive coverage. And IV Flagyl 500 mg every 8 hourly for now. 09/06/17. F/U BLOOD CULTURES 2 sets for fungus. F/U URINE CULTURE 09/07 CONTINUE IV MYCAMINE 100 MG iv PIGGYBACK OD DAILY 09/09/17. 2D ECHO R/O SBE ESR,C2,C4,CH50 WOUND CULTURE RT. FOOT 09/10/17 -P CASE DISCUSSED WITH STAFF.
[2017-09-11] MEDS: Micafungin 100 MG in Sodium Chloride 0.9% 100 ML IV SCH (02:30)
[2017-09-11] MEDS: Piperacill/Tazo 2.25gm in Dex 2.25 GM/50 ML BAG IVPB SCH ×3 (03:21→20:22)
[2017-09-11] MEDS: Linezolid 600 mg in D5W 300 ml 600 MG/300 ML BAG IVPB SCH ×2 (04:04→17:20)
[2017-09-11] MEDS: metroNIDAZOLE IV 500 mg/100 ml 500 MG/100 ML BAG IVPB SCH ×3 (05:46→22:00)
[2017-09-11 06:38] LABS: BASO # 0.2 K/uL (0.0-0.2); BASO % 1.3 % (0.0-2.0); EOS # 0.1 K/uL (0.0-0.7); EOS % 0.4 % (0.0-4.0); LYMPH # 1.4 K/uL (1.0-4.3); LYMPH % 9.2 % (20.0-40.0); MEAN CELL VOLUME 86.3 fL (80.0-94.0); MEAN CORPUSCULAR HEMOGLOBIN 29.9 pg (27.0-31.0); MEAN CORPUSCULAR HGB CONC 34.6 g/dL (33.0-37.0); MEAN PLATELET VOLUME 7.4 fL (7.2-11.7); MONO # 0.6 K/uL (0.0-0.8); NEUT # 13.3 K/uL (1.8-7.0); NEUT % 85.1 % (50.0-75.0); NRBC % 0.1 % (0.0-2.0); PLATELET COUNT 164 K/uL (130-400); RBC 3.02 Mil/uL (4.40-5.90); RED CELL DISTRIBUTION WIDTH 17.2 % (11.5-14.5); WHITE BLOOD COUNT 15.6 K/uL (4.8-10.8)
[2017-09-11 06:58] LABS: ALB/GLOB RATIO 0.8 (1.0-2.1); ALBUMIN 2.7 g/dL (3.5-5.0); CALCIUM 7.6 mg/dl (8.6-10.4)
[2017-09-11] MEDS ORDERED: (Novolog) Insulin Aspart, Recombinant 100 u/ml 10 ml vial SC SCH (07:30)
[2017-09-11] MEDS: (Novolog) Insulin Aspart, Recombinant 100 u/ml 10 ml vial SC SCH ×4 (08:22→22:00)
[2017-09-11] MEDS: Multivitamin Vitamin B Complex (Nephro-Vite) Tab PO SCH (08:23)
[2017-09-11 08:32] LABS: ANISOCYTOSIS SLIGHT; BANDS 2 % (0-2); HYPOCHROMIC SLIGHT; LYMPHOCYTE 8 % (20-40); MONOCYTE 6 % (0-10); NEUTROPHIL 84 % (50-75); PLATELET ESTIMATE NORMAL (NORMAL); TOTAL CELLS COUNTED 100
[2017-09-11 08:33] LABS: POLYCHROMIC SLIGHT
[2017-09-11] MEDS: (Lantus) Insulin Glargine, Recombinant SC SCH (10:44)
--- NOTE | 2017-09-11 11:26 | CP.PCM.PN ---
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 flomax 0.4 mg/day. urine output better, likely recovering FUAD. will defer further dialysis. can give lasix IV as needed, as tolerated by BP Patient not on ACEI/ARB due to FUAD and low BP. maintain henodynamics stable Monitor Input/Output, daily weights and renal function with basic metabolic panel continue with epogen and renvela PRBC with HD 09/07/17 check iPTH level Dose meds/antibiotics for reduced GFR. Avoid fleets enema/magnesium based laxatives and antacids. Avoid nephrotoxins/NSAIDs/ iodinated contrast (unless needed emergently) Glycemic control Further work up/management as per primary team Thanks for allowing me to participate in care of your patient. Will follow patient with you. Please call if any Qs. d/w team Dr Jason Tate Office: [phone] reason for consult: FUAD HPI: Pt is a 82 M with hx of diabetes Mellitus (years), A fib, SDH s/p evacuation, DVT s/p IVC filter and CKD 3 with baseline cr in 2 range presented with complaints of hypotension and sepsis, rapid A fib. renal consult for FUAD, hyperkalemia and acidosis pt feels sick. c/o thigh pain and swelling. denies SOB Denies OTC/herbal meds or NSAIDs No recent iodinated contrast exposure. Noted obvious episodes of low BP. ROS: pt feels better. denies CP/SOB/nausea. more coherent but with overnight agitation Physical Examination: General Appearance: comfortable, in no acute respiratory distress, better appearing Vitals reviewed and noted as below Head; Atraumatic, normocephalic ENT: no ulcers no thrush. Tongue is midline. Oropharynx: no rash or ulcers. EYES: Pupils are equal, round and reactive to light accommodation. Eye muscles and extraocular movement intact. Sclera is anicteric. Neck; supple no lymphadenopathy, no thyromegaly or bruit Lungs: Normal respiratory rate/effort. Breath sounds bilateral decreased at bases Heart: Increased rate. s1s2 normal. No rub or gallop. A fib Extremities: 2-3+ edema. No varicose veins Neurological: Patient is awake alert and more oriented Skin: Warm and dry. Normal turgor. No rash. Palpitation: Normal elasticity for age Abdomen: Abdomen is soft. Bowel sounds +. There is no abdominal tenderness, no guarding/rigidity no organomegaly Psych: deferred MSK: no joint tenderness or swelling. Digits and nails normal, no deformity : kidney not palpable. scrotal edema ++ Labs/imaging reviewed. Past medical history, past surgical history, family history, social history, allergy reviewed and noted as below Family hx: no hx of CKD. Rest non-contributory work up: urine pr/cr 1 gram. vit D 43 Dig 1.4 renal sono unremarkable Objective - Vital Signs/Intake and Output Vital Signs (last 24 hours): Temp Pulse Resp BP Pulse Ox 98.0 F 103 H 30 H 104/58 L 98 09/11/17 08:00 09/11/17 10:05 09/11/17 10:05 09/11/17 10:05 09/11/17 10:05 Intake and Output: 09/11/17 09/11/17 06:59 18:59 Intake Total 850 100 Output Total 0 Balance 850 100 - Medications Medications: Current Medications Acetaminophen (Tylenol 325mg Tab) 650 mg PO Q6 PRN PRN Reason: pain. Last Admin: 09/11/17 08:29 Dose: 650 mg Al Hydrox/Mg Hydrox/Simethicone (Maalox Plus 30 Ml) 30 ml PO Q6H PRN PRN Reason: Indigestion / Heartburn Calcitriol (Rocaltrol) 0.25 mcg PO DAILY [facility] Last Admin: 09/11/17 10:47 Dose: 0.25 mcg Epoetin Kameron (Procrit) 8,000 unit IV TTS [facility] Last Admin: 09/08/17 16:01 Dose: Not Given Heparin Sodium (Porcine) (Heparin) 5,000 units SC Q12 [facility] Last Admin: 09/11/17 10:43 Dose: 5,000 units Piperacillin Sod/Tazobactam Sod (Zosyn 2.25 Gm Iv Premix) 2.25 gm in 50 mls @ 100 mls/hr IVPB Q8H [facility] PRN Reason: Protocol Last Admin: 09/11/17 03:21 Dose: 100 mls/hr Linezolid (Zyvox 600mg/300ml D5w) 600 mg in 300 mls @ 200 mls/hr IVPB Q12H [facility] PRN Reason: Protocol Last Admin: 09/11/17 04:04 Dose: 200 mls/hr Metronidazole (Flagyl) 500 mg in 100 mls @ 100 mls/hr IVPB Q8 [facility] PRN Reason: Protocol Last Admin: 09/11/17 05:46 Dose: 100 mls/hr Norepinephrine Bitartrate 4 mg (/ Sodium Chloride) 254 mls @ 7.62 mls/hr IV .Q24H PRN; Protocol; 2 MCG/MIN PRN Reason: TITRATE PER MD ORDER Last Titration: 09/10/17 03:00 Dose: 0 mcg/min, 0 mls/hr Micafungin Sodium 100 mg/ (Sodium Chloride) 100 mls @ 100 mls/hr IV Q24H [facility] PRN Reason: Protocol Last Admin: 09/11/17 02:30 Dose: 100 mls/hr Insulin Aspart (Novolog) 0 unit SC ACHS [facility] PRN Reason: Protocol Last Admin: 09/11/17 08:22 Dose: 4 unit Insulin Glargine (Lantus) 30 unit SC QAM [facility] Last Admin: 09/11/17 10:44 Dose: 30 unit Levetiracetam (Keppra) 250 mg PO Q12 [facility] Last Admin: 09/11/17 10:47 Dose: 250 mg Midodrine (Proamatine) 5 mg PO TID [facility] Last Admin: 09/11/17 10:47 Dose: 5 mg Nitroglycerin (Nitrostat Sl Tab) 0.4 mg SL Q5M PRN PRN Reason: Pain, severe (8-10) Last Admin: 09/09/17 12:31 Dose: 0.4 mg Pantoprazole Sodium (Protonix Inj) 40 mg IVP Q12H [facility] Last Admin: 09/11/17 10:35 Dose: 40 mg Sevelamer Carbonate (Renvela) 1,600 mg PO TIDCC [facility] Last Admin: 09/11/17 08:27 Dose: 1,600 mg Sodium Bicarbonate (Sodium Bicarbonate Tab) 1,300 mg PO TID [facility] Last Admin: 09/11/17 10:46 Dose: 1,300 mg Tamsulosin HCl (Flomax) 0.4 mg PO DAILY [facility] Last Admin: 09/11/17 10:46 Dose: 0.4 mg Vitamin B Complex/Vit C/Folic Acid (Nephro-Eber) 1 tab PO 0800 [facility] Last Admin: 09/11/17 08:23 Dose: 1 tab - Labs Labs: 09/11/17 06:35 09/11/17 06:35 PT 13.0 SECONDS (9.7-12.2) H 09/05/17 11:25 INR 1.2 09/05/17 11:25 APTT 31 SECONDS (21-34) 09/05/17 11:25
[2017-09-11] MEDS: EPOETIN ALFA 4,000 UNIT/ML ML Dialysis IV SCH (11:59)
--- NOTE | 2017-09-11 12:48 | CP.CCUPN ---
<Jose Rodgers - Last Filed: 09/11/17 15:13> CCU Subjective - Physician Review Subjective (Free Text): 09/10/17 09:49 Patient seen and examined. Patient reports feeling better. Denies chest pain, dyspnea, dizziness, lightheadedness. However, he is complaining of bilateral leg pain. 09/11/17 12:44 Patient seen and examined. He states that he is doing well and has no complaints at this time. Leg pain seems to be controlled with Tylenol. CCU Objective - Vital Signs / Intake & Output Vital Signs (Last 4 hours): Vital Signs Pulse Resp BP Pulse Ox 09/11/17 11:27 102 H 20 105/66 09/11/17 11:00 105 H 33 H 98 09/11/17 10:05 103 H 30 H 104/58 L 98 09/11/17 09:05 115 H 20 98/59 L 77 L Intake and Output (Last 8hrs): Intake & Output 09/10/17 09/11/17 09/11/17 22:59 06:59 14:59 Intake Total 450 700 300 Output Total 0 0 Balance 450 700 300 Weight 239 lb 3.225 oz Intake: Intake, IV Amount 100 700 Left Forearm 650 Left Wrist 100 50 Oral 350 0 300 Output: Urine 0 0 Condom 0 Other: # Voids Straight 0 0 0 # Bowel Movements 0 0 0 - Physical Exam Head: Positive for: Atraumatic, Normocephalic Pupils: Positive for: PERRL Extroacular Muscles: Positive for: EOMI Conjunctiva: Positive for: Normal Mouth: Positive for: Moist Mucous Membranes Neck: Positive for: Normal Range of Motion, Other (Right IJ dialysis catheter) Respiratory/Chest: Positive for: Decreased Breath Sounds Cardiovascular: Positive for: Normal S1, S2, Irregular Rhythm Abdomen: Positive for: Normal Bowel Sounds. Negative for: Tenderness Upper Extremity: Positive for: Normal Inspection Lower Extremity: Positive for: Normal Inspection, Edema (bilateral) Neurological: Positive for: GCS=15 Skin: Positive for: Warm, Dry, Normal Color Psychiatric: Positive for: Alert. Negative for: Oriented x 3 - Medications Active Medications: Active Medications Generic Name Dose Route Start Last Admin Trade Name Freq PRN Reason Stop Dose Admin Acetaminophen 650 mg 09/11/17 07:31 09/11/17 08:29 Tylenol 325mg Tab PO 650 mg Q6 PRN Administration pain. Al Hydrox/Mg Hydrox/Simethicone 30 ml 09/09/17 14:38 Maalox Plus 30 Ml PO Q6H PRN Indigestion / Heartburn Calcitriol 0.25 mcg 09/08/17 10:00 09/11/17 10:47 Rocaltrol PO 0.25 mcg DAILY LELA Administration Epoetin Kameron 8,000 unit 09/08/17 07:00 09/11/17 11:59 Procrit IV Not Given TTS [facility] Heparin Sodium (Porcine) 5,000 units 09/09/17 22:00 09/11/17 10:43 Heparin SC 5,000 units Q12 LELA Administration Piperacillin Sod/Tazobactam Sod 2.25 gm in 50 mls @ 100 mls/hr 09/05/17 20:00 09/11/17 11:42 Zosyn 2.25 Gm Iv Premix IVPB 100 mls/hr Q8H [facility] Administration Protocol Linezolid 600 mg in 300 mls @ 200 mls/hr 09/06/17 17:00 09/11/17 04:04 Zyvox 600mg/300ml D5w IVPB 200 mls/hr Q12H LELA Administration Protocol Metronidazole 500 mg in 100 mls @ 100 mls/hr 09/06/17 22:00 09/11/17 05:46 Flagyl IVPB 100 mls/hr Q8 [facility] Administration Protocol Norepinephrine Bitartrate 4 mg 254 mls @ 7.62 mls/hr 09/08/17 14:45 09/10/17 03:00 / Sodium Chloride IV 0 mcg/min .Q24H PRN 0 mls/hr TITRATE PER MD ORDER Titration Protocol 2 MCG/MIN Micafungin Sodium 100 mg/ 100 mls @ 100 mls/hr 09/09/17 02:30 09/11/17 02:30 Sodium Chloride IV 100 mls/hr Q24H LELA Administration Protocol Insulin Aspart 0 unit 09/09/17 19:08 09/11/17 12:28 Novolog SC 4 unit ACHS LELA Administration Protocol Insulin Glargine 30 unit 09/09/17 19:05 09/11/17 10:44 Lantus SC 30 unit QAM LELA Administration Levetiracetam 250 mg 09/08/17 22:00 09/11/17 10:47 Keppra PO 250 mg Q12 LELA Administration Midodrine 5 mg 09/08/17 10:00 09/11/17 10:47 Proamatine PO 5 mg TID LELA Administration Nitroglycerin 0.4 mg 09/09/17 12:22 09/09/17 12:31 Nitrostat Sl Tab SL 0.4 mg Q5M PRN Administration Pain, severe (8-10) Pantoprazole Sodium 40 mg 09/08/17 10:00 09/11/17 10:35 Protonix Inj IVP 40 mg Q12H LELA Administration Sevelamer Carbonate 1,600 mg 09/07/17 12:00 09/11/17 08:27 Renvela PO 1,600 mg TIDCC LELA Administration Sodium Bicarbonate 1,300 mg 09/06/17 10:00 09/11/17 10:46 Sodium Bicarbonate Tab PO 1,300 mg TID LELA Administration Tamsulosin HCl 0.4 mg 09/06/17 10:00 09/11/17 10:46 Flomax PO 0.4 mg DAILY LELA Administration Vitamin B Complex/Vit C/Folic Acid 1 tab 09/07/17 08:00 09/11/17 08:23 Nephro-Eber PO 1 tab 0800 LELA Administration - Patient Studies Lab Studies: Microbiology Studies 09/10/17 16:14 Gram Stain - Final Foot - Right 09/09/17 02:20 Blood Culture - Preliminary Blood-Thru Central Line NO GROWTH AFTER 48 HOURS 09/09/17 03:00 Blood Culture - Preliminary Blood-Thru Central Line NO GROWTH AFTER 48 HOURS 09/05/17 19:00 Blood Culture - Final Blood NO GROWTH AFTER 5 DAYS Gram Stain - Final TEST NOT PERFORMED 09/05/17 19:00 Blood Culture - Final Blood NO GROWTH AFTER 5 DAYS Gram Stain - Final TEST NOT PERFORMED Lab Studies 09/11/17 09/11/17 09/11/17 Range/Units 12:06 10:58 07:19 WBC (4.8-10.8) K/uL RBC (4.40-5.90) Mil/uL Hgb (12.0-18.0) g/dL Hct (35.0-51.0) % MCV (80.0-94.0) fL MCH (27.0-31.0) pg MCHC (33.0-37.0) g/dL RDW (11.5-14.5) % Plt Count (130-400) K/uL MPV (7.2-11.7) fL Neut % (Auto) (50.0-75.0) % Lymph % (Auto) (20.0-40.0) % [place] % (Auto) (0.0-10.0) % Eos % (Auto) (0.0-4.0) % Baso % (Auto) (0.0-2.0) % Neut # (Auto) (1.8-7.0) K/uL Lymph # (Auto) (1.0-4.3) K/uL [place] # (Auto) (0.0-0.8) K/uL Eos # (Auto) (0.0-0.7) K/uL Baso # (Auto) (0.0-0.2) K/uL Neutrophils % (Manual) (50-75) % Band Neutrophils % (0-2) % Lymphocytes % (Manual) (20-40) % Monocytes % (Manual) (0-10) % Platelet Estimate (NORMAL) Polychromasia Hypochromasia (manual) Anisocytosis (manual) ESR (0-15) mm/hr Sodium (132-148) mmol/L Potassium (3.6-5.2) mmol/L Chloride (98-107) mmol/L Carbon Dioxide (22-30) mmol/L Anion Gap (10-20) BUN (9-20) mg/dL Creatinine (0.8-1.5) mg/dL Est GFR ( Amer) Est GFR (Non-Af Amer) POC Glucose (mg/dL) 277 H 271 H (65-110) mg/dL Random Glucose (75-110) mg/dL Calcium (8.6-10.4) mg/dl Phosphorus (2.5-4.5) mg/dL Magnesium (1.6-2.3) mg/dL Total Bilirubin (0.2-1.3) mg/dL AST (17-59) U/L ALT (21-72) U/L Alkaline Phosphatase (38-126) U/L Total Protein (6.3-8.3) g/dL Albumin (3.5-5.0) g/dL Albumin (PEP) (3.8-4.8) g/dL Globulin (2.2-3.9) gm/dL Albumin/Globulin Ratio (1.0-2.1) Jsldk-0-Uskpafymg (0.2-0.3) g/dL Iwopy-9-Dpyrrckdh (0.5-0.9) g/dL Qere-0-Wenyqbcm (0.4-0.6) g/dL Kotm-6-Plsxsvmm (0.2-0.5) g/dL Gamma Globulins (0.8-1.7) g/dL Abnorm Protein Band 1 Abnorm Protein Band 2 Abnorm Protein Band 3 Free PSA ng/mL % Free PSA (>25) % (calc) Total PSA (< or = 4.0) ng/mL Procalcitonin 0.88 H (0.19-0.49) NG/ML FRANCISCO & SPEP Interp Complement C4 (14.0-44.0) mg/dL 09/11/17 09/11/17 09/11/17 Range/Units 06:35 06:35 06:35 WBC 15.6 H (4.8-10.8) K/uL RBC 3.02 L (4.40-5.90) Mil/uL Hgb 9.0 L (12.0-18.0) g/dL Hct 26.0 L (35.0-51.0) % MCV 86.3 (80.0-94.0) fL MCH 29.9 (27.0-31.0) pg MCHC 34.6 (33.0-37.0) g/dL RDW 17.2 H (11.5-14.5) % Plt Count 164 D (130-400) K/uL MPV 7.4 (7.2-11.7) fL Neut % (Auto) 85.1 H (50.0-75.0) % Lymph % (Auto) 9.2 L (20.0-40.0) % [place] % (Auto) 4.0 (0.0-10.0) % Eos % (Auto) 0.4 (0.0-4.0) % Baso % (Auto) 1.3 (0.0-2.0) % Neut # (Auto) 13.3 H (1.8-7.0) K/uL Lymph # (Auto) 1.4 (1.0-4.3) K/uL [place] # (Auto) 0.6 (0.0-0.8) K/uL Eos # (Auto) 0.1 (0.0-0.7) K/uL Baso # (Auto) 0.2 (0.0-0.2) K/uL Neutrophils % (Manual) 84 H (50-75) % Band Neutrophils % 2 (0-2) % Lymphocytes % (Manual) 8 L (20-40) % Monocytes % (Manual) 6 (0-10) % Platelet Estimate Normal (NORMAL) Polychromasia Slight Hypochromasia (manual) Slight Anisocytosis (manual) Slight ESR 50 H (0-15) mm/hr Sodium 132 (132-148) mmol/L Potassium 3.9 (3.6-5.2) mmol/L Chloride 96 L (98-107) mmol/L Carbon Dioxide 22 (22-30) mmol/L Anion Gap 18 (10-20) BUN 50 H (9-20) mg/dL Creatinine 3.4 H (0.8-1.5) mg/dL Est GFR ( Amer) 21 Est GFR (Non-Af Amer) 17 POC Glucose (mg/dL) (65-110) mg/dL Random Glucose 245 H (75-110) mg/dL Calcium 7.6 L (8.6-10.4) mg/dl Phosphorus 4.9 H (2.5-4.5) mg/dL Magnesium 1.7 (1.6-2.3) mg/dL Total Bilirubin 1.1 (0.2-1.3) mg/dL AST 27 (17-59) U/L ALT 29 (21-72) U/L Alkaline Phosphatase 74 (38-126) U/L Total Protein 5.9 L (6.3-8.3) g/dL Albumin 2.7 L (3.5-5.0) g/dL Albumin (PEP) (3.8-4.8) g/dL Globulin 3.2 (2.2-3.9) gm/dL Albumin/Globulin Ratio 0.8 L (1.0-2.1) Uzlof-4-Kxqepjcof (0.2-0.3) g/dL Mkslq-3-Grvogsqyu (0.5-0.9) g/dL Dabq-6-Kkznsrzt (0.4-0.6) g/dL Lfeq-6-Xnlfuqzh (0.2-0.5) g/dL Gamma Globulins (0.8-1.7) g/dL Abnorm Protein Band 1 Abnorm Protein Band 2 Abnorm Protein Band 3 Free PSA ng/mL % Free PSA (>25) % (calc) Total PSA (< or = 4.0) ng/mL Procalcitonin (0.19-0.49) NG/ML FRANCISCO & SPEP Interp Complement C4 25.6 (14.0-44.0) mg/dL 09/10/17 09/10/17 09/08/17 Range/Units 21:19 15:47 15:00 WBC (4.8-10.8) K/uL RBC (4.40-5.90) Mil/uL Hgb (12.0-18.0) g/dL Hct (35.0-51.0) % MCV (80.0-94.0) fL MCH (27.0-31.0) pg MCHC (33.0-37.0) g/dL RDW (11.5-14.5) % Plt Count (130-400) K/uL MPV (7.2-11.7) fL Neut % (Auto) (50.0-75.0) % Lymph % (Auto) (20.0-40.0) % [place] % (Auto) (0.0-10.0) % Eos % (Auto) (0.0-4.0) % Baso % (Auto) (0.0-2.0) % Neut # (Auto) (1.8-7.0) K/uL Lymph # (Auto) (1.0-4.3) K/uL [place] # (Auto) (0.0-0.8) K/uL Eos # (Auto) (0.0-0.7) K/uL Baso # (Auto) (0.0-0.2) K/uL Neutrophils % (Manual) (50-75) % Band Neutrophils % (0-2) % Lymphocytes % (Manual) (20-40) % Monocytes % (Manual) (0-10) % Platelet Estimate (NORMAL) Polychromasia Hypochromasia (manual) Anisocytosis (manual) ESR (0-15) mm/hr Sodium (132-148) mmol/L Potassium (3.6-5.2) mmol/L Chloride (98-107) mmol/L Carbon Dioxide (22-30) mmol/L Anion Gap (10-20) BUN (9-20) mg/dL Creatinine (0.8-1.5) mg/dL Est GFR ( Amer) Est GFR (Non-Af Amer) POC Glucose (mg/dL) 217 H 269 H (65-110) mg/dL Random Glucose (75-110) mg/dL Calcium (8.6-10.4) mg/dl Phosphorus (2.5-4.5) mg/dL Magnesium (1.6-2.3) mg/dL Total Bilirubin (0.2-1.3) mg/dL AST (17-59) U/L ALT (21-72) U/L Alkaline Phosphatase (38-126) U/L Total Protein (6.3-8.3) g/dL Albumin (3.5-5.0) g/dL Albumin (PEP) (3.8-4.8) g/dL Globulin (2.2-3.9) gm/dL Albumin/Globulin Ratio (1.0-2.1) Mhqwe-8-Iofssymxx (0.2-0.3) g/dL Eadpl-9-Uczhnzocd (0.5-0.9) g/dL Ssjn-4-Puwkfmmd (0.4-0.6) g/dL Aeqd-3-Pwtaouaq (0.2-0.5) g/dL Gamma Globulins (0.8-1.7) g/dL Abnorm Protein Band 1 Abnorm Protein Band 2 Abnorm Protein Band 3 Free PSA 0.2 ng/mL % Free PSA 14 L (>25) % (calc) Total PSA 1.4 (< or = 4.0) ng/mL Procalcitonin (0.19-0.49) NG/ML FRANCISCO & SPEP Interp Complement C4 (14.0-44.0) mg/dL /10/19 Range/Units 12:02 WBC (4.8-10.8) K/uL RBC (4.40-5.90) Mil/uL Hgb (12.0-18.0) g/dL Hct (35.0-51.0) % MCV (80.0-94.0) fL MCH (27.0-31.0) pg MCHC (33.0-37.0) g/dL RDW (11.5-14.5) % Plt Count (130-400) K/uL MPV (7.2-11.7) fL Neut % (Auto) (50.0-75.0) % Lymph % (Auto) (20.0-40.0) % [place] % (Auto) (0.0-10.0) % Eos % (Auto) (0.0-4.0) % Baso % (Auto) (0.0-2.0) % Neut # (Auto) (1.8-7.0) K/uL Lymph # (Auto) (1.0-4.3) K/uL [place] # (Auto) (0.0-0.8) K/uL Eos # (Auto) (0.0-0.7) K/uL Baso # (Auto) (0.0-0.2) K/uL Neutrophils % (Manual) (50-75) % Band Neutrophils % (0-2) % Lymphocytes % (Manual) (20-40) % Monocytes % (Manual) (0-10) % Platelet Estimate (NORMAL) Polychromasia Hypochromasia (manual) Anisocytosis (manual) ESR (0-15) mm/hr Sodium (132-148) mmol/L Potassium (3.6-5.2) mmol/L Chloride (98-107) mmol/L Carbon Dioxide (22-30) mmol/L Anion Gap (10-20) BUN (9-20) mg/dL Creatinine (0.8-1.5) mg/dL Est GFR ( Amer) Est GFR (Non-Af Amer) POC Glucose (mg/dL) (65-110) mg/dL Random Glucose (75-110) mg/dL Calcium (8.6-10.4) mg/dl Phosphorus (2.5-4.5) mg/dL Magnesium (1.6-2.3) mg/dL Total Bilirubin (0.2-1.3) mg/dL AST (17-59) U/L ALT (21-72) U/L Alkaline Phosphatase (38-126) U/L Total Protein (6.3-8.3) g/dL Albumin (3.5-5.0) g/dL Albumin (PEP) 2.6 L (3.8-4.8) g/dL Globulin (2.2-3.9) gm/dL Albumin/Globulin Ratio (1.0-2.1) Qqmen-6-Zgysjcuar 0.6 H (0.2-0.3) g/dL Kcpvf-0-Pcwokzeum 0.9 (0.5-0.9) g/dL Yuuo-0-Xyytggnd 0.3 L (0.4-0.6) g/dL Hosm-1-Twxcsqov 0.5 (0.2-0.5) g/dL Gamma Globulins 1.2 (0.8-1.7) g/dL Abnorm Protein Band 1 TEST NOT PERFORMED Abnorm Protein Band 2 TEST NOT PERFORMED Abnorm Protein Band 3 TEST NOT PERFORMED Free PSA ng/mL % Free PSA (>25) % (calc) Total PSA (< or = 4.0) ng/mL Procalcitonin (0.19-0.49) NG/ML FRANCISCO & SPEP Interp See note Complement C4 (14.0-44.0) mg/dL Laboratory Results - last 24 hr 09/06/17 09/08/17 09/10/17 12:02 15:00 15:47 WBC RBC Hgb Hct MCV MCH MCHC RDW Plt Count MPV Neut % (Auto) Lymph % (Auto) [place] % (Auto) Eos % (Auto) Baso % (Auto) Neut # (Auto) Lymph # (Auto) [place] # (Auto) Eos # (Auto) Baso # (Auto) Neutrophils % (Manual) Band Neutrophils % Lymphocytes % (Manual) Monocytes % (Manual) Platelet Estimate Polychromasia Hypochromasia (manual) Anisocytosis (manual) ESR Sodium Potassium Chloride Carbon Dioxide Anion Gap BUN Creatinine Est GFR ( Amer) Est GFR (Non-Af Amer) POC Glucose (mg/dL) 269 H Random Glucose Calcium Phosphorus Magnesium Total Bilirubin AST ALT Alkaline Phosphatase Total Protein Albumin Albumin (PEP) 2.6 L Globulin Albumin/Globulin Ratio Htkck-7-Zzwmapgub 0.6 H Kjjsj-1-Qkgujbhor 0.9 Qbkl-6-Nzhwpmxg 0.3 L Dzyo-4-Lmqrgqtp 0.5 Gamma Globulins 1.2 Abnorm Protein Band 1 TEST NOT PERFORMED Abnorm Protein Band 2 TEST NOT PERFORMED Abnorm Protein Band 3 TEST NOT PERFORMED Free PSA 0.2 % Free PSA 14 L Total PSA 1.4 Procalcitonin FRANCISCO & SPEP Interp See note Complement C4 09/10/17 09/11/17 09/11/17 21:19 06:35 06:35 WBC 15.6 H RBC 3.02 L Hgb 9.0 L Hct 26.0 L MCV 86.3 MCH 29.9 MCHC 34.6 RDW 17.2 H Plt Count 164 D MPV 7.4 Neut % (Auto) 85.1 H Lymph % (Auto) 9.2 L [place] % (Auto) 4.0 Eos % (Auto) 0.4 Baso % (Auto) 1.3 Neut # (Auto) 13.3 H Lymph # (Auto) 1.4 [place] # (Auto) 0.6 Eos # (Auto) 0.1 Baso # (Auto) 0.2 Neutrophils % (Manual) 84 H Band Neutrophils % 2 Lymphocytes % (Manual) 8 L Monocytes % (Manual) 6 Platelet Estimate Normal Polychromasia Slight Hypochromasia (manual) Slight Anisocytosis (manual) Slight ESR 50 H Sodium 132 Potassium 3.9 Chloride 96 L Carbon Dioxide 22 Anion Gap 18 BUN 50 H Creatinine 3.4 H Est GFR ( Amer) 21 Est GFR (Non-Af Amer) 17 POC Glucose (mg/dL) 217 H Random Glucose 245 H Calcium 7.6 L Phosphorus 4.9 H Magnesium 1.7 Total Bilirubin 1.1 AST 27 ALT 29 Alkaline Phosphatase 74 Total Protein 5.9 L Albumin 2.7 L Albumin (PEP) Globulin 3.2 Albumin/Globulin Ratio 0.8 L Hgfsq-4-Siwspuosr Uaplu-0-Wivsavukd Vyss-4-Ejrcwqkl Slip-3-Qmgrcmqw Gamma Globulins Abnorm Protein Band 1 Abnorm Protein Band 2 Abnorm Protein Band 3 Free PSA % Free PSA Total PSA Procalcitonin FRANCISCO & SPEP Interp Complement C4 09/11/17 09/11/17 09/11/17 06:35 07:19 10:58 WBC RBC Hgb Hct MCV MCH MCHC RDW Plt Count MPV Neut % (Auto) Lymph % (Auto) [place] % (Auto) Eos % (Auto) Baso % (Auto) Neut # (Auto) Lymph # (Auto) [place] # (Auto) Eos # (Auto) Baso # (Auto) Neutrophils % (Manual) Band Neutrophils % Lymphocytes % (Manual) Monocytes % (Manual) Platelet Estimate Polychromasia Hypochromasia (manual) Anisocytosis (manual) ESR Sodium Potassium Chloride Carbon Dioxide Anion Gap BUN Creatinine Est GFR ( Amer) Est GFR (Non-Af Amer) POC Glucose (mg/dL) 271 H Random Glucose Calcium Phosphorus Magnesium Total Bilirubin AST ALT Alkaline Phosphatase Total Protein Albumin Albumin (PEP) Globulin Albumin/Globulin Ratio Ugzdg-6-Vlmooulcs Gopnw-3-Vrzeihqef Pfpd-0-Wccrqbex Hwij-0-Tmfdndpd Gamma Globulins Abnorm Protein Band 1 Abnorm Protein Band 2 Abnorm Protein Band 3 Free PSA % Free PSA Total PSA Procalcitonin 0.88 H FRANCISCO & SPEP Interp Complement C4 25.6 09/11/17 12:06 WBC RBC Hgb Hct MCV MCH MCHC RDW Plt Count MPV Neut % (Auto) Lymph % (Auto) [place] % (Auto) Eos % (Auto) Baso % (Auto) Neut # (Auto) Lymph # (Auto) [place] # (Auto) Eos # (Auto) Baso # (Auto) Neutrophils % (Manual) Band Neutrophils % Lymphocytes % (Manual) Monocytes % (Manual) Platelet Estimate Polychromasia Hypochromasia (manual) Anisocytosis (manual) ESR Sodium Potassium Chloride Carbon Dioxide Anion Gap BUN Creatinine Est GFR ( Amer) Est GFR (Non-Af Amer) POC Glucose (mg/dL) 277 H Random Glucose Calcium Phosphorus Magnesium Total Bilirubin AST ALT Alkaline Phosphatase Total Protein Albumin Albumin (PEP) Globulin Albumin/Globulin Ratio Rrigq-8-Ahzcesren Ihnvk-8-Fkvuyormu Nzen-3-Iodxwfux Lmzs-0-Reyviavj Gamma Globulins Abnorm Protein Band 1 Abnorm Protein Band 2 Abnorm Protein Band 3 Free PSA % Free PSA Total PSA Procalcitonin FRANCISCO & SPEP Interp Complement C4 Fingerstick Blood Sugar Results: 277 Critical Care Progress Note - Nutrition Nutrition: Nutrition Category Date Time Status Dysphagia/Modified Consistency Diet [DIET] Diets 09/10/17 Lunch Active Assessment/Plan - Assessment and Plan (Free Text) Assessment: This is an 82 year old male with PMHx atrial fibrillation, B/L DVT s/p IVC filter, recent subdural hematoma in August 2017 s/p craniotomy with evacuation [facility] with hypotension. Code sepsis called in the ER. Patient admitted to the ICU for further management Neurology: AAOx2 (not to time) S/P right frontal craniotomy with evacuation -Last CT head 08/22 showed diminishing right convexity subdural hematoma with limited mass effect. Leftward midline shift is further reduced now only 1-2mm with no definite intracrancial hemorrhage appearing acute at this time. Chronic lacune again noted at the right optic radiations. -Repeat CT head 09/05: Small residual extra-axial collection that probably represents a combination of residual hyperdense chronic subdural blood admixed with membrane formation and some subacute blood. The collection exerts minimal on mass effect on subadjacent sulci however no significant midline shift -Continue Keppra 250mg PO Q12H for seizure prophylaxis Cardiology: History of atrial fibrillation, on digoxin at home Holding home Metoprolol due to hypotension. Previously on norepinephrine drip. Midodrine 5 mg PO TID Currently rate controlled on the tele monitor Last echo: 70% EF. LV normal size, mild concentric L ventricular hypertrophy, moderate tricuspid regurgitation Pulmonology: Saturating well on room air Endocrine: -History of Diabetes Mellitus -Hgba1c 9.9 Medium dose ISS Lantus 30 units qAM accuchecks ACHS GI: Carbohydrate consistent diet Continue Protonix 40mg IV Q12H Infectious Disease: Patient was recently treated for UTI E coli Code sepsis called in ER All cultures negative so far Patient is on Zosyn 2.75mg IV Q8H, Flagyl 500mg Q8H, Zyvox 600mg Q12H, Micafungin 100 mg Q24H C diff and stool cultures negative ID on consult, Dr. Sweeney, help appreciated f/u wound culture of the patient's blisters Nephrology: Acute on chronic CKD BUN/Cr worsening, baseline Cr 2.0 Continue sodium bicarb 1300mg PO TID, Renvela 1600 mg PO TIDCC Renal US 08/3017: unremarkable Strict I/Os, daily weights Nephro on consult, help appreciated Holding off on dialysis for now Urology Retaining urine Kaplan will be placed Heme/Onc: Patient with history of provoked bilateral DVTs Was seen by Dr Tierney in the past S/P IVC filter placement 08/27/17, SCDs contraindicated Hgb 7.5, baseline 10-11 No acute signs of bleeding at this time, will monitor serial CBCs Hold Iron supplementation 2/2 sepsis Musculoskeletal: Lumbar MRI 08/2017: 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 Ritchie <Michael Ritchie - Last Filed: 09/11/17 16:56> CCU Objective - Vital Signs / Intake & Output Vital Signs (Last 4 hours): Vital Signs Pulse Resp BP Pulse Ox 09/11/17 15:05 92 H 29 H 93/63 L 96 09/11/17 14:05 97 H 29 H 107/68 97 09/11/17 13:05 104 H 23 103/60 94 L Intake and Output (Last 8hrs): Intake & Output 09/11/17 09/11/17 09/11/17 06:59 14:59 22:59 Intake Total 700 550 0 Output Total 0 Balance 700 550 0 Weight 239 lb 3.225 oz Intake: Intake, IV Amount 700 150 Left Forearm 650 150 Left Wrist 50 Oral 0 400 0 Output: Urine 0 Other: # Voids Straight 0 0 # Bowel Movements 0 0 - Medications Active Medications: Active Medications Generic Name Dose Route Start Last Admin Trade Name Freq PRN Reason Stop Dose Admin Acetaminophen 650 mg 09/11/17 07:31 09/11/17 08:29 Tylenol 325mg Tab PO 650 mg Q6 PRN Administration pain. Al Hydrox/Mg Hydrox/Simethicone 30 ml 09/09/17 14:38 Maalox Plus 30 Ml PO Q6H PRN Indigestion / Heartburn Calcitriol 0.25 mcg 09/08/17 10:00 09/11/17 10:47 Rocaltrol PO 0.25 mcg DAILY LELA Administration Epoetin Kameron 8,000 unit 09/08/17 07:00 09/11/17 11:59 Procrit IV Not Given TTS LELA Heparin Sodium (Porcine) 5,000 units 09/09/17 22:00 09/11/17 10:43 Heparin SC 5,000 units Q12 LELA Administration Piperacillin Sod/Tazobactam Sod 2.25 gm in 50 mls @ 100 mls/hr 09/05/17 20:00 09/11/17 11:42 Zosyn 2.25 Gm Iv Premix IVPB 100 mls/hr Q8H LELA Administration Protocol Linezolid 600 mg in 300 mls @ 200 mls/hr 09/06/17 17:00 09/11/17 04:04 Zyvox 600mg/300ml D5w IVPB 200 mls/hr Q12H LELA Administration Protocol Metronidazole 500 mg in 100 mls @ 100 mls/hr 09/06/17 22:00 09/11/17 13:29 Flagyl IVPB 100 mls/hr Q8 LELA Administration Protocol Norepinephrine Bitartrate 4 mg 254 mls @ 7.62 mls/hr 09/08/17 14:45 09/10/17 03:00 / Sodium Chloride IV 0 mcg/min .Q24H PRN 0 mls/hr TITRATE PER MD ORDER Titration Protocol 2 MCG/MIN Micafungin Sodium 100 mg/ 100 mls @ 100 mls/hr 09/09/17 02:30 09/11/17 02:30 Sodium Chloride IV 100 mls/hr Q24H LELA Administration Protocol Insulin Aspart 0 unit 09/09/17 19:08 09/11/17 12:28 Novolog SC 4 unit ACHS [facility] Administration Protocol Insulin Glargine 30 unit 09/09/17 19:05 09/11/17 10:44 Lantus SC 30 unit QAM LELA Administration Levetiracetam 250 mg 09/08/17 22:00 09/11/17 10:47 Keppra PO 250 mg Q12 LELA Administration Midodrine 5 mg 09/08/17 10:00 09/11/17 13:31 Proamatine PO 5 mg TID LELA Administration Nitroglycerin 0.4 mg 09/09/17 12:22 09/09/17 12:31 Nitrostat Sl Tab SL 0.4 mg Q5M PRN Administration Pain, severe (8-10) Pantoprazole Sodium 40 mg 09/08/17 10:00 09/11/17 10:35 Protonix Inj IVP 40 mg Q12H LELA Administration Sevelamer Carbonate 1,600 mg 09/07/17 12:00 09/11/17 13:32 Renvela PO 1,600 mg TIDCC LELA Administration Sodium Bicarbonate 1,300 mg 09/06/17 10:00 09/11/17 13:32 Sodium Bicarbonate Tab PO 1,300 mg TID LELA Administration Tamsulosin HCl 0.4 mg 09/06/17 10:00 09/11/17 10:46 Flomax PO 0.4 mg DAILY LELA Administration Vitamin B Complex/Vit C/Folic Acid 1 tab 09/07/17 08:00 09/11/17 08:23 Nephro-Eber PO 1 tab 0800 LELA Administration - Patient Studies Lab Studies: Microbiology Studies 09/10/17 16:14 Gram Stain - Final Foot - Right 09/09/17 02:20 Blood Culture - Preliminary Blood-Thru [place] NO GROWTH AFTER 48 HOURS 09/09/17 03:00 Blood Culture - Preliminary Blood-Thru [place] NO GROWTH AFTER 48 HOURS 09/05/17 19:00 Blood Culture - Final Blood NO GROWTH AFTER 5 DAYS Gram Stain - Final TEST NOT PERFORMED 09/05/17 19:00 Blood Culture - Final Blood NO GROWTH AFTER 5 DAYS Gram Stain - Final TEST NOT PERFORMED Lab Studies 09/11/17 09/11/17 09/11/17 Range/Units 16:25 12:06 10:58 WBC (4.8-10.8) K/uL RBC (4.40-5.90) Mil/uL Hgb (12.0-18.0) g/dL Hct (35.0-51.0) % MCV (80.0-94.0) fL MCH (27.0-31.0) pg MCHC (33.0-37.0) g/dL RDW (11.5-14.5) % Plt Count (130-400) K/uL MPV (7.2-11.7) fL Neut % (Auto) (50.0-75.0) % Lymph % (Auto) (20.0-40.0) % [place] % (Auto) (0.0-10.0) % Eos % (Auto) (0.0-4.0) % Baso % (Auto) (0.0-2.0) % Neut # (Auto) (1.8-7.0) K/uL Lymph # (Auto) (1.0-4.3) K/uL [place] # (Auto) (0.0-0.8) K/uL Eos # (Auto) (0.0-0.7) K/uL Baso # (Auto) (0.0-0.2) K/uL Neutrophils % (Manual) (50-75) % Band Neutrophils % (0-2) % Lymphocytes % (Manual) (20-40) % Monocytes % (Manual) (0-10) % Platelet Estimate (NORMAL) Polychromasia Hypochromasia (manual) Anisocytosis (manual) ESR (0-15) mm/hr Sodium (132-148) mmol/L Potassium (3.6-5.2) mmol/L Chloride (98-107) mmol/L Carbon Dioxide (22-30) mmol/L Anion Gap (10-20) BUN (9-20) mg/dL Creatinine (0.8-1.5) mg/dL Est GFR ( Amer) Est GFR (Non-Af Amer) POC Glucose (mg/dL) 241 H 277 H (65-110) mg/dL Random Glucose (75-110) mg/dL Calcium (8.6-10.4) mg/dl Phosphorus (2.5-4.5) mg/dL Magnesium (1.6-2.3) mg/dL Total Bilirubin (0.2-1.3) mg/dL AST (17-59) U/L ALT (21-72) U/L Alkaline Phosphatase (38-126) U/L Total Protein (6.3-8.3) g/dL Albumin (3.5-5.0) g/dL Albumin (PEP) (3.8-4.8) g/dL Globulin (2.2-3.9) gm/dL Albumin/Globulin Ratio (1.0-2.1) Cushx-2-Ksqszycnb (0.2-0.3) g/dL Szuou-0-Atwbcrwcy (0.5-0.9) g/dL Sgmh-6-Mmwvhozy (0.4-0.6) g/dL Mnbc-1-Uehesqlb (0.2-0.5) g/dL Gamma Globulins (0.8-1.7) g/dL Abnorm Protein Band 1 Abnorm Protein Band 2 Abnorm Protein Band 3 Free PSA ng/mL % Free PSA (>25) % (calc) Total PSA (< or = 4.0) ng/mL Procalcitonin 0.88 H (0.19-0.49) NG/ML FRANCISCO & SPEP Interp Complement C4 (14.0-44.0) mg/dL 09/11/17 09/11/17 09/11/17 Range/Units 07:19 06:35 06:35 WBC (4.8-10.8) K/uL RBC (4.40-5.90) Mil/uL Hgb (12.0-18.0) g/dL Hct (35.0-51.0) % MCV (80.0-94.0) fL MCH (27.0-31.0) pg MCHC (33.0-37.0) g/dL RDW (11.5-14.5) % Plt Count (130-400) K/uL MPV (7.2-11.7) fL Neut % (Auto) (50.0-75.0) % Lymph % (Auto) (20.0-40.0) % [place] % (Auto) (0.0-10.0) % Eos % (Auto) (0.0-4.0) % Baso % (Auto) (0.0-2.0) % Neut # (Auto) (1.8-7.0) K/uL Lymph # (Auto) (1.0-4.3) K/uL [place] # (Auto) (0.0-0.8) K/uL Eos # (Auto) (0.0-0.7) K/uL Baso # (Auto) (0.0-0.2) K/uL Neutrophils % (Manual) (50-75) % Band Neutrophils % (0-2) % Lymphocytes % (Manual) (20-40) % Monocytes % (Manual) (0-10) % Platelet Estimate (NORMAL) Polychromasia Hypochromasia (manual) Anisocytosis (manual) ESR (0-15) mm/hr Sodium 132 (132-148) mmol/L Potassium 3.9 (3.6-5.2) mmol/L Chloride 96 L (98-107) mmol/L Carbon Dioxide 22 (22-30) mmol/L Anion Gap 18 (10-20) BUN 50 H (9-20) mg/dL Creatinine 3.4 H (0.8-1.5) mg/dL Est GFR ( Amer) 21 Est GFR (Non-Af Amer) 17 POC Glucose (mg/dL) 271 H (65-110) mg/dL Random Glucose 245 H (75-110) mg/dL Calcium 7.6 L (8.6-10.4) mg/dl Phosphorus 4.9 H (2.5-4.5) mg/dL Magnesium 1.7 (1.6-2.3) mg/dL Total Bilirubin 1.1 (0.2-1.3) mg/dL AST 27 (17-59) U/L ALT 29 (21-72) U/L Alkaline Phosphatase 74 (38-126) U/L Total Protein 5.9 L (6.3-8.3) g/dL Albumin 2.7 L (3.5-5.0) g/dL Albumin (PEP) (3.8-4.8) g/dL Globulin 3.2 (2.2-3.9) gm/dL Albumin/Globulin Ratio 0.8 L (1.0-2.1) Lxmgx-3-Wsytdwwnx (0.2-0.3) g/dL Kqzfi-1-Bhsiygham (0.5-0.9) g/dL Bozx-1-Mqfpgegy (0.4-0.6) g/dL Zzny-2-Vixunmki (0.2-0.5) g/dL Gamma Globulins (0.8-1.7) g/dL Abnorm Protein Band 1 Abnorm Protein Band 2 Abnorm Protein Band 3 Free PSA ng/mL % Free PSA (>25) % (calc) Total PSA (< or = 4.0) ng/mL Procalcitonin (0.19-0.49) NG/ML FRANCISCO & SPEP Interp Complement C4 25.6 (14.0-44.0) mg/dL 09/11/17 09/10/17 09/08/17 Range/Units 06:35 21:19 15:00 WBC 15.6 H (4.8-10.8) K/uL RBC 3.02 L (4.40-5.90) Mil/uL Hgb 9.0 L (12.0-18.0) g/dL Hct 26.0 L (35.0-51.0) % MCV 86.3 (80.0-94.0) fL MCH 29.9 (27.0-31.0) pg MCHC 34.6 (33.0-37.0) g/dL RDW 17.2 H (11.5-14.5) % Plt Count 164 D (130-400) K/uL MPV 7.4 (7.2-11.7) fL Neut % (Auto) 85.1 H (50.0-75.0) % Lymph % (Auto) 9.2 L (20.0-40.0) % [place] % (Auto) 4.0 (0.0-10.0) % Eos % (Auto) 0.4 (0.0-4.0) % Baso % (Auto) 1.3 (0.0-2.0) % Neut # (Auto) 13.3 H (1.8-7.0) K/uL Lymph # (Auto) 1.4 (1.0-4.3) K/uL [place] # (Auto) 0.6 (0.0-0.8) K/uL Eos # (Auto) 0.1 (0.0-0.7) K/uL Baso # (Auto) 0.2 (0.0-0.2) K/uL Neutrophils % (Manual) 84 H (50-75) % Band Neutrophils % 2 (0-2) % Lymphocytes % (Manual) 8 L (20-40) % Monocytes % (Manual) 6 (0-10) % Platelet Estimate Normal (NORMAL) Polychromasia Slight Hypochromasia (manual) Slight Anisocytosis (manual) Slight ESR 50 H (0-15) mm/hr Sodium (132-148) mmol/L Potassium (3.6-5.2) mmol/L Chloride (98-107) mmol/L Carbon Dioxide (22-30) mmol/L Anion Gap (10-20) BUN (9-20) mg/dL Creatinine (0.8-1.5) mg/dL Est GFR ( Amer) Est GFR (Non-Af Amer) POC Glucose (mg/dL) 217 H (65-110) mg/dL Random Glucose (75-110) mg/dL Calcium (8.6-10.4) mg/dl Phosphorus (2.5-4.5) mg/dL Magnesium (1.6-2.3) mg/dL Total Bilirubin (0.2-1.3) mg/dL AST (17-59) U/L ALT (21-72) U/L Alkaline Phosphatase (38-126) U/L Total Protein (6.3-8.3) g/dL Albumin (3.5-5.0) g/dL Albumin (PEP) (3.8-4.8) g/dL Globulin (2.2-3.9) gm/dL Albumin/Globulin Ratio (1.0-2.1) Nucdt-7-Weufzbzst (0.2-0.3) g/dL Phozh-5-Vxggwwdnd (0.5-0.9) g/dL Vqwa-9-Khajkkpg (0.4-0.6) g/dL Qiyy-8-Mmuqeejh (0.2-0.5) g/dL Gamma Globulins (0.8-1.7) g/dL Abnorm Protein Band 1 Abnorm Protein Band 2 Abnorm Protein Band 3 Free PSA 0.2 ng/mL % Free PSA 14 L (>25) % (calc) Total PSA 1.4 (< or = 4.0) ng/mL Procalcitonin (0.19-0.49) NG/ML FRANCISCO & SPEP Interp Complement C4 (14.0-44.0) mg/dL 09/06/17 Range/Units 12:02 WBC (4.8-10.8) K/uL RBC (4.40-5.90) Mil/uL Hgb (12.0-18.0) g/dL Hct (35.0-51.0) % MCV (80.0-94.0) fL MCH (27.0-31.0) pg MCHC (33.0-37.0) g/dL RDW (11.5-14.5) % Plt Count (130-400) K/uL MPV (7.2-11.7) fL Neut % (Auto) (50.0-75.0) % Lymph % (Auto) (20.0-40.0) % [place] % (Auto) (0.0-10.0) % Eos % (Auto) (0.0-4.0) % Baso % (Auto) (0.0-2.0) % Neut # (Auto) (1.8-7.0) K/uL Lymph # (Auto) (1.0-4.3) K/uL [place] # (Auto) (0.0-0.8) K/uL Eos # (Auto) (0.0-0.7) K/uL Baso # (Auto) (0.0-0.2) K/uL Neutrophils % (Manual) (50-75) % Band Neutrophils % (0-2) % Lymphocytes % (Manual) (20-40) % Monocytes % (Manual) (0-10) % Platelet Estimate (NORMAL) Polychromasia Hypochromasia (manual) Anisocytosis (manual) ESR (0-15) mm/hr Sodium (132-148) mmol/L Potassium (3.6-5.2) mmol/L Chloride (98-107) mmol/L Carbon Dioxide (22-30) mmol/L Anion Gap (10-20) BUN (9-20) mg/dL Creatinine (0.8-1.5) mg/dL Est GFR ( Amer) Est GFR (Non-Af Amer) POC Glucose (mg/dL) (65-110) mg/dL Random Glucose (75-110) mg/dL Calcium (8.6-10.4) mg/dl Phosphorus (2.5-4.5) mg/dL Magnesium (1.6-2.3) mg/dL Total Bilirubin (0.2-1.3) mg/dL AST (17-59) U/L ALT (21-72) U/L Alkaline Phosphatase (38-126) U/L Total Protein (6.3-8.3) g/dL Albumin (3.5-5.0) g/dL Albumin (PEP) 2.6 L (3.8-4.8) g/dL Globulin (2.2-3.9) gm/dL Albumin/Globulin Ratio (1.0-2.1) Wmdem-3-Cigyclrmx 0.6 H (0.2-0.3) g/dL Zafbl-2-Bnpyrrnum 0.9 (0.5-0.9) g/dL Bsbs-4-Hhhwpkha 0.3 L (0.4-0.6) g/dL Jxpw-5-Hvkmwbpf 0.5 (0.2-0.5) g/dL Gamma Globulins 1.2 (0.8-1.7) g/dL Abnorm Protein Band 1 TEST NOT PERFORMED Abnorm Protein Band 2 TEST NOT PERFORMED Abnorm Protein Band 3 TEST NOT PERFORMED Free PSA ng/mL % Free PSA (>25) % (calc) Total PSA (< or = 4.0) ng/mL Procalcitonin (0.19-0.49) NG/ML FRANCISCO & SPEP Interp See note Complement C4 (14.0-44.0) mg/dL Laboratory Results - last 24 hr 09/06/17 09/08/17 09/10/17 12:02 15:00 21:19 WBC RBC Hgb Hct MCV MCH MCHC RDW Plt Count MPV Neut % (Auto) Lymph % (Auto) [place] % (Auto) Eos % (Auto) Baso % (Auto) Neut # (Auto) Lymph # (Auto) [place] # (Auto) Eos # (Auto) Baso # (Auto) Neutrophils % (Manual) Band Neutrophils % Lymphocytes % (Manual) Monocytes % (Manual) Platelet Estimate Polychromasia Hypochromasia (manual) Anisocytosis (manual) ESR Sodium Potassium Chloride Carbon Dioxide Anion Gap BUN Creatinine Est GFR ( Amer) Est GFR (Non-Af Amer) POC Glucose (mg/dL) 217 H Random Glucose Calcium Phosphorus Magnesium Total Bilirubin AST ALT Alkaline Phosphatase Total Protein Albumin Albumin (PEP) 2.6 L Globulin Albumin/Globulin Ratio Tjqnd-3-Ujugxezar 0.6 H Oawze-8-Pvhfdiizm 0.9 Yufd-6-Nchafley 0.3 L Moar-4-Ohtjinhg 0.5 Gamma Globulins 1.2 Abnorm Protein Band 1 TEST NOT PERFORMED Abnorm Protein Band 2 TEST NOT PERFORMED Abnorm Protein Band 3 TEST NOT PERFORMED Free PSA 0.2 % Free PSA 14 L Total PSA 1.4 Procalcitonin FRANCISCO & SPEP Interp See note Complement C4 09/11/17 09/11/17 09/11/17 06:35 06:35 06:35 WBC 15.6 H RBC 3.02 L Hgb 9.0 L Hct 26.0 L MCV 86.3 MCH 29.9 MCHC 34.6 RDW 17.2 H Plt Count 164 D MPV 7.4 Neut % (Auto) 85.1 H Lymph % (Auto) 9.2 L [place] % (Auto) 4.0 Eos % (Auto) 0.4 Baso % (Auto) 1.3 Neut # (Auto) 13.3 H Lymph # (Auto) 1.4 [place] # (Auto) 0.6 Eos # (Auto) 0.1 Baso # (Auto) 0.2 Neutrophils % (Manual) 84 H Band Neutrophils % 2 Lymphocytes % (Manual) 8 L Monocytes % (Manual) 6 Platelet Estimate Normal Polychromasia Slight Hypochromasia (manual) Slight Anisocytosis (manual) Slight ESR 50 H Sodium 132 Potassium 3.9 Chloride 96 L Carbon Dioxide 22 Anion Gap 18 BUN 50 H Creatinine 3.4 H Est GFR ( Amer) 21 Est GFR (Non-Af Amer) 17 POC Glucose (mg/dL) Random Glucose 245 H Calcium 7.6 L Phosphorus 4.9 H Magnesium 1.7 Total Bilirubin 1.1 AST 27 ALT 29 Alkaline Phosphatase 74 Total Protein 5.9 L Albumin 2.7 L Albumin (PEP) Globulin 3.2 Albumin/Globulin Ratio 0.8 L Txule-6-Mzhtdhqrx Rovoj-3-Mwkgeifuz Wggi-8-Wpymlxoh Zdnc-2-Pupqsuoi Gamma Globulins Abnorm Protein Band 1 Abnorm Protein Band 2 Abnorm Protein Band 3 Free PSA % Free PSA Total PSA Procalcitonin FRANCISCO & SPEP Interp Complement C4 25.6 09/11/17 09/11/17 09/11/17 07:19 10:58 12:06 WBC RBC Hgb Hct MCV MCH MCHC RDW Plt Count MPV Neut % (Auto) Lymph % (Auto) [place] % (Auto) Eos % (Auto) Baso % (Auto) Neut # (Auto) Lymph # (Auto) [place] # (Auto) Eos # (Auto) Baso # (Auto) Neutrophils % (Manual) Band Neutrophils % Lymphocytes % (Manual) Monocytes % (Manual) Platelet Estimate Polychromasia Hypochromasia (manual) Anisocytosis (manual) ESR Sodium Potassium Chloride Carbon Dioxide Anion Gap BUN Creatinine Est GFR ( Amer) Est GFR (Non-Af Amer) POC Glucose (mg/dL) 271 H 277 H Random Glucose Calcium Phosphorus Magnesium Total Bilirubin AST ALT Alkaline Phosphatase Total Protein Albumin Albumin (PEP) Globulin Albumin/Globulin Ratio Guejw-8-Nmsmxrodt Axyfl-4-Ulzludqgp Jxpt-6-Ckljupop Biqk-9-Sxxhgusm Gamma Globulins Abnorm Protein Band 1 Abnorm Protein Band 2 Abnorm Protein Band 3 Free PSA % Free PSA Total PSA Procalcitonin 0.88 H FRANCISCO & SPEP Interp Complement C4 09/11/17 16:25 WBC RBC Hgb Hct MCV MCH MCHC RDW Plt Count MPV Neut % (Auto) Lymph % (Auto) [place] % (Auto) Eos % (Auto) Baso % (Auto) Neut # (Auto) Lymph # (Auto) [place] # (Auto) Eos # (Auto) Baso # (Auto) Neutrophils % (Manual) Band Neutrophils % Lymphocytes % (Manual) Monocytes % (Manual) Platelet Estimate Polychromasia Hypochromasia (manual) Anisocytosis (manual) ESR Sodium Potassium Chloride Carbon Dioxide Anion Gap BUN Creatinine Est GFR ( Amer) Est GFR (Non-Af Amer) POC Glucose (mg/dL) 241 H Random Glucose Calcium Phosphorus Magnesium Total Bilirubin AST ALT Alkaline Phosphatase Total Protein Albumin Albumin (PEP) Globulin Albumin/Globulin Ratio Smvty-3-Ihvyfkqgf Orcaq-8-Ncajwyrfn Mods-3-Rofitbfe Uwky-0-Btqmmzbt Gamma Globulins Abnorm Protein Band 1 Abnorm Protein Band 2 Abnorm Protein Band 3 Free PSA % Free PSA Total PSA Procalcitonin FRANCISCO & SPEP Interp Complement C4 Critical Care Progress Note - Nutrition Nutrition: Nutrition Category Date Time Status Dysphagia/Modified Consistency Diet [DIET] Diets 09/10/17 Lunch Active Attending/Attestation - Attestation I have personally seen and examined this patient.: Yes I have fully participated in the care of the patient.: Yes I have reviewed all pertinent clinical information: Yes Notes (Text): 09/11/17 16:51 patient seen and examined in the intensive care unit. On IV antibiotics as per infectious disease Hemodialysis on hold Unable to insert Kaplan catheter, urology evaluation
--- NOTE | 2017-09-11 19:00 | CP.PCM.PN ---
Subjective - Date & Time of Evaluation Date of Evaluation: 09/11/17 Time of Evaluation: 19:00 - Subjective Subjective: CHIEF COMPLAINTS TODAY : afebrile ,awake, OFFERS NO NEW COMPLAINTS . LEG PAIN CONTROLLED W TYLENOL, FOLY INSERTION ATTEMPTED, ? PHIMOSIS VS EDEMA +VE GENERALIZED ANASARCA S/P NEW RT IJ HD CATHETER PLACEMENT TODAY 09/07/17 ROS. HEENT : N. RT.IJ CATHETER IN PLACE Resp : No SOB wheezing, cough Cardio : No CP, PND orthopnea +VE TACHCARDIA GI : No abd. 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 Musculoskel : N Ext. : Pedal pulses intact, B/L EDEMA LE , no calf pain Derm : RT . FOOT DRESSING IN PLACE. Psych : N. PE. Pt. awake in no distress.ON HD. V.S As noted in the chart Head ,ear nose,throat and eyes : Normal. Neck : Supple with normal carotids. RT IJ CATHETER IN PLACE. Lungs: BIBASILAR RALES LEFT > RT Heart : S1 & S2 IRREGULAR, TACHYCARDIC, HEART RATE 115 BPM Abd : Soft non tender with normal bowel sounds. Neuro : Moves all ext. with no localized deficit. Ext : BILATERAL EDEMA THIGHS/LEGS S. Neg. calf tenderness Derm : RT FOOT BLISTERS NOTED GENITALIA--SCROTAL EDEMA \ Radiology/Labs . wbc 15.6 H/H 9.0 CREAT 5.0/BUN 64----> 4.2/61BUN--> 3.4/BUN 50 PROCALCITONIN 0.88 HIGH CXR 09/10/17 LT, INFRAHILAR AIRSPACE OPACITY. BLOOD CULTURES-VE FOR 48 HOURS MRSA NOT DETECTED. URINE CULTURES NEGATIVE GROWTH. Objective - Vital Signs/Intake and Output Vital Signs (last 24 hours): Temp Pulse Resp BP Pulse Ox 98.7 F 112 H 24 108/67 98 09/11/17 16:00 09/11/17 18:07 09/11/17 18:07 09/11/17 18:07 09/11/17 17:05 Intake and Output: 09/11/17 09/12/17 18:59 06:59 Intake Total 950 Balance 950 - Medications Medications: Current Medications Acetaminophen (Tylenol 325mg Tab) 650 mg PO Q6 PRN PRN Reason: pain. Last Admin: 09/11/17 08:29 Dose: 650 mg Al Hydrox/Mg Hydrox/Simethicone (Maalox Plus 30 Ml) 30 ml PO Q6H PRN PRN Reason: Indigestion / Heartburn Calcitriol (Rocaltrol) 0.25 mcg PO DAILY [facility] Last Admin: 09/11/17 10:47 Dose: 0.25 mcg Epoetin Kameron (Procrit) 8,000 unit IV TTS [facility] Last Admin: 09/11/17 11:59 Dose: Not Given Heparin Sodium (Porcine) (Heparin) 5,000 units SC Q12 [facility] Last Admin: 09/11/17 10:43 Dose: 5,000 units Piperacillin Sod/Tazobactam Sod (Zosyn 2.25 Gm Iv Premix) 2.25 gm in 50 mls @ 100 mls/hr IVPB Q8H [facility] PRN Reason: Protocol Last Admin: 09/11/17 11:42 Dose: 100 mls/hr Linezolid (Zyvox 600mg/300ml D5w) 600 mg in 300 mls @ 200 mls/hr IVPB Q12H [facility] PRN Reason: Protocol Last Admin: 09/11/17 17:20 Dose: 200 mls/hr Metronidazole (Flagyl) 500 mg in 100 mls @ 100 mls/hr IVPB Q8 [facility] PRN Reason: Protocol Last Admin: 09/11/17 13:29 Dose: 100 mls/hr Norepinephrine Bitartrate 4 mg (/ Sodium Chloride) 254 mls @ 7.62 mls/hr IV .Q24H PRN; Protocol; 2 MCG/MIN PRN Reason: TITRATE PER MD ORDER Last Titration: 09/10/17 03:00 Dose: 0 mcg/min, 0 mls/hr Micafungin Sodium 100 mg/ (Sodium Chloride) 100 mls @ 100 mls/hr IV Q24H [facility] PRN Reason: Protocol Last Admin: 09/11/17 02:30 Dose: 100 mls/hr Insulin Aspart (Novolog) 0 unit SC ACHS [facility] PRN Reason: Protocol Last Admin: 09/11/17 17:18 Dose: 3 unit Insulin Glargine (Lantus) 30 unit SC QAM [facility] Last Admin: 09/11/17 10:44 Dose: 30 unit Levetiracetam (Keppra) 250 mg PO Q12 [facility] Last Admin: 09/11/17 10:47 Dose: 250 mg Midodrine (Proamatine) 5 mg PO TID [facility] Last Admin: 09/11/17 17:19 Dose: 5 mg Nitroglycerin (Nitrostat Sl Tab) 0.4 mg SL Q5M PRN PRN Reason: Pain, severe (8-10) Last Admin: 09/09/17 12:31 Dose: 0.4 mg Pantoprazole Sodium (Protonix Inj) 40 mg IVP Q12H [facility] Last Admin: 09/11/17 10:35 Dose: 40 mg Sevelamer Carbonate (Renvela) 1,600 mg PO TIDCC [facility] Last Admin: 09/11/17 17:19 Dose: 1,600 mg Sodium Bicarbonate (Sodium Bicarbonate Tab) 1,300 mg PO TID [facility] Last Admin: 09/11/17 17:19 Dose: 1,300 mg Tamsulosin HCl (Flomax) 0.4 mg PO DAILY [facility] Last Admin: 09/11/17 10:46 Dose: 0.4 mg Vitamin B Complex/Vit C/Folic Acid (Nephro-Eber) 1 tab PO 0800 [facility] Last Admin: 09/11/17 08:23 Dose: 1 tab - Labs Labs: 09/11/17 06:35 09/11/17 06:35 PT 13.0 SECONDS (9.7-12.2) H 09/05/17 11:25 INR 1.2 09/05/17 11:25 APTT 31 SECONDS (21-34) 09/05/17 11:25 Assessment and Plan (1) Sepsis Status: Acute (2) Leukocytosis Status: Acute (3) Hypotension Status: Acute (4) Diarrhea Status: Acute (5) S/P craniotomy Status: Acute (6) Anemia Status: Acute (7) Acute on chronic renal failure Status: Acute (8) Rapid atrial fibrillation Status: Acute - Assessment and Plan (Free Text) Plan: Continue IV Zosyn 2.25 every 8 hourly.09/05/17. And IV Zyvox 600 mg IV piggyback every 12 hourly for gram-positive coverage. And IV Flagyl 500 mg every 8 hourly for now. 09/06/17. F/U BLOOD CULTURES 2 sets for fungus. F/U URINE CULTURE 09/07 CONTINUE IV MYCAMINE 100 MG iv PIGGYBACK OD DAILY 09/09/17. 2D ECHO R/O SBE ESR,C2,C4,CH50 WOUND CULTURE RT. FOOT 09/10/17 -P TO SEE PT. CASE DISCUSSED WITH STAFF.
--- NOTE | 2017-09-11 19:29 | CARD ---
APPROVED REPORT EKG Measurement Heart [id number] <Conclusion> Atrial fibrillation Low voltage QRS Nonspecific ST and T wave abnormality Abnormal ECG
--- NOTE | 2017-09-11 23:06 | CP.PCM.PN ---
Subjective - Date & Time of Evaluation Date of Evaluation: 09/11/17 Time of Evaluation: 18:00 - Subjective Subjective: Patient seen and examined. He states that he is doing well and has no complaints at this time. Leg pain seems to be controlled with Tylenol.urine is clearing up, Afebrile, but still remains weak,creatinine is improving, wbc going down, k is low, his creatinine going down, foleys in pace, no nausea, vomitting Objective - Vital Signs/Intake and Output Vital Signs (last 24 hours): Temp Pulse Resp BP Pulse Ox 98.9 F 101 H 30 H 99/60 L 91 L 09/11/17 20:00 09/11/17 20:00 09/11/17 20:00 09/11/17 19:05 09/11/17 20:00 Intake and Output: 09/11/17 09/12/17 18:59 06:59 Intake Total 950 0 Balance 950 0 - Medications Medications: Current Medications Acetaminophen (Tylenol 325mg Tab) 650 mg PO Q6 PRN PRN Reason: pain. Last Admin: 09/11/17 08:29 Dose: 650 mg Al Hydrox/Mg Hydrox/Simethicone (Maalox Plus 30 Ml) 30 ml PO Q6H PRN PRN Reason: Indigestion / Heartburn Calcitriol (Rocaltrol) 0.25 mcg PO DAILY [facility]PLACED BY [facility] Last Admin: 09/11/17 10:47 Dose: 0.25 mcg Epoetin Kameron (Procrit) 8,000 unit IV TTS [facility]PL[facility] Last Admin: 09/11/17 11:59 Dose: Not Given Heparin Sodium (Porcine) (Heparin) 5,000 units SC Q12 [facility] Last Admin: 09/11/17 10:43 Dose: 5,000 units Piperacillin Sod/Tazobactam Sod (Zosyn 2.25 Gm Iv Premix) 2.25 gm in 50 mls @ 100 mls/hr IVPB Q8H [facility]PL[facility] PRN Reason: Protocol Last Admin: 09/11/17 20:22 Dose: 100 mls/hr Linezolid (Zyvox 600mg/300ml D5w) 600 mg in 300 mls @ 200 mls/hr IVPB Q12H [facility] PRN Reason: Protocol Last Admin: 09/11/17 17:20 Dose: 200 mls/hr Metronidazole (Flagyl) 500 mg in 100 mls @ 100 mls/hr IVPB Q8 [facility] PRN Reason: Protocol Last Admin: 09/11/17 13:29 Dose: 100 mls/hr Norepinephrine Bitartrate 4 mg (/ Sodium Chloride) 254 mls @ 7.62 mls/hr IV .Q24H PRN; Protocol; 2 MCG/MIN PRN Reason: TITRATE PER MD ORDER Last Titration: 09/10/17 03:00 Dose: 0 mcg/min, 0 mls/hr Micafungin Sodium 100 mg/ (Sodium Chloride) 100 mls @ 100 mls/hr IV Q24H [facility] PRN Reason: Protocol Last Admin: 09/11/17 02:30 Dose: 100 mls/hr Insulin Aspart (Novolog) 0 unit SC ACHS [facility] PRN Reason: Protocol Last Admin: 09/11/17 17:18 Dose: 3 unit Insulin Glargine (Lantus) 30 unit SC QAM [facility]PLAC[facility] Last Admin: 09/11/17 10:44 Dose: 30 unit Levetiracetam (Keppra) 250 mg PO Q12 [facility] Last Admin: 09/11/17 10:47 Dose: 250 mg Midodrine (Proamatine) 5 mg PO TID [facility]PLAC[facility] BY [facility] Last Admin: 09/11/17 17:19 Dose: 5 mg Nitroglycerin (Nitrostat Sl Tab) 0.4 mg SL Q5M PRN PRN Reason: Pain, severe (8-10) Last Admin: 09/09/17 12:31 Dose: 0.4 mg Pantoprazole Sodium (Protonix Inj) 40 mg IVP Q12H [facility]PLACED BY [facility] Last Admin: 09/11/17 10:35 Dose: 40 mg Sevelamer Carbonate (Renvela) 1,600 mg PO TIDCC REPLACED BY [facility] Last Admin: 09/11/17 17:19 Dose: 1,600 mg Sodium Bicarbonate (Sodium Bicarbonate Tab) 1,300 mg PO TID REPLACED BY [facility] Last Admin: 09/11/17 17:19 Dose: 1,300 mg Tamsulosin HCl (Flomax) 0.4 mg PO DAILY REPLACED BY [facility] Last Admin: 09/11/17 10:46 Dose: 0.4 mg Vitamin B Complex/Vit C/Folic Acid (Nephro-Eber) 1 tab PO 0800 REPLACED BY [facility] Last Admin: 09/11/17 08:23 Dose: 1 tab - Labs Labs: 09/11/17 06:35 09/11/17 06:35 PT 13.0 SECONDS (9.7-12.2) H 09/05/17 11:25 INR 1.2 09/05/17 11:25 APTT 31 SECONDS (21-34) 09/05/17 11:25 - Constitutional Appears: No Acute Distress - Head Exam Head Exam: ATRAUMATIC, NORMAL INSPECTION, NORMOCEPHALIC - Eye Exam Eye Exam: EOMI, Normal appearance, PERRL Pupil Exam: NORMAL ACCOMODATION, PERRL - Respiratory Exam Respiratory Exam: Decreased Breath Sounds, Rales, Rhonchi - Cardiovascular Exam Cardiovascular Exam: Tachycardia, Irregular Rhythm, +S1, +S2 - GI/Abdominal Exam GI & Abdominal Exam: Soft, Normal Bowel Sounds. absent: Tenderness Assessment and Plan (1) Hypotension Status: Acute (2) Near syncope Status: Acute (3) Rapid atrial fibrillation Status: Acute (4) Sepsis Status: Acute (5) Altered mental status Status: Acute
[2017-09-12] MEDS: Micafungin 100 MG in Sodium Chloride 0.9% 100 ML IV SCH (01:44)
[2017-09-12] MEDS: Piperacill/Tazo 2.25gm in Dex 2.25 GM/50 ML BAG IVPB SCH ×3 (03:22→19:54)
[2017-09-12] MEDS: Linezolid 600 mg in D5W 300 ml 600 MG/300 ML BAG IVPB SCH ×2 (04:01→17:11)
[2017-09-12] MEDS: metroNIDAZOLE IV 500 mg/100 ml 500 MG/100 ML BAG IVPB SCH ×3 (05:41→21:45)
[2017-09-12 07:24] LABS: BASO # 0.1 K/uL (0.0-0.2); BASO % 0.7 % (0.0-2.0); EOS # 0.1 K/uL (0.0-0.7); EOS % 0.9 % (0.0-4.0); HEMOGLOBIN 8.9 g/dL (12.0-18.0); LYMPH # 1.3 K/uL (1.0-4.3); LYMPH % 9.4 % (20.0-40.0); MEAN CELL VOLUME 86.2 fL (80.0-94.0); MEAN CORPUSCULAR HEMOGLOBIN 29.9 pg (27.0-31.0); MEAN CORPUSCULAR HGB CONC 34.7 g/dL (33.0-37.0); MONO # 0.7 K/uL (0.0-0.8); MONO % 5.1 % (0.0-10.0); NEUT # 11.4 K/uL (1.8-7.0); NEUT % 83.9 % (50.0-75.0); NRBC % 0.1 % (0.0-2.0); PLATELET COUNT 182 K/uL (130-400); RBC 2.99 Mil/uL (4.40-5.90); RED CELL DISTRIBUTION WIDTH 17.2 % (11.5-14.5); WHITE BLOOD COUNT 13.5 K/uL (4.8-10.8)
[2017-09-12 07:30] LABS: ALB/GLOB RATIO 0.8 (1.0-2.1); ALBUMIN 2.5 g/dL (3.5-5.0); CALCIUM 7.7 mg/dl (8.6-10.4)
[2017-09-12] MEDS: (Novolog) Insulin Aspart, Recombinant 100 u/ml 10 ml vial SC SCH ×4 (07:56→21:46)
[2017-09-12] MEDS: Multivitamin Vitamin B Complex (Nephro-Vite) Tab PO SCH (07:57)
[2017-09-12 09:06] LABS: ANISOCYTOSIS SLIGHT; EOSINOPHIL 2 % (0-4); LYMPHOCYTE 7 % (20-40); MONOCYTE 2 % (0-10); NEUTROPHIL 89 % (50-75); PLATELET ESTIMATE NORMAL (NORMAL); POIKILOCYTOSIS SLIGHT; TOTAL CELLS COUNTED 100
[2017-09-12 09:07] LABS: HYPOCHROMIC SLIGHT; MICROCYTOSIS SLIGHT; POLYCHROMIC SLIGHT; TARGET CELLS SLIGHT
[2017-09-12 09:09] LABS: GIANT PLATELETS PRESENT; LARGE PLATELETS PRESENT; OVALOCYTES SLIGHT
[2017-09-12] MEDS: (Lantus) Insulin Glargine, Recombinant SC SCH (09:41)
[2017-09-12] MEDS: Albumin Human 25% (12.5 gm/50 ml) IV SCH ×2 (10:18→18:42)
--- NOTE | 2017-09-12 11:18 | CP.CCUPN ---
<Jose Rodgers - Last Filed: 09/12/17 15:53> CCU Subjective - Physician Review Subjective (Free Text): 09/10/17 09:49 Patient seen and examined. Patient reports feeling better. Denies chest pain, dyspnea, dizziness, lightheadedness. However, he is complaining of bilateral leg pain. 09/11/17 12:44 Patient seen and examined. He states that he is doing well and has no complaints at this time. Leg pain seems to be controlled with Tylenol. 09/12/17 11:16 Patient seen and examined. No acute complaints today. Resting comfortably. Awaiting kaplan placement. CCU Objective - Vital Signs / Intake & Output Vital Signs (Last 4 hours): Vital Signs Temp Pulse Resp BP Pulse Ox 09/12/17 09:00 141 H 29 H 98 09/12/17 08:47 123 H 29 H 91/44 L 98 09/12/17 08:05 106 H 29 H 91/52 L 96 09/12/17 08:00 98.8 F 119 H 28 H 96 09/12/17 07:43 109 H 29 H 90/53 L Intake and Output (Last 8hrs): Intake & Output 09/11/17 09/12/17 09/12/17 22:59 06:59 14:59 Intake Total 700 600 300 Output Total 0 Balance 700 600 300 Weight 242 lb 8.136 oz Intake: Intake, IV Amount 450 550 Left Forearm 300 Left Wrist 150 550 Oral 250 50 300 Output: Urine 0 Straight 0 Other: # Bowel Movements 1 1 - Physical Exam Head: Positive for: Atraumatic, Normocephalic Pupils: Positive for: PERRL Extroacular Muscles: Positive for: EOMI Conjunctiva: Positive for: Normal Mouth: Positive for: Moist Mucous Membranes Neck: Positive for: Normal Range of Motion, Other (Right IJ dialysis catheter) Respiratory/Chest: Positive for: Decreased Breath Sounds Cardiovascular: Positive for: Normal S1, S2, Irregular Rhythm Abdomen: Positive for: Normal Bowel Sounds. Negative for: Tenderness Upper Extremity: Positive for: Normal Inspection Lower Extremity: Positive for: Normal Inspection, Edema (bilateral) Neurological: Positive for: GCS=15 Skin: Positive for: Warm, Dry, Normal Color Psychiatric: Positive for: Alert. Negative for: Oriented x 3 - Medications Active Medications: Active Medications Generic Name Dose Route Start Last Admin Trade Name Freq PRN Reason Stop Dose Admin Acetaminophen 650 mg 09/11/17 07:31 09/12/17 10:02 Tylenol 325mg Tab PO 650 mg Q6 PRN Administration pain. Al Hydrox/Mg Hydrox/Simethicone 30 ml 09/09/17 14:38 Maalox Plus 30 Ml PO Q6H PRN Indigestion / Heartburn Albumin Human 12.5 gm 09/12/17 10:00 09/12/17 10:18 Albumin Human 25% (12.5 Gm/50 Ml) IV 09/13/17 02:01 12.5 gm Q8H LELA Administration Calcitriol 0.25 mcg 09/08/17 10:00 09/12/17 09:36 Rocaltrol PO 0.25 mcg DAILY LELA Administration Epoetin Kameron 8,000 unit 09/08/17 07:00 09/11/17 11:59 Procrit IV Not Given TTS LELA Heparin Sodium (Porcine) 5,000 units 09/09/17 22:00 09/12/17 09:38 Heparin SC 5,000 units Q12 LELA Administration Piperacillin Sod/Tazobactam Sod 2.25 gm in 50 mls @ 100 mls/hr 09/05/17 20:00 09/12/17 03:22 Zosyn 2.25 Gm Iv Premix IVPB 100 mls/hr Q8H [facility] Administration Protocol Linezolid 600 mg in 300 mls @ 200 mls/hr 09/06/17 17:00 09/12/17 04:01 Zyvox 600mg/300ml D5w IVPB 200 mls/hr Q12H LELA Administration Protocol Metronidazole 500 mg in 100 mls @ 100 mls/hr 09/06/17 22:00 09/12/17 05:41 Flagyl IVPB 100 mls/hr Q8 LELA Administration Protocol Norepinephrine Bitartrate 4 mg 254 mls @ 7.62 mls/hr 09/08/17 14:45 09/10/17 03:00 / Sodium Chloride IV 0 mcg/min .Q24H PRN 0 mls/hr TITRATE PER MD ORDER Titration Protocol 2 MCG/MIN Micafungin Sodium 100 mg/ 100 mls @ 100 mls/hr 09/09/17 02:30 09/12/17 01:44 Sodium Chloride IV 100 mls/hr Q24H LELA Administration Protocol Insulin Aspart 0 unit 09/09/17 19:08 09/12/17 07:56 Novolog SC 3 unit ACHS LELA Administration Protocol Insulin Glargine 30 unit 09/09/17 19:05 09/12/17 09:41 Lantus SC 30 unit QAM LELA Administration Levetiracetam 250 mg 09/08/17 22:00 09/12/17 09:36 Keppra PO 250 mg Q12 LELA Administration Midodrine 5 mg 09/08/17 10:00 09/12/17 09:35 Proamatine PO 5 mg TID LELA Administration Nitroglycerin 0.4 mg 09/09/17 12:22 09/09/17 12:31 Nitrostat Sl Tab SL 0.4 mg Q5M PRN Administration Pain, severe (8-10) Pantoprazole Sodium 40 mg 09/08/17 10:00 09/12/17 10:12 Protonix Inj IVP 40 mg Q12H LELA Administration Sevelamer Carbonate 1,600 mg 09/07/17 12:00 09/12/17 07:57 Renvela PO 1,600 mg TIDCC LELA Administration Sodium Bicarbonate 1,300 mg 09/06/17 10:00 09/12/17 09:31 Sodium Bicarbonate Tab PO 1,300 mg TID LELA Administration Tamsulosin HCl 0.4 mg 09/06/17 10:00 09/12/17 09:36 Flomax PO 0.4 mg DAILY LELA Administration Vitamin B Complex/Vit C/Folic Acid 1 tab 09/07/17 08:00 09/12/17 07:57 Nephro-Eber PO 1 tab 0800 LEAL Administration - Patient Studies Lab Studies: Microbiology Studies 09/10/17 16:14 Gram Stain - Final Foot - Right Wound Culture - Preliminary NO GROWTH AFTER 24 HOURS 09/09/17 02:20 Blood Culture - Preliminary Blood-Thru Central Line NO GROWTH AFTER 3 DAYS 09/09/17 03:00 Blood Culture - Preliminary Blood-Thru Central Line NO GROWTH AFTER 3 DAYS Lab Studies 09/12/17 09/12/17 09/12/17 Range/Units 07:19 07:08 04:00 WBC 13.5 H (4.8-10.8) K/uL RBC 2.99 L (4.40-5.90) Mil/uL Hgb 8.9 L (12.0-18.0) g/dL Hct 25.8 L (35.0-51.0) % MCV 86.2 (80.0-94.0) fL MCH 29.9 (27.0-31.0) pg MCHC 34.7 (33.0-37.0) g/dL RDW 17.2 H (11.5-14.5) % Plt Count 182 (130-400) K/uL MPV 8.0 (7.2-11.7) fL Neut % (Auto) 83.9 H (50.0-75.0) % Lymph % (Auto) 9.4 L (20.0-40.0) % [place] % (Auto) 5.1 (0.0-10.0) % Eos % (Auto) 0.9 (0.0-4.0) % Baso % (Auto) 0.7 (0.0-2.0) % Neut # (Auto) 11.4 H (1.8-7.0) K/uL Lymph # (Auto) 1.3 (1.0-4.3) K/uL [place] # (Auto) 0.7 (0.0-0.8) K/uL Eos # (Auto) 0.1 (0.0-0.7) K/uL Baso # (Auto) 0.1 (0.0-0.2) K/uL Neutrophils % (Manual) 89 H (50-75) % Lymphocytes % (Manual) 7 L (20-40) % Monocytes % (Manual) 2 (0-10) % Eosinophils % (Manual) 2 (0-4) % Platelet Estimate Normal (NORMAL) Large Platelets Present Giant Platelets Present Polychromasia Slight Hypochromasia (manual) Slight Poikilocytosis (manual Slight Anisocytosis (manual) Slight Microcytosis (manual) Slight Macrocytosis (manual) Slight Target Cells Slight Ovalocytes Slight Sodium 132 (132-148) mmol/L Potassium 3.8 (3.6-5.2) mmol/L Chloride 96 L (98-107) mmol/L Carbon Dioxide 23 (22-30) mmol/L Anion Gap 18 (10-20) BUN 57 H (9-20) mg/dL Creatinine 3.3 H (0.8-1.5) mg/dL Est GFR ( Amer) 22 Est GFR (Non-Af Amer) 18 POC Glucose (mg/dL) 212 H (65-110) mg/dL Random Glucose 219 H (75-110) mg/dL Calcium 7.7 L (8.6-10.4) mg/dl Phosphorus 4.5 (2.5-4.5) mg/dL Magnesium 1.7 (1.6-2.3) mg/dL Total Bilirubin 1.0 (0.2-1.3) mg/dL AST 29 (17-59) U/L ALT 22 (21-72) U/L Alkaline Phosphatase 67 (38-126) U/L Total Protein 5.7 L (6.3-8.3) g/dL Albumin 2.5 L (3.5-5.0) g/dL Globulin 3.2 (2.2-3.9) gm/dL Albumin/Globulin Ratio 0.8 L (1.0-2.1) Procalcitonin (0.19-0.49) NG/ML 09/11/17 09/11/17 09/11/17 Range/Units 20:57 16:25 12:06 WBC (4.8-10.8) K/uL RBC (4.40-5.90) Mil/uL Hgb (12.0-18.0) g/dL Hct (35.0-51.0) % MCV (80.0-94.0) fL MCH (27.0-31.0) pg MCHC (33.0-37.0) g/dL RDW (11.5-14.5) % Plt Count (130-400) K/uL MPV (7.2-11.7) fL Neut % (Auto) (50.0-75.0) % Lymph % (Auto) (20.0-40.0) % [place] % (Auto) (0.0-10.0) % Eos % (Auto) (0.0-4.0) % Baso % (Auto) (0.0-2.0) % Neut # (Auto) (1.8-7.0) K/uL Lymph # (Auto) (1.0-4.3) K/uL [place] # (Auto) (0.0-0.8) K/uL Eos # (Auto) (0.0-0.7) K/uL Baso # (Auto) (0.0-0.2) K/uL Neutrophils % (Manual) (50-75) % Lymphocytes % (Manual) (20-40) % Monocytes % (Manual) (0-10) % Eosinophils % (Manual) (0-4) % Platelet Estimate (NORMAL) Large Platelets Giant Platelets Polychromasia Hypochromasia (manual) Poikilocytosis (manual Anisocytosis (manual) Microcytosis (manual) Macrocytosis (manual) Target Cells Ovalocytes Sodium (132-148) mmol/L Potassium (3.6-5.2) mmol/L Chloride (98-107) mmol/L Carbon Dioxide (22-30) mmol/L Anion Gap (10-20) BUN (9-20) mg/dL Creatinine (0.8-1.5) mg/dL Est GFR ( Amer) Est GFR (Non-Af Amer) POC Glucose (mg/dL) 246 H 241 H 277 H (65-110) mg/dL Random Glucose (75-110) mg/dL Calcium (8.6-10.4) mg/dl Phosphorus (2.5-4.5) mg/dL Magnesium (1.6-2.3) mg/dL Total Bilirubin (0.2-1.3) mg/dL AST (17-59) U/L ALT (21-72) U/L Alkaline Phosphatase (38-126) U/L Total Protein (6.3-8.3) g/dL Albumin (3.5-5.0) g/dL Globulin (2.2-3.9) gm/dL Albumin/Globulin Ratio (1.0-2.1) Procalcitonin (0.19-0.49) NG/ML 09/11/17 09/11/17 Range/Units 10:58 07:19 WBC (4.8-10.8) K/uL RBC (4.40-5.90) Mil/uL Hgb (12.0-18.0) g/dL Hct (35.0-51.0) % MCV (80.0-94.0) fL MCH (27.0-31.0) pg MCHC (33.0-37.0) g/dL RDW (11.5-14.5) % Plt Count (130-400) K/uL MPV (7.2-11.7) fL Neut % (Auto) (50.0-75.0) % Lymph % (Auto) (20.0-40.0) % [place] % (Auto) (0.0-10.0) % Eos % (Auto) (0.0-4.0) % Baso % (Auto) (0.0-2.0) % Neut # (Auto) (1.8-7.0) K/uL Lymph # (Auto) (1.0-4.3) K/uL [place] # (Auto) (0.0-0.8) K/uL Eos # (Auto) (0.0-0.7) K/uL Baso # (Auto) (0.0-0.2) K/uL Neutrophils % (Manual) (50-75) % Lymphocytes % (Manual) (20-40) % Monocytes % (Manual) (0-10) % Eosinophils % (Manual) (0-4) % Platelet Estimate (NORMAL) Large Platelets Giant Platelets Polychromasia Hypochromasia (manual) Poikilocytosis (manual Anisocytosis (manual) Microcytosis (manual) Macrocytosis (manual) Target Cells Ovalocytes Sodium (132-148) mmol/L Potassium (3.6-5.2) mmol/L Chloride (98-107) mmol/L Carbon Dioxide (22-30) mmol/L Anion Gap (10-20) BUN (9-20) mg/dL Creatinine (0.8-1.5) mg/dL Est GFR ( Amer) Est GFR (Non-Af Amer) POC Glucose (mg/dL) 271 H (65-110) mg/dL Random Glucose (75-110) mg/dL Calcium (8.6-10.4) mg/dl Phosphorus (2.5-4.5) mg/dL Magnesium (1.6-2.3) mg/dL Total Bilirubin (0.2-1.3) mg/dL AST (17-59) U/L ALT (21-72) U/L Alkaline Phosphatase (38-126) U/L Total Protein (6.3-8.3) g/dL Albumin (3.5-5.0) g/dL Globulin (2.2-3.9) gm/dL Albumin/Globulin Ratio (1.0-2.1) Procalcitonin 0.88 H (0.19-0.49) NG/ML Laboratory Results - last 24 hr 09/11/17 09/11/17 09/11/17 07:19 10:58 12:06 WBC RBC Hgb Hct MCV MCH MCHC RDW Plt Count MPV Neut % (Auto) Lymph % (Auto) [place] % (Auto) Eos % (Auto) Baso % (Auto) Neut # (Auto) Lymph # (Auto) [place] # (Auto) Eos # (Auto) Baso # (Auto) Neutrophils % (Manual) Lymphocytes % (Manual) Monocytes % (Manual) Eosinophils % (Manual) Platelet Estimate Large Platelets Giant Platelets Polychromasia Hypochromasia (manual) Poikilocytosis (manual Anisocytosis (manual) Microcytosis (manual) Macrocytosis (manual) Target Cells Ovalocytes Sodium Potassium Chloride Carbon Dioxide Anion Gap BUN Creatinine Est GFR ( Amer) Est GFR (Non-Af Amer) POC Glucose (mg/dL) 271 H 277 H Random Glucose Calcium Phosphorus Magnesium Total Bilirubin AST ALT Alkaline Phosphatase Total Protein Albumin Globulin Albumin/Globulin Ratio Procalcitonin 0.88 H 09/11/17 09/11/17 09/12/17 16:25 20:57 04:00 WBC RBC Hgb Hct MCV MCH MCHC RDW Plt Count MPV Neut % (Auto) Lymph % (Auto) [place] % (Auto) Eos % (Auto) Baso % (Auto) Neut # (Auto) Lymph # (Auto) [place] # (Auto) Eos # (Auto) Baso # (Auto) Neutrophils % (Manual) Lymphocytes % (Manual) Monocytes % (Manual) Eosinophils % (Manual) Platelet Estimate Large Platelets Giant Platelets Polychromasia Hypochromasia (manual) Poikilocytosis (manual Anisocytosis (manual) Microcytosis (manual) Macrocytosis (manual) Target Cells Ovalocytes Sodium 132 Potassium 3.8 Chloride 96 L Carbon Dioxide 23 Anion Gap 18 BUN 57 H Creatinine 3.3 H Est GFR ( Amer) 22 Est GFR (Non-Af Amer) 18 POC Glucose (mg/dL) 241 H 246 H Random Glucose 219 H Calcium 7.7 L Phosphorus 4.5 Magnesium 1.7 Total Bilirubin 1.0 AST 29 ALT 22 Alkaline Phosphatase 67 Total Protein 5.7 L Albumin 2.5 L Globulin 3.2 Albumin/Globulin Ratio 0.8 L Procalcitonin 09/12/17 09/12/17 07:08 07:19 WBC 13.5 H RBC 2.99 L Hgb 8.9 L Hct 25.8 L MCV 86.2 MCH 29.9 MCHC 34.7 RDW 17.2 H Plt Count 182 MPV 8.0 Neut % (Auto) 83.9 H Lymph % (Auto) 9.4 L [place] % (Auto) 5.1 Eos % (Auto) 0.9 Baso % (Auto) 0.7 Neut # (Auto) 11.4 H Lymph # (Auto) 1.3 [place] # (Auto) 0.7 Eos # (Auto) 0.1 Baso # (Auto) 0.1 Neutrophils % (Manual) 89 H Lymphocytes % (Manual) 7 L Monocytes % (Manual) 2 Eosinophils % (Manual) 2 Platelet Estimate Normal Large Platelets Present Giant Platelets Present Polychromasia Slight Hypochromasia (manual) Slight Poikilocytosis (manual Slight Anisocytosis (manual) Slight Microcytosis (manual) Slight Macrocytosis (manual) Slight Target Cells Slight Ovalocytes Slight Sodium Potassium Chloride Carbon Dioxide Anion Gap BUN Creatinine Est GFR ( Amer) Est GFR (Non-Af Amer) POC Glucose (mg/dL) 212 H Random Glucose Calcium Phosphorus Magnesium Total Bilirubin AST ALT Alkaline Phosphatase Total Protein Albumin Globulin Albumin/Globulin Ratio Procalcitonin Fingerstick Blood Sugar Results: 212 Critical Care Progress Note - Nutrition Nutrition: Nutrition Category Date Time Status Dysphagia/Modified Consistency Diet [DIET] Diets 09/10/17 Lunch Active Assessment/Plan - Assessment and Plan (Free Text) Assessment: This is an 82 year old male with PMHx atrial fibrillation, B/L DVT s/p IVC filter, recent subdural hematoma in August 2017 s/p craniotomy with evacuation presenting [facility]) with hypotension. Code sepsis called in the ER. Patient admitted to the ICU for further management Neurology: AAOx2 (not to time) S/P right frontal craniotomy with evacuation -Last CT head 08/22 showed diminishing right convexity subdural hematoma with limited mass effect. Leftward midline shift is further reduced now only 1-2mm with no definite intracrancial hemorrhage appearing acute at this time. Chronic lacune again noted at the right optic radiations. -Repeat CT head 09/05: Small residual extra-axial collection that probably represents a combination of residual hyperdense chronic subdural blood admixed with membrane formation and some subacute blood. The collection exerts minimal on mass effect on subadjacent sulci however no significant midline shift -Continue Keppra 250mg PO Q12H for seizure prophylaxis Cardiology: History of atrial fibrillation, on digoxin at home Holding home Metoprolol due to hypotension. Previously on norepinephrine drip. Midodrine 5 mg PO TID Currently rate controlled on the tele monitor Last echo: 70% EF. LV normal size, mild concentric L ventricular hypertrophy, moderate tricuspid regurgitation Pulmonology: Saturating well on room air Endocrine: -History of Diabetes Mellitus -Hgba1c 9.9 High dose ISS Lantus 30 units qAM accuchecks ACHS GI: Carbohydrate consistent diet Continue Protonix 40mg IV Q12H Infectious Disease: Patient was recently treated for UTI E coli Code sepsis called in ER All cultures negative so far Patient is on Zosyn 2.75mg IV Q8H, Flagyl 500mg Q8H, Zyvox 600mg Q12H, Micafungin 100 mg Q24H C diff and stool cultures negative ID on consult, Dr. Sweeney, help appreciated Wound culture of the patient's blisters negative so far Nephrology: Acute on chronic CKD BUN/Cr worsening, baseline Cr 2.0 Continue sodium bicarb 1300mg PO TID, Renvela 1600 mg PO TIDCC Renal US 08/3017: unremarkable Strict I/Os, daily weights Nephro on consult, help appreciated Holding off on dialysis for now Heme/Onc: Patient with history of provoked bilateral DVTs Was seen by Dr Tierney in the past S/P IVC filter placement 08/27/17, SCDs contraindicated Baseline - No acute signs of bleeding at this time, will monitor serial CBCs Hold Iron supplementation 2/2 sepsis : History of urinary retention, prostate surgery Continue home med flomax Awaiting urology for catheter placement GI/DVT ppx: Protonix 40mg IV Q12H Heparin 5000 Q12H Dispo: ICU care Patient seen and discussed with Dr. Ritchie <Michael Ritchie S - Last Filed: 09/12/17 18:15> CCU Objective - Vital Signs / Intake & Output Vital Signs (Last 4 hours): Vital Signs Temp Pulse Resp BP Pulse Ox 09/12/17 17:00 111 H 24 93 L 09/12/17 16:46 103 H 22 93/59 L 97 09/12/17 16:00 97.8 F 106 H 27 H 97 09/12/17 15:47 107 H 27 H 95/62 L 98 09/12/17 15:00 104 H 29 H 97 09/12/17 14:47 116 H 27 H 84/52 L 96 Intake and Output (Last 8hrs): Intake & Output 09/12/17 09/12/17 09/12/17 06:59 14:59 22:59 Intake Total 600 800 350 Output Total 0 0 Balance 600 800 350 Weight 242 lb 8.136 oz Intake: Intake, IV Amount 550 200 Left Wrist 550 PermaCath 200 Oral 50 600 350 Output: Urine 0 0 Straight 0 Other: # Bowel Movements 1 1 - Medications Active Medications: Active Medications Generic Name Dose Route Start Last Admin Trade Name Freq PRN Reason Stop Dose Admin Acetaminophen 650 mg 09/11/17 07:31 09/12/17 10:02 Tylenol 325mg Tab PO 650 mg Q6 PRN Administration pain. Al Hydrox/Mg Hydrox/Simethicone 30 ml 09/09/17 14:38 Maalox Plus 30 Ml PO Q6H PRN Indigestion / Heartburn Albumin Human 12.5 gm 09/12/17 10:00 09/12/17 10:18 Albumin Human 25% (12.5 Gm/50 Ml) IV 09/13/17 02:01 12.5 gm Q8H LELA Administration Calcitriol 0.25 mcg 09/08/17 10:00 09/12/17 09:36 Rocaltrol PO 0.25 mcg DAILY LELA Administration Epoetin Kameron 8,000 unit 09/13/17 07:00 Procrit SC TTS LLEA Heparin Sodium (Porcine) 5,000 units 09/09/17 22:00 09/12/17 09:38 Heparin SC 5,000 units Q12 LELA Administration Piperacillin Sod/Tazobactam Sod 2.25 gm in 50 mls @ 100 mls/hr 09/05/17 20:00 09/12/17 12:53 Zosyn 2.25 Gm Iv Premix IVPB 100 mls/hr Q8H LELA Administration Protocol Linezolid 600 mg in 300 mls @ 200 mls/hr 09/06/17 17:00 09/12/17 17:11 Zyvox 600mg/300ml D5w IVPB 200 mls/hr Q12H LELA Administration Protocol Metronidazole 500 mg in 100 mls @ 100 mls/hr 09/06/17 22:00 09/12/17 13:47 Flagyl IVPB 100 mls/hr Q8 LELA Administration Protocol Norepinephrine Bitartrate 4 mg 254 mls @ 7.62 mls/hr 09/08/17 14:45 09/10/17 03:00 / Sodium Chloride IV 0 mcg/min .Q24H PRN 0 mls/hr TITRATE PER MD ORDER Titration Protocol 2 MCG/MIN Micafungin Sodium 100 mg/ 100 mls @ 100 mls/hr 09/09/17 02:30 09/12/17 01:44 Sodium Chloride IV 100 mls/hr Q24H LELA Administration Protocol Insulin Aspart 0 unit 09/12/17 16:21 09/12/17 16:26 Novolog SC 4 unit ACHS LELA Administration Protocol Insulin Glargine 30 unit 09/09/17 19:05 09/12/17 09:41 Lantus SC 30 unit QAM LELA Administration Levetiracetam 250 mg 09/08/17 22:00 09/12/17 09:36 Keppra PO 250 mg Q12 LELA Administration Midodrine 5 mg 09/08/17 10:00 09/12/17 17:12 Proamatine PO 5 mg TID LELA Administration Nitroglycerin 0.4 mg 09/09/17 12:22 09/09/17 12:31 Nitrostat Sl Tab SL 0.4 mg Q5M PRN Administration Pain, severe (8-10) Pantoprazole Sodium 40 mg 09/08/17 10:00 09/12/17 10:12 Protonix Inj IVP 40 mg Q12H LELA Administration Sevelamer Carbonate 1,600 mg 09/07/17 12:00 09/12/17 17:11 Renvela PO 1,600 mg TIDCC LELA Administration Sodium Bicarbonate 1,300 mg 09/06/17 10:00 09/12/17 17:11 Sodium Bicarbonate Tab PO 1,300 mg TID LELA Administration Tamsulosin HCl 0.4 mg 09/06/17 10:00 09/12/17 09:36 Flomax PO 0.4 mg DAILY LELA Administration Vitamin B Complex/Vit C/Folic Acid 1 tab 09/07/17 08:00 09/12/17 07:57 Nephro-Eber PO 1 tab 0800 LELA Administration - Patient Studies Lab Studies: Microbiology Studies 09/10/17 16:14 Gram Stain - Final Foot - Right Wound Culture - Preliminary NO GROWTH AFTER 24 HOURS 09/09/17 02:20 Blood Culture - Preliminary Blood-Thru Central Line NO GROWTH AFTER 3 DAYS 09/09/17 03:00 Blood Culture - Preliminary Blood-Thru Central Line NO GROWTH AFTER 3 DAYS Lab Studies 09/12/17 09/12/17 09/12/17 Range/Units 15:55 11:22 07:19 WBC 13.5 H (4.8-10.8) K/uL RBC 2.99 L (4.40-5.90) Mil/uL Hgb 8.9 L (12.0-18.0) g/dL Hct 25.8 L (35.0-51.0) % MCV 86.2 (80.0-94.0) fL MCH 29.9 (27.0-31.0) pg MCHC 34.7 (33.0-37.0) g/dL RDW 17.2 H (11.5-14.5) % Plt Count 182 (130-400) K/uL MPV 8.0 (7.2-11.7) fL Neut % (Auto) 83.9 H (50.0-75.0) % Lymph % (Auto) 9.4 L (20.0-40.0) % [place] % (Auto) 5.1 (0.0-10.0) % Eos % (Auto) 0.9 (0.0-4.0) % Baso % (Auto) 0.7 (0.0-2.0) % Neut # (Auto) 11.4 H (1.8-7.0) K/uL Lymph # (Auto) 1.3 (1.0-4.3) K/uL [place] # (Auto) 0.7 (0.0-0.8) K/uL Eos # (Auto) 0.1 (0.0-0.7) K/uL Baso # (Auto) 0.1 (0.0-0.2) K/uL Neutrophils % (Manual) 89 H (50-75) % Lymphocytes % (Manual) 7 L (20-40) % Monocytes % (Manual) 2 (0-10) % Eosinophils % (Manual) 2 (0-4) % Platelet Estimate Normal (NORMAL) Large Platelets Present Giant Platelets Present Polychromasia Slight Hypochromasia (manual) Slight Poikilocytosis (manual Slight Anisocytosis (manual) Slight Microcytosis (manual) Slight Macrocytosis (manual) Slight Target Cells Slight Ovalocytes Slight Sodium (132-148) mmol/L Potassium (3.6-5.2) mmol/L Chloride (98-107) mmol/L Carbon Dioxide (22-30) mmol/L Anion Gap (10-20) BUN (9-20) mg/dL Creatinine (0.8-1.5) mg/dL Est GFR ( Amer) Est GFR (Non-Af Amer) POC Glucose (mg/dL) 227 H 237 H (65-110) mg/dL Random Glucose (75-110) mg/dL Calcium (8.6-10.4) mg/dl Phosphorus (2.5-4.5) mg/dL Magnesium (1.6-2.3) mg/dL Total Bilirubin (0.2-1.3) mg/dL AST (17-59) U/L ALT (21-72) U/L Alkaline Phosphatase (38-126) U/L Total Protein (6.3-8.3) g/dL Albumin (3.5-5.0) g/dL Globulin (2.2-3.9) gm/dL Albumin/Globulin Ratio (1.0-2.1) PTH Intact Whole Molec (14-64) pg/mL Tot Complement (CH50) (31-60) U/mL 09/12/17 09/12/17 09/11/17 Range/Units 07:08 04:00 20:57 WBC (4.8-10.8) K/uL RBC (4.40-5.90) Mil/uL Hgb (12.0-18.0) g/dL Hct (35.0-51.0) % MCV (80.0-94.0) fL MCH (27.0-31.0) pg MCHC (33.0-37.0) g/dL RDW (11.5-14.5) % Plt Count (130-400) K/uL MPV (7.2-11.7) fL Neut % (Auto) (50.0-75.0) % Lymph % (Auto) (20.0-40.0) % [place] % (Auto) (0.0-10.0) % Eos % (Auto) (0.0-4.0) % Baso % (Auto) (0.0-2.0) % Neut # (Auto) (1.8-7.0) K/uL Lymph # (Auto) (1.0-4.3) K/uL [place] # (Auto) (0.0-0.8) K/uL Eos # (Auto) (0.0-0.7) K/uL Baso # (Auto) (0.0-0.2) K/uL Neutrophils % (Manual) (50-75) % Lymphocytes % (Manual) (20-40) % Monocytes % (Manual) (0-10) % Eosinophils % (Manual) (0-4) % Platelet Estimate (NORMAL) Large Platelets Giant Platelets Polychromasia Hypochromasia (manual) Poikilocytosis (manual Anisocytosis (manual) Microcytosis (manual) Macrocytosis (manual) Target Cells Ovalocytes Sodium 132 (132-148) mmol/L Potassium 3.8 (3.6-5.2) mmol/L Chloride 96 L (98-107) mmol/L Carbon Dioxide 23 (22-30) mmol/L Anion Gap 18 (10-20) BUN 57 H (9-20) mg/dL Creatinine 3.3 H (0.8-1.5) mg/dL Est GFR ( Amer) 22 Est GFR (Non-Af Amer) 18 POC Glucose (mg/dL) 212 H 246 H (65-110) mg/dL Random Glucose 219 H (75-110) mg/dL Calcium 7.7 L (8.6-10.4) mg/dl Phosphorus 4.5 (2.5-4.5) mg/dL Magnesium 1.7 (1.6-2.3) mg/dL Total Bilirubin 1.0 (0.2-1.3) mg/dL AST 29 (17-59) U/L ALT 22 (21-72) U/L Alkaline Phosphatase 67 (38-126) U/L Total Protein 5.7 L (6.3-8.3) g/dL Albumin 2.5 L (3.5-5.0) g/dL Globulin 3.2 (2.2-3.9) gm/dL Albumin/Globulin Ratio 0.8 L (1.0-2.1) PTH Intact Whole Molec (14-64) pg/mL Tot Complement (CH50) (31-60) U/mL 09/11/17 09/11/17 Range/Units 07:11 07:11 WBC (4.8-10.8) K/uL RBC (4.40-5.90) Mil/uL Hgb (12.0-18.0) g/dL Hct (35.0-51.0) % MCV (80.0-94.0) fL MCH (27.0-31.0) pg MCHC (33.0-37.0) g/dL RDW (11.5-14.5) % Plt Count (130-400) K/uL MPV (7.2-11.7) fL Neut % (Auto) (50.0-75.0) % Lymph % (Auto) (20.0-40.0) % [place] % (Auto) (0.0-10.0) % Eos % (Auto) (0.0-4.0) % Baso % (Auto) (0.0-2.0) % Neut # (Auto) (1.8-7.0) K/uL Lymph # (Auto) (1.0-4.3) K/uL [place] # (Auto) (0.0-0.8) K/uL Eos # (Auto) (0.0-0.7) K/uL Baso # (Auto) (0.0-0.2) K/uL Neutrophils % (Manual) (50-75) % Lymphocytes % (Manual) (20-40) % Monocytes % (Manual) (0-10) % Eosinophils % (Manual) (0-4) % Platelet Estimate (NORMAL) Large Platelets Giant Platelets Polychromasia Hypochromasia (manual) Poikilocytosis (manual Anisocytosis (manual) Microcytosis (manual) Macrocytosis (manual) Target Cells Ovalocytes Sodium (132-148) mmol/L Potassium (3.6-5.2) mmol/L Chloride (98-107) mmol/L Carbon Dioxide (22-30) mmol/L Anion Gap (10-20) BUN (9-20) mg/dL Creatinine (0.8-1.5) mg/dL Est GFR ( Amer) Est GFR (Non-Af Amer) POC Glucose (mg/dL) (65-110) mg/dL Random Glucose (75-110) mg/dL Calcium (8.6-10.4) mg/dl Phosphorus (2.5-4.5) mg/dL Magnesium (1.6-2.3) mg/dL Total Bilirubin (0.2-1.3) mg/dL AST (17-59) U/L ALT (21-72) U/L Alkaline Phosphatase (38-126) U/L Total Protein (6.3-8.3) g/dL Albumin (3.5-5.0) g/dL Globulin (2.2-3.9) gm/dL Albumin/Globulin Ratio (1.0-2.1) PTH Intact Whole Molec 181 H (14-64) pg/mL Tot Complement (CH50) 51 (31-60) U/mL Laboratory Results - last 24 hr 09/11/17 09/11/17 09/11/17 07:11 07:11 20:57 WBC RBC Hgb Hct MCV MCH MCHC RDW Plt Count MPV Neut % (Auto) Lymph % (Auto) [place] % (Auto) Eos % (Auto) Baso % (Auto) Neut # (Auto) Lymph # (Auto) [place] # (Auto) Eos # (Auto) Baso # (Auto) Neutrophils % (Manual) Lymphocytes % (Manual) Monocytes % (Manual) Eosinophils % (Manual) Platelet Estimate Large Platelets Giant Platelets Polychromasia Hypochromasia (manual) Poikilocytosis (manual Anisocytosis (manual) Microcytosis (manual) Macrocytosis (manual) Target Cells Ovalocytes Sodium Potassium Chloride Carbon Dioxide Anion Gap BUN Creatinine Est GFR ( Amer) Est GFR (Non-Af Amer) POC Glucose (mg/dL) 246 H Random Glucose Calcium Phosphorus Magnesium Total Bilirubin AST ALT Alkaline Phosphatase Total Protein Albumin Globulin Albumin/Globulin Ratio PTH Intact Whole Molec 181 H Tot Complement (CH50) 51 09/12/17 09/12/17 09/12/17 04:00 07:08 07:19 WBC 13.5 H RBC 2.99 L Hgb 8.9 L Hct 25.8 L MCV 86.2 MCH 29.9 MCHC 34.7 RDW 17.2 H Plt Count 182 MPV 8.0 Neut % (Auto) 83.9 H Lymph % (Auto) 9.4 L [place] % (Auto) 5.1 Eos % (Auto) 0.9 Baso % (Auto) 0.7 Neut # (Auto) 11.4 H Lymph # (Auto) 1.3 [place] # (Auto) 0.7 Eos # (Auto) 0.1 Baso # (Auto) 0.1 Neutrophils % (Manual) 89 H Lymphocytes % (Manual) 7 L Monocytes % (Manual) 2 Eosinophils % (Manual) 2 Platelet Estimate Normal Large Platelets Present Giant Platelets Present Polychromasia Slight Hypochromasia (manual) Slight Poikilocytosis (manual Slight Anisocytosis (manual) Slight Microcytosis (manual) Slight Macrocytosis (manual) Slight Target Cells Slight Ovalocytes Slight Sodium 132 Potassium 3.8 Chloride 96 L Carbon Dioxide 23 Anion Gap 18 BUN 57 H Creatinine 3.3 H Est GFR ( Amer) 22 Est GFR (Non-Af Amer) 18 POC Glucose (mg/dL) 212 H Random Glucose 219 H Calcium 7.7 L Phosphorus 4.5 Magnesium 1.7 Total Bilirubin 1.0 AST 29 ALT 22 Alkaline Phosphatase 67 Total Protein 5.7 L Albumin 2.5 L Globulin 3.2 Albumin/Globulin Ratio 0.8 L PTH Intact Whole Molec Tot Complement (CH50) 09/12/17 09/12/17 11:22 15:55 WBC RBC Hgb Hct MCV MCH MCHC RDW Plt Count MPV Neut % (Auto) Lymph % (Auto) [place] % (Auto) Eos % (Auto) Baso % (Auto) Neut # (Auto) Lymph # (Auto) [place] # (Auto) Eos # (Auto) Baso # (Auto) Neutrophils % (Manual) Lymphocytes % (Manual) Monocytes % (Manual) Eosinophils % (Manual) Platelet Estimate Large Platelets Giant Platelets Polychromasia Hypochromasia (manual) Poikilocytosis (manual Anisocytosis (manual) Microcytosis (manual) Macrocytosis (manual) Target Cells Ovalocytes Sodium Potassium Chloride Carbon Dioxide Anion Gap BUN Creatinine Est GFR ( Amer) Est GFR (Non-Af Amer) POC Glucose (mg/dL) 237 H 227 H Random Glucose Calcium Phosphorus Magnesium Total Bilirubin AST ALT Alkaline Phosphatase Total Protein Albumin Globulin Albumin/Globulin Ratio PTH Intact Whole Molec Tot Complement (CH50) Critical Care Progress Note - Nutrition Nutrition: Nutrition Category Date Time Status Dysphagia/Modified Consistency Diet [DIET] Diets 09/10/17 Lunch Active Attending/Attestation - Attestation I have personally seen and examined this patient.: Yes I have fully participated in the care of the patient.: Yes I have reviewed all pertinent clinical information: Yes Notes (Text): 09/12/17 18:13 patient seen and examined in the intensive care unit. Continue IV antibiotics as per infectious disease, Cultures so far negative Dialysis is on hold and catheter placed by urology Off pressors Continue present treatment
--- NOTE | 2017-09-12 15:28 | CP.PCM.PN ---
Subjective - Date & Time of Evaluation Date of Evaluation: 09/12/17 Time of Evaluation: 15:20 - Subjective Subjective: Nephrology Consultation: Assessment: stable oligoanuric Acute Kidney Injury (N17.9) likely due to ATN: hypotension, sepsis now with fluid overload, urine retention Diabetic chronic Kidney Disease (E11.22) Hyperkalemia Chronic Kidney Disease (N18.3) Stage 3 with 1 gram proteinuria (R80.9) likely due to DM Anemia (D64.9), Hyperphosphatemia (E83.39), Secondary Hyperparathyroidism (E21.1 ), lactic acidosis and severe metabolic acidosis fluid overload A fib with RVR hx if DVT s/p IVC filter, SDH s/p evacuation Plan kaplan catheterization by urology planned for today as unsuccessful by ICU team.continue with flomax 0.4 mg/day. urine output better, likely recovering FUAD. will defer further dialysis. can give lasix IV as needed, as tolerated by BP Patient not on ACEI/ARB due to FUAD and low BP. maintain henodynamics stable Monitor Input/Output, daily weights and renal function with basic metabolic panel continue with epogen and renvela PRBC with HD 09/07/17 Dose meds/antibiotics for reduced GFR. Avoid fleets enema/magnesium based laxatives and antacids. Avoid nephrotoxins/NSAIDs/ iodinated contrast (unless needed emergently) Glycemic control Further work up/management as per primary team Thanks for allowing me to participate in care of your patient. Will follow patient with you. Please call if any Qs. Dr Jason Tate Office: [phone] reason for consult: FUAD HPI: Pt is a 82 M with hx of diabetes Mellitus (years), A fib, SDH s/p evacuation, DVT s/p IVC filter and CKD 3 with baseline cr in 2 range presented with complaints of hypotension and sepsis, rapid A fib. renal consult for FUAD, hyperkalemia and acidosis pt feels sick. c/o thigh pain and swelling. denies SOB Denies OTC/herbal meds or NSAIDs No recent iodinated contrast exposure. Noted obvious episodes of low BP. ROS: pt feels okay. denies CP/SOB/nausea. more coherent but with overnight agitation intermittently Physical Examination: General Appearance: comfortable, in no acute respiratory distress, better appearing Vitals reviewed and noted as below Head; Atraumatic, normocephalic ENT: no ulcers no thrush. Tongue is midline. Oropharynx: no rash or ulcers. EYES: Pupils are equal, round and reactive to light accommodation. Eye muscles and extraocular movement intact. Sclera is anicteric. Neck; supple no lymphadenopathy, no thyromegaly or bruit Lungs: Normal respiratory rate/effort. Breath sounds bilateral decreased at bases Heart: Increased rate. s1s2 normal. No rub or gallop. A fib Extremities: 2-3+ edema. No varicose veins Neurological: Patient is awake alert and more oriented Skin: Warm and dry. Normal turgor. No rash. Palpitation: Normal elasticity for age Abdomen: Abdomen is soft. Bowel sounds +. There is no abdominal tenderness, no guarding/rigidity no organomegaly Psych: deferred MSK: no joint tenderness or swelling. Digits and nails normal, no deformity : kidney not palpable. scrotal/penile edema ++ Labs/imaging reviewed. Past medical history, past surgical history, family history, social history, allergy reviewed and noted as below Family hx: no hx of CKD. Rest non-contributory work up: urine pr/cr 1 gram. vit D 43 PTH 181 Dig 1.4 renal sono unremarkable Objective - Vital Signs/Intake and Output Vital Signs (last 24 hours): Temp Pulse Resp BP Pulse Ox 98.7 F 116 H 27 H 84/52 L 96 09/12/17 12:00 09/12/17 14:47 09/12/17 14:47 09/12/17 14:47 09/12/17 14:47 Intake and Output: 09/12/17 09/12/17 06:59 18:59 Intake Total 900 600 Output Total 0 Balance 900 600 - Medications Medications: Current Medications Acetaminophen (Tylenol 325mg Tab) 650 mg PO Q6 PRN PRN Reason: pain. Last Admin: 09/12/17 10:02 Dose: 650 mg Al Hydrox/Mg Hydrox/Simethicone (Maalox Plus 30 Ml) 30 ml PO Q6H PRN PRN Reason: Indigestion / Heartburn Albumin Human (Albumin Human 25% (12.5 Gm/50 Ml)) 12.5 gm IV Q8H LELA Stop: 09/13/17 02:01 Last Admin: 09/12/17 10:18 Dose: 12.5 gm Calcitriol (Rocaltrol) 0.25 mcg PO DAILY [facility] TO [facility] Last Admin: 09/12/17 09:36 Dose: 0.25 mcg Epoetin Kameron (Procrit) 8,000 unit IV TTS [facility] Last Admin: 09/11/17 11:59 Dose: Not Given Heparin Sodium (Porcine) (Heparin) 5,000 units SC Q12 [facility] Last Admin: 09/12/17 09:38 Dose: 5,000 units Piperacillin Sod/Tazobactam Sod (Zosyn 2.25 Gm Iv Premix) 2.25 gm in 50 mls @ 100 mls/hr IVPB Q8H LELA PRN Reason: Protocol Last Admin: 09/12/17 12:53 Dose: 100 mls/hr Linezolid (Zyvox 600mg/300ml D5w) 600 mg in 300 mls @ 200 mls/hr IVPB Q12H [facility]ELA PRN Reason: Protocol Last Admin: 09/12/17 04:01 Dose: 200 mls/hr Metronidazole (Flagyl) 500 mg in 100 mls @ 100 mls/hr IVPB Q8 LELA PRN Reason: Protocol Last Admin: 09/12/17 13:47 Dose: 100 mls/hr Norepinephrine Bitartrate 4 mg (/ Sodium Chloride) 254 mls @ 7.62 mls/hr IV .Q24H PRN; Protocol; 2 MCG/MIN PRN Reason: TITRATE PER MD ORDER Last Titration: 09/10/17 03:00 Dose: 0 mcg/min, 0 mls/hr Micafungin Sodium 100 mg/ (Sodium Chloride) 100 mls @ 100 mls/hr IV Q24H LELA PRN Reason: Protocol Last Admin: 09/12/17 01:44 Dose: 100 mls/hr Insulin Aspart (Novolog) 0 unit SC ACHS [facility] PRN Reason: Protocol Last Admin: 09/12/17 11:38 Dose: 3 unit Insulin Glargine (Lantus) 30 unit SC QAM [facility] Last Admin: 09/12/17 09:41 Dose: 30 unit Levetiracetam (Keppra) 250 mg PO Q12 [facility] Last Admin: 09/12/17 09:36 Dose: 250 mg Midodrine (Proamatine) 5 mg PO TID [facility] Last Admin: 09/12/17 13:01 Dose: 5 mg Nitroglycerin (Nitrostat Sl Tab) 0.4 mg SL Q5M PRN PRN Reason: Pain, severe (8-10) Last Admin: 09/09/17 12:31 Dose: 0.4 mg Pantoprazole Sodium (Protonix Inj) 40 mg IVP Q12H [facility] Last Admin: 09/12/17 10:12 Dose: 40 mg Sevelamer Carbonate (Renvela) 1,600 mg PO TIDCC [facility] Last Admin: 09/12/17 12:56 Dose: 1,600 mg Sodium Bicarbonate (Sodium Bicarbonate Tab) 1,300 mg PO TID [facility] Last Admin: 09/12/17 13:02 Dose: 1,300 mg Tamsulosin HCl (Flomax) 0.4 mg PO DAILY [facility] Last Admin: 09/12/17 09:36 Dose: 0.4 mg Vitamin B Complex/Vit C/Folic Acid (Nephro-Eber) 1 tab PO 0800 P[facility] Last Admin: 09/12/17 07:57 Dose: 1 tab - Labs Labs: 09/12/17 07:19 09/12/17 04:00 PT 13.0 SECONDS (9.7-12.2) H 09/05/17 11:25 INR 1.2 09/05/17 11:25 APTT 31 SECONDS (21-34) 09/05/17 11:25
[2017-09-12 18:46] LABS: SQUAMOUS EPITHIAL 1 /hpf (0-5); URINE BACTERIA OCC (<OCC); URINE BILIRUBIN NEGATIVE (NEGATIVE); URINE CLARITY Hazy (Clear); URINE COLOR Yellow (YELLOW); URINE GLUCOSE (UA) 1+ mg/dL (Normal); URINE PROTEIN NEGATIVE (NEGATIVE); URINE UROBILINOGEN NORMAL mg/dL (0.2-1.0)
[2017-09-12 18:49] LABS: URINE BLOOD NEGATIVE (NEGATIVE); URINE LEUKOCYTE ESTERASE 1+ Leu/uL (Negative)
--- NOTE | 2017-09-12 20:12 | CP.PCM.PN ---
Subjective - Date & Time of Evaluation Date of Evaluation: 09/12/17 Time of Evaluation: 20:11 - Subjective Subjective: CHIEF COMPLAINTS TODAY : afebrile ,awake, CONFUSED AT TIMES FOLY INSERTED BY DR PIPER +VE GENERALIZED ANASARCA S/P NEW RT IJ HD CATHETER PLACEMENT TODAY 09/07/17 ROS. HEENT : N. RT.IJ CATHETER IN PLACE Resp : No SOB wheezing, cough Cardio : No CP, PND orthopnea +VE TACHCARDIA GI : No abd. Pain, n/v [employer] : No headache , focal deficit. Musculoskel : N Ext. : Pedal pulses intact, B/L EDEMA LE , no calf pain Derm : RT . FOOT DRESSING IN PLACE. Psych : N. PE. Pt. awake in no distress.ON HD. V.S As noted in the chart Head ,ear nose,throat and eyes : Normal. Neck : Supple with normal carotids. RT IJ CATHETER IN PLACE. Lungs: BIBASILAR RALES LEFT > RT Heart : S1 & S2 IRREGULAR, TACHYCARDIC, HEART RATE 110 BPM Abd : Soft non tender with normal bowel sounds. Neuro : Moves all ext. with no localized deficit. Ext : BILATERAL EDEMA THIGHS/LEGS S. Neg. calf tenderness Derm : RT FOOT BLISTERS NOTED GENITALIA--SCROTAL EDEMA \ Radiology/Labs . wbc 13.5 IMPROVING H/H 8.9/25.8 CREAT 3.3/BUN 57 PROCALCITONIN 0.88 HIGH CXR 09/10/17 LT, INFRAHILAR AIRSPACE OPACITY. BLOOD CULTURES-VE FOR 48 HOURS MRSA NOT DETECTED. URINE CULTURES NEGATIVE GROWTH. Objective - Vital Signs/Intake and Output Vital Signs (last 24 hours): Temp Pulse Resp BP Pulse Ox 97.8 F 121 H 26 H 97/54 L 95 09/12/17 16:00 09/12/17 19:00 09/12/17 19:00 09/12/17 18:46 09/12/17 19:00 Intake and Output: 09/12/17 09/13/17 18:59 06:59 Intake Total 1450 50 Output Total 1120 50 Balance 330 0 - Medications Medications: Current Medications Acetaminophen (Tylenol 325mg Tab) 650 mg PO Q6 PRN PRN Reason: pain. Last Admin: 09/12/17 10:02 Dose: 650 mg Al Hydrox/Mg Hydrox/Simethicone (Maalox Plus 30 Ml) 30 ml PO Q6H PRN PRN Reason: Indigestion / Heartburn Albumin Human (Albumin Human 25% (12.5 Gm/50 Ml)) 12.5 gm IV Q8H [facility] Stop: 09/13/17 02:01 Last Admin: 09/12/17 18:42 Dose: 12.5 gm Calcitriol (Rocaltrol) 0.25 mcg PO DAILY [facility] Last Admin: 09/12/17 09:36 Dose: 0.25 mcg Epoetin Kameron (Procrit) 8,000 unit SC TTS [facility] Heparin Sodium (Porcine) (Heparin) 5,000 units SC Q12 [facility] Last Admin: 09/12/17 09:38 Dose: 5,000 units Piperacillin Sod/Tazobactam Sod (Zosyn 2.25 Gm Iv Premix) 2.25 gm in 50 mls @ 100 mls/hr IVPB Q8H LELA PRN Reason: Protocol Last Admin: 09/12/17 19:54 Dose: 100 mls/hr Linezolid (Zyvox 600mg/300ml D5w) 600 mg in 300 mls @ 200 mls/hr IVPB Q12H LELA PRN Reason: Protocol Last Admin: 09/12/17 17:11 Dose: 200 mls/hr Metronidazole (Flagyl) 500 mg in 100 mls @ 100 mls/hr IVPB Q8 LELA PRN Reason: Protocol Last Admin: 09/12/17 13:47 Dose: 100 mls/hr Norepinephrine Bitartrate 4 mg (/ Sodium Chloride) 254 mls @ 7.62 mls/hr IV .Q24H PRN; Protocol; 2 MCG/MIN PRN Reason: TITRATE PER MD ORDER Last Titration: 09/10/17 03:00 Dose: 0 mcg/min, 0 mls/hr Micafungin Sodium 100 mg/ (Sodium Chloride) 100 mls @ 100 mls/hr IV Q24H [facility] PRN Reason: Protocol Last Admin: 09/12/17 01:44 Dose: 100 mls/hr Insulin Aspart (Novolog) 0 unit SC ACHS [facility] PRN Reason: Protocol Last Admin: 09/12/17 16:26 Dose: 4 unit Insulin Glargine (Lantus) 30 unit SC QAM [facility] Last Admin: 09/12/17 09:41 Dose: 30 unit Levetiracetam (Keppra) 250 mg PO Q12 [facility] Last Admin: 09/12/17 09:36 Dose: 250 mg Midodrine (Proamatine) 5 mg PO TID [facility] Last Admin: 09/12/17 17:12 Dose: 5 mg Nitroglycerin (Nitrostat Sl Tab) 0.4 mg SL Q5M PRN PRN Reason: Pain, severe (8-10) Last Admin: 09/09/17 12:31 Dose: 0.4 mg Pantoprazole Sodium (Protonix Inj) 40 mg IVP Q12H [facility] Last Admin: 09/12/17 10:12 Dose: 40 mg Sevelamer Carbonate (Renvela) 1,600 mg PO TIDCC [facility] Last Admin: 09/12/17 17:11 Dose: 1,600 mg Sodium Bicarbonate (Sodium Bicarbonate Tab) 1,300 mg PO TID [facility] Last Admin: 09/12/17 17:11 Dose: 1,300 mg Tamsulosin HCl (Flomax) 0.4 mg PO DAILY [facility] Last Admin: 09/12/17 09:36 Dose: 0.4 mg Vitamin B Complex/Vit C/Folic Acid (Nephro-Eber) 1 tab PO 0800 [facility] Last Admin: 09/12/17 07:57 Dose: 1 tab - Labs Labs: 09/12/17 07:19 09/12/17 04:00 PT 13.0 SECONDS (9.7-12.2) H 09/05/17 11:25 INR 1.2 09/05/17 11:25 APTT 31 SECONDS (21-34) 09/05/17 11:25 Assessment and Plan (1) Sepsis Status: Acute (2) Leukocytosis Status: Acute (3) Hypotension Status: Acute (4) Diarrhea Status: Acute (5) S/P craniotomy Status: Acute (6) Anemia Status: Acute (7) Acute on chronic renal failure Status: Acute (8) Rapid atrial fibrillation Status: Acute - Assessment and Plan (Free Text) Plan: Continue IV Zosyn 2.25 every 8 hourly.09/05/17. And IV Zyvox 600 mg IV piggyback every 12 hourly for gram-positive coverage. And IV Flagyl 500 mg every 8 hourly for now. 09/06/17. F/U URINE CULTURE 09/11 -P CONTINUE IV MYCAMINE 100 MG iv PIGGYBACK OD DAILY 09/09/17. IF URINE CULTURES NEGATIVE wILL dc iv MICAFUNGIN REPEAT BLOOD CULTURES ARE NEGATIVE. PER VARIOUS CONSULTANTS.
--- NOTE | 2017-09-12 23:36 | CP.PCM.CON ---
Past Patient History - Infectious Disease Hx of Infectious Diseases: None - Tetanus Immunizations Tetanus Immunization: Unknown - Past Medical History & Family History Past Medical History?: Yes - Past Social History Smoking Status: Never Smoked - CARDIAC Hx Congestive Heart Failure: Yes Hx Hypercholesterolemia: Yes Hx Hypertension: Yes - PULMONARY Hx Chronic Obstructive Pulmonary Disease (COPD): Yes - NEUROLOGICAL Hx Neurological Disorder: No - HEENT Hx HEENT Problems: No - RENAL Hx Chronic Kidney Disease: No - ENDOCRINE/METABOLIC Hx Diabetes Mellitus Type 2: Yes - HEMATOLOGICAL/ONCOLOGICAL Hx Human Immunodeficiency Virus (HIV): No - INTEGUMENTARY Hx Dermatological Problems: No - MUSCULOSKELETAL/RHEUMATOLOGICAL Hx Arthritis: Yes - GASTROINTESTINAL Hx Gastrointestinal Disorders: Yes Hx Gastroesophageal Reflux: Yes - GENITOURINARY/GYNECOLOGICAL Hx Genitourinary Disorders: Yes Other/Comment: prostate sx - PSYCHIATRIC Hx Depression: No Hx Substance Use: No - SURGICAL HISTORY Hx Surgeries: Yes Other/Comment: PROSTATE - ANESTHESIA Hx Anesthesia Reactions: No Hx Malignant Hyperthermia: No Meds Allergies/Adverse Reactions: Allergies Allergy/AdvReac Type Severity Reaction Status Date / Time No Known Allergies Allergy Verified 09/05/17 10:47 - Medications Medications: Current Medications Acetaminophen (Tylenol 325mg Tab) 650 mg PO Q6 PRN PRN Reason: pain. Last Admin: 09/12/17 10:02 Dose: 650 mg Al Hydrox/Mg Hydrox/Simethicone (Maalox Plus 30 Ml) 30 ml PO Q6H PRN PRN Reason: Indigestion / Heartburn Albumin Human (Albumin Human 25% (12.5 Gm/50 Ml)) 12.5 gm IV Q8H [facility] Stop: 09/13/17 02:01 Last Admin: 09/12/17 18:42 Dose: 12.5 gm Calcitriol (Rocaltrol) 0.25 mcg PO DAILY [facility] Last Admin: 09/12/17 09:36 Dose: 0.25 mcg Epoetin Kameron (Procrit) 8,000 unit SC TTS [facility] Heparin Sodium (Porcine) (Heparin) 5,000 units SC Q12 [facility] Last Admin: 09/12/17 21:45 Dose: 5,000 units Piperacillin Sod/Tazobactam Sod (Zosyn 2.25 Gm Iv Premix) 2.25 gm in 50 mls @ 100 mls/hr IVPB Q8H [facility] PRN Reason: Protocol Last Admin: 09/12/17 19:54 Dose: 100 mls/hr Linezolid (Zyvox 600mg/300ml D5w) 600 mg in 300 mls @ 200 mls/hr IVPB Q12H [facility] PRN Reason: Protocol Last Admin: 09/12/17 17:11 Dose: 200 mls/hr Metronidazole (Flagyl) 500 mg in 100 mls @ 100 mls/hr IVPB Q8 [facility] PRN Reason: Protocol Last Admin: 09/12/17 21:45 Dose: 100 mls/hr Norepinephrine Bitartrate 4 mg (/ Sodium Chloride) 254 mls @ 7.62 mls/hr IV .Q24H PRN; Protocol; 2 MCG/MIN PRN Reason: TITRATE PER MD ORDER Last Titration: 09/10/17 03:00 Dose: 0 mcg/min, 0 mls/hr Micafungin Sodium 100 mg/ (Sodium Chloride) 100 mls @ 100 mls/hr IV Q24H [facility] PRN Reason: Protocol Last Admin: 09/12/17 01:44 Dose: 100 mls/hr Insulin Aspart (Novolog) 0 unit SC ACHS [facility] PRN Reason: Protocol Last Admin: 09/12/17 21:46 Dose: Not Given Insulin Glargine (Lantus) 30 unit SC QAM [facility] Last Admin: 09/12/17 09:41 Dose: 30 unit Levetiracetam (Keppra) 250 mg PO Q12 [facility] Last Admin: 09/12/17 21:44 Dose: 250 mg Midodrine (Proamatine) 5 mg PO TID [facility] Last Admin: 09/12/17 17:12 Dose: 5 mg Nitroglycerin (Nitrostat Sl Tab) 0.4 mg SL Q5M PRN PRN Reason: Pain, severe (8-10) Last Admin: 09/09/17 12:31 Dose: 0.4 mg Pantoprazole Sodium (Protonix Ec Tab) 40 mg PO DAILY [facility] Sevelamer Carbonate (Renvela) 1,600 mg PO TIDCC [facility] Last Admin: 09/12/17 17:11 Dose: 1,600 mg Sodium Bicarbonate (Sodium Bicarbonate Tab) 1,300 mg PO TID [facility] Last Admin: 09/12/17 17:11 Dose: 1,300 mg Tamsulosin HCl (Flomax) 0.4 mg PO DAILY [facility] Last Admin: 09/12/17 09:36 Dose: 0.4 mg Vitamin B Complex/Vit C/Folic Acid (Nephro-Eber) 1 tab PO 0800 [facility] Last Admin: 09/12/17 07:57 Dose: 1 tab Results - Vital Signs Recent Vital Signs: Last Vital Signs Temp 97.5 F L 09/12/17 20:00 Pulse 121 H 09/12/17 19:00 Resp 26 H 09/12/17 19:00 BP 109/65 09/12/17 19:47 Pulse Ox 95 09/12/17 19:00 - Labs Result Diagrams: 09/12/17 07:19 09/12/17 04:00 Labs: Laboratory Results - last 24 hr 09/11/17 09/11/17 09/11/17 07:11 07:11 18:29 WBC RBC Hgb Hct MCV MCH MCHC RDW Plt Count MPV Neut % (Auto) Lymph % (Auto) [place] % (Auto) Eos % (Auto) Baso % (Auto) Neut # (Auto) Lymph # (Auto) [place] # (Auto) Eos # (Auto) Baso # (Auto) Neutrophils % (Manual) Lymphocytes % (Manual) Monocytes % (Manual) Eosinophils % (Manual) Platelet Estimate Large Platelets Giant Platelets Polychromasia Hypochromasia (manual) Poikilocytosis (manual Anisocytosis (manual) Microcytosis (manual) Macrocytosis (manual) Target Cells Ovalocytes Sodium Potassium Chloride Carbon Dioxide Anion Gap BUN Creatinine Est GFR ( Amer) Est GFR (Non-Af Amer) POC Glucose (mg/dL) Random Glucose Calcium Phosphorus Magnesium Total Bilirubin AST ALT Alkaline Phosphatase Total Protein Albumin Globulin Albumin/Globulin Ratio PTH Intact Whole Molec 181 H Urine Color Yellow Urine Clarity Hazy Urine pH 5.0 Ur Specific [place] 1.015 Urine Protein Negative Urine Glucose (UA) 1+ H Urine Ketones Negative Urine Blood Negative Urine Nitrate Negative Urine Bilirubin Negative Urine Urobilinogen Normal Ur Leukocyte Esterase 1+ H Urine WBC (Auto) 10 H Urine RBC (Auto) 3 Ur Squamous Epith Cells 1 Urine Bacteria Occ H Tot Complement (CH50) 51 09/11/17 09/12/17 09/12/17 20:57 04:00 07:08 WBC RBC Hgb Hct MCV MCH MCHC RDW Plt Count MPV Neut % (Auto) Lymph % (Auto) [place] % (Auto) Eos % (Auto) Baso % (Auto) Neut # (Auto) Lymph # (Auto) [place] # (Auto) Eos # (Auto) Baso # (Auto) Neutrophils % (Manual) Lymphocytes % (Manual) Monocytes % (Manual) Eosinophils % (Manual) Platelet Estimate Large Platelets Giant Platelets Polychromasia Hypochromasia (manual) Poikilocytosis (manual Anisocytosis (manual) Microcytosis (manual) Macrocytosis (manual) Target Cells Ovalocytes Sodium 132 Potassium 3.8 Chloride 96 L Carbon Dioxide 23 Anion Gap 18 BUN 57 H Creatinine 3.3 H Est GFR ( Amer) 22 Est GFR (Non-Af Amer) 18 POC Glucose (mg/dL) 246 H 212 H Random Glucose 219 H Calcium 7.7 L Phosphorus 4.5 Magnesium 1.7 Total Bilirubin 1.0 AST 29 ALT 22 Alkaline Phosphatase 67 Total Protein 5.7 L Albumin 2.5 L Globulin 3.2 Albumin/Globulin Ratio 0.8 L PTH Intact Whole Molec Urine Color Urine Clarity Urine pH Ur Specific [place] Urine Protein Urine Glucose (UA) Urine Ketones Urine Blood Urine Nitrate Urine Bilirubin Urine Urobilinogen Ur Leukocyte Esterase Urine WBC (Auto) Urine RBC (Auto) Ur Squamous Epith Cells Urine Bacteria Tot Complement (CH50) 09/12/17 09/12/17 09/12/17 07:19 11:22 15:55 WBC 13.5 H RBC 2.99 L Hgb 8.9 L Hct 25.8 L MCV 86.2 MCH 29.9 MCHC 34.7 RDW 17.2 H Plt Count 182 MPV 8.0 Neut % (Auto) 83.9 H Lymph % (Auto) 9.4 L [place] % (Auto) 5.1 Eos % (Auto) 0.9 Baso % (Auto) 0.7 Neut # (Auto) 11.4 H Lymph # (Auto) 1.3 [place] # (Auto) 0.7 Eos # (Auto) 0.1 Baso # (Auto) 0.1 Neutrophils % (Manual) 89 H Lymphocytes % (Manual) 7 L Monocytes % (Manual) 2 Eosinophils % (Manual) 2 Platelet Estimate Normal Large Platelets Present Giant Platelets Present Polychromasia Slight Hypochromasia (manual) Slight Poikilocytosis (manual Slight Anisocytosis (manual) Slight Microcytosis (manual) Slight Macrocytosis (manual) Slight Target Cells Slight Ovalocytes Slight Sodium Potassium Chloride Carbon Dioxide Anion Gap BUN Creatinine Est GFR ( Amer) Est GFR (Non-Af Amer) POC Glucose (mg/dL) 237 H 227 H Random Glucose Calcium Phosphorus Magnesium Total Bilirubin AST ALT Alkaline Phosphatase Total Protein Albumin Globulin Albumin/Globulin Ratio PTH Intact Whole Molec Urine Color Urine Clarity Urine pH Ur Specific [place] Urine Protein Urine Glucose (UA) Urine Ketones Urine Blood Urine Nitrate Urine Bilirubin Urine Urobilinogen Ur Leukocyte Esterase Urine WBC (Auto) Urine RBC (Auto) Ur Squamous Epith Cells Urine Bacteria Tot Complement (CH50) 09/12/17 21:12 WBC RBC Hgb Hct MCV MCH MCHC RDW Plt Count MPV Neut % (Auto) Lymph % (Auto) [place] % (Auto) Eos % (Auto) Baso % (Auto) Neut # (Auto) Lymph # (Auto) [place] # (Auto) Eos # (Auto) Baso # (Auto) Neutrophils % (Manual) Lymphocytes % (Manual) Monocytes % (Manual) Eosinophils % (Manual) Platelet Estimate Large Platelets Giant Platelets Polychromasia Hypochromasia (manual) Poikilocytosis (manual Anisocytosis (manual) Microcytosis (manual) Macrocytosis (manual) Target Cells Ovalocytes Sodium Potassium Chloride Carbon Dioxide Anion Gap BUN Creatinine Est GFR ( Amer) Est GFR (Non-Af Amer) POC Glucose (mg/dL) 193 H Random Glucose Calcium Phosphorus Magnesium Total Bilirubin AST ALT Alkaline Phosphatase Total Protein Albumin Globulin Albumin/Globulin Ratio PTH Intact Whole Molec Urine Color Urine Clarity Urine pH Ur Specific [place] Urine Protein Urine Glucose (UA) Urine Ketones Urine Blood Urine Nitrate Urine Bilirubin Urine Urobilinogen Ur Leukocyte Esterase Urine WBC (Auto) Urine RBC (Auto) Ur Squamous Epith Cells Urine Bacteria Tot Complement (CH50) Assessment & Plan - Assessment and Plan (Free Text) Assessment: IMP: urinary retention Renal failure Sepsis Edema of genitalia Phimosis Diabetes Anemia Abd distention P/Rec: Edema of penis reduced with compression 14Fr, coue-tipped kaplan cath inserted, with residual of 1100 cc elevation of scrotum - Date & Time Date: 09/12/17 Time: 16:45
--- NOTE | 2017-09-12 23:57 | CP.PCM.PN ---
Subjective - Date & Time of Evaluation Date of Evaluation: 09/12/17 Time of Evaluation: 18:00 - Subjective Subjective: pt seen and examined pt is in rapid a.fib, off HD improving HCO3 picked up UTI resolving Objective - Vital Signs/Intake and Output Vital Signs (last 24 hours): Temp Pulse Resp BP Pulse Ox 97.5 F L 121 H 26 H 109/65 95 09/12/17 20:00 09/12/17 19:00 09/12/17 19:00 09/12/17 19:47 09/12/17 19:00 Intake and Output: 09/12/17 09/13/17 18:59 06:59 Intake Total 1450 50 Output Total 1120 50 Balance 330 0 - Medications Medications: Current Medications Acetaminophen (Tylenol 325mg Tab) 650 mg PO Q6 PRN PRN Reason: pain. Last Admin: 09/12/17 10:02 Dose: 650 mg Al Hydrox/Mg Hydrox/Simethicone (Maalox Plus 30 Ml) 30 ml PO Q6H PRN PRN Reason: Indigestion / Heartburn Albumin Human (Albumin Human 25% (12.5 Gm/50 Ml)) 12.5 gm IV Q8H [facility] Stop: 09/13/17 02:01 Last Admin: 09/12/17 18:42 Dose: 12.5 gm Calcitriol (Rocaltrol) 0.25 mcg PO DAILY [facility] Last Admin: 09/12/17 09:36 Dose: 0.25 mcg Epoetin Kameron (Procrit) 8,000 unit SC TTS [facility] Heparin Sodium (Porcine) (Heparin) 5,000 units SC Q12 [facility] Last Admin: 09/12/17 21:45 Dose: 5,000 units Piperacillin Sod/Tazobactam Sod (Zosyn 2.25 Gm Iv Premix) 2.25 gm in 50 mls @ 100 mls/hr IVPB Q8H [facility] PRN Reason: Protocol Last Admin: 09/12/17 19:54 Dose: 100 mls/hr Linezolid (Zyvox 600mg/300ml D5w) 600 mg in 300 mls @ 200 mls/hr IVPB Q12H [facility] PRN Reason: Protocol Last Admin: 09/12/17 17:11 Dose: 200 mls/hr Metronidazole (Flagyl) 500 mg in 100 mls @ 100 mls/hr IVPB Q8 [facility] PRN Reason: Protocol Last Admin: 09/12/17 21:45 Dose: 100 mls/hr Norepinephrine Bitartrate 4 mg (/ Sodium Chloride) 254 mls @ 7.62 mls/hr IV .Q24H PRN; Protocol; 2 MCG/MIN PRN Reason: TITRATE PER MD ORDER Last Titration: 09/10/17 03:00 Dose: 0 mcg/min, 0 mls/hr Micafungin Sodium 100 mg/ (Sodium Chloride) 100 mls @ 100 mls/hr IV Q24H [facility] PRN Reason: Protocol Last Admin: 09/12/17 01:44 Dose: 100 mls/hr Insulin Aspart (Novolog) 0 unit SC ACHS [facility] PRN Reason: Protocol Last Admin: 09/12/17 21:46 Dose: Not Given Insulin Glargine (Lantus) 30 unit SC QAM [facility] Last Admin: 09/12/17 09:41 Dose: 30 unit Levetiracetam (Keppra) 250 mg PO Q12 [facility] Last Admin: 09/12/17 21:44 Dose: 250 mg Midodrine (Proamatine) 5 mg PO TID [facility] Last Admin: 09/12/17 17:12 Dose: 5 mg Nitroglycerin (Nitrostat Sl Tab) 0.4 mg SL Q5M PRN PRN Reason: Pain, severe (8-10) Last Admin: 09/09/17 12:31 Dose: 0.4 mg Pantoprazole Sodium (Protonix Ec Tab) 40 mg PO DAILY [facility] Sevelamer Carbonate (Renvela) 1,600 mg PO TIDCC [facility] Last Admin: 09/12/17 17:11 Dose: 1,600 mg Sodium Bicarbonate (Sodium Bicarbonate Tab) 1,300 mg PO TID [facility] Last Admin: 09/12/17 17:11 Dose: 1,300 mg Tamsulosin HCl (Flomax) 0.4 mg PO DAILY [facility] Last Admin: 09/12/17 09:36 Dose: 0.4 mg Vitamin B Complex/Vit C/Folic Acid (Nephro-Eber) 1 tab PO 0800 [facility] Last Admin: 09/12/17 07:57 Dose: 1 tab - Labs Labs: 09/12/17 07:19 09/12/17 04:00 PT 13.0 SECONDS (9.7-12.2) H 09/05/17 11:25 INR 1.2 09/05/17 11:25 APTT 31 SECONDS (21-34) 09/05/17 11:25 - Constitutional Appears: No Acute Distress, Chronically Ill - Head Exam Head Exam: ATRAUMATIC, NORMAL INSPECTION, NORMOCEPHALIC - Eye Exam Eye Exam: EOMI, Normal appearance, PERRL Pupil Exam: NORMAL ACCOMODATION, PERRL - Respiratory Exam Respiratory Exam: Clear to Ausculation Bilateral, NORMAL BREATHING PATTERN - Cardiovascular Exam Cardiovascular Exam: Tachycardia, Irregular Rhythm, +S1, +S2 - GI/Abdominal Exam GI & Abdominal Exam: Soft, Normal Bowel Sounds. absent: Tenderness Assessment and Plan (1) Hypotension Status: Acute (2) Near syncope Status: Acute (3) Rapid atrial fibrillation Status: Acute (4) Sepsis Status: Acute (5) Altered mental status Status: Acute
[2017-09-13] MEDS: Albumin Human 25% (12.5 gm/50 ml) IV SCH (01:52)
[2017-09-13] MEDS: Micafungin 100 MG in Sodium Chloride 0.9% 100 ML IV SCH (02:29)
[2017-09-13] MEDS: Piperacill/Tazo 2.25gm in Dex 2.25 GM/50 ML BAG IVPB SCH ×3 (03:22→20:00)
[2017-09-13] MEDS: Linezolid 600 mg in D5W 300 ml 600 MG/300 ML BAG IVPB SCH ×2 (04:43→17:21)
[2017-09-13] MEDS: metroNIDAZOLE IV 500 mg/100 ml 500 MG/100 ML BAG IVPB SCH ×3 (05:57→21:10)
[2017-09-13 06:32] LABS: BASO # 0.1 K/uL (0.0-0.2); BASO % 1.1 % (0.0-2.0); EOS # 0.1 K/uL (0.0-0.7); EOS % 0.8 % (0.0-4.0); HEMOGLOBIN 8.7 g/dL (12.0-18.0); LYMPH # 1.4 K/uL (1.0-4.3); LYMPH % 11.9 % (20.0-40.0); MEAN CELL VOLUME 87.4 fL (80.0-94.0); MEAN CORPUSCULAR HEMOGLOBIN 30.1 pg (27.0-31.0); MEAN CORPUSCULAR HGB CONC 34.4 g/dL (33.0-37.0); MEAN PLATELET VOLUME 7.8 fL (7.2-11.7); MONO # 0.6 K/uL (0.0-0.8); MONO % 5.3 % (0.0-10.0); NEUT # 9.8 K/uL (1.8-7.0); NEUT % 80.9 % (50.0-75.0); NRBC % 0.1 % (0.0-2.0); RBC 2.91 Mil/uL (4.40-5.90); RED CELL DISTRIBUTION WIDTH 16.8 % (11.5-14.5); WHITE BLOOD COUNT 12.1 K/uL (4.8-10.8)
[2017-09-13 06:34] LABS: ALB/GLOB RATIO 0.9 (1.0-2.1); ALBUMIN 2.9 g/dL (3.5-5.0); CALCIUM 8.1 mg/dl (8.6-10.4)
[2017-09-13] MEDS: (Novolog) Insulin Aspart, Recombinant 100 u/ml 10 ml vial SC SCH ×4 (07:47→21:19)
[2017-09-13] MEDS: Multivitamin Vitamin B Complex (Nephro-Vite) Tab PO SCH (07:48)
[2017-09-13] MEDS: EPOETIN ALFA 4,000 UNIT/ML ML Dialysis SC SCH ×2 (08:38→09:30)
[2017-09-13] MEDS: (Lantus) Insulin Glargine, Recombinant SC SCH (09:28)
[2017-09-13] MEDS ORDERED: Pantoprazole 40 mg EC Tab PO SCH (10:00)
[2017-09-13] MEDS ORDERED: Epoetin Alfa 4000 UNIT/ML Inj SC SCH (10:00)
--- NOTE | 2017-09-13 15:08 | CP.PCM.PN ---
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 appreciate input urine output better, stable cr, likely recovering FUAD. not in immediate need of dialysis. can d/c dialysis catheter can give lasix as needed, as tolerated by BP Patient not on ACEI/ARB due to FUAD and low BP. maintain hemodynamics stable Monitor Input/Output, daily weights and renal function with basic metabolic panel Pt on epogen and renvela PRBC with HD 09/07/17 Dose meds/antibiotics for reduced GFR. Avoid fleets enema/magnesium based laxatives and antacids. Avoid nephrotoxins/NSAIDs/ iodinated contrast (unless needed emergently) Glycemic control Further work up/management as per primary team Thanks for allowing me to participate in care of your patient. Will follow patient with you. Please call if any Qs. d/w ICU team Dr Jason Tate Office: [phone] reason for consult: FUAD HPI: Pt is a 82 M with hx of diabetes Mellitus (years), A fib, SDH s/p evacuation, DVT s/p IVC filter and CKD 3 with baseline cr in 2 range presented with complaints of hypotension and sepsis, rapid A fib. renal consult for FUAD, hyperkalemia and acidosis pt feels sick. c/o thigh pain and swelling. denies SOB Denies OTC/herbal meds or NSAIDs No recent iodinated contrast exposure. Noted obvious episodes of low BP. ROS: pt feels okay. denies CP/SOB/nausea. Physical Examination: General Appearance: comfortable, in no acute respiratory distress, better appearing Vitals reviewed and noted as below Head; Atraumatic, normocephalic ENT: no ulcers no thrush. Tongue is midline. Oropharynx: no rash or ulcers. EYES: Pupils are equal, round and reactive to light accommodation. Eye muscles and extraocular movement intact. Sclera is anicteric. Neck; supple no lymphadenopathy, no thyromegaly or bruit Lungs: Normal respiratory rate/effort. Breath sounds bilateral decreased at bases Heart: Increased rate. s1s2 normal. No rub or gallop. A fib Extremities: 2-3+ edema. No varicose veins Neurological: Patient is awake alert and more oriented Skin: Warm and dry. Normal turgor. No rash. Palpitation: Normal elasticity for age Abdomen: Abdomen is soft. Bowel sounds +. There is no abdominal tenderness, no guarding/rigidity no organomegaly Psych: deferred MSK: no joint tenderness or swelling. Digits and nails normal, no deformity : kidney not palpable. scrotal/penile edema ++ has kaplan Labs/imaging reviewed. Past medical history, past surgical history, family history, social history, allergy reviewed and noted as below Family hx: no hx of CKD. Rest non-contributory work up: urine pr/cr 1 gram. vit D 43 PTH 181 Dig 1.4 renal sono unremarkable Objective - Vital Signs/Intake and Output Vital Signs (last 24 hours): Temp Pulse Resp BP Pulse Ox 98.4 F 110 H 22 87/54 L 99 09/13/17 12:00 09/13/17 14:21 09/13/17 14:21 09/13/17 14:21 09/13/17 14:21 Intake and Output: 09/13/17 09/13/17 06:59 18:59 Intake Total 1170 750 Output Total 650 540 Balance 520 210 - Medications Medications: Current Medications Acetaminophen (Tylenol 325mg Tab) 650 mg PO Q6 PRN PRN Reason: pain. Last Admin: 09/12/17 10:02 Dose: 650 mg Al Hydrox/Mg Hydrox/Simethicone (Maalox Plus 30 Ml) 30 ml PO Q6H PRN PRN Reason: Indigestion / Heartburn Calcitriol (Rocaltrol) 0.25 mcg PO DAILY [facility] Last Admin: 09/13/17 09:25 Dose: 0.25 mcg Epoetin Kameron (Procrit) 8,000 unit SC TTS [facility] Last Admin: 09/13/17 09:11 Dose: 8,000 unit Heparin Sodium (Porcine) (Heparin) 5,000 units SC Q12 [facility] Last Admin: 09/13/17 09:26 Dose: 5,000 units Piperacillin Sod/Tazobactam Sod (Zosyn 2.25 Gm Iv Premix) 2.25 gm in 50 mls @ 100 mls/hr IVPB Q8H [facility] PRN Reason: Protocol Last Admin: 09/13/17 11:28 Dose: 100 mls/hr Linezolid (Zyvox 600mg/300ml D5w) 600 mg in 300 mls @ 200 mls/hr IVPB Q12H [facility] PRN Reason: Protocol Last Admin: 09/13/17 04:43 Dose: 200 mls/hr Metronidazole (Flagyl) 500 mg in 100 mls @ 100 mls/hr IVPB Q8 [facility] PRN Reason: Protocol Last Admin: 09/13/17 13:29 Dose: 100 mls/hr Micafungin Sodium 100 mg/ (Sodium Chloride) 100 mls @ 100 mls/hr IV Q24H [facility] PRN Reason: Protocol Last Admin: 09/13/17 02:29 Dose: 100 mls/hr Insulin Aspart (Novolog) 0 unit SC ACHS [facility] PRN Reason: Protocol Last Admin: 09/13/17 11:29 Dose: 4 unit Insulin Glargine (Lantus) 30 unit SC QAM [facility] Last Admin: 09/13/17 09:28 Dose: 30 unit Levetiracetam (Keppra) 250 mg PO Q12 [facility] Last Admin: 09/13/17 09:25 Dose: 250 mg Midodrine (Proamatine) 5 mg PO TID [facility] Last Admin: 09/13/17 13:29 Dose: 5 mg Nitroglycerin (Nitrostat Sl Tab) 0.4 mg SL Q5M PRN PRN Reason: Pain, severe (8-10) Last Admin: 09/09/17 12:31 Dose: 0.4 mg Pantoprazole Sodium (Protonix Ec Tab) 40 mg PO DAILY [facility] Last Admin: 09/13/17 09:25 Dose: 40 mg Sevelamer Carbonate (Renvela) 800 mg PO TIDCC [facility] Last Admin: 09/13/17 11:56 Dose: Not Given Sodium Bicarbonate (Sodium Bicarbonate Tab) 1,300 mg PO TID [facility] Last Admin: 09/13/17 13:29 Dose: 1,300 mg Tamsulosin HCl (Flomax) 0.4 mg PO DAILY [facility] Last Admin: 09/13/17 09:25 Dose: 0.4 mg Vitamin B Complex/Vit C/Folic Acid (Nephro-Eber) 1 tab PO 0800 [facility] Last Admin: 09/13/17 07:48 Dose: 1 tab - Labs Labs: 09/13/17 06:19 09/13/17 06:19 PT 13.0 SECONDS (9.7-12.2) H 09/05/17 11:25 INR 1.2 09/05/17 11:25 APTT 31 SECONDS (21-34) 09/05/17 11:25
--- NOTE | 2017-09-13 17:04 | PCM.URO ---
Urology Progress Note - Objective Lab Studies: Reviewed (phimosis, retention, no gu change) Lab Results Last 24 Hours: Laboratory Results - last 24 hr 09/11/17 09/12/17 09/13/17 18:29 21:12 06:19 WBC 12.1 H RBC 2.91 L Hgb 8.7 L Hct 25.4 L MCV 87.4 MCH 30.1 MCHC 34.4 RDW 16.8 H Plt Count 180 MPV 7.8 Neut % (Auto) 80.9 H Lymph % (Auto) 11.9 L Clay % (Auto) 5.3 Eos % (Auto) 0.8 Baso % (Auto) 1.1 Neut # (Auto) 9.8 H Lymph # (Auto) 1.4 Clay # (Auto) 0.6 Eos # (Auto) 0.1 Baso # (Auto) 0.1 Sodium Potassium Chloride Carbon Dioxide Anion Gap BUN Creatinine Est GFR ( Amer) Est GFR (Non-Af Amer) POC Glucose (mg/dL) 193 H Random Glucose Calcium Phosphorus Magnesium Total Bilirubin AST ALT Alkaline Phosphatase Total Protein Albumin Globulin Albumin/Globulin Ratio Urine Color Yellow Urine Clarity Hazy Urine pH 5.0 Ur Specific [place] 1.015 Urine Protein Negative Urine Glucose (UA) 1+ H Urine Ketones Negative Urine Blood Negative Urine Nitrate Negative Urine Bilirubin Negative Urine Urobilinogen Normal Ur Leukocyte Esterase 1+ H Urine WBC (Auto) 10 H Urine RBC (Auto) 3 Ur Squamous Epith Cells 1 Urine Bacteria Occ H 09/13/17 09/13/17 09/13/17 06:19 07:12 11:22 WBC RBC Hgb Hct MCV MCH MCHC RDW Plt Count MPV Neut % (Auto) Lymph % (Auto) Clay % (Auto) Eos % (Auto) Baso % (Auto) Neut # (Auto) Lymph # (Auto) [place] # (Auto) Eos # (Auto) Baso # (Auto) Sodium 133 Potassium 4.0 Chloride 94 L Carbon Dioxide 23 Anion Gap 20 BUN 56 H Creatinine 3.4 H Est GFR ( Amer) 21 Est GFR (Non-Af Amer) 17 POC Glucose (mg/dL) 172 H 201 H Random Glucose 160 H Calcium 8.1 L Phosphorus 4.3 Magnesium 1.7 Total Bilirubin 1.1 AST 25 ALT 19 L Alkaline Phosphatase 67 Total Protein 5.9 L Albumin 2.9 L Globulin 3.0 Albumin/Globulin Ratio 0.9 L Urine Color Urine Clarity Urine pH Ur Specific [place] Urine Protein Urine Glucose (UA) Urine Ketones Urine Blood Urine Nitrate Urine Bilirubin Urine Urobilinogen Ur Leukocyte Esterase Urine WBC (Auto) Urine RBC (Auto) Ur Squamous Epith Cells Urine Bacteria 09/13/17 15:39 WBC RBC Hgb Hct MCV MCH MCHC RDW Plt Count MPV Neut % (Auto) Lymph % (Auto) [place] % (Auto) Eos % (Auto) Baso % (Auto) Neut # (Auto) Lymph # (Auto) Clay # (Auto) Eos # (Auto) Baso # (Auto) Sodium Potassium Chloride Carbon Dioxide Anion Gap BUN Creatinine Est GFR ( Amer) Est GFR (Non-Af Amer) POC Glucose (mg/dL) 158 H Random Glucose Calcium Phosphorus Magnesium Total Bilirubin AST ALT Alkaline Phosphatase Total Protein Albumin Globulin Albumin/Globulin Ratio Urine Color Urine Clarity Urine pH Ur Specific [place] Urine Protein Urine Glucose (UA) Urine Ketones Urine Blood Urine Nitrate Urine Bilirubin Urine Urobilinogen Ur Leukocyte Esterase Urine WBC (Auto) Urine RBC (Auto) Ur Squamous Epith Cells Urine Bacteria Intake & Output: Intake & Output 09/12/17 09/13/17 09/13/17 18:59 06:59 18:59 Intake Total 1450 1170 750 Output Total 1120 650 540 Balance 330 520 210 Weight 242 lb 11.663 oz Intake: Intake, IV Amount 500 800 150 Left Forearm 700 150 Left Wrist 50 PermaCath 500 50 Oral 950 370 600 Output: Urine 1120 650 540 Straight 0 Urethral (Ellis) 1120 650 540 Other: # Bowel Movements 1 0 0 Vital Signs: Vital Signs - 24 hr 09/12/17 09/12/17 09/12/17 17:47 18:00 18:46 Temperature Pulse Rate 103 H 99 H 98 H Respiratory 31 H 31 H 28 H Rate Blood Pressure 99/53 L 97/54 L O2 Sat by Pulse 97 99 99 Oximetry 09/12/17 09/12/17 09/12/17 19:00 19:47 20:00 Temperature 97.5 F L Pulse Rate 121 H Respiratory 26 H Rate Blood Pressure 109/65 O2 Sat by Pulse 95 Oximetry 09/12/17 09/12/17 09/12/17 20:47 21:00 21:46 Temperature Pulse Rate 106 H 110 H Respiratory 26 H 27 H Rate Blood Pressure 94/60 L 98/60 L O2 Sat by Pulse 96 96 Oximetry 09/12/17 09/12/17 09/12/17 22:00 22:21 22:46 Temperature Pulse Rate 104 H 98 H Respiratory 24 25 H Rate Blood Pressure 112/66 100/64 O2 Sat by Pulse 97 97 Oximetry 09/12/17 09/12/17 09/12/17 23:00 23:43 23:47 Temperature Pulse Rate 101 H 103 H Respiratory 26 H 19 Rate Blood Pressure 102/65 106/62 O2 Sat by Pulse 95 96 Oximetry 09/13/17 09/13/17 09/13/17 00:00 00:46 01:00 Temperature 98.5 F Pulse Rate 112 H Respiratory 27 H Rate Blood Pressure 100/64 O2 Sat by Pulse 96 Oximetry 09/13/17 09/13/17 09/13/17 01:47 02:00 02:47 Temperature Pulse Rate 105 H 105 H Respiratory 22 30 H Rate Blood Pressure 106/66 102/69 O2 Sat by Pulse 97 97 Oximetry 09/13/17 09/13/17 09/13/17 03:00 03:51 04:00 Temperature 98.6 F Pulse Rate 104 H 106 H Respiratory 24 24 Rate Blood Pressure 110/62 O2 Sat by Pulse 97 97 Oximetry 09/13/17 09/13/17 09/13/17 04:46 05:00 05:46 Temperature Pulse Rate 110 H Respiratory 24 Rate Blood Pressure 98/67 L 108/59 L O2 Sat by Pulse 95 Oximetry 09/13/17 09/13/17 09/13/17 06:00 06:47 07:00 Temperature Pulse Rate 108 H 109 H 108 H Respiratory 24 19 21 Rate Blood Pressure 101/55 L O2 Sat by Pulse 96 95 97 Oximetry 09/13/17 09/13/17 09/13/17 07:47 08:00 09:00 Temperature 97.5 F L Pulse Rate 107 H 117 H 117 H Respiratory 29 H 27 H 30 H Rate Blood Pressure 101/63 O2 Sat by Pulse 95 95 Oximetry 09/13/17 09/13/17 09/13/17 09:10 10:00 10:10 Temperature Pulse Rate 94 H 105 H 101 H Respiratory 28 H 29 H 28 H Rate Blood Pressure 102/63 106/64 O2 Sat by Pulse 98 98 97 Oximetry 09/13/17 09/13/1709/13/18 11:00 11:10 12:00 Temperature 98.4 F Pulse Rate 110 H 105 H 106 H Respiratory 29 H 28 H 19 Rate Blood Pressure 104/55 L O2 Sat by Pulse 96 93 L 98 Oximetry 09/13/17 09/13/17 09/13/17 12:10 13:00 13:10 Temperature Pulse Rate 104 H 106 H 115 H Respiratory 28 H 28 H 27 H Rate Blood Pressure 109/56 L 96/59 L O2 Sat by Pulse 96 97 98 Oximetry 09/13/17 09/13/17 09/13/17 14:00 14:21 15:00 Temperature Pulse Rate 102 H 110 H 97 H Respiratory 20 22 28 H Rate Blood Pressure 87/54 L O2 Sat by Pulse 99 98 Oximetry
--- NOTE | 2017-09-13 18:16 | CP.CCUPN ---
<Jose Rodgers - Last Filed: 09/13/17 18:12> CCU Subjective - Physician Review Subjective (Free Text): 09/10/17 09:49 Patient seen and examined. Patient reports feeling better. Denies chest pain, dyspnea, dizziness, lightheadedness. However, he is complaining of bilateral leg pain. 09/11/17 12:44 Patient seen and examined. He states that he is doing well and has no complaints at this time. Leg pain seems to be controlled with Tylenol. 09/12/17 11:16 Patient seen and examined. No acute complaints today. Resting comfortably. Awaiting kaplan placement. 09/13/17 18:12 Patient seen and examined. Patient has no acute complaints at this time. He has good urine output from his kaplan. CCU Objective - Vital Signs / Intake & Output Vital Signs (Last 4 hours): Vital Signs Pulse Resp BP Pulse Ox 09/13/17 15:00 97 H 28 H 98 09/13/17 14:21 110 H 22 87/54 L 99 Intake and Output (Last 8hrs): Intake & Output 09/13/17 09/13/17 09/13/17 06:59 14:59 22:59 Intake Total 750 750 Output Total 450 540 Balance 300 210 Weight 242 lb 11.663 oz Intake: Intake, IV Amount 600 150 Left Forearm 550 150 Left Wrist 50 Oral 150 600 Output: Urine 450 540 Urethral (Kaplan) 450 540 Other: # Bowel Movements 0 0 - Physical Exam Head: Positive for: Atraumatic, Normocephalic Pupils: Positive for: PERRL Extroacular Muscles: Positive for: EOMI Conjunctiva: Positive for: Normal Mouth: Positive for: Moist Mucous Membranes Neck: Positive for: Normal Range of Motion, Other (Right IJ dialysis catheter) Respiratory/Chest: Positive for: Decreased Breath Sounds Cardiovascular: Positive for: Normal S1, S2, Irregular Rhythm Abdomen: Positive for: Normal Bowel Sounds. Negative for: Tenderness Genitourinary Male: Positive for: Other (kaplan in place) Upper Extremity: Positive for: Normal Inspection Lower Extremity: Positive for: Normal Inspection, Edema (bilateral) Neurological: Positive for: GCS=15 Skin: Positive for: Warm, Dry, Normal Color Psychiatric: Positive for: Alert. Negative for: Oriented x 3 - Medications Active Medications: Active Medications Generic Name Dose Route Start Last Admin Trade Name Freq PRN Reason Stop Dose Admin Acetaminophen 650 mg 09/11/17 07:31 09/12/17 10:02 Tylenol 325mg Tab PO 650 mg Q6 PRN Administration pain. Al Hydrox/Mg Hydrox/Simethicone 30 ml 09/09/17 14:38 Maalox Plus 30 Ml PO Q6H PRN Indigestion / Heartburn Calcitriol 0.25 mcg 09/08/17 10:00 09/13/17 09:25 Rocaltrol PO 0.25 mcg DAILY LELA Administration Epoetin Kameron 8,000 unit 09/13/17 10:00 09/13/17 09:11 Procrit SC 8,000 unit TTS LELA Administration Heparin Sodium (Porcine) 5,000 units 09/09/17 22:00 09/13/17 09:26 Heparin SC 5,000 units Q12 LELA Administration Piperacillin Sod/Tazobactam Sod 2.25 gm in 50 mls @ 100 mls/hr 09/05/17 20:00 09/13/17 11:28 Zosyn 2.25 Gm Iv Premix IVPB 100 mls/hr Q8H LELA Administration Protocol Linezolid 600 mg in 300 mls @ 200 mls/hr 09/06/17 17:00 09/13/17 17:21 Zyvox 600mg/300ml D5w IVPB 200 mls/hr Q12H LELA Administration Protocol Metronidazole 500 mg in 100 mls @ 100 mls/hr 09/06/17 22:00 09/13/17 13:29 Flagyl IVPB 100 mls/hr Q8 LELA Administration Protocol Micafungin Sodium 100 mg/ 100 mls @ 100 mls/hr 09/09/17 02:30 09/13/17 02:29 Sodium Chloride IV 100 mls/hr Q24H LELA Administration Protocol Insulin Aspart 0 unit 09/12/17 16:21 09/13/17 17:20 Novolog SC 2 unit ACHS LELA Administration Protocol Insulin Glargine 30 unit 09/09/17 19:05 09/13/17 09:28 Lantus SC 30 unit QAM LELA Administration Levetiracetam 250 mg 09/08/17 22:00 09/13/17 09:25 Keppra PO 250 mg Q12 LELA Administration Midodrine 5 mg 09/08/17 10:00 09/13/17 17:27 Proamatine PO 5 mg TID LELA Administration Nitroglycerin 0.4 mg 09/09/17 12:22 09/09/17 12:31 Nitrostat Sl Tab SL 0.4 mg Q5M PRN Administration Pain, severe (8-10) Pantoprazole Sodium 40 mg 09/13/17 10:00 09/13/17 09:25 Protonix Ec Tab PO 40 mg DAILY LELA Administration Sevelamer Carbonate 800 mg 09/13/17 11:48 09/13/17 17:20 Renvela PO 800 mg TIDCC LELA Administration Sodium Bicarbonate 1,300 mg 09/06/17 10:00 09/13/17 17:21 Sodium Bicarbonate Tab PO 1,300 mg TID LELA Administration Tamsulosin HCl 0.4 mg 09/06/17 10:00 09/13/17 09:25 Flomax PO 0.4 mg DAILY LELA Administration Vitamin B Complex/Vit C/Folic Acid 1 tab 09/07/17 08:00 09/13/17 07:48 Nephro-Eber PO 1 tab 0800 LELA Administration - Patient Studies Lab Studies: Microbiology Studies 09/10/17 16:14 Gram Stain - Final Foot - Right Wound Culture - Preliminary No growth. 09/09/17 02:20 Blood Culture - Preliminary Blood-Thru Central Line NO GROWTH AFTER 4 DAYS 09/09/17 03:00 Blood Culture - Preliminary Blood-Thru Central Line NO GROWTH AFTER 4 DAYS Lab Studies 09/13/17 09/13/17 09/13/17 Range/Units 15:39 11:22 07:12 WBC (4.8-10.8) K/uL RBC (4.40-5.90) Mil/uL Hgb (12.0-18.0) g/dL Hct (35.0-51.0) % MCV (80.0-94.0) fL MCH (27.0-31.0) pg MCHC (33.0-37.0) g/dL RDW (11.5-14.5) % Plt Count (130-400) K/uL MPV (7.2-11.7) fL Neut % (Auto) (50.0-75.0) % Lymph % (Auto) (20.0-40.0) % [place] % (Auto) (0.0-10.0) % Eos % (Auto) (0.0-4.0) % Baso % (Auto) (0.0-2.0) % Neut # (Auto) (1.8-7.0) K/uL Lymph # (Auto) (1.0-4.3) K/uL [place] # (Auto) (0.0-0.8) K/uL Eos # (Auto) (0.0-0.7) K/uL Baso # (Auto) (0.0-0.2) K/uL Sodium (132-148) mmol/L Potassium (3.6-5.2) mmol/L Chloride (98-107) mmol/L Carbon Dioxide (22-30) mmol/L Anion Gap (10-20) BUN (9-20) mg/dL Creatinine (0.8-1.5) mg/dL Est GFR ( Amer) Est GFR (Non-Af Amer) POC Glucose (mg/dL) 158 H 201 H 172 H (65-110) mg/dL Random Glucose (75-110) mg/dL Calcium (8.6-10.4) mg/dl Phosphorus (2.5-4.5) mg/dL Magnesium (1.6-2.3) mg/dL Total Bilirubin (0.2-1.3) mg/dL AST (17-59) U/L ALT (21-72) U/L Alkaline Phosphatase (38-126) U/L Total Protein (6.3-8.3) g/dL Albumin (3.5-5.0) g/dL Globulin (2.2-3.9) gm/dL Albumin/Globulin Ratio (1.0-2.1) Urine Color (YELLOW) Urine Clarity (Clear) Urine pH (5.0-8.0) Ur Specific [place] (1.003-1.030) Urine Protein (NEGATIVE) mg/dL Urine Glucose (UA) (Normal) mg/dL Urine Ketones (NEGATIVE) mg/dL Urine Blood (NEGATIVE) Urine Nitrate (NEGATIVE) Urine Bilirubin (NEGATIVE) Urine Urobilinogen (0.2-1.0) mg/dL Ur Leukocyte Esterase (Negative) [place]/uL Urine WBC (Auto) (0-5) /hpf Urine RBC (Auto) (0-3) /hpf Ur Squamous Epith Cells (0-5) /hpf Urine Bacteria (<OCC) 09/13/17 09/13/17 09/12/17 Range/Units 06:19 06:19 21:12 WBC 12.1 H (4.8-10.8) K/uL RBC 2.91 L (4.40-5.90) Mil/uL Hgb 8.7 L (12.0-18.0) g/dL Hct 25.4 L (35.0-51.0) % MCV 87.4 (80.0-94.0) fL MCH 30.1 (27.0-31.0) pg MCHC 34.4 (33.0-37.0) g/dL RDW 16.8 H (11.5-14.5) % Plt Count 180 (130-400) K/uL MPV 7.8 (7.2-11.7) fL Neut % (Auto) 80.9 H (50.0-75.0) % Lymph % (Auto) 11.9 L (20.0-40.0) % [place] % (Auto) 5.3 (0.0-10.0) % Eos % (Auto) 0.8 (0.0-4.0) % Baso % (Auto) 1.1 (0.0-2.0) % Neut # (Auto) 9.8 H (1.8-7.0) K/uL Lymph # (Auto) 1.4 (1.0-4.3) K/uL [place] # (Auto) 0.6 (0.0-0.8) K/uL Eos # (Auto) 0.1 (0.0-0.7) K/uL Baso # (Auto) 0.1 (0.0-0.2) K/uL Sodium 133 (132-148) mmol/L Potassium 4.0 (3.6-5.2) mmol/L Chloride 94 L (98-107) mmol/L Carbon Dioxide 23 (22-30) mmol/L Anion Gap 20 (10-20) BUN 56 H (9-20) mg/dL Creatinine 3.4 H (0.8-1.5) mg/dL Est GFR ( Amer) 21 Est GFR (Non-Af Amer) 17 POC Glucose (mg/dL) 193 H (65-110) mg/dL Random Glucose 160 H (75-110) mg/dL Calcium 8.1 L (8.6-10.4) mg/dl Phosphorus 4.3 (2.5-4.5) mg/dL Magnesium 1.7 (1.6-2.3) mg/dL Total Bilirubin 1.1 (0.2-1.3) mg/dL AST 25 (17-59) U/L ALT 19 L (21-72) U/L Alkaline Phosphatase 67 (38-126) U/L Total Protein 5.9 L (6.3-8.3) g/dL Albumin 2.9 L (3.5-5.0) g/dL Globulin 3.0 (2.2-3.9) gm/dL Albumin/Globulin Ratio 0.9 L (1.0-2.1) Urine Color (YELLOW) Urine Clarity (Clear) Urine pH (5.0-8.0) Ur Specific [place] (1.003-1.030) Urine Protein (NEGATIVE) mg/dL Urine Glucose (UA) (Normal) mg/dL Urine Ketones (NEGATIVE) mg/dL Urine Blood (NEGATIVE) Urine Nitrate (NEGATIVE) Urine Bilirubin (NEGATIVE) Urine Urobilinogen (0.2-1.0) mg/dL Ur Leukocyte Esterase (Negative) [place]/uL Urine WBC (Auto) (0-5) /hpf Urine RBC (Auto) (0-3) /hpf Ur Squamous Epith Cells (0-5) /hpf Urine Bacteria (<OCC) 09/11/17 Range/Units 18:29 WBC (4.8-10.8) K/uL RBC (4.40-5.90) Mil/uL Hgb (12.0-18.0) g/dL Hct (35.0-51.0) % MCV (80.0-94.0) fL MCH (27.0-31.0) pg MCHC (33.0-37.0) g/dL RDW (11.5-14.5) % Plt Count (130-400) K/uL MPV (7.2-11.7) fL Neut % (Auto) (50.0-75.0) % Lymph % (Auto) (20.0-40.0) % [place] % (Auto) (0.0-10.0) % Eos % (Auto) (0.0-4.0) % Baso % (Auto) (0.0-2.0) % Neut # (Auto) (1.8-7.0) K/uL Lymph # (Auto) (1.0-4.3) K/uL [place] # (Auto) (0.0-0.8) K/uL Eos # (Auto) (0.0-0.7) K/uL Baso # (Auto) (0.0-0.2) K/uL Sodium (132-148) mmol/L Potassium (3.6-5.2) mmol/L Chloride (98-107) mmol/L Carbon Dioxide (22-30) mmol/L Anion Gap (10-20) BUN (9-20) mg/dL Creatinine (0.8-1.5) mg/dL Est GFR ( Amer) Est GFR (Non-Af Amer) POC Glucose (mg/dL) (65-110) mg/dL Random Glucose (75-110) mg/dL Calcium (8.6-10.4) mg/dl Phosphorus (2.5-4.5) mg/dL Magnesium (1.6-2.3) mg/dL Total Bilirubin (0.2-1.3) mg/dL AST (17-59) U/L ALT (21-72) U/L Alkaline Phosphatase (38-126) U/L Total Protein (6.3-8.3) g/dL Albumin (3.5-5.0) g/dL Globulin (2.2-3.9) gm/dL Albumin/Globulin Ratio (1.0-2.1) Urine Color Yellow (YELLOW) Urine Clarity Hazy (Clear) Urine pH 5.0 (5.0-8.0) Ur Specific [place] 1.015 (1.003-1.030) Urine Protein Negative (NEGATIVE) mg/dL Urine Glucose (UA) 1+ H (Normal) mg/dL Urine Ketones Negative (NEGATIVE) mg/dL Urine Blood Negative (NEGATIVE) Urine Nitrate Negative (NEGATIVE) Urine Bilirubin Negative (NEGATIVE) Urine Urobilinogen Normal (0.2-1.0) mg/dL Ur Leukocyte Esterase 1+ H (Negative) [place]/uL Urine WBC (Auto) 10 H (0-5) /hpf Urine RBC (Auto) 3 (0-3) /hpf Ur Squamous Epith Cells 1 (0-5) /hpf Urine Bacteria Occ H (<OCC) Laboratory Results - last 24 hr 09/11/17 09/12/17 09/13/17 18:29 21:12 06:19 WBC 12.1 H RBC 2.91 L Hgb 8.7 L Hct 25.4 L MCV 87.4 MCH 30.1 MCHC 34.4 RDW 16.8 H Plt Count 180 MPV 7.8 Neut % (Auto) 80.9 H Lymph % (Auto) 11.9 L [place] % (Auto) 5.3 Eos % (Auto) 0.8 Baso % (Auto) 1.1 Neut # (Auto) 9.8 H Lymph # (Auto) 1.4 [place] # (Auto) 0.6 Eos # (Auto) 0.1 Baso # (Auto) 0.1 Sodium Potassium Chloride Carbon Dioxide Anion Gap BUN Creatinine Est GFR ( Amer) Est GFR (Non-Af Amer) POC Glucose (mg/dL) 193 H Random Glucose Calcium Phosphorus Magnesium Total Bilirubin AST ALT Alkaline Phosphatase Total Protein Albumin Globulin Albumin/Globulin Ratio Urine Color Yellow Urine Clarity Hazy Urine pH 5.0 Ur Specific [place] 1.015 Urine Protein Negative Urine Glucose (UA) 1+ H Urine Ketones Negative Urine Blood Negative Urine Nitrate Negative Urine Bilirubin Negative Urine Urobilinogen Normal Ur Leukocyte Esterase 1+ H Urine WBC (Auto) 10 H Urine RBC (Auto) 3 Ur Squamous Epith Cells 1 Urine Bacteria Occ H 09/13/17 09/13/17 09/13/17 06:19 07:12 11:22 WBC RBC Hgb Hct MCV MCH MCHC RDW Plt Count MPV Neut % (Auto) Lymph % (Auto) [place] % (Auto) Eos % (Auto) Baso % (Auto) Neut # (Auto) Lymph # (Auto) [place] # (Auto) Eos # (Auto) Baso # (Auto) Sodium 133 Potassium 4.0 Chloride 94 L Carbon Dioxide 23 Anion Gap 20 BUN 56 H Creatinine 3.4 H Est GFR ( Amer) 21 Est GFR (Non-Af Amer) 17 POC Glucose (mg/dL) 172 H 201 H Random Glucose 160 H Calcium 8.1 L Phosphorus 4.3 Magnesium 1.7 Total Bilirubin 1.1 AST 25 ALT 19 L Alkaline Phosphatase 67 Total Protein 5.9 L Albumin 2.9 L Globulin 3.0 Albumin/Globulin Ratio 0.9 L Urine Color Urine Clarity Urine pH Ur Specific [place] Urine Protein Urine Glucose (UA) Urine Ketones Urine Blood Urine Nitrate Urine Bilirubin Urine Urobilinogen Ur Leukocyte Esterase Urine WBC (Auto) Urine RBC (Auto) Ur Squamous Epith Cells Urine Bacteria 09/13/17 15:39 WBC RBC Hgb Hct MCV MCH MCHC RDW Plt Count MPV Neut % (Auto) Lymph % (Auto) [place] % (Auto) Eos % (Auto) Baso % (Auto) Neut # (Auto) Lymph # (Auto) [place] # (Auto) Eos # (Auto) Baso # (Auto) Sodium Potassium Chloride Carbon Dioxide Anion Gap BUN Creatinine Est GFR ( Amer) Est GFR (Non-Af Amer) POC Glucose (mg/dL) 158 H Random Glucose Calcium Phosphorus Magnesium Total Bilirubin AST ALT Alkaline Phosphatase Total Protein Albumin Globulin Albumin/Globulin Ratio Urine Color Urine Clarity Urine pH Ur Specific [place] Urine Protein Urine Glucose (UA) Urine Ketones Urine Blood Urine Nitrate Urine Bilirubin Urine Urobilinogen Ur Leukocyte Esterase Urine WBC (Auto) Urine RBC (Auto) Ur Squamous Epith Cells Urine Bacteria Fingerstick Blood Sugar Results: 158 Critical Care Progress Note - Nutrition Nutrition: Nutrition Category Date Time Status Dysphagia/Modified Consistency Diet [DIET] Diets 09/10/17 Lunch Active Assessment/Plan - Assessment and Plan (Free Text) Assessment: This is an 82 year old male with PMHx atrial fibrillation, B/L DVT s/p IVC filter, recent subdural hematoma in August 2017 s/p craniotomy with evacuation presenting to [facility] from [facility] Home ([facility]) with hypotension. Code sepsis called in the ER. Patient admitted to the ICU for further management Neurology: AAOx2 (not to time) S/P right frontal craniotomy with evacuation -Last CT head 08/22 showed diminishing right convexity subdural hematoma with limited mass effect. Leftward midline shift is further reduced now only 1-2mm with no definite intracrancial hemorrhage appearing acute at this time. Chronic lacune again noted at the right optic radiations. -Repeat CT head 09/05: Small residual extra-axial collection that probably represents a combination of residual hyperdense chronic subdural blood admixed with membrane formation and some subacute blood. The collection exerts minimal on mass effect on subadjacent sulci however no significant midline shift -Continue Keppra 250mg PO Q12H for seizure prophylaxis Cardiology: History of atrial fibrillation, on digoxin at home Holding home Metoprolol due to hypotension. Previously on norepinephrine drip. Midodrine 5 mg PO TID Currently rate controlled on the tele monitor Last echo: 70% EF. LV normal size, mild concentric L ventricular hypertrophy, moderate tricuspid regurgitation Pulmonology: Saturating well on room air Endocrine: -History of Diabetes Mellitus -Hgba1c 9.9 High dose ISS Lantus 30 units qAM accuchecks ACHS GI: Carbohydrate consistent diet Continue Protonix 40mg IV Q12H Infectious Disease: Patient was recently treated for UTI E coli Code sepsis called in ER All cultures negative so far Patient is on Zosyn 2.75mg IV Q8H (Day 9), Flagyl 500mg Q8H (Day 8), Zyvox 600mg Q12H (Day 8), Micafungin 100 mg Q24H (Day 5) C diff and stool cultures negative ID on consult, Dr. Sweeney, help appreciated Wound culture of the patient's blisters negative so far Nephrology: Acute on chronic CKD BUN/Cr worsening, baseline Cr 2.0 Continue sodium bicarb 1300mg PO TID, Renvela 1600 mg PO TIDCC Renal US 08/3017: unremarkable Strict I/Os, daily weights Nephro on consult, help appreciated Holding off on dialysis for now Heme/Onc: Patient with history of provoked bilateral DVTs Was seen by Dr Tierney in the past S/P IVC filter placement 08/27/17, SCDs contraindicated Baseline 10-11 No acute signs of bleeding at this time, will monitor serial CBCs Hold Iron supplementation 2/2 sepsis : History of urinary retention, prostate surgery Continue home med flomax Awaiting urology for catheter placement GI/DVT ppx: Protonix 40mg IV Q12H Heparin 5000 Q12H Dispo: Downgraded to telemetry Discussed with Dr. Valle <Victoriano Valle - Last Filed: 09/13/17 18:22> CCU Objective - Vital Signs / Intake & Output Vital Signs (Last 4 hours): Vital Signs Pulse Resp Pulse Ox 09/13/17 15:00 97 H 28 H 98 Intake and Output (Last 8hrs): Intake & Output 09/13/17 09/13/17 09/13/17 06:59 14:59 22:59 Intake Total 750 750 Output Total 450 540 Balance 300 210 Weight 242 lb 11.663 oz Intake: Intake, IV Amount 600 150 Left Forearm 550 150 Left Wrist 50 Oral 150 600 Output: Urine 450 540 Urethral (Kaplan) 450 540 Other: # Bowel Movements 0 0 - Medications Active Medications: Active Medications Generic Name Dose Route Start Last Admin Trade Name Freq PRN Reason Stop Dose Admin Acetaminophen 650 mg 09/11/17 07:31 09/12/17 10:02 Tylenol 325mg Tab PO 650 mg Q6 PRN Administration pain. Al Hydrox/Mg Hydrox/Simethicone 30 ml 09/09/17 14:38 Maalox Plus 30 Ml PO Q6H PRN Indigestion / Heartburn Calcitriol 0.25 mcg 09/08/17 10:00 09/13/17 09:25 Rocaltrol PO 0.25 mcg DAILY LELA Administration Epoetin [place] 8,000 unit 09/13/17 10:00 09/13/17 09:11 Procrit SC 8,000 unit TTS LELA Administration Heparin Sodium (Porcine) 5,000 units 09/09/17 22:00 09/13/17 09:26 Heparin SC 5,000 units Q12 LELA Administration Piperacillin Sod/Tazobactam Sod 2.25 gm in 50 mls @ 100 mls/hr 09/05/17 20:00 09/13/17 11:28 Zosyn 2.25 Gm Iv Premix IVPB 100 mls/hr Q8H [facility] Administration Protocol Linezolid 600 mg in 300 mls @ 200 mls/hr 09/06/17 17:00 09/13/17 17:21 Zyvox 600mg/300ml D5w IVPB 200 mls/hr Q12H LELA Administration Protocol Metronidazole 500 mg in 100 mls @ 100 mls/hr 09/06/17 22:00 09/13/17 13:29 Flagyl IVPB 100 mls/hr Q8 [facility] Administration Protocol Micafungin Sodium 100 mg/ 100 mls @ 100 mls/hr 09/09/17 02:30 09/13/17 02:29 Sodium Chloride IV 100 mls/hr Q24H [facility] Administration Protocol Insulin Aspart 0 unit 09/12/17 16:21 09/13/17 17:20 Novolog SC 2 unit ACHS LELA Administration Protocol Insulin Glargine 30 unit 09/09/17 19:05 09/13/17 09:28 Lantus SC 30 unit QAM LELA Administration Levetiracetam 250 mg 09/08/17 22:00 09/13/17 09:25 Keppra PO 250 mg Q12 LELA Administration Midodrine 5 mg 09/08/17 10:00 09/13/17 17:27 Proamatine PO 5 mg TID LELA Administration Nitroglycerin 0.4 mg 09/09/17 12:22 09/09/17 12:31 Nitrostat Sl Tab SL 0.4 mg Q5M PRN Administration Pain, severe (8-10) Pantoprazole Sodium 40 mg 09/13/17 10:00 09/13/17 09:25 Protonix Ec Tab PO 40 mg DAILY LELA Administration Sevelamer Carbonate 800 mg 09/13/17 11:48 09/13/17 17:20 Renvela PO 800 mg TIDCC LELA Administration Sodium Bicarbonate 1,300 mg 09/06/17 10:00 09/13/17 17:21 Sodium Bicarbonate Tab PO 1,300 mg TID LELA Administration Tamsulosin HCl 0.4 mg 09/06/17 10:00 09/13/17 09:25 Flomax PO 0.4 mg DAILY LELA Administration Vitamin B Complex/Vit C/Folic Acid 1 tab 09/07/17 08:00 09/13/17 07:48 Nephro-Eber PO 1 tab 0800 LELA Administration - Patient Studies Lab Studies: Microbiology Studies 09/10/17 16:14 Gram Stain - Final Foot - Right Wound Culture - Preliminary No growth. 09/09/17 02:20 Blood Culture - Preliminary Blood-Thru Central Line NO GROWTH AFTER 4 DAYS 09/09/17 03:00 Blood Culture - Preliminary Blood-Thru Central Line NO GROWTH AFTER 4 DAYS Lab Studies 09/13/17 09/13/17 09/13/17 Range/Units 15:39 11:22 07:12 WBC (4.8-10.8) K/uL RBC (4.40-5.90) Mil/uL Hgb (12.0-18.0) g/dL Hct (35.0-51.0) % MCV (80.0-94.0) fL MCH (27.0-31.0) pg MCHC (33.0-37.0) g/dL RDW (11.5-14.5) % Plt Count (130-400) K/uL MPV (7.2-11.7) fL Neut % (Auto) (50.0-75.0) % Lymph % (Auto) (20.0-40.0) % [place] % (Auto) (0.0-10.0) % Eos % (Auto) (0.0-4.0) % Baso % (Auto) (0.0-2.0) % Neut # (Auto) (1.8-7.0) K/uL Lymph # (Auto) (1.0-4.3) K/uL [place] # (Auto) (0.0-0.8) K/uL Eos # (Auto) (0.0-0.7) K/uL Baso # (Auto) (0.0-0.2) K/uL Sodium (132-148) mmol/L Potassium (3.6-5.2) mmol/L Chloride (98-107) mmol/L Carbon Dioxide (22-30) mmol/L Anion Gap (10-20) BUN (9-20) mg/dL Creatinine (0.8-1.5) mg/dL Est GFR ( Amer) Est GFR (Non-Af Amer) POC Glucose (mg/dL) 158 H 201 H 172 H (65-110) mg/dL Random Glucose (75-110) mg/dL Calcium (8.6-10.4) mg/dl Phosphorus (2.5-4.5) mg/dL Magnesium (1.6-2.3) mg/dL Total Bilirubin (0.2-1.3) mg/dL AST (17-59) U/L ALT (21-72) U/L Alkaline Phosphatase (38-126) U/L Total Protein (6.3-8.3) g/dL Albumin (3.5-5.0) g/dL Globulin (2.2-3.9) gm/dL Albumin/Globulin Ratio (1.0-2.1) Urine Color (YELLOW) Urine Clarity (Clear) Urine pH (5.0-8.0) Ur Specific [place] (1.003-1.030) Urine Protein (NEGATIVE) mg/dL Urine Glucose (UA) (Normal) mg/dL Urine Ketones (NEGATIVE) mg/dL Urine Blood (NEGATIVE) Urine Nitrate (NEGATIVE) Urine Bilirubin (NEGATIVE) Urine Urobilinogen (0.2-1.0) mg/dL Ur Leukocyte Esterase (Negative) [place]/uL Urine WBC (Auto) (0-5) /hpf Urine RBC (Auto) (0-3) /hpf Ur Squamous Epith Cells (0-5) /hpf Urine Bacteria (<OCC) 09/13/17 09/13/17 09/12/17 Range/Units 06:19 06:19 21:12 WBC 12.1 H (4.8-10.8) K/uL RBC 2.91 L (4.40-5.90) Mil/uL Hgb 8.7 L (12.0-18.0) g/dL Hct 25.4 L (35.0-51.0) % MCV 87.4 (80.0-94.0) fL MCH 30.1 (27.0-31.0) pg MCHC 34.4 (33.0-37.0) g/dL RDW 16.8 H (11.5-14.5) % Plt Count 180 (130-400) K/uL MPV 7.8 (7.2-11.7) fL Neut % (Auto) 80.9 H (50.0-75.0) % Lymph % (Auto) 11.9 L (20.0-40.0) % [place] % (Auto) 5.3 (0.0-10.0) % Eos % (Auto) 0.8 (0.0-4.0) % Baso % (Auto) 1.1 (0.0-2.0) % Neut # (Auto) 9.8 H (1.8-7.0) K/uL Lymph # (Auto) 1.4 (1.0-4.3) K/uL [place] # (Auto) 0.6 (0.0-0.8) K/uL Eos # (Auto) 0.1 (0.0-0.7) K/uL Baso # (Auto) 0.1 (0.0-0.2) K/uL Sodium 133 (132-148) mmol/L Potassium 4.0 (3.6-5.2) mmol/L Chloride 94 L (98-107) mmol/L Carbon Dioxide 23 (22-30) mmol/L Anion Gap 20 (10-20) BUN 56 H (9-20) mg/dL Creatinine 3.4 H (0.8-1.5) mg/dL Est GFR ( Amer) 21 Est GFR (Non-Af Amer) 17 POC Glucose (mg/dL) 193 H (65-110) mg/dL Random Glucose 160 H (75-110) mg/dL Calcium 8.1 L (8.6-10.4) mg/dl Phosphorus 4.3 (2.5-4.5) mg/dL Magnesium 1.7 (1.6-2.3) mg/dL Total Bilirubin 1.1 (0.2-1.3) mg/dL AST 25 (17-59) U/L ALT 19 L (21-72) U/L Alkaline Phosphatase 67 (38-126) U/L Total Protein 5.9 L (6.3-8.3) g/dL Albumin 2.9 L (3.5-5.0) g/dL Globulin 3.0 (2.2-3.9) gm/dL Albumin/Globulin Ratio 0.9 L (1.0-2.1) Urine Color (YELLOW) Urine Clarity (Clear) Urine pH (5.0-8.0) Ur Specific [place] (1.003-1.030) Urine Protein (NEGATIVE) mg/dL Urine Glucose (UA) (Normal) mg/dL Urine Ketones (NEGATIVE) mg/dL Urine Blood (NEGATIVE) Urine Nitrate (NEGATIVE) Urine Bilirubin (NEGATIVE) Urine Urobilinogen (0.2-1.0) mg/dL Ur Leukocyte Esterase (Negative) [place]/uL Urine WBC (Auto) (0-5) /hpf Urine RBC (Auto) (0-3) /hpf Ur Squamous Epith Cells (0-5) /hpf Urine Bacteria (<OCC) 09/11/17 Range/Units 18:29 WBC (4.8-10.8) K/uL RBC (4.40-5.90) Mil/uL Hgb (12.0-18.0) g/dL Hct (35.0-51.0) % MCV (80.0-94.0) fL MCH (27.0-31.0) pg MCHC (33.0-37.0) g/dL RDW (11.5-14.5) % Plt Count (130-400) K/uL MPV (7.2-11.7) fL Neut % (Auto) (50.0-75.0) % Lymph % (Auto) (20.0-40.0) % [place] % (Auto) (0.0-10.0) % Eos % (Auto) (0.0-4.0) % Baso % (Auto) (0.0-2.0) % Neut # (Auto) (1.8-7.0) K/uL Lymph # (Auto) (1.0-4.3) K/uL [place] # (Auto) (0.0-0.8) K/uL Eos # (Auto) (0.0-0.7) K/uL Baso # (Auto) (0.0-0.2) K/uL Sodium (132-148) mmol/L Potassium (3.6-5.2) mmol/L Chloride (98-107) mmol/L Carbon Dioxide (22-30) mmol/L Anion Gap (10-20) BUN (9-20) mg/dL Creatinine (0.8-1.5) mg/dL Est GFR ( Amer) Est GFR (Non-Af Amer) POC Glucose (mg/dL) (65-110) mg/dL Random Glucose (75-110) mg/dL Calcium (8.6-10.4) mg/dl Phosphorus (2.5-4.5) mg/dL Magnesium (1.6-2.3) mg/dL Total Bilirubin (0.2-1.3) mg/dL AST (17-59) U/L ALT (21-72) U/L Alkaline Phosphatase (38-126) U/L Total Protein (6.3-8.3) g/dL Albumin (3.5-5.0) g/dL Globulin (2.2-3.9) gm/dL Albumin/Globulin Ratio (1.0-2.1) Urine Color Yellow (YELLOW) Urine Clarity Hazy (Clear) Urine pH 5.0 (5.0-8.0) Ur Specific [place] 1.015 (1.003-1.030) Urine Protein Negative (NEGATIVE) mg/dL Urine Glucose (UA) 1+ H (Normal) mg/dL Urine Ketones Negative (NEGATIVE) mg/dL Urine Blood Negative (NEGATIVE) Urine Nitrate Negative (NEGATIVE) Urine Bilirubin Negative (NEGATIVE) Urine Urobilinogen Normal (0.2-1.0) mg/dL Ur Leukocyte Esterase 1+ H (Negative) [place]/uL Urine WBC (Auto) 10 H (0-5) /hpf Urine RBC (Auto) 3 (0-3) /hpf Ur Squamous Epith Cells 1 (0-5) /hpf Urine Bacteria Occ H (<OCC) Laboratory Results - last 24 hr 09/11/17 09/12/17 09/13/17 18:29 21:12 06:19 WBC 12.1 H RBC 2.91 L Hgb 8.7 L Hct 25.4 L MCV 87.4 MCH 30.1 MCHC 34.4 RDW 16.8 H Plt Count 180 MPV 7.8 Neut % (Auto) 80.9 H Lymph % (Auto) 11.9 L [place] % (Auto) 5.3 Eos % (Auto) 0.8 Baso % (Auto) 1.1 Neut # (Auto) 9.8 H Lymph # (Auto) 1.4 [place] # (Auto) 0.6 Eos # (Auto) 0.1 Baso # (Auto) 0.1 Sodium Potassium Chloride Carbon Dioxide Anion Gap BUN Creatinine Est GFR ( Amer) Est GFR (Non-Af Amer) POC Glucose (mg/dL) 193 H Random Glucose Calcium Phosphorus Magnesium Total Bilirubin AST ALT Alkaline Phosphatase Total Protein Albumin Globulin Albumin/Globulin Ratio Urine Color Yellow Urine Clarity Hazy Urine pH 5.0 Ur Specific [place] 1.015 Urine Protein Negative Urine Glucose (UA) 1+ H Urine Ketones Negative Urine Blood Negative Urine Nitrate Negative Urine Bilirubin Negative Urine Urobilinogen Normal Ur Leukocyte Esterase 1+ H Urine WBC (Auto) 10 H Urine RBC (Auto) 3 Ur Squamous Epith Cells 1 Urine Bacteria Occ H 09/13/17 09/13/17 09/13/17 06:19 07:12 11:22 WBC RBC Hgb Hct MCV MCH MCHC RDW Plt Count MPV Neut % (Auto) Lymph % (Auto) [place] % (Auto) Eos % (Auto) Baso % (Auto) Neut # (Auto) Lymph # (Auto) [place] # (Auto) Eos # (Auto) Baso # (Auto) Sodium 133 Potassium 4.0 Chloride 94 L Carbon Dioxide 23 Anion Gap 20 BUN 56 H Creatinine 3.4 H Est GFR ( Amer) 21 Est GFR (Non-Af Amer) 17 POC Glucose (mg/dL) 172 H 201 H Random Glucose 160 H Calcium 8.1 L Phosphorus 4.3 Magnesium 1.7 Total Bilirubin 1.1 AST 25 ALT 19 L Alkaline Phosphatase 67 Total Protein 5.9 L Albumin 2.9 L Globulin 3.0 Albumin/Globulin Ratio 0.9 L Urine Color Urine Clarity Urine pH Ur Specific [place] Urine Protein Urine Glucose (UA) Urine Ketones Urine Blood Urine Nitrate Urine Bilirubin Urine Urobilinogen Ur Leukocyte Esterase Urine WBC (Auto) Urine RBC (Auto) Ur Squamous Epith Cells Urine Bacteria 09/13/17 15:39 WBC RBC Hgb Hct MCV MCH MCHC RDW Plt Count MPV Neut % (Auto) Lymph % (Auto) [place] % (Auto) Eos % (Auto) Baso % (Auto) Neut # (Auto) Lymph # (Auto) [place] # (Auto) Eos # (Auto) Baso # (Auto) Sodium Potassium Chloride Carbon Dioxide Anion Gap BUN Creatinine Est GFR ( Amer) Est GFR (Non-Af Amer) POC Glucose (mg/dL) 158 H Random Glucose Calcium Phosphorus Magnesium Total Bilirubin AST ALT Alkaline Phosphatase Total Protein Albumin Globulin Albumin/Globulin Ratio Urine Color Urine Clarity Urine pH Ur Specific [place] Urine Protein Urine Glucose (UA) Urine Ketones Urine Blood Urine Nitrate Urine Bilirubin Urine Urobilinogen Ur Leukocyte Esterase Urine WBC (Auto) Urine RBC (Auto) Ur Squamous Epith Cells Urine Bacteria Critical Care Progress Note - Nutrition Nutrition: Nutrition Category Date Time Status Dysphagia/Modified Consistency Diet [DIET] Diets 09/10/17 Lunch Active Attending/Attestation - Attestation I have personally seen and examined this patient.: Yes I have fully participated in the care of the patient.: Yes I have reviewed all pertinent clinical information: Yes Notes (Text): 09/13/17 18:22 Today: September The Patient was seen and examined at the bedside, Medical records reviewed, and management issues were discussed and formulated with the house staff. I have reviewed all the relevant clinical, laboratory, hemodynamic, radiographic data and medications Events reviewed Pain issues, skin care, head of the bed elevation, glycemic control were addressed. Agree with above resident's assessment and treatment plans of care as transcribed in Dr. Rodgers note.
--- NOTE | 2017-09-13 20:34 | CP.PCM.PN ---
Subjective - Date & Time of Evaluation Date of Evaluation: 09/13/17 Time of Evaluation: 20:34 - Subjective Subjective: CHIEF COMPLAINTS TODAY : afebrile ,awake, FEELING BETTER FOLY OUTPUT NOTED +VE GENERALIZED ANASARCA S/P NEW RT IJ HD CATHETER PLACEMENT TODAY 09/07/17 ROS. HEENT : N. RT.IJ CATHETER IN PLACE Resp : No SOB wheezing, cough Cardio : No CP, PND orthopnea +VE TACHCARDIA GI : No abd. Pain, n/v CRISIS NURSE : No headache , focal deficit. Musculoskel : N Ext. : Pedal pulses intact, B/L EDEMA LE , no calf pain Derm : RT . FOOT DRESSING IN PLACE. Psych : N. PE. Pt. awake in no distress.ON HD. V.S As noted in the chart Head ,ear nose,throat and eyes : Normal. Neck : Supple with normal carotids. RT IJ CATHETER IN PLACE. Lungs: BIBASILAR RALES Heart : S1 & S2 IRREGULAR, TACHYCARDIC, HEART RATE 110 BPM Abd : Soft non tender with normal bowel sounds. Neuro : Moves all ext. with no localized deficit. Ext : BILATERAL EDEMA THIGHS/LEGS S. Neg. calf tenderness Derm : RT FOOT BLISTERS NOTED GENITALIA--SCROTAL EDEMA \ Radiology/Labs . wbc 12.1 IMPROVING H/H 8.7/ 25.4 PLT 180 CREAT 3.4 /BUN 56 PROCALCITONIN 0.88 HIGH CXR 09/10/17 LT, INFRAHILAR AIRSPACE OPACITY. BLOOD CULTURES-VE TO DATE MRSA NOT DETECTED. URINE CULTURES NEGATIVE GROWTH. Objective - Vital Signs/Intake and Output Vital Signs (last 24 hours): Temp Pulse Resp BP Pulse Ox 97.3 F L 107 H 23 100/57 L 97 09/13/17 20:00 09/13/17 19:00 09/13/17 20:00 09/13/17 20:00 09/13/17 20:00 Intake and Output: 09/13/17 09/14/17 18:59 06:59 Intake Total 750 Output Total 665 Balance 85 - Medications Medications: Current Medications Acetaminophen (Tylenol 325mg Tab) 650 mg PO Q6 PRN PRN Reason: pain. Last Admin: 09/13/17 09:30 Dose: 650 mg Al Hydrox/Mg Hydrox/Simethicone (Maalox Plus 30 Ml) 30 ml PO Q6H PRN PRN Reason: Indigestion / Heartburn Calcitriol (Rocaltrol) 0.25 mcg PO DAILY [facility] Last Admin: 09/13/17 09:25 Dose: 0.25 mcg Epoetin Kameron (Procrit) 8,000 unit SC TTS [facility] Last Admin: 09/13/17 09:11 Dose: 8,000 unit Heparin Sodium (Porcine) (Heparin) 5,000 units SC Q12 [facility] Last Admin: 09/13/17 09:26 Dose: 5,000 units Piperacillin Sod/Tazobactam Sod (Zosyn 2.25 Gm Iv Premix) 2.25 gm in 50 mls @ 100 mls/hr IVPB Q8H [facility] PRN Reason: Protocol Last Admin: 09/13/17 20:00 Dose: 100 mls/hr Linezolid (Zyvox 600mg/300ml D5w) 600 mg in 300 mls @ 200 mls/hr IVPB Q12H [facility] PRN Reason: Protocol Last Admin: 09/13/17 17:21 Dose: 200 mls/hr Metronidazole (Flagyl) 500 mg in 100 mls @ 100 mls/hr IVPB Q8 [facility] PRN Reason: Protocol Last Admin: 09/13/17 13:29 Dose: 100 mls/hr Micafungin Sodium 100 mg/ (Sodium Chloride) 100 mls @ 100 mls/hr IV Q24H [facility] PRN Reason: Protocol Last Admin: 09/13/17 02:29 Dose: 100 mls/hr Insulin Aspart (Novolog) 0 unit SC ACHS [facility] PRN Reason: Protocol Last Admin: 09/13/17 17:20 Dose: 2 unit Insulin Glargine (Lantus) 30 unit SC QAM [facility] Last Admin: 09/13/17 09:28 Dose: 30 unit Levetiracetam (Keppra) 250 mg PO Q12 [facility] Last Admin: 09/13/17 09:25 Dose: 250 mg Midodrine (Proamatine) 5 mg PO TID [facility] Last Admin: 09/13/17 17:27 Dose: 5 mg Nitroglycerin (Nitrostat Sl Tab) 0.4 mg SL Q5M PRN PRN Reason: Pain, severe (8-10) Last Admin: 09/09/17 12:31 Dose: 0.4 mg Pantoprazole Sodium (Protonix Ec Tab) 40 mg PO DAILY [facility] Last Admin: 09/13/17 09:25 Dose: 40 mg Sevelamer Carbonate (Renvela) 800 mg PO TIDCC [facility] Last Admin: 09/13/17 17:20 Dose: 800 mg Sodium Bicarbonate (Sodium Bicarbonate Tab) 1,300 mg PO TID [facility] Last Admin: 09/13/17 17:21 Dose: 1,300 mg Tamsulosin HCl (Flomax) 0.4 mg PO DAILY [facility] Last Admin: 09/13/17 09:25 Dose: 0.4 mg Vitamin B Complex/Vit C/Folic Acid (Nephro-Eber) 1 tab PO 0800 [facility] Last Admin: 09/13/17 07:48 Dose: 1 tab - Labs Labs: 09/13/17 06:19 09/13/17 06:19 PT 13.0 SECONDS (9.7-12.2) H 09/05/17 11:25 INR 1.2 09/05/17 11:25 APTT 31 SECONDS (21-34) 09/05/17 11:25 Assessment and Plan (1) Sepsis Status: Acute (2) Leukocytosis Status: Acute (3) Hypotension Status: Acute (4) Diarrhea Status: Acute (5) S/P craniotomy Status: Acute (6) Anemia Status: Acute (7) Acute on chronic renal failure Status: Acute (8) Rapid atrial fibrillation Status: Acute - Assessment and Plan (Free Text) Plan: Plan: Continue IV Zosyn 2.25 every 8 hourly.09/05/17. And IV Zyvox 600 mg IV piggyback every 12 hourly for gram-positive coverage. And IV Flagyl 500 mg every 8 hourly for now. 09/06/17. F/U URINE CULTURE 09/11 -P CONTINUE IV MYCAMINE 100 MG iv PIGGYBACK OD DAILY 09/09/17. IF URINE CULTURES NEGATIVE wILL dc iv MICAFUNGIN REPEAT BLOOD CULTURES ARE NEGATIVE. PER VARIOUS CONSULTANTS.
--- NOTE | 2017-09-13 23:48 | CP.PCM.PN ---
Subjective - Date & Time of Evaluation Date of Evaluation: 09/13/17 Time of Evaluation: 17:40 - Subjective Subjective: PT SEEN AND EXAMINED, he is improving, in rapid A.fib with HR of 130, pt is off Hd will be discharged in am Objective - Vital Signs/Intake and Output Vital Signs (last 24 hours): Temp Pulse Resp BP Pulse Ox 97.3 F L 107 H 23 100/57 L 97 09/13/17 20:00 09/13/17 19:00 09/13/17 20:00 09/13/17 20:00 09/13/17 20:00 Intake and Output: 09/13/17 09/14/17 18:59 06:59 Intake Total 750 200 Output Total 665 Balance 85 200 - Medications Medications: Current Medications Acetaminophen (Tylenol 325mg Tab) 650 mg PO Q6 PRN PRN Reason: pain. Last Admin: 09/13/17 09:30 Dose: 650 mg Al Hydrox/Mg Hydrox/Simethicone (Maalox Plus 30 Ml) 30 ml PO Q6H PRN PRN Reason: Indigestion / Heartburn Calcitriol (Rocaltrol) 0.25 mcg PO DAILY [facility] Last Admin: 09/13/17 09:25 Dose: 0.25 mcg Epoetin Kameron (Procrit) 8,000 unit SC TTS [facility] Last Admin: 09/13/17 09:11 Dose: 8,000 unit Heparin Sodium (Porcine) (Heparin) 5,000 units SC Q12 [facility] Last Admin: 09/13/17 21:11 Dose: 5,000 units Piperacillin Sod/Tazobactam Sod (Zosyn 2.25 Gm Iv Premix) 2.25 gm in 50 mls @ 100 mls/hr IVPB Q8H [facility] PRN Reason: Protocol Last Admin: 09/13/17 20:00 Dose: 100 mls/hr Linezolid (Zyvox 600mg/300ml D5w) 600 mg in 300 mls @ 200 mls/hr IVPB Q12H [facility] PRN Reason: Protocol Last Admin: 09/13/17 17:21 Dose: 200 mls/hr Metronidazole (Flagyl) 500 mg in 100 mls @ 100 mls/hr IVPB Q8 [facility] PRN Reason: Protocol Last Admin: 09/13/17 21:10 Dose: 100 mls/hr Micafungin Sodium 100 mg/ (Sodium Chloride) 100 mls @ 100 mls/hr IV Q24H [facility] PRN Reason: Protocol Last Admin: 09/13/17 02:29 Dose: 100 mls/hr Insulin Aspart (Novolog) 0 unit SC ACHS [facility] PRN Reason: Protocol Last Admin: 09/13/17 21:19 Dose: Not Given Insulin Glargine (Lantus) 30 unit SC QAM [facility] Last Admin: 09/13/17 09:28 Dose: 30 unit Levetiracetam (Keppra) 250 mg PO Q12 [facility] Last Admin: 09/13/17 21:11 Dose: 250 mg Midodrine (Proamatine) 5 mg PO TID [facility] Last Admin: 09/13/17 17:27 Dose: 5 mg Nitroglycerin (Nitrostat Sl Tab) 0.4 mg SL Q5M PRN PRN Reason: Pain, severe (8-10) Last Admin: 09/09/17 12:31 Dose: 0.4 mg Pantoprazole Sodium (Protonix Ec Tab) 40 mg PO DAILY [facility] Last Admin: 09/13/17 09:25 Dose: 40 mg Sevelamer Carbonate (Renvela) 800 mg PO TIDCC [facility] Last Admin: 09/13/17 17:20 Dose: 800 mg Sodium Bicarbonate (Sodium Bicarbonate Tab) 1,300 mg PO TID [facility] Last Admin: 09/13/17 17:21 Dose: 1,300 mg Tamsulosin HCl (Flomax) 0.4 mg PO DAILY [facility] Last Admin: 09/13/17 09:25 Dose: 0.4 mg Vitamin B Complex/Vit C/Folic Acid (Nephro-Eber) 1 tab PO 0800 [facility] Last Admin: 09/13/17 07:48 Dose: 1 tab - Labs Labs: 09/13/17 06:19 09/13/17 06:19 PT 13.0 SECONDS (9.7-12.2) H 09/05/17 11:25 INR 1.2 09/05/17 11:25 APTT 31 SECONDS (21-34) 09/05/17 11:25 - Constitutional Appears: No Acute Distress - Eye Exam Eye Exam: EOMI, Normal appearance, PERRL Pupil Exam: NORMAL ACCOMODATION, PERRL - Respiratory Exam Respiratory Exam: Decreased Breath Sounds, Rhonchi - Cardiovascular Exam Cardiovascular Exam: Tachycardia, Irregular Rhythm, +S1, +S2 - GI/Abdominal Exam GI & Abdominal Exam: Soft, Normal Bowel Sounds. 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
[2017-09-14] MEDS: Micafungin 100 MG in Sodium Chloride 0.9% 100 ML IV SCH (02:00)
[2017-09-14] MEDS: Piperacill/Tazo 2.25gm in Dex 2.25 GM/50 ML BAG IVPB SCH ×2 (04:24→12:35)
[2017-09-14] MEDS: Linezolid 600 mg in D5W 300 ml 600 MG/300 ML BAG IVPB SCH (04:55)
[2017-09-14 06:20] LABS: HEMOGLOBIN 9.2 g/dL (12.0-18.0); MEAN CELL VOLUME 87.1 fL (80.0-94.0); MEAN CORPUSCULAR HEMOGLOBIN 30.5 pg (27.0-31.0); MEAN CORPUSCULAR HGB CONC 35.1 g/dL (33.0-37.0); RBC 3.02 Mil/uL (4.40-5.90); RED CELL DISTRIBUTION WIDTH 17.6 % (11.5-14.5); WHITE BLOOD COUNT 14.3 K/uL (4.8-10.8)
[2017-09-14] MEDS: metroNIDAZOLE IV 500 mg/100 ml 500 MG/100 ML BAG IVPB SCH ×2 (06:31→14:26)
[2017-09-14 06:41] LABS: CALCIUM 8.2 mg/dl (8.6-10.4)
[2017-09-14] MEDS: (Novolog) Insulin Aspart, Recombinant 100 u/ml 10 ml vial SC SCH ×2 (07:30→12:38)
[2017-09-14] MEDS: Multivitamin Vitamin B Complex (Nephro-Vite) Tab PO SCH (08:58)
[2017-09-14] MEDS: (Lantus) Insulin Glargine, Recombinant SC SCH (09:18)
[2017-09-14] MEDS ORDERED: Pantoprazole 40 mg Susp UD PO SCH (10:00)
[2017-09-14 10:05] VITALS: O2SAT 98
--- NOTE | 2017-09-14 10:28 | PCM.URO ---
Urology Progress Note - General General: No Complaints - Subjective Abdominal Pain: No Flank Pain: No Nausea: No Voiding Well: No Hematuria: No Fever & Chills: No - Objective Lab Results Last 24 Hours: Laboratory Results - last 24 hr 09/13/17 09/13/17 09/13/17 11:22 15:39 21:07 WBC RBC Hgb Hct MCV MCH MCHC RDW Plt Count MPV Sodium Potassium Chloride Carbon Dioxide Anion Gap BUN Creatinine Est GFR ( Amer) Est GFR (Non-Af Amer) POC Glucose (mg/dL) 201 H 158 H 183 H Random Glucose Calcium 09/14/17 09/14/17 09/14/17 06:11 06:11 07:20 WBC 14.3 H RBC 3.02 L Hgb 9.2 L Hct 26.3 L MCV 87.1 MCH 30.5 MCHC 35.1 RDW 17.6 H Plt Count 191 MPV 8.0 Sodium 133 Potassium 3.8 Chloride 96 L Carbon Dioxide 24 Anion Gap 17 BUN 60 H Creatinine 3.1 H Est GFR ( Amer) 24 Est GFR (Non-Af Amer) 19 POC Glucose (mg/dL) 147 H Random Glucose 125 H Calcium 8.2 L Intake & Output: Intake & Output 09/13/17 09/14/17 09/14/17 18:59 06:59 18:59 Intake Total 750 700 Output Total 665 700 Balance 85 0 Weight 242 lb Intake: Intake, IV Amount 150 600 Left Forearm 150 left forearm 600 Oral 600 100 Output: Urine 665 700 Urethral (Ellis) 665 700 Other: # Bowel Movements 1 1 Vital Signs: Vital Signs - 24 hr 09/13/17 09/13/17 09/13/17 11:00 11:10 12:00 Temperature 98.4 F Pulse Rate 110 H 105 H 106 H Respiratory 29 H 28 H 19 Rate Blood Pressure 104/55 L O2 Sat by Pulse 96 93 L 98 Oximetry 09/13/17 09/13/17 09/13/17 12:10 13:00 13:10 Temperature Pulse Rate 104 H 106 H 115 H Respiratory 28 H 28 H 27 H Rate Blood Pressure 109/56 L 96/59 L O2 Sat by Pulse 96 97 98 Oximetry 09/13/17 09/13/17 09/13/17 14:00 14:21 15:00 Temperature Pulse Rate 102 H 110 H 97 H Respiratory 20 22 28 H Rate Blood Pressure 87/54 L O2 Sat by Pulse 99 98 Oximetry 09/13/17 09/13/17 09/13/17 16:00 17:00 18:00 Temperature Pulse Rate 105 H 107 H 101 H Respiratory 19 28 H 11 L Rate Blood Pressure O2 Sat by Pulse 99 98 99 Oximetry 09/13/17 09/13/17 09/13/17 18:21 19:00 20:00 Temperature 97.3 F L Pulse Rate 101 H 107 H 108 H Respiratory 27 H 27 H 23 Rate Blood Pressure 95/58 L 100/57 L O2 Sat by Pulse 98 97 97 Oximetry 09/14/17 09/14/17 09/14/17 00:00 01:00 04:00 Temperature 98.5 F Pulse Rate 114 H 114 H 112 H Respiratory 21 18 Rate Blood Pressure 108/92 H O2 Sat by Pulse 96 95 Oximetry 09/14/17 09/14/17 08:00 10:00 Temperature 98.3 F Pulse Rate 110 H 110 H Respiratory 18 Rate Blood Pressure 97/88 L O2 Sat by Pulse 98 Oximetry - Physical Exam Abdominal Exam: Soft, Non-Tender. absent: Non-Distended (distended, protuberant ) Back: No CVA Tenderness Genitalia: Without Inflammation Urinary Catheter Draining Well: Yes Urine Color: Clear, Yellow Extremities: Lower Extremity Edema: Bilateral - Male Phallus: Uncircumcised (marked edema of genitalia) Scrotum: Edema - Plan Wound Care: Yes (scrotal elevation) Catheter Care: Yes Intake & Output: Yes - Date & Time of Note Date: 09/14/17 Time: 10:28
--- NOTE | 2017-09-14 11:35 | CP.PCM.PN ---
Subjective - Date & Time of Evaluation Date of Evaluation: 09/14/17 Time of Evaluation: 11:35 - Subjective Subjective: CHIEF COMPLAINTS TODAY : afebrile ,awake, FEELING BETTER. NO COMPLAINTS +VE GENERALIZED ANASARCA S/P NEW RT IJ HD CATHETER PLACEMENT TODAY 09/07/17 ROS. HEENT : N. RT.IJ CATHETER IN PLACE Resp : No SOB wheezing, cough Cardio : No CP, PND orthopnea +VE TACHCARDIA GI : No abd. Pain, n/v POT FISHER : No headache , focal deficit. Musculoskel : N Ext. : Pedal pulses intact, B/L EDEMA LE , no calf pain Derm : RT . FOOT DRESSING IN PLACE. Psych : N. PE. Pt. awake in no distress.ON HD. V.S As noted in the chart Head ,ear nose,throat and eyes : Normal. Neck : Supple with normal carotids. RT IJ CATHETER IN PLACE. Lungs: BETTER AERATION. DEC. BS RT. BASE Heart : S1 & S2 IRREGULAR, TACHYCARDIC, HEART RATE 110 BPM Abd : Soft non tender with normal bowel sounds. Neuro : Moves all ext. with no localized deficit. Ext : BILATERAL EDEMA THIGHS/LEGS S. Neg. calf tenderness Derm : RT FOOT BLISTERS NOTED GENITALIA--SCROTAL EDEMA +VE FOLYS \ Radiology/Labs . CREAT 3.1 /BUN 60 PROCALCITONIN 0.88 HIGH CXR 09/10/17 LT, INFRAHILAR AIRSPACE OPACITY. CXR 09/14/17- RLL CONSOLIDATION/RT PLEURAL EFFUSION. LT LUNG CLEAR BLOOD CULTURES-VE TO DATE MRSA NOT DETECTED. URINE CULTURES NEGATIVE GROWTH. Objective - Vital Signs/Intake and Output Vital Signs (last 24 hours): Temp Pulse Resp BP Pulse Ox 98.3 F 110 H 18 97/88 L 98 09/14/17 08:00 09/14/17 10:00 09/14/17 08:00 09/14/17 08:00 09/14/17 08:00 Intake and Output: 09/14/17 09/14/17 06:59 18:59 Intake Total 700 Output Total 700 Balance 0 - Medications Medications: Current Medications Acetaminophen (Tylenol 325mg Tab) 650 mg PO Q6 PRN PRN Reason: pain. Last Admin: 09/13/17 09:30 Dose: 650 mg Al Hydrox/Mg Hydrox/Simethicone (Maalox Plus 30 Ml) 30 ml PO Q6H PRN PRN Reason: Indigestion / Heartburn Calcitriol (Rocaltrol) 0.25 mcg PO DAILY [facility] Last Admin: 09/14/17 09:18 Dose: 0.25 mcg Epoetin Kameron (Procrit) 8,000 unit SC TTS [facility] Last Admin: 09/13/17 09:11 Dose: 8,000 unit Heparin Sodium (Porcine) (Heparin) 5,000 units SC Q12 [facility] Last Admin: 09/14/17 09:18 Dose: 5,000 units Piperacillin Sod/Tazobactam Sod (Zosyn 2.25 Gm Iv Premix) 2.25 gm in 50 mls @ 100 mls/hr IVPB Q8H [facility] PRN Reason: Protocol Last Admin: 09/14/17 04:24 Dose: 100 mls/hr Linezolid (Zyvox 600mg/300ml D5w) 600 mg in 300 mls @ 200 mls/hr IVPB Q12H [facility] PRN Reason: Protocol Last Admin: 09/14/17 04:55 Dose: 200 mls/hr Metronidazole (Flagyl) 500 mg in 100 mls @ 100 mls/hr IVPB Q8 [facility] PRN Reason: Protocol Last Admin: 09/14/17 06:31 Dose: 100 mls/hr Micafungin Sodium 100 mg/ (Sodium Chloride) 100 mls @ 100 mls/hr IV Q24H [facility] PRN Reason: Protocol Last Admin: 09/14/17 02:00 Dose: 100 mls/hr Insulin Aspart (Novolog) 0 unit SC ACHS [facility] PRN Reason: Protocol Last Admin: 09/14/17 07:30 Dose: Not Given Insulin Glargine (Lantus) 30 unit SC QAM [facility] Last Admin: 09/14/17 09:18 Dose: 30 unit Levetiracetam (Keppra) 250 mg PO Q12 [facility] Last Admin: 09/14/17 09:18 Dose: 250 mg Midodrine (Proamatine) 5 mg PO TID [facility] Last Admin: 09/14/17 09:25 Dose: 5 mg Nitroglycerin (Nitrostat Sl Tab) 0.4 mg SL Q5M PRN PRN Reason: Pain, severe (8-10) Last Admin: 09/09/17 12:31 Dose: 0.4 mg Pantoprazole Sodium (Protonix Susp) 40 mg PO DAILY [facility] Last Admin: 09/14/17 09:51 Dose: 40 mg Sevelamer Carbonate (Renvela) 800 mg PO TIDCC [facility] Last Admin: 09/14/17 08:58 Dose: 800 mg Sodium Bicarbonate (Sodium Bicarbonate Tab) 1,300 mg PO BID [facility] Tamsulosin HCl (Flomax) 0.4 mg PO DAILY [facility] Last Admin: 09/14/17 09:18 Dose: 0.4 mg Vitamin B Complex/Vit C/Folic Acid (Nephro-Eber) 1 tab PO 0800 [facility] Last Admin: 09/14/17 08:58 Dose: 1 tab - Labs Labs: 09/14/17 06:11 09/14/17 06:11 PT 13.0 SECONDS (9.7-12.2) H 09/05/17 11:25 INR 1.2 09/05/17 11:25 APTT 31 SECONDS (21-34) 09/05/17 11:25 Assessment and Plan (1) Sepsis Status: Acute (2) Leukocytosis Status: Acute (3) Hypotension Status: Acute (4) Diarrhea Status: Acute (5) S/P craniotomy Status: Acute (6) Anemia Status: Acute (7) Acute on chronic renal failure Status: Acute (8) Rapid atrial fibrillation Status: Acute - Assessment and Plan (Free Text) Plan: Plan: Continue IV Zosyn 2.25 every 8 hourly.09/05/17. X 5DAYS MORE FROM TODAY. DC IV Zyvox 600 mg IV piggyback every 12 hourly for gram-positive coverage. DC IV Flagyl 500 mg every 8 hourly for now. 09/06/17. DC IV MYCAMINE 100 MG iv PIGGYBACK OD DAILY 09/09/17. CASE DISCUSSED WITH Ehsan RAPP . PATIENT FOR SUBACUTE REHABILITATION TODAY. fOLLOW-UP CHEST X-RAY TO CLEARING. PER VARIOUS CONSULTANTS.
[2017-09-14 12:43] VITALS: TEMP 97.7
--- NOTE | 2017-09-14 13:03 | RAD ---
PROCEDURE: CHEST RADIOGRAPH, 1 VIEW HISTORY: COMPARE TO 09/10 CXR PER ID REQUEST COMPARISON: 09/10/2017. FINDINGS: LUNGS: The lungs are well inflated. There is consolidation in the an opacity in the right lower lobe. The left lung is clear. PLEURA: No pneumothorax. Small right pleural effusion. No left pleural effusion. CARDIOVASCULAR: The heart is normal in size. OSSEOUS STRUCTURES: No significant abnormalities. VISUALIZED UPPER ABDOMEN: Normal. OTHER FINDINGS: None. IMPRESSION: Interval development of right pleural effusion and presumable right lower lobe pneumonia. Follow-up after medical management is recommended to ensure complete resolution.
--- NOTE | 2017-09-14 14:17 | CP.PCM.PN ---
Subjective - Date & Time of Evaluation Date of Evaluation: 09/14/17 Time of Evaluation: 14:14 - Subjective Subjective: PT SEEN IN ICU (TELE TRANSFER); EATING LUNCH WITH CP. PT STATES HE FEELS BETTER AND HAS NO CURRENT COMPLAINTS. NO H/A, DIZZINESS, SOB, CP, ABD PAIN, N/ V. + CAUDE CATH STILL IN PLACE. DISCUSSED D/C PLAN WITH DR. Mau KING. REPEAT URINE CX NEG; REPEAT CXR DONE PER DR. KING'S REQUEST AND REVIEWED WITH DR. KING VIA TELEPHONE (SEE OFFICIAL RESULTS). OK TO D/C BACK TO [facility] WITH ZOSYN 2.25 GM I Q8 HOURS X5 MORE DAYS PER ID. WILL D/C WITH HEPLOCK AND CAUDE CATH IN PLACE. DR. MILLER CLEARED PT FOR D/C TODAY; PT TO GO UNDER HIS SERVICE AT [facility]. INSTRUCTED RN TO HOLD FLU/PNA VACCINE FOR NOW; IT CAN BE GIVEN AT [facility] ONCE PT'S RESP CONCERNS ARE RESOLVED. SW TO ARRANGE TRANSPORTATION. NO FURTHER ORDERS. -PLACE UNDER THE SERVICE OF DR. MILLER---CALL DR. MILLER UPON ARRIVAL TO [facility] FOR ADMITTING ORDERS. -FOLLOW UP WITH DR. Yohan PIPER IN THE OFFICE WITHIN 1-2 WEEKS--ARRANGE FOR FOLLOW UP APPT AND TRANSPORTATION. -HEPLOCK AND CAUDE CATHETER CARE PER MD ORDERS AND FACILITY PROTOCOL. CHANGE HEPLOCK NEEDED UNTIL IV ANTIBIOTICS ARE COMPLETED. -CONTINUE MEDICATIONS PER MED REC FORM---CHANGES CAN BE MADE BY DR. MILLER. -PER DR. MARSHAL KING (ID): CONTINUE ZOSYN 2.25 GM IV Q8 HOURS X5 DAYS (STARTED AND LAST DOSE TO BE GIVEN ON 09/19/17). -PHYSICAL THERAPY TOLERATED. Objective - Vital Signs/Intake and Output Vital Signs (last 24 hours): Temp Pulse Resp BP Pulse Ox 97.7 F 115 H 16 98/64 L 98 09/14/17 12:00 09/14/17 12:00 09/14/17 12:00 09/14/17 12:00 09/14/17 12:00 Intake and Output: 09/14/17 09/14/17 06:59 18:59 Intake Total 700 Output Total 700 Balance 0 - Medications Medications: Current Medications Acetaminophen (Tylenol 325mg Tab) 650 mg PO Q6 PRN PRN Reason: pain. Last Admin: 09/13/17 09:30 Dose: 650 mg Al Hydrox/Mg Hydrox/Simethicone (Maalox Plus 30 Ml) 30 ml PO Q6H PRN PRN Reason: Indigestion / Heartburn Calcitriol (Rocaltrol) 0.25 mcg PO DAILY [facility] Last Admin: 09/14/17 09:18 Dose: 0.25 mcg Epoetin Kameron (Procrit) 8,000 unit SC TTS [facility] Last Admin: 09/13/17 09:11 Dose: 8,000 unit Heparin Sodium (Porcine) (Heparin) 5,000 units SC Q12 [facility] Last Admin: 09/14/17 09:18 Dose: 5,000 units Piperacillin Sod/Tazobactam Sod (Zosyn 2.25 Gm Iv Premix) 2.25 gm in 50 mls @ 100 mls/hr IVPB Q8H [facility] PRN Reason: Protocol Last Admin: 09/14/17 12:35 Dose: 100 mls/hr Linezolid (Zyvox 600mg/300ml D5w) 600 mg in 300 mls @ 200 mls/hr IVPB Q12H [facility] PRN Reason: Protocol Last Admin: 09/14/17 04:55 Dose: 200 mls/hr Metronidazole (Flagyl) 500 mg in 100 mls @ 100 mls/hr IVPB Q8 [facility] PRN Reason: Protocol Last Admin: 09/14/17 06:31 Dose: 100 mls/hr Micafungin Sodium 100 mg/ (Sodium Chloride) 100 mls @ 100 mls/hr IV Q24H [facility] PRN Reason: Protocol Last Admin: 09/14/17 02:00 Dose: 100 mls/hr Insulin Aspart (Novolog) 0 unit SC ACHS [facility] PRN Reason: Protocol Last Admin: 09/14/17 12:38 Dose: 2 unit Insulin Glargine (Lantus) 30 unit SC QAM [facility] Last Admin: 09/14/17 09:18 Dose: 30 unit Levetiracetam (Keppra) 250 mg PO Q12 [facility] Last Admin: 09/14/17 09:18 Dose: 250 mg Midodrine (Proamatine) 5 mg PO TID [facility] Last Admin: 09/14/17 09:25 Dose: 5 mg Nitroglycerin (Nitrostat Sl Tab) 0.4 mg SL Q5M PRN PRN Reason: Pain, severe (8-10) Last Admin: 09/09/17 12:31 Dose: 0.4 mg Pantoprazole Sodium (Protonix Susp) 40 mg PO DAILY [facility] Last Admin: 09/14/17 09:51 Dose: 40 mg Sevelamer Carbonate (Renvela) 800 mg PO TIDCC [facility] Last Admin: 09/14/17 12:21 Dose: 800 mg Sodium Bicarbonate (Sodium Bicarbonate Tab) 1,300 mg PO BID [facility] Tamsulosin HCl (Flomax) 0.4 mg PO DAILY [facility] Last Admin: 09/14/17 09:18 Dose: 0.4 mg Vitamin B Complex/Vit C/Folic Acid (Nephro-Eber) 1 tab PO 0800 [facility] Last Admin: 09/14/17 08:58 Dose: 1 tab - Labs Labs: 09/14/17 06:11 09/14/17 06:11 PT 13.0 SECONDS (9.7-12.2) H 09/05/17 11:25 INR 1.2 09/05/17 11:25 APTT 31 SECONDS (21-34) 09/05/17 11:25
--- NOTE | 2017-09-14 14:39 | CP.PCM.PN ---
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 appreciate input urine output better, stable cr, likely recovering FUAD. not in immediate need of dialysis. can give lasix as needed, as tolerated by BP Patient not on ACEI/ARB due to FUAD and low BP. maintain hemodynamics stable Monitor Input/Output, daily weights and renal function with basic metabolic panel Pt on epogen and renvela PRBC with HD 09/07/17 Dose meds/antibiotics for reduced GFR. Avoid fleets enema/magnesium based laxatives and antacids. Avoid nephrotoxins/NSAIDs/ iodinated contrast (unless needed emergently) Glycemic control Further work up/management as per primary team f/up in renal clinic with me 1 week after d.c. pt going to [facility] today. Thanks for allowing me to participate in care of your patient. Will follow patient with you. Please call if any Qs. d/w ICU team Dr Jason Tate Office: [phone] reason for consult: FUAD HPI: Pt is a 82 M with hx of diabetes Mellitus (years), A fib, SDH s/p evacuation, DVT s/p IVC filter and CKD 3 with baseline cr in 2 range presented with complaints of hypotension and sepsis, rapid A fib. renal consult for FUAD, hyperkalemia and acidosis pt feels sick. c/o thigh pain and swelling. denies SOB Denies OTC/herbal meds or NSAIDs No recent iodinated contrast exposure. Noted obvious episodes of low BP. ROS: pt feels okay. denies CP/SOB/nausea. Physical Examination: General Appearance: comfortable, in no acute respiratory distress, better appearing Vitals reviewed and noted as below Head; Atraumatic, normocephalic ENT: no ulcers no thrush. Tongue is midline. Oropharynx: no rash or ulcers. EYES: Pupils are equal, round and reactive to light accommodation. Eye muscles and extraocular movement intact. Sclera is anicteric. Neck; supple no lymphadenopathy, no thyromegaly or bruit Lungs: Normal respiratory rate/effort. Breath sounds bilateral decreased at bases Heart: Increased rate. s1s2 normal. No rub or gallop. A fib Extremities: 2-3+ edema. No varicose veins Neurological: Patient is awake alert and more oriented Skin: Warm and dry. Normal turgor. No rash. Palpitation: Normal elasticity for age Abdomen: Abdomen is soft. Bowel sounds +. There is no abdominal tenderness, no guarding/rigidity no organomegaly Psych: deferred MSK: no joint tenderness or swelling. Digits and nails normal, no deformity : kidney not palpable. scrotal/penile edema ++ has kaplan Labs/imaging reviewed. Past medical history, past surgical history, family history, social history, allergy reviewed and noted as below Family hx: no hx of CKD. Rest non-contributory work up: urine pr/cr 1 gram. vit D 43 PTH 181 Dig 1.4 renal sono unremarkable Objective - Vital Signs/Intake and Output Vital Signs (last 24 hours): Temp Pulse Resp BP Pulse Ox 97.7 F 115 H 16 98/64 L 98 09/14/17 12:00 09/14/17 12:00 09/14/17 12:00 09/14/17 12:00 09/14/17 12:00 Intake and Output: 09/14/17 09/14/17 06:59 18:59 Intake Total 700 Output Total 700 Balance 0 - Medications Medications: Current Medications Acetaminophen (Tylenol 325mg Tab) 650 mg PO Q6 PRN PRN Reason: pain. Last Admin: 09/13/17 09:30 Dose: 650 mg Al Hydrox/Mg Hydrox/Simethicone (Maalox Plus 30 Ml) 30 ml PO Q6H PRN PRN Reason: Indigestion / Heartburn Calcitriol (Rocaltrol) 0.25 mcg PO DAILY [facility] Last Admin: 09/14/17 09:18 Dose: 0.25 mcg Epoetin Kameron (Procrit) 8,000 unit SC TTS [facility] Last Admin: 09/13/17 09:11 Dose: 8,000 unit Heparin Sodium (Porcine) (Heparin) 5,000 units SC Q12 [facility] Last Admin: 09/14/17 09:18 Dose: 5,000 units Piperacillin Sod/Tazobactam Sod (Zosyn 2.25 Gm Iv Premix) 2.25 gm in 50 mls @ 100 mls/hr IVPB Q8H [facility] PRN Reason: Protocol Last Admin: 09/14/17 12:35 Dose: 100 mls/hr Linezolid (Zyvox 600mg/300ml D5w) 600 mg in 300 mls @ 200 mls/hr IVPB Q12H [facility] PRN Reason: Protocol Last Admin: 09/14/17 04:55 Dose: 200 mls/hr Metronidazole (Flagyl) 500 mg in 100 mls @ 100 mls/hr IVPB Q8 [facility] PRN Reason: Protocol Last Admin: 09/14/17 14:26 Dose: 100 mls/hr Micafungin Sodium 100 mg/ (Sodium Chloride) 100 mls @ 100 mls/hr IV Q24H [facility] PRN Reason: Protocol Last Admin: 09/14/17 02:00 Dose: 100 mls/hr Insulin Aspart (Novolog) 0 unit SC ACHS [facility] PRN Reason: Protocol Last Admin: 09/14/17 12:38 Dose: 2 unit Insulin Glargine (Lantus) 30 unit SC QAM [facility] Last Admin: 09/14/17 09:18 Dose: 30 unit Levetiracetam (Keppra) 250 mg PO Q12 [facility] Last Admin: 09/14/17 09:18 Dose: 250 mg Midodrine (Proamatine) 5 mg PO TID [facility] Last Admin: 09/14/17 14:25 Dose: 5 mg Nitroglycerin (Nitrostat Sl Tab) 0.4 mg SL Q5M PRN PRN Reason: Pain, severe (8-10) Last Admin: 09/09/17 12:31 Dose: 0.4 mg Pantoprazole Sodium (Protonix Susp) 40 mg PO DAILY [facility] Last Admin: 09/14/17 09:51 Dose: 40 mg Sevelamer Carbonate (Renvela) 800 mg PO TIDCC [facility] Last Admin: 09/14/17 12:21 Dose: 800 mg Sodium Bicarbonate (Sodium Bicarbonate Tab) 1,300 mg PO BID [facility] Tamsulosin HCl (Flomax) 0.4 mg PO DAILY [facility] Last Admin: 09/14/17 09:18 Dose: 0.4 mg Vitamin B Complex/Vit C/Folic Acid (Nephro-Eber) 1 tab PO 0800 [facility] Last Admin: 09/14/17 08:58 Dose: 1 tab - Labs Labs: 09/14/17 06:11 09/14/17 06:11 PT 13.0 SECONDS (9.7-12.2) H 09/05/17 11:25 INR 1.2 09/05/17 11:25 APTT 31 SECONDS (21-34) 09/05/17 11:25
[2017-09-14 15:52] VITALS: BP 111/67; PULSE 133; RESP 33
--- NOTE | 2017-09-14 19:27 | CP.PCM.PN ---
Subjective - Date & Time of Evaluation Date of Evaluation: 09/14/17 Time of Evaluation: 14:00 Objective - Vital Signs/Intake and Output Vital Signs (last 24 hours): Temp Pulse Resp BP Pulse Ox 97.7 F 133 H 33 H 111/67 98 09/14/17 12:00 09/14/17 14:35 09/14/17 14:35 09/14/17 14:35 09/14/17 14:35 - Labs Labs: 09/14/17 06:11 09/14/17 06:11 PT 13.0 SECONDS (9.7-12.2) H 09/05/17 11:25 INR 1.2 09/05/17 11:25 APTT 31 SECONDS (21-34) 09/05/17 11:25 Assessment and Plan (1) Sepsis Status: Acute (2) Leukocytosis Status: Acute (3) Hypotension Status: Acute (4) Diarrhea Status: Acute (5) S/P craniotomy Status: Acute (6) Anemia Status: Acute (7) Acute on chronic renal failure Status: Acute (8) Rapid atrial fibrillation Status: Acute
--- NOTE | 2017-09-14 23:32 | CP.PCM.DIS ---
Provider - Provider Date of Admission: 09/05/17 12:09 Attending physician: Navin Miller MD Time Spent in preparation of Discharge (in minutes): 52 Diagnosis - Discharge Diagnosis (1) Hypotension Status: Acute (2) Near syncope Status: Acute (3) Rapid atrial fibrillation Status: Acute (4) Sepsis Status: Acute (5) Altered mental status Status: Acute Hospital Course - Lab Results Lab Results: Micro Results 09/10/17 16:14 Foot - Right Gram Stain - Final 09/10/17 16:14 Foot - Right Wound Culture - Final No growth. 09/11/17 19:30 Urine,Ellis Urine Culture - Final No Growth (<1,000 CFU/ML) 09/09/17 02:20 Blood-Thru Central Line Blood Culture - Final NO GROWTH AFTER 5 DAYS 09/09/17 02:20 Blood-Thru Central Line Gram Stain - Final TEST NOT PERFORMED 09/09/17 03:00 Blood-Thru Central Line Blood Culture - Final NO GROWTH AFTER 5 DAYS 09/09/17 03:00 Blood-Thru Central Line Gram Stain - Final TEST NOT PERFORMED 09/05/17 19:00 Blood Blood Culture - Final NO GROWTH AFTER 5 DAYS 09/05/17 19:00 Blood Gram Stain - Final TEST NOT PERFORMED 09/05/17 19:00 Blood Blood Culture - Final NO GROWTH AFTER 5 DAYS 09/05/17 19:00 Blood Gram Stain - Final TEST NOT PERFORMED 09/06/17 14:00 Stool Stool Culture - Final NO SALMONELLA, SHIGELLA OR CAMPYLOBACTER ISOLATED. 09/05/17 12:56 Naris MRSA Culture (Admit) - Final MRSA NOT DETECTED 09/05/17 12:01 Urine,Catheterized Urine Culture - Final No Growth (<1,000 CFU/ML) Most Recent Lab Values WBC 14.3 K/uL (4.8-10.8) H 09/14/17 06:11 RBC 3.02 Mil/uL (4.40-5.90) L 09/14/17 06:11 Hgb 9.2 g/dL (12.0-18.0) L 09/14/17 06:11 Hct 26.3 % (35.0-51.0) L 09/14/17 06:11 MCV 87.1 fL (80.0-94.0) 09/14/17 06:11 MCH 30.5 pg (27.0-31.0) 09/14/17 06:11 MCHC 35.1 g/dL (33.0-37.0) 09/14/17 06:11 RDW 17.6 % (11.5-14.5) H 09/14/17 06:11 Plt Count 191 K/uL (130-400) 09/14/17 06:11 MPV 8.0 fL (7.2-11.7) 09/14/17 06:11 Neut % (Auto) 80.9 % (50.0-75.0) H 09/13/17 06:19 Lymph % (Auto) 11.9 % (20.0-40.0) L 09/13/17 06:19 [place] % (Auto) 5.3 % (0.0-10.0) 09/13/17 06:19 Eos % (Auto) 0.8 % (0.0-4.0) 09/13/17 06:19 Baso % (Auto) 1.1 % (0.0-2.0) 09/13/17 06:19 Neut # (Auto) 9.8 K/uL (1.8-7.0) H 09/13/17 06:19 Lymph # (Auto) 1.4 K/uL (1.0-4.3) 09/13/17 06:19 [place] # (Auto) 0.6 K/uL (0.0-0.8) 09/13/17 06:19 Eos # (Auto) 0.1 K/uL (0.0-0.7) 09/13/17 06:19 Baso # (Auto) 0.1 K/uL (0.0-0.2) 09/13/17 06:19 Neutrophils % (Manual) 89 % (50-75) H 09/12/17 07:19 Band Neutrophils % 2 % (0-2) 09/11/17 06:35 Lymphocytes % (Manual) 7 % (20-40) L 09/12/17 07:19 Reactive Lymphs % 1 % (0-0) H 09/10/17 05:21 Monocytes % (Manual) 2 % (0-10) 09/12/17 07:19 Eosinophils % (Manual) 2 % (0-4) 09/12/17 07:19 Basophils % (Manual) 1 % (0-2) 09/07/17 06:15 Myelocytes % 1 % (0-0) H 09/05/17 11:25 Toxic Granulation Present 09/07/17 06:15 Platelet Estimate Normal (NORMAL) 09/12/17 07:19 Large Platelets Present 09/12/17 07:19 Giant Platelets Present 09/12/17 07:19 Polychromasia Slight 09/12/17 07:19 Hypochromasia (manual) Slight 09/12/17 07:19 Poikilocytosis (manual Slight 09/12/17 07:19 Anisocytosis (manual) Slight 09/12/17 07:19 Microcytosis (manual) Slight 09/12/17 07:19 Macrocytosis (manual) Slight 09/12/17 07:19 Target Cells Slight 09/12/17 07:19 Ovalocytes Slight 09/12/17 07:19 Farideh Cells Moderate 09/09/17 06:09 ESR 50 mm/hr (0-15) H 09/11/17 06:35 PT 13.0 SECONDS (9.7-12.2) H 09/05/17 11:25 INR 1.2 09/05/17 11:25 APTT 31 SECONDS (21-34) 09/05/17 11:25 Puncture Site Rba 09/05/17 19:50 pCO2 20 mm/Hg (35-45) L 09/05/17 19:50 pO2 139 mm/Hg (30-55) H 09/06/17 05:39 HCO3 13.5 mmol/L (21-28) L 09/05/17 19:50 ABG pH 7.29 (7.35-7.45) L 09/05/17 19:50 ABG Total CO2 10.2 mmol/L (22-28) L 09/05/17 19:50 ABG O2 Saturation 100.2 % (95-98) H 09/05/17 19:50 ABG Base Excess -14.7 mmol/L (-2.0-3.0) L 09/05/17 19:50 [place] Test Pos 09/05/17 19:50 ABG Potassium 6.0 mmol/L (3.6-5.2) H 09/05/17 19:50 VBG pH 7.33 (7.32-7.43) 09/06/17 05:39 VBG pCO2 21 mmHg (40-60) L 09/06/17 05:39 VBG HCO3 15.1 mmol/L 09/06/17 05:39 VBG Total CO2 11.7 mmol/L (22-28) L 09/06/17 05:39 VBG O2 Sat (Calc) 100.5 % (40-65) H 09/06/17 05:39 VBG Base Excess -12.6 mmol/L (0.0-2.0) L 09/06/17 05:39 VBG Potassium 5.0 mmol/L (3.6-5.2) 09/06/17 05:39 A-a O2 Difference 79.0 mm/Hg 09/05/17 19:50 Respiratory Index 0.6 09/05/17 19:50 Sodium 135.0 mmol/l (132-148) 09/06/17 05:39 Chloride 105.0 mmol/L (98-107) 09/06/17 05:39 Glucose 250 mg/dl (75-110) H 09/06/17 05:39 Lactate 3.4 mmol/L (0.7-2.1) H 09/06/17 05:39 Liter Flow 3.0 09/06/17 05:39 FiO2 32.0 % 09/05/17 19:50 Crit Value Called To Dr patel 09/05/17 13:28 Crit Value Called By Chantale boudreaux [employer] [facility] 09/05/17 13:28 Crit Value Read Back Y 09/05/17 13:28 Blood Gas Notified Time 1335 09/05/17 13:28 Sodium 133 mmol/L (132-148) 09/14/17 06:11 Potassium 3.8 mmol/L (3.6-5.2) 09/14/17 06:11 Chloride 96 mmol/L (98-107) L 09/14/17 06:11 Carbon Dioxide 24 mmol/L (22-30) 09/14/17 06:11 Anion Gap 17 (10-20) 09/14/17 06:11 BUN 60 mg/dL (9-20) H 09/14/17 06:11 Creatinine 3.1 mg/dL (0.8-1.5) H 09/14/17 06:11 Est GFR ( Amer) 24 09/14/17 06:11 Est GFR (Non-Af Amer) 19 09/14/17 06:11 POC Glucose (mg/dL) 194 mg/dL (65-110) H 09/14/17 11:13 Random Glucose 125 mg/dL (75-110) H 09/14/17 06:11 Lactic Acid 2.2 mmol/L (0.7-2.1) H 09/10/17 05:21 Calcium 8.2 mg/dl (8.6-10.4) L 09/14/17 06:11 Phosphorus 4.3 mg/dL (2.5-4.5) 09/13/17 06:19 Magnesium 1.7 mg/dL (1.6-2.3) 09/13/17 06:19 Iron 38 ug/dL (49-181) L 09/06/17 12:02 TIBC 208 ug/dL (250-450) L 09/06/17 12:02 % Saturation 18 (20-55) L 09/06/17 12:02 Ferritin 848.0 ng/mL 09/06/17 12:02 Total Bilirubin 1.1 mg/dL (0.2-1.3) 09/13/17 06:19 AST 25 U/L (17-59) 09/13/17 06:19 ALT 19 U/L (21-72) L 09/13/17 06:19 Alkaline Phosphatase 67 U/L (38-126) 09/13/17 06:19 CK-MB (Mass) 1.62 ng/mL (0.0-3.38) 09/09/17 12:54 Troponin I 0.0730 ng/mL (0.00-0.120) 09/09/17 12:54 C-Reactive Protein 152.60 mg/L (0.0-9.9) H 09/07/17 06:15 NT-Pro-B Natriuret Pep 4800 pg/mL (0-900) H 09/05/17 12:26 Total Protein 5.9 g/dL (6.3-8.3) L 09/13/17 06:19 Total Protein (PEP) 6.2 g/dL (6.1-8.1) 09/06/17 12:02 Albumin 2.9 g/dL (3.5-5.0) L 09/13/17 06:19 Albumin (PEP) 2.6 g/dL (3.8-4.8) L 09/06/17 12:02 Globulin 3.0 gm/dL (2.2-3.9) 09/13/17 06:19 Albumin/Globulin Ratio 0.9 (1.0-2.1) L 09/13/17 06:19 Lyhfl-1-Ogjgrblws 0.6 g/dL (0.2-0.3) H 09/06/17 12:02 Nvmel-2-Yqgximmud 0.9 g/dL (0.5-0.9) 09/06/17 12:02 Oqey-5-Fufvspea 0.3 g/dL (0.4-0.6) L 09/06/17 12:02 Wiii-0-Fscnztrg 0.5 g/dL (0.2-0.5) 09/06/17 12:02 Gamma Globulins 1.2 g/dL (0.8-1.7) 09/06/17 12:02 Abnorm Protein Band 1 TEST NOT PERFORMED 09/06/17 12:02 Abnorm Protein Band 2 TEST NOT PERFORMED 09/06/17 12:02 Abnorm Protein Band 3 TEST NOT PERFORMED 09/06/17 12:02 Prostate Specific Ag 1.42 ng/mL (0.00-4.0) 09/07/17 16:35 Free PSA 0.2 ng/mL 09/08/17 15:00 % Free PSA 14 % (calc) (>25) L 09/08/17 15:00 Total PSA 1.4 ng/mL (< or = 4.0) 09/08/17 15:00 Procalcitonin 0.88 NG/ML (0.19-0.49) H 09/11/17 10:58 PTH Intact Whole Molec 181 pg/mL (14-64) H 09/11/17 07:11 Arterial Blood Potassium 6.0 mmol/L (3.6-5.2) H 09/05/17 19:50 Venous Blood Potassium 5.0 mmol/L (3.6-5.2) 09/06/17 05:39 Urine Color Yellow (YELLOW) 09/11/17 18:29 Urine Clarity Hazy (Clear) 09/11/17 18:29 Urine pH 5.0 (5.0-8.0) 09/11/17 18:29 Ur Specific [place] 1.015 (1.003-1.030) 09/11/17 18: Urine Protein Negative mg/dL (NEGATIVE) 09/11/17 18:29 Urine Glucose (UA) 1+ mg/dL (Normal) H 09/11/17 18:29 Urine Ketones Negative mg/dL (NEGATIVE) 09/11/17 18: Urine Blood Negative (NEGATIVE) 09/11/17 18: Urine Nitrate Negative (NEGATIVE) 09/11/17 18: Urine Bilirubin Negative (NEGATIVE) 09/11/17 18: Urine Urobilinogen Normal mg/dL (0.2-1.0) 09/11/17 18:29 Ur Leukocyte Esterase 1+ [place]/uL (Negative) H 09/11/17 18:29 Urine WBC (Auto) 10 /hpf (0-5) H 09/11/17 18:29 Urine RBC (Auto) 3 /hpf (0-3) 09/11/17 18:29 Ur Squamous Epith Cells 1 /hpf (0-5) 09/11/17 18:29 Urine Bacteria Occ (<OCC) H 09/11/17 18:29 Urine Yeast (Budding) Many /hpf (NEGATIVE) H 09/07/17 11:28 Urine Eosinophils Negative (NEGATIVE) 09/06/17 12:04 Ur Random Creatinine 104.6 mg/dL 09/07/17 11:28 Ur Random Sodium 26 mmol/L 09/07/17 11:28 Ur Random Phosphorus 105.9 mg/dL 09/07/17 11:28 Ur Random Uric Acid 27.5 mg/dL 09/07/17 11:28 Ur Random Glucose 237 mg/dL 09/07/17 11:28 Stool Occult Blood Negative (NEGATIVE) 09/09/17 15:59 Stool Leukocytes, Qual Negative (NEGATIVE) 09/06/17 14:00 Random Vancomycin 5.88 ug/mL 09/07/17 06:15 Digoxin 1.4 ng/mL (0.8-2.0) 09/05/17 11:25 FRANCISCO & SPEP Interp See note 09/06/17 12:02 Serum Immunofixation Not detected (Not Detected) 09/06/17 12:02 Complement C4 25.6 mg/dL (14.0-44.0) 09/11/17 06:35 Tot Complement (CH50) 51 U/mL (31-60) 09/11/17 07:11 Tot [place]/Lambda Ratio 2.22 (1.29-2.55) 09/06/17 12:04 [place] Light Chain Anal 364 mg/dL (176-443) 09/06/17 12:04 Lambda Light Chain Anal 164 mg/dL (91-240) 09/06/17 12:04 C. difficile Ag & Toxin Negative (NEGATIVE) 09/06/17 14:00 Hep Bs Antigen Negative (NEGATIVE) 09/07/17 15:11 Hep Bs Antibody Positive (NEGATIVE) 09/07/17 15:11 Hepatitis C Antibody Negative (NEGATIVE) 09/07/17 15:11 Blood Type O POSITIVE 09/07/17 12:01 Antibody Screen Negative 09/07/17 12:01 - Hospital Course Hospital Course: PT SEEN IN ICU (TELE TRANSFER); EATING LUNCH WITH CP. PT STATES HE FEELS BETTER AND HAS NO CURRENT COMPLAINTS. NO H/A, DIZZINESS, SOB, CP, ABD PAIN, N/ V. + CAUDE CATH STILL IN PLACE. DISCUSSED D/C PLAN WITH DR. Mau SWEENEY. REPEAT URINE CX NEG; REPEAT CXR DONE PER DR. SWEENEY'S REQUEST AND REVIEWED WITH DR. SWEENEY VIA TELEPHONE (SEE OFFICIAL RESULTS). OK TO D/C BACK TO [facility] WITH ZOSYN 2.25 GM I Q8 HOURS X5 MORE DAYS PER ID. WILL D/C WITH HEPLOCK AND CAUDE CATH IN PLACE. PT FOR D/C TODAY; PT TO GO UNDER HIS SERVICE AT [facility]. INSTRUCTED RN TO HOLD FLU/PNA VACCINE FOR NOW; IT CAN BE GIVEN AT [facility] ONCE PT'S RESP CONCERNS ARE RESOLVED. SW TO ARRANGE TRANSPORTATION. NO FURTHER ORDERS. -I WILL FOLLOW UP THE PT AT [facility] FOR ADMITTING ORDERS. -FOLLOW UP WITH DR. Yohan JEFFERSON IN THE OFFICE WITHIN 1-2 WEEKS--ARRANGE FOR FOLLOW UP APPT AND TRANSPORTATION. -HEPLOCK AND CAUDE CATHETER CARE PER MD ORDERS AND FACILITY PROTOCOL. CHANGE HEPLOCK NEEDED UNTIL IV ANTIBIOTICS ARE COMPLETED. -CONTINUE MEDICATIONS PER MED REC FORM---CHANGES CAN BE MADE BY DR. MILLER. -PER DR. MARSHAL SWEENEY (ID): CONTINUE ZOSYN 2.25 GM IV Q8 HOURS X5 DAYS (STARTED AND LAST DOSE TO BE GIVEN ON 09/19/17). -PHYSICAL THERAPY TOLERATED. Discharge Exam - Head Exam Head Exam: ATRAUMATIC, NORMAL INSPECTION, NORMOCEPHALIC Discharge Plan - Discharge Medications Prescriptions: Piperacill/Tazo 2.25gm in Dex [Zosyn 2.25 Gm IV Premix] 2.25 gm IV Q8 5 Days bag - Follow Up Plan Condition: SERIOUS Disposition: HOME/ ROUTINE Instructions: Atrial Fibrillation (DC), Pneumonia, Adult (DC), Chronic Kidney Disease (DC), Low Blood Pressure (DC), Renal Failure Diet (DC), Sepsis (DC) Additional Instructions: -PLACE UNDER THE SERVICE OF DR. MILLER---CALL DR. MILLER UPON ARRIVAL TO [facility] FOR ADMITTING ORDERS. -FOLLOW UP WITH DR. Yohan JEFFERSON IN THE OFFICE WITHIN 1-2 WEEKS--ARRANGE FOR FOLLOW UP APPT AND TRANSPORTATION. -HEPLOCK AND CAUDE CATHETER CARE PER MD ORDERS AND FACILITY PROTOCOL. CHANGE HEPLOCK NEEDED UNTIL IV ANTIBIOTICS ARE COMPLETED. -CONTINUE MEDICATIONS PER MED REC FORM---CHANGES CAN BE MADE BY DR. MILLER. -PER DR. MARSHAL SWEENEY (ID): CONTINUE ZOSYN 2.25 GM IV Q8 HOURS X5 DAYS (STARTED AND LAST DOSE TO BE GIVEN ON 09/19/17). -PHYSICAL THERAPY TOLERATED. Referrals: Jason Tate MD [Staff Provider] - Waldemar Morris MD [Staff Provider] - Marshal Sweeney MD [Staff Provider] - Navin Miller MD [Staff Provider] - Summer Jefferson MD [Staff Provider] -
--- NOTE | 2017-09-17 00:47 | CON ---
DATE: 09/12/2017 UROLOGY CONSULTATION Urology consultation is requested by Dr. Benton. Urology consultation is filled by Dr. Summer Jefferson. REASON FOR CONSULTATION: Inability to be catheterized. HISTORY OF PRESENT ILLNESS: The patient is an 82-year-old male who has inability to be catheterized. The patient was admitted to the hospital. The patient had sepsis. He had previous urinary retention. He had success trial of voiding. However, he only urinated small amounts. The bladder scan performed last night revealed residual of approximately 400 mL. Today, the patient has not urinated. The patient has renal failure as well. The patient has anasarca. Remainder of his details are as per the chart. Chart is reviewed as well. The patient is currently receiving antibiotic therapy. The source of the sepsis has not been identified. PHYSICAL EXAMINATION: GENERAL: The patient is a well-developed elderly male. The patient is lethargic but awake. ABDOMEN: Soft. Moderately distended. There is suprapubic dullness to percussion. There is mild suprapubic tenderness. The patient has anasarca. EXTREMITIES: The patient has edema of lower extremities. GENITALIA: The patient has severe edema of the scrotum and penis. Penis is uncircumcised. LABORATORY DATA: Reviewed as well, see attached reports. IMPRESSION: Renal failure. Probably urinary retention. Anasarca. Renal failure. Sepsis. PLAN/RECOMMENDATIONS AND TREATMENT: I confessed the genitalia to the penile shaft there was less edema. Thereafter, I was ultimately able to identify the glans. With further confession, the foreskin was able to be spread just enough to expose the glans. I was able to catheterize the patient with a 14-[place] Ellis catheter. There was narrowing in the proximal urethra which I negotiated the catheter. There may be a bulbous urethral stricture as well. The urine was clear via the Ellis catheter. I left the Ellis catheter in place. The residual was subsequently reported as 1100 mL. Continue Ellis catheter drainage. Scrotal elevation. Thereafter, further workup to follow regarding urinary retention. Regarding urinary retention, monitor renal function. Urine culture. Serum PSA. Further therapy to follow according to the patient's clinical course as well as results of above. Summer MD Ronny cc: Navin Benton MD
== END 2017-09-14 16:00 | DRG 871 ==
LOC: C.ER 10:24 → C.9I 12:09
PROVIDERS: ADMIT Internal Medicine; ATTEND Internal Medicine
PROC: 30233N1 Transfusion of Nonautologous Red Blood Cells into Peripheral Vein, Percutaneous Approach (ICD-10-PCS; principal; 2017-09-07)
PROC: 5A1D70Z Performance of Urinary Filtration, Intermittent, Less than 6 Hours Per Day (ICD-10-PCS; 2017-09-07)
PROC: 02HV33Z Insertion of Infusion Device into Superior Vena Cava, Percutaneous Approach (ICD-10-PCS; 2017-09-07)
PROC: 02HV33Z Insertion of Infusion Device into Superior Vena Cava, Percutaneous Approach (ICD-10-PCS; 2017-09-07)
DX: A41.9 Sepsis, unspecified organism (principal); N17.0 Acute kidney failure with tubular necrosis; J18.9 Pneumonia, unspecified organism; I62.00 Nontraumatic subdural hemorrhage, unspecified; N18.6 End stage renal disease; E87.2 Acidosis; J44.0 Chronic obstructive pulmonary disease with (acute) lower respiratory infection; N25.81 Secondary hyperparathyroidism of renal origin; N39.0 Urinary tract infection, site not specified; I13.2 Hypertensive heart and chronic kidney disease with heart failure and with stage 5 chronic kidney disease, or end stage renal disease; I82.503 Chronic embolism and thrombosis of unspecified deep veins of lower extremity, bilateral; D64.9 Anemia, unspecified; E11.22 Type 2 diabetes mellitus with diabetic chronic kidney disease; E11.65 Type 2 diabetes mellitus with hyperglycemia; E78.00 Pure hypercholesterolemia, unspecified; E87.5 Hyperkalemia; I48.91 Unspecified atrial fibrillation; I50.9 Heart failure, unspecified; R65.20 Severe sepsis without septic shock; K21.9 Gastro-esophageal reflux disease without esophagitis; M41.9 Scoliosis, unspecified; Z79.4 Long term (current) use of insulin; M47.9 Spondylosis, unspecified; R55 Syncope and collapse; Z99.2 Dependence on renal dialysis